=== PATIENT | female | born 1940 | race Caucasian/White ===

== ENCOUNTER 2021-06-02 21:45 | Emergency (ER) | payer MEDICARE, OTHER, SELFPAY ==
[2021-06-02 21:41] VITALS: BP 184/88; PULSE 101; RESP 18; TEMP 36.4; O2SAT 95; BMI 27.4
--- NOTE | 2021-06-02 22:18 | HMH.EDRECH ---
ED Disposition Clinical Impression: Anxiety Hypertension Qualifiers: Hypertension type: primary hypertension Qualified Code(s): I10 - Essential (primary) hypertension Arm fracture, right Qualifiers: Encounter type: subsequent encounter Fracture type: closed Fracture healing: with routine healing Qualified Code(s): S42.301D - Unspecified fracture of shaft of humerus, right arm, subsequent encounter for fracture with routine healing Disposition: Xfer SNF Condition on Discharge: Good Instructions: DI for Anxiety -- Adult Additional Instructions: will follow at [facility], [facility] Referrals: Provider,Referral, [Primary Care Provider] - - Critical Care Critical Care Time: No Attestation: On 06/02/21, the high probability of a clinically significant, sudden or life threatening deterioration of the following system(s) required my full and direct attention, intervention and personal management. The time I documented below is in addition to time spent performing reported procedures but includes the following listed in this critical care notation. Medical Decision Making - Medical Records Medical records reviewed: Yes: I reviewed the patient's medical records. - Benoit Inquiry Pt receiving controlled substance: No Vital Signs: 06/02/21 21:41 06/02/21 22:20 06/02/21 22:30 Temperature 97.6 F Temperature Source Oral Pulse Rate 107 H 104 H Pulse Rate [Left Radial] 101 H Respiratory Rate 18 18 Blood Pressure 180/92 H 174/85 H Blood Pressure [Left Arm] 184/88 H Blood Pressure Mean 113 Blood Pressure Mean [Left Arm] 120 Blood Pressure Source [Left Arm] Automatic Cuff Blood Pressure Position [Left Arm] Sitting 02 Sat by Pulse Oximetry 95 97 97 Oxygen Delivery Method Room Air Room Air 06/02/21 22:45 06/02/21 23:30 06/03/21 00:00 Temperature Temperature Source Pulse Rate 98 H 97 H 78 Pulse Rate [Left Radial] Respiratory Rate Blood Pressure 140/99 H 157/85 H 146/67 H Blood Pressure [Left Arm] Blood Pressure Mean Blood Pressure Mean [Left Arm] Blood Pressure Source [Left Arm] Blood Pressure Position [Left Arm] 02 Sat by Pulse Oximetry 96 98 93 L Oxygen Delivery Method 06/03/21 00:30 06/03/21 01:00 06/03/21 01:30 Temperature Temperature Source Pulse Rate 75 67 71 Pulse Rate [Left Radial] Respiratory Rate Blood Pressure 140/59 L 144/66 H 154/67 H Blood Pressure [Left Arm] Blood Pressure Mean Blood Pressure Mean [Left Arm] Blood Pressure Source [Left Arm] Blood Pressure Position [Left Arm] 02 Sat by Pulse Oximetry 97 92 L 95 Oxygen Delivery Method 06/03/21 01:52 06/03/21 02:48 06/03/21 03:00 Temperature Temperature Source Pulse Rate 71 75 65 Pulse Rate [Left Radial] Respiratory Rate Blood Pressure 127/61 163/62 H 154/67 H Blood Pressure [Left Arm] Blood Pressure Mean Blood Pressure Mean [Left Arm] Blood Pressure Source [Left Arm] Blood Pressure Position [Left Arm] 02 Sat by Pulse Oximetry 98 97 98 Oxygen Delivery Method 06/03/21 03:30 06/03/21 04:00 Temperature Temperature Source Pulse Rate 69 79 Pulse Rate [Left Radial] Respiratory Rate Blood Pressure 147/65 H 141/69 H Blood Pressure [Left Arm] Blood Pressure Mean Blood Pressure Mean [Left Arm] Blood Pressure Source [Left Arm] Blood Pressure Position [Left Arm] 02 Sat by Pulse Oximetry 95 96 Oxygen Delivery Method - Lab Data Lab results reviewed: Yes: I reviewed the patient's lab results. Lab Results 06/02/21 22:17: WBC 10.6, RBC 4.88, Hgb 14.2, Hct 45.1, MCV 92.3, MCH 29.2, MCHC 31.6 L, RDW 13.2, Plt Count 491 H, MPV 8.0, Neut % (Auto) 69.3, Lymph % (Auto) 22.8, [place] % (Auto) 5.2, Eos % (Auto) 1.9, Baso % (Auto) 0.7, Neut # (Auto) 7.3, Lymph # (Auto) 2.4, [place] # (Auto) 0.6, Eos # (Auto) 0.2, Baso # (Auto) 0.1 06/02/21 22:17: Sodium 140, Potassium 4.5, Chloride 107, Carbon Dioxide 21 L, Anion Gap 16.5 H, BUN 1
[2021-06-02 22:20] VITALS: BP 180/92; PULSE 107; RESP 18; O2SAT 97
[2021-06-02 22:28] LABS: Coronavirus 19, PCR Not Detected (NotDetected); Influenza A, PCR Not Detected (NotDetected); Influenza B, PCR Not Detected (NotDetected)
[2021-06-02 22:29] LABS: Basophils # 0.1 K/mm3 (0-0.2); Basophils % 0.7 % (0.1-2.0); Eosinophils # 0.2 K/mm3 (0.0-0.4); Eosinophils % 1.9 % (0.1-12.0); Hematocrit 45.1 % (37.0-47.0); Hemoglobin 14.2 g/dL (12.2-16.2); Lymphocytes # 2.4 K/mm3 (0.7-4.5); Lymphocytes % 22.8 % (10-50); Mean Corpuscular HGB Conc 31.6 g/dL (31.8-35.4); Mean Corpuscular Hemoglobin 29.2 pg (27.0-31.2); Mean Corpuscular Volume 92.3 fl (81-99); Monocytes # 0.6 K/mm3 (0.1-1.0); Monocytes % 5.2 % (1.7-9.3); Neutrophils # 7.3 K/mm3 (1.8-7.8); Neutrophils % 69.3 % (37.0-80.0); Platelet Count 491 K/mm3 (142-424); Red Blood Count 4.88 M/mm3 (4.20-5.40); Red Cell Distribution Width 13.2 % (11.5-17.5); White Blood Count 10.6 K/mm3 (4.8-10.8)
[2021-06-02 22:30] VITALS: BP 174/85; PULSE 104; O2SAT 97
[2021-06-02 22:32] LABS: Chloride 107 mmol/L (98-107)
[2021-06-02 22:33] LABS: Potassium 4.5 mmoL/L (3.5-5.1); Sodium 140 mmol/L (136-145)
[2021-06-02 22:35] LABS: Alanine Aminotransferase 13 U/L (12-78); Alkaline Phosphatase 136 U/L (38-126); Aspartate Amino Transferase 30 U/L (14-36); Bilirubin,Total 0.4 mg/dl (0.2-1.3); Blood Urea Nitrogen 17 mg/dl (7-17); Creatinine Clearance Estimated 56 mL/min (50-200); Estimated Glomerular Filt Rate 60 ml/min (>60); GFR (African American) 73 ML/MIN (>60)
[2021-06-02 22:36] LABS: Albumin Level 4.6 g/dl (3.5-5.0); Albumin/Globulin Ratio 1.4 (1.1-1.8); Anion Gap 16.5 mEq/L (5-15); Calcium 9.8 mg/dl (8.4-10.2); Carbon Dioxide 21 mmol/L (22.0-30.0); Globulin 3.2 g/dL (1.3-3.2); Glucose 130 mg/dl (74-100); Total Protein,Serum 7.8 g/dl (6.3-8.2)
[2021-06-02 22:45] VITALS: BP 140/99; PULSE 98; O2SAT 96
[2021-06-02 22:53] LABS: T4 (Thyroxine) 10.5 ug/dl (5.53-11.0)
[2021-06-02 23:07] LABS: Thyroid Stimulating Hormone 4.09 uIU/mL (0.465-4.68)
[2021-06-02 23:30] VITALS: BP 157/85; PULSE 97; O2SAT 98
[2021-06-02 23:36] LABS: Microscopic, Urine URINE MICROSCOPIC (MICROSCOPIC)
[2021-06-02 23:37] LABS: Appearance,Urine CLEAR (Clear); Bilirubin,Urine Negative (Negative); Blood, Urine Negative (Negative); Color,Urine YELLOW (Yellow); Glucose,Urine (UA) Negative (Negative); Ketones,Urine Negative (Negative); Leukocyte Esterase,Urine Negative (Negative); Nitrate,Urine Negative (Negative); PH,Urine 5.5 (5.0-8.5); Protein,Urine Negative (Negative); Specific Gravity, Urine 1.025 (1.005-1.030); Urobilinogen,Urine 0.2 EU/dl (0.2)
[2021-06-02 23:49] LABS: Bacteria,Urine Trace /lpf; WBC,Urine Occasional #/hpf (0-3)
[2021-06-03] VITALS (10 sets, daily range): BP systolic 127–163; BP diastolic 59–69; PULSE 65–82; RESP 18; TEMP 36.4; O2SAT 92–98
--- NOTE | 2021-06-03 04:37 | PC.NURSE ---
Pt sleeping at this time. No needs.
--- NOTE | 2021-06-03 05:00 | PC.NURSE ---
PT able to ambulate to restroom with assistance of one.
--- NOTE | 2021-06-03 06:36 | PC.NURSE ---
Pt sleeping at this time. No needs
--- NOTE | 2021-06-03 07:30 | PC.NURSE ---
[facility] NOTIFIED FOR POSSIBLE PLACEMENTS
--- NOTE | 2021-06-03 09:40 | PC.NURSE ---
Jennifer Blue at bedside
--- NOTE | 2021-06-03 09:54 | PC.NURSE ---
PT at bedside
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
== END 2021-06-03 15:53 ==
PROVIDERS: Emergency Provider Emergency Medicine
DX: F41.9 Anxiety disorder, unspecified (principal); S42.301D Unspecified fracture of shaft of humerus, right arm, subsequent encounter for fracture with routine healing; I10 Essential (primary) hypertension; Z20.822 Contact with and (suspected) exposure to COVID-19
CPT/HCPCS: 80053; 81001; 84436; 84443; 85025; 99283; C9803; U0003; U0005

== ENCOUNTER → 2021-07-04 09:53 | Outpatient (CLI) | payer MEDICARE, OTHER, SELFPAY ==
--- NOTE | 2021-07-04 10:00 | XR_ITS ---
PROCEDURE: XR SHOULDER RT MIN 2V CLINICAL INDICATION: RUE fracture COMPARISON: No exams were available for comparison FINDINGS: There are no previous exams available for comparison. There is an ununited transverse fracture involving the humeral neck. There is 2 cm medial displacement of the distal fracture fragment. Humeral head appears located. IMPRESSION: Old ununited displaced right humeral neck fracture Dictated by: Keyon Chen MD 07/04/2021 11:09 Keyon Chen MD in [place] 07/04/2021 11:09
== END ==
PROVIDERS: Visit Provider Orthopaedic Surgery
DX: M25.511 Pain in right shoulder; Z79.899 Other long term (current) drug therapy; S42.201K Unspecified fracture of upper end of right humerus, subsequent encounter for fracture with nonunion
CPT/HCPCS: 36415; 73030; 80053; 82652; 84134; 84443; 85025

== ENCOUNTER → 2021-07-04 11:24 | Outpatient (CLI) | payer MEDICARE, OTHER, SELFPAY ==
[2021-07-04 12:08] LABS: Basophils # 0.2 K/mm3 (0-0.2); Basophils % 1.7 % (0.1-2.0); Eosinophils # 0.2 K/mm3 (0.0-0.4); Eosinophils % 2.3 % (0.1-12.0); Hematocrit 45.2 % (37.0-47.0); Hemoglobin 13.9 g/dL (12.2-16.2); Lymphocytes # 3.7 K/mm3 (0.7-4.5); Lymphocytes % 38.9 % (10-50); Mean Corpuscular HGB Conc 30.7 g/dL (31.8-35.4); Mean Corpuscular Hemoglobin 28.6 pg (27.0-31.2); Mean Platelet Volume 7.7 fl (7.4-10.4); Monocytes # 0.4 K/mm3 (0.1-1.0); Monocytes % 4.1 % (1.7-9.3); Neutrophils # 5.1 K/mm3 (1.8-7.8); Platelet Count 446 K/mm3 (142-424); Red Blood Count 4.85 M/mm3 (4.20-5.40); Red Cell Distribution Width 13.2 % (11.5-17.5); White Blood Count 9.6 K/mm3 (4.8-10.8)
[2021-07-04 13:28] LABS: Alanine Aminotransferase 16 U/L (12-78); Albumin Level 4.3 g/dl (3.5-5.0); Albumin/Globulin Ratio 1.5 (1.1-1.8); Alkaline Phosphatase 124 U/L (38-126); Anion Gap 14.4 mEq/L (5-15); Aspartate Amino Transferase 26 U/L (14-36); Bilirubin,Total 0.3 mg/dl (0.2-1.3); Blood Urea Nitrogen 12 mg/dl (7-17); Calcium 9.7 mg/dl (8.4-10.2); Carbon Dioxide 25 mmol/L (22.0-30.0); Chloride 106 mmol/L (98-107); Estimated Glomerular Filt Rate 69 ml/min (>60); GFR (African American) 84 ML/MIN (>60); Globulin 2.8 g/dL (1.3-3.2); Glucose 88 mg/dl (74-100); Potassium 4.4 mmoL/L (3.5-5.1); Sodium 141 mmol/L (136-145); Total Protein,Serum 7.1 g/dl (6.3-8.2)
[2021-07-04 13:57] LABS: Thyroid Stimulating Hormone 2.42 uIU/mL (0.465-4.68)
[2021-07-05 11:35] LABS: Prealbumin 30 mg/dL (9-32)
[2021-07-16 21:08] LABS: 1,25 Dihydroxy Vitamin D 56 pg/mL (.); 1,25-Dihydroxy, Vitamin D-2 21 pg/mL (.); 1,25-Dihydroxy, Vitamin D-3 35 pg/mL (.)
== END ==
PROVIDERS: Visit Provider Orthopaedic Surgery
DX: M25.511 Pain in right shoulder (principal); M79.601 Pain in right arm; M79.89 Other specified soft tissue disorders
CPT/HCPCS: 36415; 80053; 82652; 84134; 84443; 85025

== ENCOUNTER → 2021-07-25 07:13 | Outpatient (CLI) | payer MEDICARE, OTHER, SELFPAY ==
--- NOTE | 2021-07-25 07:20 | CT_ITS ---
PROCEDURE: CT SHOULDER RT WO CON CLINICAL HISTORY: RT SHOULDER PAIN COMPARISON: CR XR SHOULDER RT MIN 2V from 07/04/2021 TECHNIQUE: Axial images obtained with sagittal and coronal reformats. All CT scans at the facility use one or more dose reduction, viz: automated exposure control, ma/kV adjustment per patient size (including targeted exams where dose is matched to indication, i.e. head), or iterative reconstruction technique. FINDINGS: An ununited comminuted fracture the neck of the. There is twelve mm medial displacement of the distal fracture. Fracture does not extend into the humeral head articular surface. Humeral head is high-riding but is not dislocated. There does appear to be a small avulsion fracture along the inferior aspect glenoid anteriorly. There is a small shoulder joint effusion. The muscles and ligaments are not well evaluated with CT. There may be tear of the subscapularis muscle distally. IMPRESSION: Comminuted ununited and displaced fracture of the neck of the humerus with suspected small avulsion fracture of the inferior glenoid and possible tear of the subscapularis muscle Dictated by: Keyon Chen MD 07/26/2021 07:24 Keyon Chen MD in [facility] 07/26/2021 07:24
== END ==
PROVIDERS: PCP Emergency Medicine; Visit Provider Emergency Medicine
DX: M25.511 Pain in right shoulder (principal)
CPT/HCPCS: 73200

== ENCOUNTER 2021-08-06 10:34 | Emergency (ER) | payer MEDICARE, OTHER, SELFPAY ==
[2021-08-06 10:35] VITALS: BP 119/56; PULSE 61; RESP 16; TEMP 36.8; O2SAT 98; BMI 26.1
--- NOTE | 2021-08-06 10:37 | XR_ITS ---
PROCEDURE: XR CHEST PORTABLE CLINICAL HISTORY: syncope COMPARISON: No exams were available for comparison FINDINGS: The cardiomediastinal silhouette and pulmonary vascularity are within normal limits. Right hemidiaphragm is slightly elevated. Left hemidiaphragm is not well delineated possibly due to the portable technique and pericardial fat pad. The remaining lungs are clear.. Old right humeral neck fracture IMPRESSION: Probably no acute finding. There is some increased density in the left lung base but could be related to the technique and pericardial fat pad. Upright PA and lateral chest may confirm if clinically warranted. Dictated by: Keyon Chen MD 08/06/2021 11:59 Keyon Chen MD in [facility] 08/06/2021 11:59
--- NOTE | 2021-08-06 10:39 | HMH.EDGENADL ---
ED Disposition Clinical Impression: Syncope and collapse UTI (urinary tract infection) Qualifiers: Urinary tract infection type: acute cystitis Hematuria presence: without hematuria Qualified Code(s): N30.00 - Acute cystitis without hematuria Disposition: Home, Self-Care Condition on Discharge: Good Instructions: DI for Syncope in Adults (Fainting), DI for Urinary Tract Infection (UTI) Additional Instructions: Follow-up with primary care provider. Return the emergency room if fainting recurs. Additional instructions for URINARY TRACT INFECTION: Take antibiotic as prescribed. See your physician in 2-3 days for follow up and culture results. Return immediately if you have an uncontrollable fever greater than 102 degrees, severe back or abdominal pain, inability to urinate, or repetitive vomiting. Prescriptions: Cefdinir [Omnicef 300mg Capsule] 300 mg PO BID #14 cap Prescription Printed Referrals: Provider,Referral, [Primary Care Provider] - - Critical Care Critical Care Time: No Attestation: On , the high probability of a clinically significant, sudden or life threatening deterioration of the following system(s) required my full and direct attention, intervention and personal management. The time I documented below is in addition to time spent performing reported procedures but includes the following listed in this critical care notation. Medical Decision Making - Benoit Inquiry Pt receiving controlled substance: No Vital Signs: 08/06/21 10:35 08/06/21 11:33 08/06/21 12:00 Temperature 98.3 F Temperature Source Oral Pulse Rate 65 61 Pulse Rate [Radial] 61 Respiratory Rate 16 20 18 Blood Pressure 139/65 152/70 H Blood Pressure [Right Femoral Artery] 119/56 L Blood Pressure Mean 81 96 Blood Pressure Mean [Right Femoral Artery] 77 Blood Pressure Position [Right Femoral Artery] Sitting 02 Sat by Pulse Oximetry 98 100 99 Oxygen Delivery Method Room Air - Lab Data Lab Results 08/06/21 11:34: WBC 11.5 H, RBC 4.86, Hgb 14.1, Hct 43.4, MCV 89.3, MCH 28.9, MCHC 32.4, RDW 13.2, Plt Count 405, MPV 7.6, Neut % (Auto) 74.2, Lymph % (Auto) 19.0, [place] % (Auto) 5.3, Eos % (Auto) 1.0, Baso % (Auto) 0.6, Neut # (Auto) 8.6 H, Lymph # (Auto) 2.2, [place] # (Auto) 0.6, Eos # (Auto) 0.1, Baso # (Auto) 0.1 08/06/21 11:34: Sodium 139, Potassium 4.5, Chloride 103, Carbon Dioxide 28, Anion Gap 12.5, BUN 19 H, Creatinine 0.90, Estimated Creat Clear 53, Estimated GFR 60, Est GFR ( Amer) 73, Glucose 103 H, Calcium 9.6, Total Bilirubin 0.4, AST 37 H, ALT 19, Alkaline Phosphatase 125, Troponin I < 0.01, Total Protein 7.2, Albumin 4.4, Globulin 2.8, Albumin/Globulin Ratio 1.6 08/06/21 11:40: Urine Color Yellow, Urine Appearance Clear, Urine pH 6.0, Ur Specific [place] 1.015, Urine Protein Negative, Urine Glucose (UA) Negative, Urine Ketones Negative, Urine Blood Negative, Urine Nitrate Positive, Urine Bilirubin Negative, Urine Urobilinogen 0.2, Ur Leukocyte Esterase 1+ A, Urine RBC Occasional, Urine WBC 5-10, Ur Squamous Epith Cells Occasional, Urine Bacteria 2+ Result diagrams: 08/06/21 11:34 08/06/21 11:34 Orders (Tests/Meds): ED MEDICATIONS Discontinued Medications Generic Name Dose Route Start Last Admin Trade Name Freq PRN Reason Stop Dose Admin Sodium Chloride 1,000 ml 08/06/21 10:51 08/06/21 11:35 Sodium Chloride 0.9% 1000ml Bag IV 08/06/21 10:52 1,000 ml BOLUS ONE Administration ORDERS Category Date Time Status Troponin I Q3H Lab 08/06/21 13:45 Ordered Troponin I Q3H Lab 08/06/21 16:45 Ordered Urine Culture Stat Micro 08/06/21 11:40 Received - Radiology Data #1 Image(s): Chest Image Reviewed: Yes I reviewed the patient's radiology image, Yes I have reviewed radiologist's interpretation PROCEDURE: XR CHEST PORTABLE CLINICAL HISTORY: syncope COMPARISON: No exams were available for comparison FINDINGS: The cardiomediastinal sil
--- NOTE | 2021-08-06 10:41 | ECG_ITS ---
APPROVED REPORT Exam: Resting ECG HR:61 bpm ECG Measurements Heart Rate 61 AXES GA 236 P 62 QRSd 82 QRS -11 QT 424 T 54 QTc 426 Conclusion Sinus rhythm with sinus arrhythmia with 1st degree AV block Moderate voltage criteria for LVH, may be normal variant Borderline ECG Electronically signed by : Ace Mills MD 08/08/2021 12:14:28
[2021-08-06 11:33] VITALS: BP 139/65; PULSE 65; RESP 20; O2SAT 100
[2021-08-06 11:44] LABS: Microscopic, Urine URINE MICROSCOPIC (MICROSCOPIC)
[2021-08-06 11:47] LABS: Appearance,Urine CLEAR (Clear); Bilirubin,Urine Negative (Negative); Blood, Urine Negative (Negative); Color,Urine YELLOW (Yellow); Glucose,Urine (UA) Negative (Negative); Ketones,Urine Negative (Negative); Leukocyte Esterase,Urine 1+ (Negative); Nitrate,Urine POSITIVE (Negative); Protein,Urine Negative (Negative); Specific Gravity, Urine 1.015 (1.005-1.030); Urobilinogen,Urine 0.2 EU/dl (0.2)
[2021-08-06 11:50] LABS: Chloride 103 mmol/L (98-107); Potassium 4.5 mmoL/L (3.5-5.1); Sodium 139 mmol/L (136-145)
[2021-08-06 11:52] LABS: Basophils # 0.1 K/mm3 (0-0.2); Basophils % 0.6 % (0.1-2.0); Eosinophils # 0.1 K/mm3 (0.0-0.4); Hematocrit 43.4 % (37.0-47.0); Hemoglobin 14.1 g/dL (12.2-16.2); Lymphocytes # 2.2 K/mm3 (0.7-4.5); Mean Corpuscular HGB Conc 32.4 g/dL (31.8-35.4); Mean Corpuscular Hemoglobin 28.9 pg (27.0-31.2); Mean Corpuscular Volume 89.3 fl (81-99); Mean Platelet Volume 7.6 fl (7.4-10.4); Monocytes # 0.6 K/mm3 (0.1-1.0); Monocytes % 5.3 % (1.7-9.3); Neutrophils # 8.6 K/mm3 (1.8-7.8); Neutrophils % 74.2 % (37.0-80.0); Platelet Count 405 K/mm3 (142-424); Red Blood Count 4.86 M/mm3 (4.20-5.40); Red Cell Distribution Width 13.2 % (11.5-17.5); White Blood Count 11.5 K/mm3 (4.8-10.8)
[2021-08-06 11:53] LABS: Alanine Aminotransferase 19 U/L (12-78); Albumin Level 4.4 g/dl (3.5-5.0); Albumin/Globulin Ratio 1.6 (1.1-1.8); Alkaline Phosphatase 125 U/L (38-126); Anion Gap 12.5 mEq/L (5-15); Aspartate Amino Transferase 37 U/L (14-36); Bilirubin,Total 0.4 mg/dl (0.2-1.3); Blood Urea Nitrogen 19 mg/dl (7-17); Carbon Dioxide 28 mmol/L (22.0-30.0); Creatinine Clearance Estimated 53 mL/min (50-200); Estimated Glomerular Filt Rate 60 ml/min (>60); GFR (African American) 73 ML/MIN (>60); Globulin 2.8 g/dL (1.3-3.2); Total Protein,Serum 7.2 g/dl (6.3-8.2)
[2021-08-06 11:54] LABS: Calcium 9.6 mg/dl (8.4-10.2); Glucose 103 mg/dl (74-100)
[2021-08-06 12:00] VITALS: BP 152/70; PULSE 61; RESP 18; O2SAT 99
[2021-08-06 12:02] LABS: Bacteria,Urine 2+ /lpf; RBC,Urine Occasional #/hpf (0-3); Squamous Epithelial Cell,Urine Occasional #/hpf (0-5)
[2021-08-06 12:07] LABS: Troponin I < 0.01 ng/ml (0.00-0.034)
[2021-08-06 12:30] VITALS: BP 143/68; PULSE 68; RESP 18; O2SAT 100
[2021-08-06 13:30] VITALS: BP 142/74; PULSE 78; RESP 18; TEMP 36.6; O2SAT 98
== END 2021-08-06 13:32 | disposition home or self-care (01) ==
PROVIDERS: Emergency Provider Emergency Medicine
DX: N30.00 Acute cystitis without hematuria (principal); B96.20 Unspecified Escherichia coli [E. coli] as the cause of diseases classified elsewhere; F41.9 Anxiety disorder, unspecified; I10 Essential (primary) hypertension
CPT/HCPCS: 36415; 71045; 80053; 81001; 84484; 85025; 87086; 87088; 87186; 93005; 96365; 96367; 99284

== ENCOUNTER 2021-11-04 10:31 | Emergency (ER) | payer MEDICARE, OTHER, MEDICAID, SELFPAY ==
[2021-11-04] VITALS (12 sets, daily range): BP systolic 144–169; BP diastolic 52–86; PULSE 64–100; RESP 15–20; TEMP 36.5–36.6; O2SAT 96–99; BMI 28.5
--- NOTE | 2021-11-04 10:05 | ECG_ITS ---
APPROVED REPORT Exam: Resting ECG HR:66 bpm ECG Measurements Heart Rate 66 AXES RI 236 P 76 QRSd 92 QRS 0 QT 426 T 84 QTc 440 Conclusion SINUS RHYTHM WITH FIRST DEGREE AV BLOCK NONSPECIFIC T-WAVE ABNORMALITY ABNORMAL ECG UNCONFIRMED REPORT Electronically signed by : Ace Mills MD 11/05/2021 21:56:54
--- NOTE | 2021-11-04 10:30 | PC.NURSE ---
pt was incontinent of stool upon arrival to ED, pt cleaned up at this time.
[2021-11-04 10:31] LABS: Basophils # 0.1 K/mm3 (0-0.2); Basophils % 0.7 % (0.1-2.0); Eosinophils # 0.2 K/mm3 (0.0-0.4); Eosinophils % 1.6 % (0.1-12.0); Hematocrit 37.3 % (37.0-47.0); Hemoglobin 12.1 g/dL (12.2-16.2); Lymphocytes # 2.1 K/mm3 (0.7-4.5); Lymphocytes % 23.1 % (10-50); Mean Corpuscular HGB Conc 32.4 g/dL (31.8-35.4); Mean Corpuscular Hemoglobin 30.3 pg (27.0-31.2); Mean Corpuscular Volume 93.3 fl (81-99); Mean Platelet Volume 7.9 fl (7.4-10.4); Monocytes # 0.5 K/mm3 (0.1-1.0); Monocytes % 5.6 % (1.7-9.3); Neutrophils # 6.1 K/mm3 (1.8-7.8); Neutrophils % 68.9 % (37.0-80.0); Platelet Count 352 K/mm3 (142-424); Red Cell Distribution Width 13.3 % (11.5-17.5); White Blood Count 8.9 K/mm3 (4.8-10.8)
[2021-11-04 10:32] LABS: Chloride 105 mmol/L (98-107)
[2021-11-04 10:33] LABS: Potassium 3.8 mmoL/L (3.5-5.1); Sodium 135 mmol/L (136-145)
[2021-11-04 10:35] LABS: Alanine Aminotransferase 16 U/L (12-78); Albumin Level 3.8 g/dl (3.5-5.0); Albumin/Globulin Ratio 1.6 (1.1-1.8); Alkaline Phosphatase 82 U/L (38-126); Anion Gap 9.8 mEq/L (5-15); Aspartate Amino Transferase 37 U/L (14-36); Bilirubin,Total 0.5 mg/dl (0.2-1.3); Blood Urea Nitrogen 16 mg/dl (7-17); Carbon Dioxide 24 mmol/L (22.0-30.0); Creatinine Clearance Estimated 57 mL/min (50-200); Estimated Glomerular Filt Rate 60 ml/min (>60); GFR (African American) 73 ML/MIN (>60); Globulin 2.4 g/dL (1.3-3.2); Total Protein,Serum 6.2 g/dl (6.3-8.2)
[2021-11-04 10:36] LABS: Calcium 7.9 mg/dl (8.4-10.2); Glucose 123 mg/dl (74-100); Lipase 90 U/L (23-300)
[2021-11-04 10:49] LABS: Troponin I < 0.01 ng/ml (0.00-0.034)
--- NOTE | 2021-11-04 12:37 | CT_ITS ---
FINAL REPORT TECHNIQUE: Axial CT images were performed through the head. Coronal reformatted images were submitted. This study was performed with techniques to keep radiation doses as low as reasonably achievable (ALARA). Individualized dose reduction techniques using automated exposure control or adjustment of mA and/or kV according to the patient's size were employed. CLINICAL HISTORY: syncope FINDINGS: There is moderate atrophy. The ventricles are normal in size. There is no evidence of hemorrhage. There is no mass or edema identified. There is no abnormal extra-axial fluid seen. There is extensive decreased attenuation in the deep white matter which is nonspecific and probably due to chronic microvascular ischemia. The sinuses are well aerated. IMPRESSION: No acute intracranial process. Extensive decreased attenuation in the deep white matter which is nonspecific and probably due to chronic microvascular ischemia. Moderate atrophy. Reviewed, Interpreted and Dictated by Geremias Muir MD Transcribed by Franchesca Acosta Authenticated by Geremias Muir MD on 11/04/2021 01:31:32 PM [facility]
--- NOTE | 2021-11-04 13:22 | PC.NURSE ---
Patient used bedpan; ua sent to lab
[2021-11-04 13:25] LABS: Microscopic, Urine URINE MICROSCOPIC (MICROSCOPIC)
[2021-11-04 13:29] LABS: Appearance,Urine CLEAR (Clear); Bilirubin,Urine Negative (Negative); Blood, Urine 1+ (Negative); Color,Urine YELLOW (Yellow); Glucose,Urine (UA) Negative (Negative); Ketones,Urine Negative (Negative); Leukocyte Esterase,Urine TRACE (Negative); Nitrate,Urine Negative (Negative); Protein,Urine Negative (Negative); Specific Gravity, Urine <= 1.005 (1.005-1.030); Urobilinogen,Urine 0.2 EU/dl (0.2)
[2021-11-04 13:41] LABS: Bacteria,Urine 1+ /lpf; RBC,Urine Occasional #/hpf (0-3)
--- NOTE | 2021-11-04 14:41 | HMH.EDGENADL ---
ED Disposition Clinical Impression: Syncope due to orthostatic hypotension Disposition: Home, Self-Care Condition on Discharge: Good Instructions: DI for Syncope in Adults (Fainting) Referrals: Provider,Referral, [Primary Care Provider] - - Critical Care Critical Care Time: No Attestation: On 11/04/21, the high probability of a clinically significant, sudden or life threatening deterioration of the following system(s) required my full and direct attention, intervention and personal management. The time I documented below is in addition to time spent performing reported procedures but includes the following listed in this critical care notation. Medical Decision Making - Medical Records Medical records reviewed: Yes: I reviewed the patient's medical records. - Benoit Inquiry Pt receiving controlled substance: No Vital Signs: 11/04/21 10:18 Temperature 97.7 F Temperature Source Oral Pulse Rate [Left Radial] 67 Respiratory Rate 15 Blood Pressure [Right Arm] 151/64 H Blood Pressure Mean [Right Arm] 93 02 Sat by Pulse Oximetry 98 Oxygen Delivery Method Room Air - Lab Data Lab Results 11/04/21 10:15: WBC 8.9, RBC 4.00 L, Hgb 12.1 L, Hct 37.3, MCV 93.3, MCH 30.3, MCHC 32.4, RDW 13.3, Plt Count 352, MPV 7.9, Neut % (Auto) 68.9, Lymph % (Auto) 23.1, [place] % (Auto) 5.6, Eos % (Auto) 1.6, Baso % (Auto) 0.7, Neut # (Auto) 6.1, Lymph # (Auto) 2.1, [place] # (Auto) 0.5, Eos # (Auto) 0.2, Baso # (Auto) 0.1 11/04/21 10:15: Sodium 135 L, Potassium 3.8, Chloride 105, Carbon Dioxide 24, Anion Gap 9.8, BUN 16, Creatinine 0.90, Estimated Creat Clear 57, Estimated GFR 60, Est GFR ( Amer) 73, Glucose 123 H, Calcium 7.9 L, Total Bilirubin 0.5, AST 37 H, ALT 16, Alkaline Phosphatase 82, Troponin I < 0.01, Total Protein 6.2 L, Albumin 3.8, Globulin 2.4, Albumin/Globulin Ratio 1.6 11/04/21 10:15: Lipase 90 11/04/21 13:21: Urine Color Yellow, Urine Appearance Clear, Urine pH 6.0, Ur Specific [place] <= 1.005, Urine Protein Negative, Urine Glucose (UA) Negative, Urine Ketones Negative, Urine Blood 1+, Urine Nitrate Negative, Urine Bilirubin Negative, Urine Urobilinogen 0.2, Ur Leukocyte Esterase Trace, Urine RBC Occasional, Urine WBC 3-5, Ur Squamous Epith Cells 5-10, Urine Bacteria 1+ Result diagrams: 11/04/21 10:15 11/04/21 10:15 Orders (Tests/Meds): ED MEDICATIONS Discontinued Medications Generic Name Dose Route Start Last Admin Trade Name Freq PRN Reason Stop Dose Admin Sodium Chloride 1,000 mls @ 999 mls/hr 11/04/21 10:30 11/04/21 10:33 Sod Chlor 0.9% 1000ml Bag IV 11/04/21 11:30 999 mls/hr .Q1H1M BALDEV Administration Ondansetron HCl 4 mg 11/04/21 10:20 11/04/21 10:33 Ondansetron 4mg/2ml Vial IV 11/04/21 10:21 4 mg ONCE ONE Administration ORDERS Category Date Time Status Troponin I Q3H Lab 11/04/21 13:30 Ordered Troponin I Q3H Lab 11/04/21 16:30 Ordered - CT Data CT Scan: Head Time Received: 14:[address] Reviewed: Yes: I have reviewed the patient's CT results, I have viewed the radiologist's interpretation Findings Narrative: IMPRESSION: No acute intracranial process. Extensive decreased attenuation in the deep white matter which is nonspecific and probably due to chronic microvascular ischemia. Moderate atrophy. - ECG Data Tracing #1 I reviewed this ECG and interpreted as documented below: Normal jugular rate in 60s beats per minute, TN interval 236 ms, normal QTC of 440 ms, sinus rhythm first-degree AV block, nonspecific changes. ECG initial impression date: 11/04/21 ECG initial impression time: 10:05 - Reevaluation(s) Time: 14:45 Reevaluation #1: On reevaluation, the patient is feeling much better. CT scan was unremarkable. Repeat neurologic exam is normal. Patient needs follow-up with PCP for 8 hours. Given strict return precautions. Verbalized understanding. Medical Decision Narrative: 81-year-old female presented to the emergency depar
== END 2021-11-04 15:49 | disposition home or self-care (01) ==
PROVIDERS: Emergency Provider Emergency Medicine
DX: R55 Syncope and collapse (principal); I95.9 Hypotension, unspecified; I10 Essential (primary) hypertension; F41.9 Anxiety disorder, unspecified; Z88.0 Allergy status to penicillin; Z88.5 Allergy status to narcotic agent
CPT/HCPCS: 70450; 80053; 81001; 83690; 84484; 85025; 93005; 96365; 96375; 99284; J2405

== ENCOUNTER → 2022-05-07 06:01 | Outpatient (CLI) | payer MEDICARE, OTHER, SELFPAY | PROVIDERS: Visit Provider Urology | DX: N30.00 Acute cystitis without hematuria (principal); B96.29 Other Escherichia coli [E. coli] as the cause of diseases classified elsewhere | CPT/HCPCS: 87086; 87088; 87186 ==

== ENCOUNTER 2023-03-15 14:57 | Emergency (ER) | payer MEDICARE, OTHER, MEDICAID, SELFPAY ==
[2023-03-15 14:58] VITALS: BP 158/70; PULSE 77; RESP 18; TEMP 36.7; O2SAT 96; BMI 29.0
--- NOTE | 2023-03-15 14:58 | XR_ITS ---
FINAL REPORT CLINICAL HISTORY: fall pain FINDINGS: LEFT HIP 2 views of the left hip and an AP view of the pelvis are obtained. There is no acute fracture or dislocation. There are moderate degenerative changes of the hips bilaterally. Visualized joint spaces are normally aligned. There is no acute soft tissue abnormality. Mild vascular calcifications are noted. IMPRESSION: No acute bony abnormality. Reviewed, Interpreted and Dictated by Nimesh Garrido III, MD Transcribed by Kirstin Tobias Authenticated and [facility]
--- NOTE | 2023-03-15 14:58 | XR_ITS ---
FINAL REPORT CLINICAL HISTORY: fall pain FINDINGS: LEFT FEMUR AP and lateral views of the left femur were obtained. There is no acute fracture or dislocation. There are moderate degenerative changes of the hip and knee. Mild vascular calcifications are noted. IMPRESSION: No acute bony abnormality of the left femur. Reviewed, Interpreted and Dictated by Nimesh Garrido III, MD Transcribed by Kirstin Tobias Authenticated and [facility]
--- NOTE | 2023-03-15 15:00 | HMH.EDGENADL ---
Discharge Plan Disposition Patient Disposition: Admitted Chief Complaint: Fall Prescriptions Prescriptions: No Action acetaminophen 325 mg capsule 325 mg PO BID PRN (Reason: pain) Qty: 60 0RF melatonin 3 mg tablet 3 mg PO HS PRN (Reason: sleep) Qty: 30 0RF lorazepam 1 mg tablet 1 mg PO BID Qty: 60 5RF loperamide 2 MG tablet 2 mg PO BID PRN (Reason: Diarrhea) amitriptyline 50 MG tablet 50 mg PO HS ondansetron HCl 4 mg tablet 4 mg PO NEEDED PRN (Reason: Nausea) tramadol 50 mg tablet 50 mg PO DAILY gabapentin 100 mg capsule 100 mg PO HS rivastigmine 4.6 mg/24 hour patch 24 hour 1 patch transdermal DAILY meclizine 12.5 mg Tablet 12.5 mg PO TID PRN (Reason: Dizziness) Myrbetriq 50 mg tablet extended release 24 hr 50 mg PO DAILY Referrals Follow up/Referrals: Augustin Ho [Primary Care Provider] - See instructions Clinical Impressions Clinical Impression: Closed fracture of head of left femur Discharge ED Provider: Carlotta Vo General Adult HPI General Chief complaint: Fall Stated complaint: left hip pain Time Seen by Provider: 03/15/23 14:58 History of Present Illness HPI narrative: Patient is an 82-year-old female sent in from [facility] brought in by EMS for left hip fracture. She states that she was undressing on Wednesday and she fell and is not exactly sure how she fell but was mechanical in nature she sustained a left hip injury at that time and has been unable to walk or move her leg since that time. She states that they put her in bed and she has been unable to move but they are awaiting an x-ray so she was there for several more days at which point they got an x-ray today showing a hip fracture and transferred her to the emergency department today. She also did hit her head a few days ago but she states that her head pain has completely resolved and is not a concern at this point. She is not on any anticoagulation and states that she has no significant medical problems. Related Data Home Medications Medication Instructions Recorded Confirmed amitriptyline 50 mg tablet 50 mg PO HS sleep 06/02/21 03/15/23 loperamide 2 mg tablet 2 mg PO BID PRN Diarrhea 06/02/21 03/15/23 gabapentin 100 mg capsule 100 mg PO HS Pain 03/15/23 03/15/23 meclizine 12.5 mg tablet 12.5 mg PO TID PRN Dizziness 03/15/23 03/15/23 mirabegron 50 mg tablet,extended 50 mg PO DAILY INCONT 03/15/23 03/15/23 release 24 hr (Myrbetriq) ondansetron HCl 4 mg tablet 4 mg PO NEEDED PRN Nausea 03/15/23 03/15/23 rivastigmine 4.6 mg/24 hour 1 patch transdermal DAILY DEMENTIA 03/15/23 03/15/23 transdermal patch tramadol 50 mg tablet 50 mg PO DAILY Pain 03/15/23 03/15/23 Previous Rx's Medication Instructions Recorded acetaminophen 325 mg capsule 325 mg PO BID PRN pain #60 caps 07/02/21 melatonin 3 mg tablet 3 mg PO HS PRN sleep #30 tabs 07/02/21 lorazepam 1 mg tablet 1 mg PO BID Anxiety #60 tabs 07/18/21 Allergies Allergy/AdvReac Type Severity Reaction Status Date / Time codeine Allergy Verified 05/07/22 13:44 gabapentin Allergy Verified 05/07/22 13:44 Penicillins Allergy Verified 05/07/22 13:44 pregabalin [From Lyrica] Allergy Verified 05/07/22 13:44 sulfate ion Allergy Verified 05/07/22 13:44 suvorexant Allergy Verified 05/07/22 13:44 venlafaxine [From Effexor] Allergy Verified 05/07/22 13:44 PFSH PFS Disclaimer: The information contained in this section may have been updated after the patient was seen, as this information can be updated by other users. Social History (Updated 05/07/22 @ 16:15 by Tommie Child MD) Smoking Status: Never smoker alcohol intake: never current occupational status: disabled Travel in the last 8 weeks: None housing: [facility] ROS Obtained: Yes All systems reviewed & no additional complaints except as documented Physical Exam General General appearance: alert Re
--- NOTE | 2023-03-15 15:12 | PC.NURSE ---
pt in radiology
[2023-03-15 15:13] LABS: Basophils # 0.1 K/mm3 (0-0.2); Basophils % 0.4 % (0.1-2.0); Eosinophils # 0.3 K/mm3 (0.0-0.4); Eosinophils % 2.9 % (0.1-12.0); Hematocrit 41.4 % (37.0-47.0); Hemoglobin 13.1 g/dL (12.2-16.2); Mean Corpuscular HGB Conc 31.6 g/dL (31.8-35.4); Mean Corpuscular Hemoglobin 28.1 pg (27.0-31.2); Mean Corpuscular Volume 88.8 fl (81-99); Mean Platelet Volume 7.7 fl (7.4-10.4); Monocytes # 0.8 K/mm3 (0.1-1.0); Monocytes % 7.4 % (1.7-9.3); Neutrophils # 7.5 K/mm3 (1.8-7.8); Neutrophils % 70.2 % (37.0-80.0); Platelet Count 250 K/mm3 (142-424); Red Blood Count 4.66 M/mm3 (4.20-5.40); Red Cell Distribution Width 12.8 % (11.5-17.5); White Blood Count 10.6 K/mm3 (4.8-10.8)
[2023-03-15 15:17] LABS: Chloride 104 mmol/L (98-107)
[2023-03-15 15:18] LABS: Potassium 4.2 mmoL/L (3.5-5.1); Sodium 140 mmol/L (136-145)
[2023-03-15 15:20] LABS: Alanine Aminotransferase 28 U/L (12-78); Albumin Level 3.8 g/dl (3.5-5.0); Albumin/Globulin Ratio 1.3 (1.1-1.8); Alkaline Phosphatase 90 U/L (38-126); Anion Gap 10.2 mEq/L (5-15); Aspartate Amino Transferase 40 U/L (14-36); Bilirubin,Total 0.5 mg/dl (0.2-1.3); Blood Urea Nitrogen 25 mg/dl (7-17); Carbon Dioxide 30 mmol/L (22.0-30.0); Creatinine Clearance Estimated 2 mL/min (50-200); Estimated Glomerular Filt Rate 69 ml/min (>60); GFR (African American) 83 ML/MIN (>60); Globulin 2.9 g/dL (1.3-3.2); Total Protein,Serum 6.7 g/dl (6.3-8.2)
[2023-03-15 15:21] LABS: Calcium 8.7 mg/dl (8.4-10.2); Glucose 131 mg/dl (74-100)
[2023-03-15 15:27] LABS: Activated Partial Thrombo Time 25.1 seconds (22.8-30.6); Prothrombin Time 10.8 seconds (10.1-12.5)
[2023-03-15 15:30] VITALS: BP 149/83; PULSE 99; RESP 20; O2SAT 93
--- NOTE | 2023-03-15 15:43 | PC.NURSE ---
pt back from radiology pain meds given and pure wic placed pt resting
--- NOTE | 2023-03-15 15:59 | ECG_ITS ---
APPROVED REPORT Exam: Resting ECG HR:99 bpm ECG Measurements Heart Rate 99 AXES PA 264 P 82 QRSd 97 QRS 1 QT 323 T 80 QTc 379 Conclusion SINUS RHYTHM WITH SINUS ARRHYTHMIA WITH FIRST DEGREE AV BLOCK NONSPECIFIC ST & T-WAVE ABNORMALITY ABNORMAL ECG UNCONFIRMED REPORT Electronically signed by : Ace Mills MD 03/15/2023 19:31:15
[2023-03-15 16:00] VITALS: BP 171/83; PULSE 100; O2SAT 98
--- NOTE | 2023-03-15 16:03 | PC.NURSE ---
pt place on O2 pt O2 sats will drop to 88% while sleeping after morphine o2 @ 2 lpm via cannula
--- NOTE | 2023-03-15 16:05 | PC.NURSE ---
DR LEONG SPEAKING WITH DR YUEN FOR ADMISSION
--- NOTE | 2023-03-15 16:07 | CT_ITS ---
PROCEDURE INFORMATION: Exam: CT Left Lower Extremity Without Contrast, Hip Exam date and time: 03/15/2023 4:23 PM Age: 82 years old Clinical indication: Injury or trauma; Fall; Blunt trauma; Hip; Left; Additional info: Femoral head fracture TECHNIQUE: Imaging protocol: CT of the left lower extremity without contrast was performed. Exam focused on the hip. Radiation optimization: All CT scans at this facility use at least one of these dose optimization techniques: automated exposure control; mA and/or kV adjustment per patient size (includes targeted exams where dose is matched to clinical indication); or iterative reconstruction. REPORTING DATA: Count of CT and Cardiac NM exams in prior 12 months: This patient has received 0 known CTs and 0 known cardiac nuclear medicine studies in the 12 months prior to the current study. COMPARISON: CR XR HIP LT 2-3V W/PELVIS 03/15/2023 3:04 PM FINDINGS: Bones/joints: No visible fracture or dislocation. Degenerative changes as evidenced by marginal osteophytes and diffuse joint space narrowing. Soft tissues: Normal. IMPRESSION: No visible fracture or dislocation.
--- NOTE | 2023-03-15 16:09 | PC.NURSE ---
covid swab sent to lab
--- NOTE | 2023-03-15 16:10 | PC.NURSE ---
SOFTWARE APPLICATIONS SPECIALIST NOTIFIED OF ADMISSION
[2023-03-15 16:21] LABS: Coronavirus 19, PCR Not Detected (NotDetected); Influenza A, PCR Not Detected (NotDetected); Influenza B, PCR Not Detected (NotDetected)
[2023-03-15 16:30] VITALS: BP 162/129; PULSE 88; O2SAT 99
[2023-03-15 16:33] VITALS: BP 175/81; PULSE 71; RESP 22; O2SAT 97
--- NOTE | 2023-03-15 16:45 | EXP.ORTH.CON ---
History of Present Illness *Admission Date: 03/15/23 *Reason for visit:: Possible left hip fracture *History of present illness: 82-year-old female who is a custodial patient in [facility]. Had a fall a couple days ago. Experience left hip pain. Had x-ray performed which showed possible femoral head fracture. She was sent to the emergency room after these x-ray findings. She reports to me that she had significant pain in her hip was unable to bear weight without pain. Since arriving at the hospital and what ever medication she had had has resolved her symptoms. She has really no pain at rest right now. And no pain with active internal and external rotation of the hip while she is laying straight. She reports that she had significant pain attempting to weight-bear. She reports that she has been trying to use the walker recently secondary to the possibility of falling. X-rays repeated at the facility today and CT scan of the hip ordered. [facility] Disclaimer: The information contained in this section may have been updated after the patient was seen, as this information can be updated by other users. Social History (Updated 05/07/22 @ 16:15 by Tommie Child MD) Smoking Status: Never smoker alcohol intake: never current occupational status: disabled Travel in the last 8 weeks: None housing: custodial Meds Home Medications and Allergies Home Medications Medication Instructions Recorded Confirmed Type amitriptyline 50 mg tablet 50 mg PO HS sleep 06/02/21 03/15/23 History loperamide 2 mg tablet 2 mg PO BID PRN Diarrhea 06/02/21 03/15/23 History acetaminophen 325 mg capsule 325 mg PO BID PRN pain #60 caps 07/02/21 03/15/23 Rx melatonin 3 mg tablet 3 mg PO HS PRN sleep #30 tabs 07/02/21 03/15/23 Rx lorazepam 1 mg tablet 1 mg PO BID Anxiety #60 tabs 07/18/21 03/15/23 Rx gabapentin 100 mg capsule 100 mg PO HS Pain 03/15/23 03/15/23 History meclizine 12.5 mg tablet 12.5 mg PO TID PRN Dizziness 03/15/23 03/15/23 History mirabegron 50 mg tablet,extended 50 mg PO DAILY INCONT 03/15/23 03/15/23 History release 24 hr (Myrbetriq) ondansetron HCl 4 mg tablet 4 mg PO NEEDED PRN Nausea 03/15/23 03/15/23 History rivastigmine 4.6 mg/24 hour 1 patch transdermal DAILY DEMENTIA 03/15/23 03/15/23 History transdermal patch tramadol 50 mg tablet 50 mg PO DAILY Pain 03/15/23 03/15/23 History New Prescriptions to Start Prescriptions: Allergies Allergy/AdvReac Type Severity Reaction Status Date / Time codeine Allergy Verified 05/07/22 13:44 gabapentin Allergy Verified 05/07/22 13:44 Penicillins Allergy Verified 05/07/22 13:44 pregabalin [From Lyrica] Allergy Verified 05/07/22 13:44 sulfate ion Allergy Verified 05/07/22 13:44 suvorexant Allergy Verified 05/07/22 13:44 venlafaxine [From Effexor] Allergy Verified 05/07/22 13:44 Ortho Exam (Inpt) Vital signs and Labs for Last 24 Hours: Temp Pulse Resp BP Pulse Ox 98.0 F 88 20 162/129 H 99 03/15/23 14:58 03/15/23 16:30 03/15/23 15:30 03/15/23 16:30 03/15/23 16:30 Laboratory Results - last 24 hr 03/15/23 14:59: WBC 10.6, RBC 4.66, Hgb 13.1, Hct 41.4, MCV 88.8, MCH 28.1, MCHC 31.6 L, RDW 12.8, Plt Count 250, MPV 7.7, Neut % (Auto) 70.2, Lymph % (Auto) 19.0, Coal % (Auto) 7.4, Eos % (Auto) 2.9, Baso % (Auto) 0.4, Neut # (Auto) 7.5, Lymph # (Auto) 2.0, Coal # (Auto) 0.8, Eos # (Auto) 0.3, Baso # (Auto) 0.1, PT 10.8, INR 1.00, APTT 25.1, Sodium 140, Potassium 4.2, Chloride 104, Carbon Dioxide 30, Anion Gap 10.2, BUN 25 H, Creatinine 0.80, Estimated Creat Clear 2, Estimated GFR 69, Est GFR ( Amer) 83, Glucose 131 H, Calcium 8.7, Total Bilirubin 0.5, AST 40 H, ALT 28, Alkaline Phosphatase 90, Total Protein 6.7, Albumin 3.8, Globulin 2.9, Albumin/Globulin Ratio 1.3 03/15/23 16:08: SARS-CoV-2 (PCR) Not detected, Influenza A Untype (PCR) Not detected, Influenza Type B (PCR) Not detected I & O for Labs for Last 24 Hours: Intake & Out
--- NOTE | 2023-03-15 16:57 | PC.NURSE ---
Dr. Vo spoke with Dr. Whipple who informed him that he and Dr. Pino agree that the pt does not need to be admitted and can go back to the long-term with out pt OT and PT
--- NOTE | 2023-03-15 16:58 | PC.NURSE ---
PT SLEEPING IN BED CALL LIGHT AT BS
--- NOTE | 2023-03-15 17:07 | PC.NURSE ---
attempted to call report 3 times. put on hold multiples times and no call back or answer. pt being sent back via EMS.
--- NOTE | 2023-03-15 17:08 | PC.NURSE ---
EMS called for transport
[2023-03-15 17:38] VITALS: BP 166/87; PULSE 76; RESP 17; TEMP 36.7; O2SAT 97
== END 2023-03-15 17:40 ==
LOC: ER 16:09 → 2ND 16:31
PROVIDERS: Emergency Provider Student in an Organized Health Care Education/Training Program; PCP Family Medicine
DX: S72.052A Unspecified fracture of head of left femur, initial encounter for closed fracture (principal); W19.XXXA Unspecified fall, initial encounter
CPT/HCPCS: 73502; 73552; 73700; 80053; 85025; 85610; 85730; 87636; 93005; 96372; 96374; 96375; 99285; J2405

== ENCOUNTER 2023-03-31 11:30 | Emergency (ER) | payer MEDICARE, OTHER, SELFPAY ==
[2023-03-31 11:31] VITALS: BP 132/80; PULSE 81; RESP 17; TEMP 36.6; O2SAT 98; BMI 26.2
--- NOTE | 2023-03-31 11:34 | HMH.EDGENADL ---
Discharge Plan Disposition Patient Disposition: Home, Self-Care Prescriptions Prescriptions: No Action acetaminophen 325 mg capsule 325 mg PO BID PRN (Reason: pain) Qty: 60 0RF melatonin 3 mg tablet 3 mg PO HS PRN (Reason: sleep) Qty: 30 0RF lorazepam 1 mg tablet 1 mg PO BID Qty: 60 5RF loperamide 2 MG tablet 2 mg PO BID PRN (Reason: Diarrhea) amitriptyline 50 MG tablet 50 mg PO HS ondansetron HCl 4 mg tablet 4 mg PO NEEDED PRN (Reason: Nausea) tramadol 50 mg tablet 50 mg PO DAILY gabapentin 100 mg capsule 100 mg PO HS rivastigmine 4.6 mg/24 hour patch 24 hour 1 patch transdermal DAILY meclizine 12.5 mg Tablet 12.5 mg PO TID PRN (Reason: Dizziness) Myrbetriq 50 mg tablet extended release 24 hr 50 mg PO DAILY Referrals Follow up/Referrals: Augustin Ho [Primary Care Provider] - See instructions Activity Restrictions/Add. Instructions Additional Instructions/Restrictions: No changes in your x-ray today. You may continue to take Tylenol and/or ibuprofen as needed for your symptoms. You were diagnosed after initial visit with an osteophyte fracture which is very small this was by the orthopedic surgeons personal review of the images. Your formal read from the radiologist was that it was negative nonetheless this is nonsurgical in nature you may follow-up with orthopedic surgery or primary care doctor outpatient. Clinical Impressions Clinical Impression: Acute pain of left hip, Osteoarthritis of left hip Discharge ED Provider: Carlotta Vo General Adult HPI General Chief complaint: PAIN Stated complaint: Pain from previous fall Time Seen by Provider: 03/31/23 11:34 Mode of Arrival: EMS Source of Information: Patient and EMS Limitations: No Limitations Description of Symptoms (Recalled from ER Triage Doc. by RN): pt to ed c/o left sided pain (hip, leg, ribs) resulting from a fall 03/15. pt states the pain has not resolved. pt denies any head trauma. History of Present Illness HPI narrative: 82-year-old female presents the emergency department after a fall on 03 15. At that time she had a x-ray and a CT that were concerning for possible fracture reviewed by Dr. Pino diagnosed with an osteophyte fracture that was nonoperative and sent back to her [facility]. Since that time she is just been having worsening pain on that side. No other new injuries that she is aware of. No fevers or chills. Denies pain elsewhere to me states is localized to the left hip. Related Data Home Medications Medication Instructions Recorded Confirmed amitriptyline 50 mg tablet 50 mg PO HS sleep 06/02/21 03/15/23 loperamide 2 mg tablet 2 mg PO BID PRN Diarrhea 06/02/21 03/15/23 gabapentin 100 mg capsule 100 mg PO HS Pain 03/15/23 03/15/23 meclizine 12.5 mg tablet 12.5 mg PO TID PRN Dizziness 03/15/23 03/15/23 mirabegron 50 mg tablet,extended 50 mg PO DAILY INCONT 03/15/23 03/15/23 release 24 hr (Myrbetriq) ondansetron HCl 4 mg tablet 4 mg PO NEEDED PRN Nausea 03/15/23 03/15/23 rivastigmine 4.6 mg/24 hour 1 patch transdermal DAILY DEMENTIA 03/15/23 03/15/23 transdermal patch tramadol 50 mg tablet 50 mg PO DAILY Pain 03/15/23 03/15/23 Previous Rx's Medication Instructions Recorded acetaminophen 325 mg capsule 325 mg PO BID PRN pain #60 caps 07/02/21 melatonin 3 mg tablet 3 mg PO HS PRN sleep #30 tabs 07/02/21 lorazepam 1 mg tablet 1 mg PO BID Anxiety #60 tabs 07/18/21 Allergies Allergy/AdvReac Type Severity Reaction Status Date / Time codeine Allergy Verified 05/07/22 13:44 gabapentin Allergy Verified 05/07/22 13:44 Penicillins Allergy Verified 05/07/22 13:44 pregabalin [From Lyrica] Allergy Verified 05/07/22 13:44 sulfate ion Allergy Verified 05/07/22 13:44 suvorexant Allergy Verified 05/07/22 13:44 venlafaxine [From Effexor] Allergy Verified 05/07/22 13:44 [facility] Disclaimer: The information contained in this section may have
--- NOTE | 2023-03-31 11:40 | XR_ITS ---
FINAL REPORT CLINICAL HISTORY: ongoing left hip pain, recent osteophyte fracture COMPARISON: 03/15/2023 FINDINGS: AP and frog leg views of the left hip were obtained. There is no acute fracture or dislocation. There is degenerative joint disease of the hips bilaterally which appears stable. No new abnormality identified. There is no soft tissue abnormality. IMPRESSION: No new abnormality identified. Reviewed, Interpreted and Dictated by Chelle Strauss MD Transcribed by Ashley Dickson Authenticated and [facility]
--- NOTE | 2023-03-31 11:47 | PC.NURSE ---
Addendum entered by Miesha Ojeda 03/31/23 11:48: Pt to Xray Original Note: pt to CT
--- NOTE | 2023-03-31 12:30 | PC.NURSE ---
attempted to call report to [facility], no phone answered.
--- NOTE | 2023-03-31 12:45 | PC.NURSE ---
report called to clay at [facility].
[2023-03-31 16:33] VITALS: BP 147/70; PULSE 74; RESP 20; TEMP 36.6; O2SAT 97
== END 2023-03-31 16:34 | disposition home or self-care (01) ==
PROVIDERS: Emergency Provider Student in an Organized Health Care Education/Training Program; PCP Family Medicine
DX: R07.81 Pleurodynia (principal); M25.552 Pain in left hip; M79.605 Pain in left leg; W19.XXXA Unspecified fall, initial encounter; M16.12 Unilateral primary osteoarthritis, left hip
CPT/HCPCS: 73502; 99283

== ENCOUNTER 2023-09-24 06:31 | Emergency (ER) | payer MEDICARE, OTHER, SELFPAY ==
--- NOTE | 2023-09-24 05:57 | PC.NURSE ---
received report from Shandra @ [facility] who stated : patient was sitting on the side of her bed, reaching downward to obtain a depends brief to 'take with her to the bathroom' when her feet slipped out from under her and she pitched forward striking the right side of her head on the floor . No LOC reported. Patient is DNR status. Patient was a&ox4 prior to fall and Shandra reports following fall. Reported a hematoma to the right side of her head. Additional complaints include pain in her Right rib cage. Denies dyspnea. Denies recent illness. No recent med changes. Baseline= ambulatory with assistive device ( walker). Daughter is reportedly aware of transfer to this facility. Waiting on ambulance at this time.
[2023-09-24 06:31] VITALS: BP 167/63; PULSE 69; RESP 16; TEMP 36.5; O2SAT 96; BMI 26.4
--- NOTE | 2023-09-24 06:44 | CT_ITS ---
FINAL REPORT CLINICAL HISTORY: unwitnessed fall at custodial, age >65 COMPARISON: None FINDINGS: Axial CT images of the cervical spine were obtained without contrast. Sagittal and coronal reformatted images were also obtained. This study was performed with techniques to keep radiation doses as low as reasonably achievable (ALARA). Individualized dose reduction techniques using automated exposure control or adjustment of mA and/or kV according to the patient's size were employed. There is fusion at C5-6. There is no evidence of fracture or dislocation. There is mild and moderate degenerative change. There is mild anterolisthesis of C4 on C5. There is multilevel neuroforaminal narrowing. There is no evidence of significant canal stenosis. The thyroid is enlarged and nodular consistent with goiter. Limited images of the upper thorax are unremarkable. IMPRESSION: No fracture or acute bony abnormality identified. Reviewed, Interpreted and Dictated by Nimesh Garrido III, MD Transcribed by Ashley Dickson Authenticated and [facility]
--- NOTE | 2023-09-24 06:44 | XR_ITS ---
FINAL REPORT CLINICAL HISTORY: unwitnessed fall at [facility], age >65 COMPARISON: None FINDINGS: SINGLE VIEW PELVIS: A single view of the pelvis was obtained. There is no acute fracture or dislocation. There is moderate degenerative change of the right hip. There is mild degenerative change of the left hip. Soft tissues are unremarkable. IMPRESSION: No acute bony abnormality. If symptoms persist or are severe, CT or MRI may be helpful. Reviewed, Interpreted and Dictated by Nimesh Garrido III, MD Transcribed by Ashley Dickson Authenticated and [facility]
--- NOTE | 2023-09-24 06:44 | XR_ITS ---
FINAL REPORT CLINICAL HISTORY: fall, age >65, cough, weakness COMPARISON: None FINDINGS: A single portable view of the chest was obtained. The heart size and pulmonary vascularity are within normal limits. The mediastinum is within normal limits. No acute pulmonary abnormality is identified. The bony thorax is intact. Fracture of the proximal right humerus is favored to be subacute. IMPRESSION: No active cardiopulmonary disease. Favor subacute proximal right humerus fracture. Reviewed, Interpreted and Dictated by Nimesh Garrido III, MD Transcribed by Ashley Dickson Authenticated and . [facility]
--- NOTE | 2023-09-24 06:44 | CT_ITS ---
FINAL REPORT CLINICAL HISTORY: unwitnessed fall at detention, L head trauma COMPARISON: 11/04/2021 FINDINGS: Axial images of the head were obtained without contrast. Coronal reformatted images were also obtained. This study was performed with techniques to keep radiation doses as low as reasonably achievable (ALARA). Individualized dose reduction techniques using automated exposure control or adjustment of mA and/or kV according to the patient''s size were employed. There is generalized age-appropriate atrophy. Periventricular low-attenuation areas are seen consistent with mild chronic ischemic changes. There is no evidence of intracranial hemorrhage or mass. There is no evidence of acute infarct. There is no evidence of shift of the midline structures. No skull abnormality is seen on the bone window images. Right frontal scalp soft tissue swelling is noted. IMPRESSION: Atrophy and mild periventricular chronic ischemic changes. No acute intracranial abnormality identified. Reviewed, Interpreted and Dictated by Nimesh Garrido III, MD Transcribed by Ashley Dickson Authenticated and [facility]
--- NOTE | 2023-09-24 06:46 | ED_ITS ---
Discharge Plan Disposition Patient Disposition: Home, Self-Care Condition: Good Prescriptions Prescriptions: No Action acetaminophen 325 mg capsule 325 mg PO BID PRN (Reason: pain) Qty: 60 0RF melatonin 3 mg tablet 3 mg PO HS PRN (Reason: sleep) Qty: 30 0RF lorazepam 1 mg tablet 1 mg PO BID Qty: 60 5RF loperamide 2 MG tablet 2 mg PO BID PRN (Reason: Diarrhea) amitriptyline 50 MG tablet 50 mg PO HS ondansetron HCl 4 mg tablet 4 mg PO NEEDED PRN (Reason: Nausea) tramadol 50 mg tablet 50 mg PO DAILY gabapentin 100 mg capsule 100 mg PO HS rivastigmine 4.6 mg/24 hour patch 24 hour 1 patch transdermal DAILY meclizine 12.5 mg Tablet 12.5 mg PO TID PRN (Reason: Dizziness) Myrbetriq 50 mg tablet extended release 24 hr 50 mg PO DAILY Referrals Follow up/Referrals: Provider,Referral, [Primary Care Provider] - See instructions Peter Pino DO [Staff Physician] - See instructions Activity Restrictions/Add. Instructions Additional Instructions/Restrictions: At this time it was felt you are safe to be discharged home. If new or worsening symptoms please do not hesitate to return the emergency department. Please call and schedule an appointment with Dr. Pino for evaluation of your right humerus. Clinical Impressions Clinical Impression: Fall, Traumatic hematoma of head, Closed fracture of right proximal humerus Discharge ED Provider: Steve Potter General Adult HPI <Shannon Garcia DO - Last Filed: 09/24/23 06:55> General Chief complaint: Fall Stated complaint: fall with head hematoma Time Seen by Provider: 09/24/23 06:40 Mode of Arrival: EMS Source of Information: Patient and EMS Limitations: No Limitations Description of Symptoms (Recalled from ER Triage Doc. by RN): pt was an unwitnessed fall at long term. pt states she tripped over her feet on way to bathroom History of Present Illness HPI narrative: This patient is an 82-year-old female with a history of chronic pain, peripheral neuropathy, vertigo, hypertension, and anxiety presenting from [facility] for evaluation after an unwitnessed mechanical fall. Patient is alert and oriented and states that she got up to go to the bathroom. She states that she went to get a brief so that way she could change herself, and when she bent over to get it she fell forward, hitting her left side of her forehead on the ground. She denies any loss of consciousness or pain, she does notes a large hematoma to her forehead. She states she was feeling okay prior to this except for her chronic pain and neuropathy. No other concerns noted at this time. She does not take any blood thinners. Related Data Home Medications Medication Instructions Recorded Confirmed amitriptyline 50 mg tablet 50 mg PO HS sleep 06/02/21 03/15/23 loperamide 2 mg tablet 2 mg PO BID PRN Diarrhea 06/02/21 03/15/23 gabapentin 100 mg capsule 100 mg PO HS Pain 03/15/23 03/15/23 meclizine 12.5 mg tablet 12.5 mg PO TID PRN Dizziness 03/15/23 03/15/23 mirabegron 50 mg tablet,extended 50 mg PO DAILY INCONT 03/15/23 03/15/23 release 24 hr (Myrbetriq) ondansetron HCl 4 mg tablet 4 mg PO NEEDED PRN Nausea 03/15/23 03/15/23 rivastigmine 4.6 mg/24 hour 1 patch transdermal DAILY DEMENTIA 03/15/23 03/15/23 transdermal patch tramadol 50 mg tablet 50 mg PO DAILY Pain 03/15/23 03/15/23 Previous Rx's Medication Instructions Recorded acetaminophen 325 mg capsule 325 mg PO BID PRN pain #60 caps 07/02/21 melatonin 3 mg tablet 3 mg PO HS PRN sleep #30 tabs 07/02/21 lorazepam 1 mg tablet 1 mg PO BID Anxiety #60 tabs 07/18/21 Allergies Allergy/AdvReac Type Severity Reaction Status Date / Time codeine Allergy Verified 05/07/22 13:44 gabapentin Allergy Verified 05/07/22 13:44 Penicillins Allergy Verified 05/07/22 13:44 pregabalin [From Lyrica] Allergy Verified 05/07/22 13:44 sulfate ion Allergy Verified 05/07/22 13:44 suvorexant Allergy Verified 05/07/22 13:44 venlafaxine [From Effexor] Allergy Verified 05/07/22 13:44 [facility] <Shannon Garcia, DO - Last Filed: 09/24/23 06:55> [facility] Disclaimer: The information contained in this section may have been updated after the patient was seen, as this information can be updated by other users. Social History Smoking Status: Never smoker alcohol intake: never current occupational status: disabled Travel in the last 8 weeks: None housing: long term <Shannon Garcia DO - Last Filed: 09/24/23 06:55> ROS Obtained: Yes All systems reviewed & no additional complaints except as documented Physical Exam <Shannon Garcia DO - Last Filed: 09/24/23 06:55> General General appearance: alert and in no apparent distress Head Head exam: other (Hematoma to right forehead) Eye Eye exam: Present normal appearance, PERRL and EOMI ENT ENT exam: Present normal exam, normal oropharynx, mucous membranes moist and normal external ear exam Neck Neck exam: Present normal inspection, full ROM and trachea midline; Absent tenderness Chest Chest inspection: Present normal inspection and symmetric chest wall rise; Absent tenderness Respiratory Respiratory exam: Present normal lung sounds bilaterally; Absent respiratory distress, wheezes, stridor or accessory muscle use Cardiovascular Cardiovascular exam: Present regular rate and normal rhythm Abdominal Exam Abdominal exam: Present soft; Absent distention, tenderness or guarding Extremities Exam Extremities exam: Present normal inspection, full ROM and normal capillary refill; Absent tenderness or edema Back Exam Back exam: Present normal inspection and full ROM; Absent tenderness Neurological Exam Neurological exam: Present alert, oriented X3, CN II-XII intact and normal gait; Absent motor sensory deficit Psychiatric Psychiatric exam: Present normal affect and normal mood Skin Skin exam: Present warm and dry Medical Decision Making <Shannon Garcia DO - Last Filed: 09/24/23 06:55> Medical Records Medical records reviewed: Yes I reviewed the patient's medical records. [place] Inquiry Pt receiving controlled substance: No Vital Signs: 09/24/23 06:31 09/24/23 07:31 Temperature 97.7 F Temperature Source Temporal Artery Scan Pulse Rate 60 Pulse Rate [Right] 69 Respiratory Rate 16 Blood Pressure 182/88 H Blood Pressure [Right Arm] 167/63 H Blood Pressure Mean [Right Arm] 97 02 Sat by Pulse Oximetry 96 98 Oxygen Delivery Method Room Air Lab Data Lab results reviewed: Yes I reviewed the patient's lab results. Orders (Tests/Meds): ORDERS Category Date Time Status CT cervical spine wo con Stat Cat Scan 09/24/23 06:[address] head/brain wo con Stat Cat Scan 09/24/23 06:44 Completed Humerus XR right [XR humerus RT] Stat Exams 09/24/23 08:08 Completed Shoulder XR right miminum 2 views [XR shoulder RT min Exams 09/24/23 08:08 Completed 2V] Stat XR chest portable Stat Exams 09/24/23 06:44 Completed XR pelvis 1-2V Stat Exams 09/24/23 06:44 Completed Medical Decision Narrative: In summary, this patient is a 82-year-old female presenting to the Emergency Department for evaluation of fall. Differential diagnoses considered include but are not limited to head trauma, C-spine trauma, polytrauma. Ruling out the most morbid conditions drove assessment. On exam, the patient is alert and conversational. She has a hematoma to the right forehead but no other obvious injuries on exam. Workup included CT head, CT cervical spine, chest x-ray, and pelvic x-ray. Patient care was signed out to the oncoming provider, Dr. Potter. <Steve Potter MD - Last Filed: 09/24/23 09:04> Vital Signs: 09/24/23 06:31 09/24/23 07:31 Temperature 97.7 F Temperature Source Temporal Artery Scan Pulse Rate 60 Pulse Rate [Right] 69 Respiratory Rate 16 Blood Pressure 182/88 H Blood Pressure [Right Arm] 167/63 H Blood Pressure Mean [Right Arm] 97 02 Sat by Pulse Oximetry 96 98 Oxygen Delivery Method Room Air Orders (Tests/Meds): ORDERS Category Date Time Status CT cervical spine wo con Stat Cat Scan 09/24/23 06:[address] head/brain wo con Stat Cat Scan 09/24/23 06:44 Completed Humerus XR right [XR humerus RT] Stat Exams 09/24/23 08:08 Completed Shoulder XR right miminum 2 views [XR shoulder RT min Exams 09/24/23 08:08 Completed 2V] Stat XR chest portable Stat Exams 09/24/23 06:44 Completed XR pelvis 1-2V Stat Exams 09/24/23 06:44 Completed Medical Decision Narrative: In summary, this patient is a 82-year-old female presenting to the Emergency Department for evaluation of fall. Differential diagnoses considered include but are not limited to head trauma, C-spine trauma, polytrauma. Ruling out the most morbid conditions drove assessment. On exam, the patient is alert and conversational. She has a hematoma to the right forehead but no other obvious injuries on exam. Workup included CT head, CT cervical spine, chest x-ray, and pelvic x-ray. Patient care was signed out to the oncoming provider, Dr. Potter. Steve Potter: Upon assumption of care patient was hemodynamically stable. CT head informally interpreted by me, no acute large intra-axial hemorrhage. Formal CT read shows no acute intracranial abnormality. Plain film of the chest shows possible subacute right-sided proximal humerus fracture. Dedicated films were obtained with shows chronic fracture of the proximal humerus with interval partial bony fusion. Patient is asymptomatic and has significant pain-free range of motion of her shoulder. Given this it was felt that since it is chronic and in stages of healing restricting range of motion with sling at her age will be deleterious to her condition. She will follow-up outpatient for orthopedic evaluation. Patient is appropriate for discharge at this time was given return precautions. Critical Care <Shannon Garcia, DO - Last Filed: 09/24/23 06:55> Critical Care Time Critical Care Time: No
--- NOTE | 2023-09-24 07:04 | PC.NURSE ---
Pt gone to RAD via stretcher
--- NOTE | 2023-09-24 07:23 | PC.NURSE ---
Pt returned from RAD
[2023-09-24 07:31] VITALS: BP 182/88; PULSE 60; O2SAT 98
--- NOTE | 2023-09-24 08:08 | XR_ITS ---
FINAL REPORT CLINICAL HISTORY: fall, known old fx of right humerus COMPARISON: None FINDINGS: Two views of the right humerus were obtained. Again noted is a chronic fracture of the proximal humerus with deformity. There appears to be partial bony fusion since prior exam. There is no acute fracture or dislocation. There is mild degenerative change of the shoulder and elbow. There is no soft tissue abnormality. IMPRESSION: No acute abnormality identified. Chronic fracture proximal humerus. Reviewed, Interpreted and Dictated by Nimesh Garrido III, MD Transcribed by Ashley Dickson Authenticated and [facility]
--- NOTE | 2023-09-24 08:08 | XR_ITS ---
FINAL REPORT CLINICAL HISTORY: fall, known right humerus fx COMPARISON: 07/04/2021 FINDINGS: RIGHT SHOULDER: 3 views of the right shoulder were obtained. Again noted is a chronic fracture of the proximal humerus with deformity. There appears to be partial bony fusion since prior exam. There is no acute fracture or dislocation. There is mild degenerative change. There is no soft tissue abnormality. IMPRESSION: No acute fracture. Chronic fracture proximal humerus with interval partial bony fusion. Reviewed, Interpreted and Dictated by Nimesh Garrido III, MD Transcribed by Ashley Dickson Authenticated and . [facility]
[2023-09-24 09:01] VITALS: BP 182/68; PULSE 67; O2SAT 97
--- NOTE | 2023-09-24 09:11 | PC.NURSE ---
called EMS for transport
--- NOTE | 2023-09-24 09:16 | PC.NURSE ---
Breakfast tray ordered
--- NOTE | 2023-09-24 09:17 | PC.NURSE ---
attempted to call report back to [facility], with no answer at this time.
--- NOTE | 2023-09-24 09:21 | PC.NURSE ---
report called to [facility] at [facility]
--- NOTE | 2023-09-24 09:28 | PC.NURSE ---
Pt provided with tray and assisted with set up
[2023-09-24 09:49] VITALS: BP 159/75; PULSE 84; RESP 16; TEMP 36.7
== END 2023-09-24 09:50 | disposition home or self-care (01) ==
PROVIDERS: Emergency Provider Emergency Medicine
DX: S00.83XA Contusion of other part of head, initial encounter (principal); S42.201A Unspecified fracture of upper end of right humerus, initial encounter for closed fracture; G62.9 Polyneuropathy, unspecified; I10 Essential (primary) hypertension; F41.9 Anxiety disorder, unspecified; W18.30XA Fall on same level, unspecified, initial encounter
CPT/HCPCS: 70450; 71045; 72125; 72170; 73030; 73060; 99285

== ENCOUNTER 2023-11-20 13:40 | Inpatient (IN) | payer MEDICARE, OTHER, SELFPAY ==
[2023-11-20] VITALS (10 sets, daily range): BP systolic 89–205; BP diastolic 49–90; PULSE 78–107; RESP 17–28; TEMP 36.6–37.2; O2SAT 88–98; BMI 25.2; BMI 25.6; BMI 27.0
--- NOTE | 2023-11-20 13:41 | PC.NURSE ---
Dr. Potter at bedside with U/S. Pt reports she is a DNR but would like surgery if that is necessary.
[2023-11-20] MEDS: LACTATED RINGERS 1000ML 1,500 ML 750 ML IV (13:45)
--- NOTE | 2023-11-20 13:45 | ECG_ITS ---
APPROVED REPORT Exam: Resting ECG HR:102 bpm ECG Measurements Heart Rate 102 AXES MN 231 P 8 QRSd 95 QRS -14 QT 345 T 63 QTc 404 Conclusion SINUS TACHYCARDIA WITH FIRST DEGREE AV BLOCK NONSPECIFIC ST & T-WAVE ABNORMALITY ABNORMAL ECG Electronically signed by : ZOHREH COSTELLO, 11/20/2023 15:24:44
--- NOTE | 2023-11-20 13:46 | CT_ITS ---
PROCEDURE INFORMATION: Exam: CTA Abdomen and Pelvis With Contrast Exam date and time: 11/20/2023 2:09 PM Age: 83 years old Clinical indication: Abdominal pain; Generalized; Additional info: Cp to back rad down TECHNIQUE: Imaging protocol: Computed tomographic angiography of the abdomen and pelvis with contrast. Exam focused on the arteries. 3D rendering (Not supervised by radiologist): MIP and/or 3D reconstructed images were created by the technologist. Radiation optimization: All CT scans at this facility use at least one of these dose optimization techniques: automated exposure control; mA and/or kV adjustment per patient size (includes targeted exams where dose is matched to clinical indication); or iterative reconstruction. Contrast material: ISOVUE; Contrast volume: 100 ml; Contrast route: INTRAVENOUS (IV); COMPARISON: CR XR PELVIS 1-2V 09/24/2023 7:09 AM FINDINGS: Aorta: Scattered atherosclerotic changes of the abdominal aorta and iliac vessels. No aortic aneurysm. Celiac trunk and mesenteric arteries: No occlusion or significant stenosis. Renal arteries: No occlusion or significant stenosis. Right iliac arteries: No occlusion or significant stenosis. Left iliac arteries: No occlusion or significant stenosis. Liver: No mass. Gallbladder and bile ducts: Gallbladder is distended with diffuse thickening/edema of the gallbladder wall and slight adjacent pericholecystic fat stranding suspicious for acute cholecystitis. There is a 2 cm noncalcified gallstone within the gallbladder lumen. Bile ducts not dilated. Pancreas: Unremarkable. Main pancreatic duct is not significantly dilated. Spleen: Unremarkable. No splenomegaly. Adrenal glands: Unremarkable. No mass. Kidneys and ureters: 3 cm mid pole cyst right kidney that cannot be resolved as a simple cyst. There is mild dilatation of the right left renal pelvis probably representing patulous extra renal collecting systems or less likely mild hydronephrosis from chronic UPJ stenosis. Stomach and bowel: Scattered diverticuli large bowel without evidence of diverticulitis. Appendix: No evidence of appendicitis. Intraperitoneal space: Unremarkable. No free air. No significant fluid collection. Lymph nodes: Unremarkable. No enlarged lymph nodes. Urinary bladder: Unremarkable. No mass. Reproductive: Uterus has been removed. Bones/joints: There are compression fractures involving the superior endplates of T12 and L1 vertebral body of indeterminate age. Fracture of L1 is more pronounced with slight retropulsion of the posterior vertebral margin. Soft tissues: Unremarkable. IMPRESSION: 1. Cholelithiasis with additional findings suspicious for acute cholecystitis. 2. Sigmoid diverticulosis. No evidence of acute diverticulitis. 3. Mild dilatation of both right left renal pelvis likely longstanding. 4. Mild-moderate compression fractures T12 and L1 of indeterminate age.
--- NOTE | 2023-11-20 13:46 | CT_ITS ---
PROCEDURE INFORMATION: Exam: CTA Chest With Contrast Exam date and time: 11/20/2023 2:09 PM Age: 83 years old Clinical indication: Pain; Chest pressure; Additional info: Cp to back, soft BP TECHNIQUE: Imaging protocol: Computed tomographic angiography of the chest with contrast. Exam focused on the arteries. 3D rendering (Not supervised by radiologist): MIP and/or 3D reconstructed images were created by the technologist. Radiation optimization: All CT scans at this facility use at least one of these dose optimization techniques: automated exposure control; mA and/or kV adjustment per patient size (includes targeted exams where dose is matched to clinical indication); or iterative reconstruction. Contrast material: ISOVUE; Contrast volume: 100 ml; Contrast route: INTRAVENOUS (IV); COMPARISON: CR XR CHEST PORTABLE 09/24/2023 7:09 AM FINDINGS: Pulmonary arteries: Main pulmonary trunk, right and left pulmonary arteries, interlobar branches and 1st order segmental branches are adequately opacified without filling defects or other evidence of acute pulmonary embolism. However more distal subsegmental branches cannot be adequately assessed due to technical limitations of the study. Aorta: Scattered atherosclerotic changes of the thoracic aorta with mild ectasia of the ascending aorta. No aortic aneurysm or evidence of dissection. Thyroid: Thyroid gland is enlarged and multinodular. Lungs: Mild bibasilar subsegmental atelectasis adjacent to the elevated right hemidiaphragm and left hiatal hernia. Upper lung teixeira are clear. Pleural spaces: Unremarkable. No pneumothorax. No pleural effusion. Heart: Heart is mildly enlarged. Mild calcification of the coronary arteries. No significant pericardial effusion. Lymph nodes: Unremarkable. No enlarged lymph nodes. Diaphragm: Moderate elevation right hemidiaphragm unchanged likely chronic. 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 Bones/joints: Old ununited fracture right humeral neck. No acute bony abnormalities detected. Soft tissues: Unremarkable. IMPRESSION: 1. Technically limited but negative CT angiogram of the chest. No evidence of acute pulmonary embolism to major branches of the pulmonary vascular tree. 2. Additional nonemergent findings as above.
--- NOTE | 2023-11-20 13:49 | [facility]H.EDCP ---
Discharge Plan Disposition Chief Complaint: Chest Pain Prescriptions Prescriptions: No Action melatonin 3 mg tablet 3 mg PO HS PRN (Reason: sleep) Qty: 30 0RF amitriptyline 75 mg tablet 75 mg PO HS acetaminophen 500 mg Tablet 500 mg PO BID cyanocobalamin (vitamin B-12) [Vitamin B-12] 500 mcg tablet 500 mcg PO DAILY lorazepam 1 mg tablet 1 mg PO TIDP PRN (Reason: anxiety) loperamide 2 MG tablet 2 mg PO BID PRN (Reason: Diarrhea) ondansetron HCl 4 mg tablet 4 mg PO NEEDED PRN (Reason: Nausea) tramadol 50 mg tablet 50 mg PO Q8HP PRN (Reason: Pain (Scale Score 4-6)) gabapentin 100 mg capsule 200 mg PO HS rivastigmine 4.6 mg/24 hour patch 24 hour 1 patch transdermal DAILY meclizine 12.5 mg Tablet 12.5 mg PO TID PRN (Reason: Dizziness) Myrbetriq 50 mg tablet extended release 24 hr 50 mg PO DAILY Discharge ED Provider: Steve Potter [facility] General Chief Complaint: Chest Pain Stated Complaint: CHEST PAIN Time Seen by Provider: 11/20/23 13:40 History of Present Illness HPI narrative: Patient is a 83-year-old female with past medical history of Alzheimer's disease, hypertension, fibromyalgia, living in long-term care who presents emergency department for evaluation of chest pain. Onset was acute, yesterday morning. There was associated indigestion. Progressively worse throughout the day. Staff noticed aguilar discoloration of her feet causing them to transport her here for continued evaluation. Patient is complaining that the chest pain radiates through to her shoulder blades, no headache, no abdominal pain. Patient is alert and oriented upon my evaluation. She has a DNR that is signed by her from 2020. If she were to spontaneously stop breathing or her heart were to stop during her evaluation today she would not want us to intubate or attempt CPR. However, if she had to be intubated for surgery for some reason she wishes to proceed. Patient was given aspirin and nitroglycerin prior to arrival. Related Data Home Medications Medication Instructions Recorded Confirmed loperamide 2 mg tablet 2 mg PO BID PRN Diarrhea 06/02/21 11/20/23 gabapentin 100 mg capsule 200 mg PO HS Pain 03/15/23 11/20/23 meclizine 12.5 mg tablet 12.5 mg PO TID PRN Dizziness 03/15/23 11/20/23 mirabegron 50 mg tablet,extended 50 mg PO DAILY INCONT 03/15/23 11/20/23 release 24 hr (Myrbetriq) ondansetron HCl 4 mg tablet 4 mg PO NEEDED PRN Nausea 03/15/23 11/20/23 rivastigmine 4.6 mg/24 hour 1 patch transdermal DAILY DEMENTIA 03/15/23 11/20/23 transdermal patch tramadol 50 mg tablet 50 mg PO Q8HP PRN Pain (Scale 03/15/23 11/20/23 Score 4-6) acetaminophen 500 mg tablet 500 mg PO BID 11/20/23 11/20/23 amitriptyline 75 mg tablet 75 mg PO HS 11/20/23 11/20/23 cyanocobalamin (vitamin B-12) 500 500 mcg PO DAILY 11/20/23 11/20/23 mcg tablet (Vitamin B-12) lorazepam 1 mg tablet 1 mg PO TIDP PRN anxiety 11/20/23 11/20/23 Previous Rx's Medication Instructions Recorded melatonin 3 mg tablet 3 mg PO HS PRN sleep #30 tabs 07/02/21 Allergies Allergy/AdvReac Type Severity Reaction Status Date / Time codeine Allergy Verified 05/07/22 13:44 Penicillins Allergy Verified 05/07/22 13:44 pregabalin [From Lyrica] Allergy Verified 05/07/22 13:44 sulfate ion Allergy Verified 05/07/22 13:44 suvorexant Allergy Verified 05/07/22 13:44 venlafaxine [From Effexor] Allergy Verified 05/07/22 13:44 [facility] Disclaimer: The information contained in this section may have been updated after the patient was seen, as this information can be updated by other users. Social History Smoking Status: Never smoker alcohol intake: never current occupational status: disabled Travel in the last 8 weeks: None housing: long-term ROS Obtained: Yes Systems reviewed as appropriate & no additional complaints except as documented Physical Exam General General appearance: alert and other (Ill-appearing) Head Head exam: atraumatic and normocephalic Eye Eye exam: Present PERRL and EOMI ENT ENT exam: Present mucous membranes moist Neck Neck exam: Present normal inspection Chest Chest inspection: Present normal inspection and symmetric chest wall rise Respiratory Respiratory exam: Present normal lung sounds bilaterally; Absent respiratory distress Cardiovascular Cardiovascular exam: Present normal rhythm, tachycardia and other (Palpable bilateral dorsal pedal pulses and radial pulses) Abdominal Exam Abdominal exam: Present soft; Absent tenderness Extremities Exam Extremities exam: Present normal inspection Neurological Exam Neurological exam: Present alert Psychiatric Psychiatric exam: Present normal affect Skin Skin exam: Present warm and dry HEART Score HEART Score HEART Score assessment performed?: Yes History (anamnesis): Highly suspicious ECG: Significant ST-deviation Age: >65 years Risk factors: 1-2 risk factors Troponin: </= normal limit HEART Score: 7 Critical Care Critical Care Time Critical Care Time: Yes Attestation: On 11/20/23, the high probability of a clinically significant, sudden or life threatening deterioration of the following system(s) required my full and direct attention, intervention and personal management. The time I documented below is in addition to time spent performing reported procedures but includes the following listed in this critical care notation. Total Time Total Critical Care Time: 35 Medical Decision Making Benoit Inquiry Pt receiving controlled substance: No Vital Signs Vital Signs: 11/20/23 13:41 11/20/23 14:00 11/20/23 14:25 Temperature 99.0 F Temperature Source Oral Pulse Rate 100 H 100 H Pulse Rate [Right] 107 H Respiratory Rate 28 H 26 H 26 H Blood Pressure 151/78 H 205/90 H Blood Pressure [Right Arm] 89/49 L Blood Pressure Mean 95 128 Blood Pressure Mean [Right Arm] 62 Blood Pressure Source [Right Arm] Automatic Cuff 02 Sat by Pulse Oximetry 88 L 96 98 Oxygen Delivery Method Room Air Nasal Cannula Oxygen Flow Rate (LPM) 2 11/20/23 14:36 Temperature 98.6 F Temperature Source Oral Pulse Rate Pulse Rate [Right] Respiratory Rate Blood Pressure Blood Pressure [Right Arm] Blood Pressure Mean Blood Pressure Mean [Right Arm] Blood Pressure Source [Right Arm] 02 Sat by Pulse Oximetry Oxygen Delivery Method Oxygen Flow Rate (LPM) Lab Data Labs: Lab Results 11/20/23 13:45: WBC 15.8 H, RBC 4.87, Hgb 14.2, Hct 44.0, MCV 90.2, MCH 29.2, MCHC 32.4, RDW 13.5, Plt Count 302, MPV 7.7, Neut % (Auto) 81.0 H, Lymph % (Auto) 12.7, Coleman % (Auto) 5.4, Eos % (Auto) 0.3, Baso % (Auto) 0.6, Neut # (Auto) 12.8 H, Lymph # (Auto) 2.0, Coleman # (Auto) 0.9, Eos # (Auto) 0.1, Baso # (Auto) 0.1, Sodium 136, Potassium 4.2, Chloride 104, Carbon Dioxide 28, Anion Gap 8.2, BUN 21 H, Creatinine 0.90, Estimated Creat Clear 43, Estimated GFR 60, Est GFR ( Amer) 73, Glucose 143 H, Calcium 8.9, Total Bilirubin 0.9, AST 93 H, ALT 61, Alkaline Phosphatase 120, Troponin I < 0.01, Total Protein 6.7, Albumin 4.0, Globulin 2.7, Albumin/Globulin Ratio 1.5, Lipase 47 11/20/23 13:46: VBG pH 7.38, VBG pCO2 45.3, VBG pO2 29.2, VBG HCO3 26.1, VBG Total CO2 27.5 H, VBG O2 Saturation 57.9, VBG Base Excess 1.0, VBG Lactic Acid 2.4 H 11/20/23 13:45 11/20/23 13:45 Response Orders (Tests/Meds): ED MEDICATIONS Generic Name Dose Route Start Last Admin Trade Name Freq PRN Reason Stop Dose Admin Meropenem 1 gm/ Sodium 100 mls @ 100 mls/hr 11/20/23 14:45 Chloride IV 11/30/23 14:44 Q8H BALDEV Lactated Ringer's 1,500 mls @ 750 mls/hr 11/20/23 14:37 Lactated Ringer's 1000 Ml Bag 30 ml/kg infuse over 2 hr (1500 ml) 11/20/23 16:36 IV .Q2H ONE Sodium Chloride 10 ml 11/20/23 14:09 11/20/23 14:10 Sodium Chloride 0.9% 10ml Syr (Rad Only) IV 12/20/23 14:08 10 ml NEEDED PRN Administration Maintain IV Site Discontinued Medications Generic Name Dose Route Start Last Admin Trade Name Freq PRN Reason Stop Dose Admin Lactated Ringer's 1,000 mls @ 999 mls/hr 11/20/23 13:46 Lactated Ringer's 1000 Ml Bag IV 11/20/23 14:46 .Q1H1M ONE Iopamidol 100 ml 11/20/23 14:09 11/20/23 14:10 Iopamidol-370 (76%);100ml Bottle IV 11/20/23 14:10 100 ml ONCE ONE Administration Sodium Chloride 50 ml 11/20/23 14:09 11/20/23 14:10 0.9 % Sodium Chloride 50 Ml Vial IV 11/20/23 14:10 50 ml ONCE ONE Administration ORDERS Category Date Time Status CT angio abdomen pelvis Stat Cat Scan 11/20/23 13:46 Completed CTA Chest [CT angio chest - dissection] Stat Cat Scan 11/20/23 13:46 Completed POCUS Point of Care (ER Only) Stat Exams 11/20/23 13:42 Completed CBC w/Auto Diff [Complete Blood Count Auto Diff] Stat Lab 11/20/23 13:45 Results CMP [Comprehensive Metabolic Panel] Stat Lab 11/20/23 13:45 Completed Lactate Venous Q4H Lab 11/20/23 14:01 Ordered Lactate Venous Q4H Lab 11/20/23 18:01 Ordered Lactate Venous Q4H Lab 11/20/23 22:01 Ordered Lactate Venous Stat Lab 11/20/23 13:46 Completed Lactic Acid Stat Lab 11/20/23 15:03 Ordered Lipase Stat Lab 11/20/23 13:45 Completed Trop I [Troponin I] Stat Lab 11/20/23 13:45 Completed Troponin I Q3H Lab 11/20/23 17:00 Ordered Troponin I Q3H Lab 11/20/23 20:00 Ordered UA [Urinalysis and Microscopic] Stat Lab 11/20/23 13:47 Ordered Blood Culture Stat Micro 11/20/23 14:50 Ordered VBG [Venous Blood Gas] Stat RT 11/20/23 13:46 Completed ECG Data Tracing #1: ECG Narrative: Independently interpreted by me, rate is 102, rhythm is regular, IA 231, first-degree AV block, nonspecific changes in leads II and III with prolonged IA interval making ST segment comparison difficult. QTc 404. Tracing #2: ECG Narrative: Independently interpreted by me, rate is 101, rhythm is regular, axis is normal, no ST elevation in anatomical contiguous leads, QTc 400, IA interval 240. MDM Narrative Medical Decision Narrative: In summary patient is a 83-year-old female with past medical history described above who presents emergency department for evaluation of chest pain. Patient is tachycardic with soft blood pressures upon arrival, mean arterial pressure 59. My suspicion for aortic dissection is high. Patient will undergo fluid bolus challenge prior to initiation of pressors. [id number] ultrasound at bedside shows small pericardial effusion. Differential includes ACS, among others. Patient will undergo emergent CTA imaging. Workup will be conducted with hematologic labs, EKG, troponins in addition of this. Patient is a DNR/DNI if she were to spontaneously stop breathing or her heart were to stop in the emergency department today however she does wish to undergo full medical evaluation and would want to be intubated and undergo surgery if required. Initial workup reviewed by me, mildly elevated lactate, normal acid-base status, no JAZMYNE or critical electrolyte abnormality. Initial troponin below detectable limit. Initial CT is informally interpreted by me, no obvious dissection. It appears there is significant gallbladder pathology. Upon repeat physical exam patient does not have any abdominal tenderness. However given tachycardia, tachypnea will be empirically started on Zosyn and given fluid responsiveness will undergo sepsis fluid bolus. Patient has leukocytosis of 15.8. No evidence of cholestasis to suggest cholangitis. It is interesting that patient does have significant gallbladder pathology on CT imaging however is not tender in her right upper quadrant, the pain would be atypical however she does have a history of indigestion. Patient has labile blood pressures which are difficult to determine after repositioning of the cuff she had acceptable blood pressure and is status post crystalloid bolus. The case was discussed with surgery who will evaluate the patient. The case was discussed with hospital medicine regarding management patient be admitted to their service for continued evaluation at this time.
[2023-11-20 13:54] LABS: Basophils # 0.1 K/mm3 (0-0.2); Basophils % 0.6 % (0.1-2.0); Eosinophils # 0.1 K/mm3 (0.0-0.4); Eosinophils % 0.3 % (0.1-12.0); Hemoglobin 14.2 g/dL (12.2-16.2); Lymphocytes % 12.7 % (10-50); Mean Corpuscular HGB Conc 32.4 g/dL (31.8-35.4); Mean Corpuscular Hemoglobin 29.2 pg (27.0-31.2); Mean Corpuscular Volume 90.2 fl (81-99); Mean Platelet Volume 7.7 fl (7.4-10.4); Monocytes # 0.9 K/mm3 (0.1-1.0); Monocytes % 5.4 % (1.7-9.3); Neutrophils # 12.8 K/mm3 (1.8-7.8); Platelet Count 302 K/mm3 (142-424); Red Blood Count 4.87 M/mm3 (4.20-5.40); Red Cell Distribution Width 13.5 % (11.5-17.5); White Blood Count 15.8 K/mm3 (4.8-10.8)
[2023-11-20 13:57] LABS: Chloride 104 mmol/L (98-107); Potassium 4.2 mmoL/L (3.5-5.1); Sodium 136 mmol/L (136-145)
[2023-11-20 13:58] LABS: VBG HCO3 26.1 mmol/L (23-30); VBG Oxygen Saturation 57.9 % (50-70); VBG PCO2 45.3 mmol/L (35-51); VBG PH 7.38 mmol/L (7.31-7.41); VBG PO2 29.2 mmol/L (28-40); VBG Total CO2 27.5 mmol/L (23-27)
--- NOTE | 2023-11-20 13:59 | PC.NURSE ---
Radiology notified that MD wants to forego waiting on labs. They will be here shortly.
[2023-11-20 14:00] LABS: Alanine Aminotransferase 61 U/L (12-78); Albumin/Globulin Ratio 1.5 (1.1-1.8); Alkaline Phosphatase 120 U/L (38-126); Anion Gap 8.2 mEq/L (5-15); Aspartate Amino Transferase 93 U/L (14-36); Bilirubin,Total 0.9 mg/dl (0.2-1.3); Blood Urea Nitrogen 21 mg/dl (7-17); Carbon Dioxide 28 mmol/L (22.0-30.0); Creatinine Clearance Estimated 43 mL/min (50-200); Estimated Glomerular Filt Rate 60 ml/min (>60); GFR (African American) 73 ML/MIN (>60); Globulin 2.7 g/dL (1.3-3.2); Lipase 47 U/L (23-300); Total Protein,Serum 6.7 g/dl (6.3-8.2)
[2023-11-20 14:00] LABS: Lactate Venous 2.4 mmol/L (0.4-2.0)
--- NOTE | 2023-11-20 14:00 | PC.NURSE ---
respiratory notified of vbg & lactate
[2023-11-20 14:01] LABS: Calcium 8.9 mg/dl (8.4-10.2); Glucose 143 mg/dl (74-100)
[2023-11-20] MEDS: 0.9 % SODIUM CHLORIDE 50 ML VIAL IV (14:10)
[2023-11-20] MEDS: IOPAMIDOL-370 (76%);100ML BOTTLE 100 ML IV (14:10)
[2023-11-20] MEDS: SODIUM CHLORIDE 0.9% 10ML SYR (RAD ONLY) 10 ML IV (14:10)
--- NOTE | 2023-11-20 14:11 | HMH.ITSTN ---
GFR completion/results were overrode for the use of contrast media by the Physician on a risk vs. benefit situation with this patient.
[2023-11-20 14:14] LABS: Troponin I < 0.01 ng/ml (0.00-0.034)
[2023-11-20 14:47] LABS: MANUAL DIFFERENTIAL MANUAL DIFFERENTIAL (MANUAL DIFF)
--- NOTE | 2023-11-20 14:55 | ECG_ITS ---
APPROVED REPORT Exam: Resting ECG HR:101 bpm ECG Measurements Heart Rate 101 AXES WY 240 P 19 QRSd 102 QRS -10 QT 342 T 58 QTc 400 Conclusion SINUS TACHYCARDIA WITH FIRST DEGREE AV BLOCK NONSPECIFIC T-WAVE ABNORMALITY Electronically signed by : NIKOLAI CANDELARIA, 11/23/2023 02:09:59
--- NOTE | 2023-11-20 14:57 | PC.NURSE ---
paged surgeon percussion teacher,Dr Potter on phone with him now
--- NOTE | 2023-11-20 15:01 | PC.NURSE ---
Dr Potter speaking to Dr Whipple
--- NOTE | 2023-11-20 15:07 | PC.NURSE ---
supervisor remelt notified of admission- Dr. Whipple: Acute Cholecystitis. Dr. Patel was consulted for Gen Surgery
[2023-11-20 15:17] LABS: Lymphocytes % 22 % (10-50); Monocytes % 1 % (2-9); Neutrophils % 77 % (42-76); Platelet Estimate Normal; RBC Morphology Normal; Total Cells Counted 100
--- NOTE | 2023-11-20 15:18 | P.HP_ITS ---
History of Present Illness *Admission Date: 11/20/23 *Reason for visit:: abdominal vs chest pain *History of present illness: Ms. Gracia is an 83-year-old female with history of Alzheimer's, hypertension, fibromyalgia. Lives at [facility] long-term. Presented to the ER for evaluation of chest pain versus right upper quadrant pain. States its gotten worse over the past 48 hours. Noticed it yesterday morning. Some indigestion but no mateus emesis. No shortness of breath, fever, diarrhea. Has gotten progressively worse and she was sent to the ER for further evaluation. On arrival to the ER main complaint is pain in her chest radiating through her shoulders. No headache or worsening confusion from baseline per report from alf staff. She is alert and oriented to self and situation. Workup in the ER concerning for leukocytosis of 16, slight elevation in liver enzymes and a hepatocellular pattern, and CT of abdomen positive for cholecystitis. Exam positive for Samaniego sign. Medicine was consulted for admission after consultation with surgery. On arrival to the floor, patient is pleasant and oriented to self. In no acute distress. Is somewhat tender in her right chest but had multiple attempts to draw blood from veins in her right chest prior to my exam. Does have tenderness in right upper quadrant. Meropenem started in the ER given pts penicillin allergy PFSH PFSH Disclaimer: The information contained in this section may have been updated after the patient was seen, as this information can be updated by other users. Medical History Anxiety Hypertension Osteoarthritis of left hip Social History Smoking Status: Never smoker alcohol intake: never current occupational status: disabled Travel in the last 8 weeks: None housing: alf Review of Systems Review of Systems Review of systems (narrative): 14 point review of systems performed, pertinent positives and negatives as per HPI Meds Home Medications and Allergies Home Medications Medication Instructions Recorded Confirmed Type loperamide 2 mg tablet 2 mg PO BID PRN Diarrhea 06/02/21 11/20/23 History melatonin 3 mg tablet 3 mg PO HS PRN sleep #30 tabs 07/02/21 11/20/23 Rx gabapentin 100 mg capsule 200 mg PO HS Pain 03/15/23 11/20/23 History meclizine 12.5 mg tablet 12.5 mg PO TID PRN Dizziness 03/15/23 11/20/23 History mirabegron 50 mg tablet,extended 50 mg PO DAILY INCONT 03/15/23 11/20/23 History release 24 hr (Myrbetriq) ondansetron HCl 4 mg tablet 4 mg PO NEEDED PRN Nausea 03/15/23 11/20/23 History rivastigmine 4.6 mg/24 hour 1 patch transdermal DAILY DEMENTIA 03/15/23 11/20/23 History transdermal patch tramadol 50 mg tablet 50 mg PO Q8HP PRN Pain (Scale 03/15/23 11/20/23 History Score 4-6) acetaminophen 500 mg tablet 500 mg PO BID 11/20/23 11/20/23 History amitriptyline 75 mg tablet 75 mg PO HS 11/20/23 11/20/23 History cyanocobalamin (vitamin B-12) 500 500 mcg PO DAILY 11/20/23 11/20/23 History mcg tablet (Vitamin B-12) lorazepam 1 mg tablet 1 mg PO TIDP PRN anxiety 11/20/23 11/20/23 History New Prescriptions to Start Prescriptions: Allergies Allergy/AdvReac Type Severity Reaction Status Date / Time codeine Allergy Verified 05/07/22 13:44 Penicillins Allergy Verified 05/07/22 13:44 pregabalin [From Lyrica] Allergy Verified 05/07/22 13:44 sulfate ion Allergy Verified 05/07/22 13:44 suvorexant Allergy Verified 05/07/22 13:44 venlafaxine [From Effexor] Allergy Verified 05/07/22 13:44 Exam Data for Last 24 hours Vital signs and Labs for Last 24 Hours: Temp Pulse Resp BP Pulse Ox O2 Del Method O2 Flow Rate 98.6 F 100 H 26 H 205/90 H 98 Nasal Cannula 2 11/20/23 14:36 11/20/23 14:25 11/20/23 14:25 11/20/23 14:25 11/20/23 14:25 11/20/23 14:25 11/20/23 14:25 Laboratory Results - last 24 hr 11/20/23 13:45: WBC 15.8 H, RBC 4.87, Hgb 14.2, Hct 44.0, MCV 90.2, MCH 29.2, MCHC 32.4, RDW 13.5, Plt Count 302, MPV 7.7, Neut % (Auto) 81.0 H, Lymph % (Auto) 12.7, [place] % (Auto) 5.4, Eos % (Auto) 0.3, Baso % (Auto) 0.6, Neut # (Auto) 12.8 H, Lymph # (Auto) 2.0, [place] # (Auto) 0.9, Eos # (Auto) 0.1, Baso # (Auto) 0.1, Total Counted 100, Neutrophils % (Manual) 77 H, Lymphocytes % (Manual) 22, Monocytes % (Manual) 1 L, Platelet Estimate Normal, RBC Morphology Normal, Sodium 136, Potassium 4.2, Chloride 104, Carbon Dioxide 28, Anion Gap 8.2, BUN 21 H, Creatinine 0.90, Estimated Creat Clear 43, Estimated GFR 60, Est GFR ( Amer) 73, Glucose 143 H, Calcium 8.9, Total Bilirubin 0.9, AST 93 H , ALT 61, Alkaline Phosphatase 120, Troponin I < 0.01, Total Protein 6.7, Albumin 4.0, Globulin 2.7, Albumin/Globulin Ratio 1.5, Lipase 47 11/20/23 13:46: VBG pH 7.38, VBG pCO2 45.3, VBG pO2 29.2, VBG HCO3 26.1, VBG Total CO2 27.5 H, VBG O2 Saturation 57.9, VBG Base Excess 1.0, VBG Lactic Acid 2.4 H I & O for Last 24 hours: Intake & Output 11/17/23 11/18/23 11/19/23 11/20/23 23:59 23:59 23:59 23:59 Weight 66.678 kg Constitutional Constitutional: no acute distress, average body habitus and cooperative *Routine HEENT Exam Head: Present normocephalic Eye: Present EOMI and PERRL ENT: Present mucous membranes moist *Routine Neck Exam Neck: Present supple; Absent lymphadenopathy Routine Chest/Breast/Axilla Exam Chest wall: Present tenderness (Right chest) *Routine Respiratory Exam Respiratory: Present CTA bilaterally *Routine Cardiovascular Exam Cardiovascular: Present RRR *Routine Abdominal Exam Abdominal: Present soft, normoactive bowel sounds, tenderness (Right upper quadrant, positive Samaniego sign) and guarding; Absent distended or rebound *Routine Rectal Exam Rectal:: deferred *Routine Genitalia Exam Genitalia:: deferred *Routine Extremities Exam Extremities: Absent cyanosis, clubbing or edema *Routine Skin Exam Skin: Present warm; Absent rash *Routine Neurological Exam Neurological: Present alert, moving all extremities and normal speech; Absent altered mental status Comments: Oriented to self and situation Routine Psychiatric Exam Psychiatric: Present normal thought process Assessment and Plan *Assessment and plan (1) Cholecystitis: Status: Acute Category: Medical Code(s): K81.9 - Cholecystitis, unspecified (2) Hypertension: Status: Acute Qualifiers: Hypertension type: primary hypertension Qualified Code(s): I10 - Essential (primary) hypertension Category: Medical Code(s): I10 - Essential (primary) hypertension (3) Anxiety: Status: Acute Category: Medical Code(s): F41.9 - Anxiety disorder, unspecified (4) Alzheimer's dementia: Status: Chronic Category: Medical Code(s): G30.9 - Alzheimer's disease, unspecified; F02.80 - Dementia in other diseases classified elsewhere, unspecified severity, without behavioral disturbance, psychotic disturbance, mood disturbance, and anxiety Plan 83-year-old female who presented with chest pain, workup found to have right upper quadrant pain and cholecystitis. Discussed case with ER physician, request admission for IV antibiotics, surgical eval, and further management. Medicine agreed to admit. Surgery consulted. Appreciate their recommendations. Problems addressed as follows: Right upper quadrant pain Cholecystitis -Personally reviewed CT of abdomen, shows pericholecystic stranding and some fluid. Positive exam findings with right upper quadrant pain/Samaniego sign. White cell count of 16.8. Tachycardic. -Continue meropenem 1 g IV every 8 hours. -Repeat CBC, CMP, magnesium ordered for the morning -Lactate elevated 2.6, repeat pending -Discussed case with surgery, clear liquid diet for now. N.p.o. at midnight with possible consideration of surgery tomorrow. May allow her another 24 hours to cool down however and proceed with surgery Wednesday. Anxiety Alzheimer's dementia - Continue home amitriptyline 75 mg nightly continue gabapentin 100 mg nightly for pain, Ativan 1 mg 3 times a day as needed for anxiety -Continue rivastigmine patch daily for dementia; does appear however to understand her situation and is oriented enough to make decisions for herself. No concern about her ability to consent for surgery. DNR Holding anticoagulation Clear liquid diet, n.p.o. at midnight pending evaluation for surgery tomorrow versus Wednesday
[2023-11-20 15:19] LABS: Lactic Acid 2.6 mmol/L (0.7-2.1)
--- NOTE | 2023-11-20 15:23 | PC.NURSE ---
Gave report to Miesha Rivera RN on Med/Surg
[2023-11-20] MEDS: FENTANYL 100MCG/2ML VIAL 25 MCG IV (15:45)
[2023-11-20 15:50] LABS: Microscopic, Urine URINE MICROSCOPIC (MICROSCOPIC)
[2023-11-20 15:52] LABS: Appearance,Urine SL CLOUDY (Clear); Bilirubin,Urine Negative (Negative); Blood, Urine Negative (Negative); Color,Urine YELLOW (Yellow); Glucose,Urine (UA) Negative (Negative); Ketones,Urine Negative (Negative); Leukocyte Esterase,Urine 1+ (Negative); Nitrate,Urine Negative (Negative); PH,Urine 6.5 (5.0-8.5); Protein,Urine Negative (Negative); Specific Gravity, Urine 1.015 (1.005-1.030)
[2023-11-20 16:05] LABS: Bacteria,Urine 3+ /lpf; Transitional Epi Cells,Urine OCC #/lpf (0-3)
[2023-11-20] MEDS: MEROPENEM 1 GM in 0.9 % SODIUM CHLORIDE 100 ML IV ×2 (16:20→21:57)
--- NOTE | 2023-11-20 17:39 | EXP.SURG.CON ---
History of Present Illness *Admission Date: 11/20/23 *Reason for visit:: Abdominal and chest pain *History of present illness: 83yo lady presents with chest pain and weakness. Now she complains more of RUQ and epigastric pain. She has nevere had pain like this before. She also has no appetite. She hurts more with a deep breath. Last meal was yesterday morning. She also complains of weakness and feeling very ill. [facility] Disclaimer: The information contained in this section may have been updated after the patient was seen, as this information can be updated by other users. Social History Smoking Status: Never smoker alcohol intake: never current occupational status: disabled Travel in the last 8 weeks: None housing: fdc Review of Systems Review of Systems Review of systems:: pertinent systems reviewed and negative unless documented below Meds Home Medications and Allergies Home Medications Medication Instructions Recorded Confirmed Type loperamide 2 mg tablet 2 mg PO BID PRN Diarrhea 06/02/21 11/20/23 History melatonin 3 mg tablet 3 mg PO HS PRN sleep #30 tabs 07/02/21 11/20/23 Rx gabapentin 100 mg capsule 200 mg PO HS Pain 03/15/23 11/20/23 History meclizine 12.5 mg tablet 12.5 mg PO TID PRN Dizziness 03/15/23 11/20/23 History mirabegron 50 mg tablet,extended 50 mg PO DAILY INCONT 03/15/23 11/20/23 History release 24 hr (Myrbetriq) ondansetron HCl 4 mg tablet 4 mg PO NEEDED PRN Nausea 03/15/23 11/20/23 History rivastigmine 4.6 mg/24 hour 1 patch transdermal DAILY DEMENTIA 03/15/23 11/20/23 History transdermal patch tramadol 50 mg tablet 50 mg PO Q8HP PRN Pain (Scale 03/15/23 11/20/23 History Score 4-6) acetaminophen 500 mg tablet 500 mg PO BID 11/20/23 11/20/23 History amitriptyline 75 mg tablet 75 mg PO HS 11/20/23 11/20/23 History cyanocobalamin (vitamin B-12) 500 500 mcg PO DAILY 11/20/23 11/20/23 History mcg tablet (Vitamin B-12) lorazepam 1 mg tablet 1 mg PO TIDP PRN anxiety 11/20/23 11/20/23 History New Prescriptions to Start Prescriptions: Allergies Allergy/AdvReac Type Severity Reaction Status Date / Time codeine Allergy Verified 05/07/22 13:44 Penicillins Allergy Verified 05/07/22 13:44 pregabalin [From Lyrica] Allergy Verified 05/07/22 13:44 sulfate ion Allergy Verified 05/07/22 13:44 suvorexant Allergy Verified 05/07/22 13:44 venlafaxine [From Effexor] Allergy Verified 05/07/22 13:44 Exam (Inpt) Vital signs and Labs for Last 24 Hours: Temp Pulse Resp BP Pulse Ox O2 Del Method O2 Flow Rate 98.6 F 98 H 17 125/78 96 Room Air 2 11/20/23 16:20 11/20/23 16:20 11/20/23 16:20 11/20/23 16:20 11/20/23 16:00 11/20/23 17:00 11/20/23 16:20 Laboratory Results - last 24 hr 11/20/23 13:45: WBC 15.8 H, RBC 4.87, Hgb 14.2, Hct 44.0, MCV 90.2, MCH 29.2, MCHC 32.4, RDW 13.5, Plt Count 302, MPV 7.7, Neut % (Auto) 81.0 H, Lymph % (Auto) 12.7, [place] % (Auto) 5.4, Eos % (Auto) 0.3, Baso % (Auto) 0.6, Neut # (Auto) 12.8 H, Lymph # (Auto) 2.0, [place] # (Auto) 0.9, Eos # (Auto) 0.1, Baso # (Auto) 0.1, Total Counted 100, Neutrophils % (Manual) 77 H, Lymphocytes % (Manual) 22, Monocytes % (Manual) 1 L, Platelet Estimate Normal, RBC Morphology Normal, Sodium 136, Potassium 4.2, Chloride 104, Carbon Dioxide 28, Anion Gap 8.2, BUN 21 H, Creatinine 0.90, Estimated Creat Clear 43, Estimated GFR 60, Est GFR ( Amer) 73, Glucose 143 H, Lactate 2.6 H, Calcium 8.9, Total Bilirubin 0.9, AST 93 H, ALT 61, Alkaline Phosphatase 120, Troponin I < 0.01, Total Protein 6.7, Albumin 4.0, Globulin 2.7, Albumin/Globulin Ratio 1.5, Lipase 47 11/20/23 13:46: VBG pH 7.38, VBG pCO2 45.3, VBG pO2 29.2, VBG HCO3 26.1, VBG Total CO2 27.5 H, VBG O2 Saturation 57.9, VBG Base Excess 1.0, VBG Lactic Acid 2.4 H 11/20/23 15:43: Urine Color Yellow, Urine Appearance Sl cloudy, Urine pH 6.5, Ur Specific [place] 1.015, Urine Protein Negative, Urine Glucose (UA) Negative, Urine Ketones Negative, Urine Blood Negative, Urine Nitrate Negative, Urine Bilirubin Negative, Urine Urobilinogen 2.0, Ur Leukocyte Esterase 1+ A, Urine RBC None, Urine WBC 5-10, Ur Squamous Epith Cells 5-10, Ur Transition Epith Cell Occ, Urine Bacteria 3+ I & O for Labs for Last 24 Hours: Intake & Output 11/17/23 11/18/23 11/19/23 11/20/23 23:59 23:59 23:59 23:59 Intake Total 360 / 360 Output Total 0 / 0 Balance 360 / 360 Weight 167 lb 7 oz Constitutional: mild distress Comment:: Uncomfortable Head: Present normocephalic and atraumatic Neck: Present normal inspection Respiratory: Present CTA bilaterally Cardiac: Present Reg Rate and Rhythm GI: Present soft and tenderness (RUQ tenderness, voluntary guarding); Absent distention Extremities: Present normal inspection Comment:: Good peripheral pulses, trace edema Results Labs 11/20/23 13:45 11/20/23 13:45 Labs: Laboratory Results - last 24 hr 11/20/23 13:45: WBC 15.8 H, RBC 4.87, Hgb 14.2, Hct 44.0, MCV 90.2, MCH 29.2, MCHC 32.4, RDW 13.5, Plt Count 302, MPV 7.7, Neut % (Auto) 81.0 H, Lymph % (Auto) 12.7, [place] % (Auto) 5.4, Eos % (Auto) 0.3, Baso % (Auto) 0.6, Neut # (Auto) 12.8 H, Lymph # (Auto) 2.0, [place] # (Auto) 0.9, Eos # (Auto) 0.1, Baso # (Auto) 0.1, Total Counted 100, Neutrophils % (Manual) 77 H, Lymphocytes % (Manual) 22, Monocytes % (Manual) 1 L, Platelet Estimate Normal, RBC Morphology Normal, Sodium 136, Potassium 4.2, Chloride 104, Carbon Dioxide 28, Anion Gap 8.2, BUN 21 H, Creatinine 0.90, Estimated Creat Clear 43, Estimated GFR 60, Est GFR ( Amer) 73, Glucose 143 H, Lactate 2.6 H, Calcium 8.9, Total Bilirubin 0.9, AST 93 H, ALT 61, Alkaline Phosphatase 120, Troponin I < 0.01, Total Protein 6.7, Albumin 4.0, Globulin 2.7, Albumin/Globulin Ratio 1.5, Lipase 47 11/20/23 13:46: VBG pH 7.38, VBG pCO2 45.3, VBG pO2 29.2, VBG HCO3 26.1, VBG Total CO2 27.5 H, VBG O2 Saturation 57.9, VBG Base Excess 1.0, VBG Lactic Acid 2.4 H 11/20/23 15:43: Urine Color Yellow, Urine Appearance Sl cloudy, Urine pH 6.5, Ur Specific [place] 1.015, Urine Protein Negative, Urine Glucose (UA) Negative, Urine Ketones Negative, Urine Blood Negative, Urine Nitrate Negative, Urine Bilirubin Negative, Urine Urobilinogen 2.0, Ur Leukocyte Esterase 1+ A, Urine RBC None, Urine WBC 5-10, Ur Squamous Epith Cells 5-10, Ur Transition Epith Cell Occ, Urine Bacteria 3+ Imaging CT scan - abdomen: image reviewed (Severe acute cholecystitis with pericholecystic fluid and stones; large paraesophageal hernia, elevated right hemidiaphragm) Assessment and Plan *Assessment and plan (1) Acute cholecystitis: Status: Acute Category: Surgical Code(s): K81.0 - Acute cholecystitis Plan: Severe acute cholecystitis on ct and exam. I would recommend resuscitation and IV abx for at least the next 24 hours. Plan for lap estella wednesday.
--- NOTE | 2023-11-20 17:42 | PC.NURSE ---
A&OX3 UPON ARRIVAL TO FLOOR, ABLE TO TELL ME SHE IS IN A HOSPITAL BUT NOT SURE WHICH ONE. TOLERATING RA WELL. PT HAS NOT HAD ANY NEEDS OR C/O SINCE ARRIVAL TO FLOOR. STATES SHE IS INDEPENDENT WITH WALKER AT INTERMEDIATE, HOWEVER IS A X2 ASSIST AT THIS TIME. TOLERATING CLEAR LIQUID DIET WELL, WILL BE NPO AT MIDNIGHT. PT IS DNR, SIGNED AND ON CHART. VSS.
[2023-11-20 19:09] LABS: Reflex Lactic Add Lactic Reflex
[2023-11-20 19:55] LABS: Lactic Acid Follow Up (RFLX 1) 1.8 mmol/L (0.7-2.1)
[2023-11-20] MEDS: AMITRIPTYLINE 75 MG 75 EACH PO (20:19)
[2023-11-20] MEDS: GABAPENTIN 100MG CAPSULE 200 MG PO (20:19)
[2023-11-20] MEDS: LORazepam 1MG TABLET 1 MG PO (20:23)
[2023-11-20] MEDS: MORPHINE 2MG/ML SYRINGE 2 MG IV (20:53)
[2023-11-20 22:11] LABS: Lactate Venous 1.3 mmol/L (0.4-2.0)
[2023-11-20 22:16] LABS: Lactate Venous 2.1 mmol/L (0.4-2.0)
[2023-11-21] MEDS: MORPHINE 2MG/ML SYRINGE 2 MG IV ×5 (00:52→22:06)
[2023-11-21 04:00] VITALS: BP 134/69; PULSE 92; RESP 17; TEMP 36.5; O2SAT 89; BMI 26.4
--- NOTE | 2023-11-21 05:59 | PC.NURSE ---
Pt is alert and oriented. Complained of pain two times, treated per nov. Pt very unsteady on her feet and max assist to bedside, purewick placed. Pt has slept well throughout shift. No other complaints. Bed alarm on. Call light in reach.
[2023-11-21] MEDS: MEROPENEM 1 GM in 0.9 % SODIUM CHLORIDE 100 ML IV ×3 (06:52→22:10)
--- NOTE | 2023-11-21 07:28 | EXP.SURG.PN ---
Subjective Patient reports: no new complaints Exam Data for Last 24 hours Vital signs and Labs for Last 24 Hours: Temp Pulse Resp BP Pulse Ox O2 Del Method O2 Flow Rate 97.7 F 92 H 17 134/69 89 L Room Air 2 11/21/23 04:00 11/21/23 04:00 11/21/23 04:00 11/21/23 04:00 11/21/23 04:00 11/21/23 05:00 11/20/23 16:20 Laboratory Results - last 24 hr 11/20/23 13:45: WBC 15.8 H, RBC 4.87, Hgb 14.2, Hct 44.0, MCV 90.2, MCH 29.2, MCHC 32.4, RDW 13.5, Plt Count 302, MPV 7.7, Neut % (Auto) 81.0 H, Lymph % (Auto) 12.7, [place] % (Auto) 5.4, Eos % (Auto) 0.3, Baso % (Auto) 0.6, Neut # (Auto) 12.8 H, Lymph # (Auto) 2.0, [place] # (Auto) 0.9, Eos # (Auto) 0.1, Baso # (Auto) 0.1, Total Counted 100, Neutrophils % (Manual) 77 H, Lymphocytes % (Manual) 22, Monocytes % (Manual) 1 L, Platelet Estimate Normal, RBC Morphology Normal, Sodium 136, Potassium 4.2, Chloride 104, Carbon Dioxide 28, Anion Gap 8.2, BUN 21 H, Creatinine 0.90, Estimated Creat Clear 43, Estimated GFR 60, Est GFR ( Amer) 73, Glucose 143 H, Lactate 2.6 H, Calcium 8.9, Total Bilirubin 0.9, AST 93 H, ALT 61, Alkaline Phosphatase 120, Troponin I < 0.01, Total Protein 6.7, Albumin 4.0, Globulin 2.7, Albumin/Globulin Ratio 1.5, Lipase 47 11/20/23 13:46: VBG pH 7.38, VBG pCO2 45.3, VBG pO2 29.2, VBG HCO3 26.1, VBG Total CO2 27.5 H, VBG O2 Saturation 57.9, VBG Base Excess 1.0, VBG Lactic Acid 2.4 H 11/20/23 15:43: Urine Color Yellow, Urine Appearance Sl cloudy, Urine pH 6.5, Ur Specific [place] 1.015, Urine Protein Negative, Urine Glucose (UA) Negative, Urine Ketones Negative, Urine Blood Negative, Urine Nitrate Negative, Urine Bilirubin Negative, Urine Urobilinogen 2.0, Ur Leukocyte Esterase 1+ A, Urine RBC None, Urine WBC 5-10, Ur Squamous Epith Cells 5-10, Ur Transition Epith Cell Occ, Urine Bacteria 3+ 11/20/23 18:01: VBG Lactic Acid 2.1 H 11/20/23 19:30: Lactate 1.8 11/20/23 22:01: VBG Lactic Acid 1.3 I & O for Last 24 hours: Intake & Output 11/18/23 11/19/23 11/20/23 11/22/23 23:59 23:59 23:59 00:59 Intake Total 360 / 560 200 / 200 Output Total 0 / 0 150 / 150 Balance 360 / 560 50 / 50 Weight 167 lb 7 oz 164 lb 14.4 oz *Routine Abdominal Exam Abdominal: Present soft and tenderness (RUQ) Progress Note: A&P Assessment and plan (1) Cholecystitis: Status: Acute Assessment and plan: Plan for OR on Wednesday. NPO after midnight. (2) Hypertension: Status: Acute (3) Anxiety: Status: Acute (4) Alzheimer's dementia: Status: Chronic
[2023-11-21 07:40] LABS: Basophils # 0.1 K/mm3 (0-0.2); Basophils % 0.5 % (0.1-2.0); Eosinophils % 0.1 % (0.1-12.0); Hematocrit 40.2 % (37.0-47.0); Hemoglobin 12.8 g/dL (12.2-16.2); Lymphocytes # 3.1 K/mm3 (0.7-4.5); Lymphocytes % 12.7 % (10-50); Mean Corpuscular HGB Conc 31.8 g/dL (31.8-35.4); Mean Corpuscular Hemoglobin 29.1 pg (27.0-31.2); Mean Corpuscular Volume 91.3 fl (81-99); Mean Platelet Volume 8.1 fl (7.4-10.4); Monocytes # 1.5 K/mm3 (0.1-1.0); Monocytes % 6.2 % (1.7-9.3); Neutrophils # 19.8 K/mm3 (1.8-7.8); Neutrophils % 80.5 % (37.0-80.0); Platelet Count 219 K/mm3 (142-424); Red Cell Distribution Width 13.5 % (11.5-17.5); White Blood Count 24.6 K/mm3 (4.8-10.8)
[2023-11-21 07:50] LABS: MANUAL DIFFERENTIAL MANUAL DIFFERENTIAL (MANUAL DIFF)
[2023-11-21 07:59] LABS: Alanine Aminotransferase 71 U/L (12-78); Albumin Level 3.2 g/dl (3.5-5.0); Albumin/Globulin Ratio 1.4 (1.1-1.8); Alkaline Phosphatase 105 U/L (38-126); Anion Gap 8.9 mEq/L (5-15); Aspartate Amino Transferase 78 U/L (14-36); Bilirubin,Total 0.9 mg/dl (0.2-1.3); Blood Urea Nitrogen 19 mg/dl (7-17); Calcium 8.1 mg/dl (8.4-10.2); Carbon Dioxide 25 mmol/L (22.0-30.0); Chloride 106 mmol/L (98-107); Creatinine Clearance Estimated 51 mL/min (50-200); Estimated Glomerular Filt Rate 69 ml/min (>60); GFR (African American) 83 ML/MIN (>60); Globulin 2.3 g/dL (1.3-3.2); Glucose 100 mg/dl (74-100); Magnesium 1.9 mg/dl (1.6-2.3); Potassium 3.9 mmoL/L (3.5-5.1); Sodium 136 mmol/L (136-145); Total Protein,Serum 5.5 g/dl (6.3-8.2)
[2023-11-21 08:00] VITALS: BP 126/71; PULSE 91; RESP 20; TEMP 36.6; O2SAT 91
[2023-11-21] MEDS: RIVASTIGMINE 4.6MG/24HR PATCH 1 EACH TD (09:53)
--- NOTE | 2023-11-21 10:13 | EXP.ACUTE.PN ---
Subjective *Date: 11/21/23 *Time: 10:13 Interval history: Still having abdominal pain right upper quadrant. No nausea or vomiting. Afebrile overnight. White cell count has jumped. Pain responds to current regimen Medical Exam Vital signs and Labs for Last 24 Hours: Vital Signs Temp Pulse Pulse Resp BP BP Pulse Ox 11/21/23 08:58 11/21/23 08:00 97.8 F 91 H 20 126/71 91 L 11/21/23 08:00 11/21/23 07:00 11/21/23 05:00 11/21/23 04:00 97.7 F 92 H 17 134/69 89 L 11/21/23 03:00 11/21/23 01:00 11/20/23 22:52 11/20/23 21:00 11/20/23 20:00 98.0 F 78 18 151/64 H 95 11/20/23 20:00 11/20/23 18:31 11/20/23 17:00 11/20/23 16:38 11/20/23 16:20 98.6 F 98 H 17 125/78 11/20/23 16:00 98 F 100 H 17 122/89 96 11/20/23 15:30 103 H 26 H 122/77 98 11/20/23 15:01 104 H 28 H 152/77 H 97 11/20/23 14:36 98.6 F 11/20/23 14:30 100 H 26 H 185/90 H 97 11/20/23 14:25 100 H 26 H 205/90 H 98 11/20/23 14:00 100 H 26 H 151/78 H 96 11/20/23 13:41 99.0 F 107 H 28 H 89/49 L 88 L O2 Del Method O2 Flow Rate 11/21/23 08:58 Room Air 11/21/23 08:00 Room Air 11/21/23 08:00 Room Air 11/21/23 07:00 Room Air 11/21/23 05:00 Room Air 11/21/23 04:00 Room Air 11/21/23 03:00 Room Air 11/21/23 01:00 Room Air 11/20/23 22:52 Room Air 11/20/23 21:00 Room Air 11/20/23 20:00 Room Air 11/20/23 20:00 Room Air 11/20/23 18:31 Room Air 11/20/23 17:00 Room Air 11/20/23 16:38 Room Air 11/20/23 16:20 Nasal Cannula 2 11/20/23 16:00 Room Air 11/20/23 15:30 Nasal Cannula 2 11/20/23 15:01 Nasal Cannula 2 11/20/23 14:36 11/20/23 14:30 Nasal Cannula 2 11/20/23 14:25 Nasal Cannula 2 11/20/23 14:00 11/20/23 13:41 Room Air Intake and Output 11/20/23 11/21/23 11/21/23 22:59 07:59 15:59 Intake Total Output Total Balance Intake: Intake, Oral Amount Intake, Total IV Amount Meropenem 1 gm In 0.9 % Sodium Chloride 100 ml @ 100 mls/hr IV Q8H [facility] Rx#:[id number] Output: Output, Urine Amount Other: Number of Voids Number of Unmeasured Voids Weight Patient Weight 11/22/23 00:59 Weight 74.797 kg Laboratory Results - last 24 hr 11/20/23 13:45: WBC 15.8 H, RBC 4.87, Hgb 14.2, Hct 44.0, MCV 90.2, MCH 29.2, MCHC 32.4, RDW 13.5, Plt Count 302, MPV 7.7, Neut % (Auto) 81.0 H, Lymph % (Auto) 12.7, [place] % (Auto) 5.4, Eos % (Auto) 0.3, Baso % (Auto) 0.6, Neut # (Auto) 12.8 H, Lymph # (Auto) 2.0, [place] # (Auto) 0.9, Eos # (Auto) 0.1, Baso # (Auto) 0.1, Total Counted 100, Neutrophils % (Manual) 77 H, Lymphocytes % (Manual) 22, Monocytes % (Manual) 1 L, Platelet Estimate Normal, RBC Morphology Normal, Sodium 136, Potassium 4.2, Chloride 104, Carbon Dioxide 28, Anion Gap 8.2, BUN 21 H, Creatinine 0.90, Estimated Creat Clear 43, Estimated GFR 60, Est GFR ( Amer) 73, Glucose 143 H, Lactate 2.6 H, Calcium 8.9, Total Bilirubin 0.9, AST 93 H, ALT 61, Alkaline Phosphatase 120, Troponin I < 0.01, Total Protein 6.7, Albumin 4.0, Globulin 2.7, Albumin/Globulin Ratio 1.5, Lipase 47 11/20/23 13:46: VBG pH 7.38, VBG pCO2 45.3, VBG pO2 29.2, VBG HCO3 26.1, VBG Total CO2 27.5 H, VBG O2 Saturation 57.9, VBG Base Excess 1.0, VBG Lactic Acid 2.4 H 11/20/23 15:43: Urine Color Yellow, Urine Appearance Sl cloudy, Urine pH 6.5, Ur Specific [place] 1.015, Urine Protein Negative, Urine Glucose (UA) Negative, Urine Ketones Negative, Urine Blood Negative, Urine Nitrate Negative, Urine Bilirubin Negative, Urine Urobilinogen 2.0, Ur Leukocyte Esterase 1+ A, Urine RBC None, Urine WBC 5-10, Ur Squamous Epith Cells 5-10, Ur Transition Epith Cell Occ, Urine Bacteria 3+ 11/20/23 18:01: VBG Lactic Acid 2.1 H 11/20/23 19:30: Lactate 1.8 11/20/23 22:01: VBG Lactic Acid 1.3 11/21/23 06:30: WBC 24.6 H* D, RBC 4.40, Hgb 12.8, Hct 40.2, MCV 91.3, MCH 29.1, MCHC 31.8, RDW 13.5, Plt Count 219 D, MPV 8.1, Neut % (Auto) 80.5 H, Lymph % (Auto) 12.7, [place] % (Auto) 6.2, Eos % (Auto) 0.1, Baso % (Auto) 0.5, Neut # (Auto) 19.8 H, Lymph # (Auto) 3.1, [place] # (Auto) 1.5 H, Eos # (Auto) 0.0, Baso # (Auto) 0.1, Sodium 136, Potassium 3.9, Chloride 106, Carbon Dioxide 25, Anion Gap 8.9, BUN 19 H, Creatinine 0.80, Estimated Creat Clear 51, Estimated GFR 69, Est GFR ( Amer) 83, Glucose 100 D, Calcium 8.1 L, Magnesium 1.9, Total Bilirubin 0.9, AST 78 H, ALT 71, Alkaline Phosphatase 105, Total Protein 5.5 L, Albumin 3.2 L D, Globulin 2.3, Albumin/Globulin Ratio 1.4 I & O for Labs for Last 24 Hours: Intake & Output 11/18/23 11/19/23 11/20/23 11/22/23 23:59 23:59 23:59 00:59 Intake Total 360 / 560 200 / 200 Output Total 0 / 0 150 / 150 Balance 360 / 560 50 / 50 Weight 75.948 kg 74.797 kg Constitutional: Present no acute distress, average body habitus and cooperative Head: Present atraumatic and normocephalic ENT: Present normal exam Neck: Present normal inspection Respiratory: Present normal respiratory effort; Absent rhonchi, wheezes or crackles Cardiac: Present Reg Rate and Rhythm GI: Present soft, tenderness (Right upper quadrant) and normal bowel sounds; Absent distention or rebound Extremities: Present normal inspection and full ROM Skin: Present intact; Absent erythema Neuro: Present Grossly Intact, alert, awake and moves all extremities Comment:: Oriented to self and place Assessment and Plan *Assessment and plan (1) Cholecystitis: Status: Acute Category: Medical Code(s): K81.9 - Cholecystitis, unspecified (2) Hypertension: Status: Acute Qualifiers: Hypertension type: primary hypertension Qualified Code(s): I10 - Essential (primary) hypertension Category: Medical Code(s): I10 - Essential (primary) hypertension (3) Anxiety: Status: Acute Category: Medical Code(s): F41.9 - Anxiety disorder, unspecified (4) Alzheimer's dementia: Status: Chronic Category: Medical Code(s): G30.9 - Alzheimer's disease, unspecified; F02.80 - Dementia in other diseases classified elsewhere, unspecified severity, without behavioral disturbance, psychotic disturbance, mood disturbance, and anxiety Plan 83-year-old female who presented with chest pain, workup found to have right upper quadrant pain and cholecystitis. Discussed case with ER physician, request admission for IV antibiotics, surgical eval, and further management. Medicine agreed to admit. Surgery consulted. Continues to require inpatient management. Continuing antibiotics. Problems addressed as follows: Right upper quadrant pain Cholecystitis -Increase in white cell count to 24 this morning. Afebrile overnight. -Continue meropenem 1 g IV every 8 hours. -Repeat CBC, CMP, magnesium ordered for the morning - Discussed case with surgery, clear liquid diet for now. N.p.o. at midnight with possible consideration of surgery tomorrow. May allow her another 24 hours to cool down however and proceed with surgery Wednesday. Anxiety Alzheimer's dementia - Continue home amitriptyline 75 mg nightly continue gabapentin 100 mg nightly for pain, Ativan 1 mg 3 times a day as needed for anxiety -Continue rivastigmine patch daily for dementia; does appear however to understand her situation and is oriented enough to make decisions for herself. No concern about her ability to consent for surgery. DNR Holding anticoagulation Clear liquid diet, n.p.o. at midnight pending evaluation for surgery tomorrow
--- NOTE | 2023-11-21 10:27 | P.CONPHA_ITS ---
Pharmacy Intervention Comments: MEDICATION RECONCILIATION COMPLETE USING MAR FROM [facility].
--- NOTE | 2023-11-21 10:27 | HMH.PHAINT1 ---
Pharmacy Intervention Comments: MEDICATION RECONCILIATION COMPLETE USING MAR FROM [facility].
[2023-11-21 11:36] LABS: Lymphocytes % 11 % (10-50); Monocytes % 4 % (2-9); Neutrophils % 85 % (42-76); Platelet Estimate Normal; RBC Morphology Normal; Total Cells Counted 100
[2023-11-21 16:00] VITALS: BP 132/60; PULSE 108; RESP 24; TEMP 36.8; O2SAT 90
--- NOTE | 2023-11-21 17:33 | PC.NURSE ---
A&OX3-DOES NOT KNOW WHERE SHE IS AT TIMES. HAS SLEPT MAJORITY OF SHIFT. HAS C/O MULTIPLE TIMES OF ABD PAIN, TX PER NOV-EFFECTIVENESS NOTED. HAS NOT HAD MUCH TO EAT TODAY, SOME SIPS AND BITES OF JELLO. PURE WICK IN PLACE DRAINING DARK YELLOW URINE. PT ENCOURAGED TO DRINK WATER. WE HAVE BEEN TURNING PT IN BED TOLERATED. X2 ASSIST. PT RECEIVING IV ABX. TOLERATING WELL. BED SAFETY ON. NPO AT MIDNIGHT. VSS.
[2023-11-21 20:00] VITALS: BP 150/63; PULSE 107; RESP 16; TEMP 37.1; O2SAT 93
[2023-11-21] MEDS: AMITRIPTYLINE 25MG TABLET 75 MG PO (21:05)
[2023-11-21] MEDS: GABAPENTIN 100MG CAPSULE 200 MG PO (21:06)
[2023-11-22] VITALS (25 sets, daily range): BP systolic 103–151; BP diastolic 54–85; PULSE 92–112; RESP 14–18; TEMP 36.8–37.4; O2SAT 90–96; BMI 26.7
[2023-11-22] MEDS: MORPHINE 2MG/ML SYRINGE 2 MG IV (03:34)
[2023-11-22] MEDS: MEROPENEM 1 GM in 0.9 % SODIUM CHLORIDE 100 ML IV ×3 (06:26→22:58)
[2023-11-22 06:33] LABS: Alanine Aminotransferase 46 U/L (12-78); Albumin Level 3.1 g/dl (3.5-5.0); Albumin/Globulin Ratio 1.2 (1.1-1.8); Alkaline Phosphatase 106 U/L (38-126); Anion Gap 7.6 mEq/L (5-15); Aspartate Amino Transferase 46 U/L (14-36); Bilirubin,Total 0.7 mg/dl (0.2-1.3); Blood Urea Nitrogen 22 mg/dl (7-17); Calcium 7.9 mg/dl (8.4-10.2); Carbon Dioxide 26 mmol/L (22.0-30.0); Chloride 106 mmol/L (98-107); Creatinine Clearance Estimated 52 mL/min (50-200); Estimated Glomerular Filt Rate 53 ml/min (>60); GFR (African American) 64 ML/MIN (>60); Globulin 2.6 g/dL (1.3-3.2); Glucose 102 mg/dl (74-100); Potassium 3.6 mmoL/L (3.5-5.1); Sodium 136 mmol/L (136-145); Total Protein,Serum 5.7 g/dl (6.3-8.2)
--- NOTE | 2023-11-22 06:53 | EXP.SURG.PN ---
Subjective Patient reports: no new complaints, feels better and still having pain Exam Data for Last 24 hours Vital signs and Labs for Last 24 Hours: Temp Pulse Resp BP Pulse Ox O2 Del Method O2 Flow Rate 98.6 F 100 H 16 136/66 94 L Nasal Cannula 2 11/22/23 04:00 11/22/23 04:00 11/22/23 04:00 11/22/23 04:00 11/22/23 04:00 11/22/23 05:00 11/22/23 05:00 Laboratory Results - last 24 hr 11/21/23 06:30: WBC 24.6 H* D, RBC 4.40, Hgb 12.8, Hct 40.2, MCV 91.3, MCH 29.1, MCHC 31.8, RDW 13.5, Plt Count 219 D, MPV 8.1, Neut % (Auto) 80.5 H, Lymph % (Auto) 12.7, [place] % (Auto) 6.2, Eos % (Auto) 0.1, Baso % (Auto) 0.5, Neut # (Auto) 19.8 H, Lymph # (Auto) 3.1, [place] # (Auto) 1.5 H, Eos # (Auto) 0.0, Baso # (Auto) 0.1, Total Counted 100, Neutrophils % (Manual) 85 H, Lymphocytes % (Manual) 11, Monocytes % (Manual) 4, Platelet Estimate Normal, RBC Morphology Normal, Sodium 136, Potassium 3.9, Chloride 106, Carbon Dioxide 25, Anion Gap 8.9, BUN 19 H, Creatinine 0.80, Estimated Creat Clear 51, Estimated GFR 69, Est GFR ( Amer) 83, Glucose 100 D, Calcium 8.1 L, Magnesium 1.9, Total Bilirubin 0.9, AST 78 H, ALT 71, Alkaline Phosphatase 105, Total Protein 5.5 L, Albumin 3.2 L D, Globulin 2.3, Albumin/Globulin Ratio 1.4 11/22/23 05:29: Sodium 136, Potassium 3.6, Chloride 106, Carbon Dioxide 26, Anion Gap 7.6, BUN 22 H, Creatinine 1.00 D, Estimated Creat Clear 52, Estimated GFR 53 L, Est GFR ( Amer) 64 D, Glucose 102 H, Calcium 7.9 L, Total Bilirubin 0.7, AST 46 H D, ALT 46 D, Alkaline Phosphatase 106, Total Protein 5.7 L, Albumin 3.1 L, Globulin 2.6, Albumin/Globulin Ratio 1.2 I & O for Last 24 hours: Intake & Output 11/19/23 11/20/23 11/21/23 11/22/23 10:59 10:59 11:59 11:59 Intake Total 720 / 720 Output Total 725 / 725 Balance -5 / -5 Weight 166 lb 4 oz Constitutional Constitutional: no acute distress *Routine Respiratory Exam Respiratory: Absent respiratory distress *Routine Abdominal Exam Abdominal: Present soft and tenderness (RUQ) Progress Note: A&P Assessment and plan (1) Cholecystitis: Status: Acute Assessment and plan: OR this a.m. for cholecystectomy I have discussed the risks and benefits including, but not limited to: Bleeding Infection Damage to surrounding tissue Inherent risks of sedation The patient agrees to proceed.
--- NOTE | 2023-11-22 07:11 | EXP.ANES.CKL ---
[facility] Disclaimer: The information contained in this section may have been updated after the patient was seen, as this information can be updated by other users. Medical History Anxiety Hypertension Osteoarthritis of left hip Social History Smoking Status: Never smoker alcohol intake: never substance use type: denies use current occupational status: disabled Travel in the last 8 weeks: None housing: jail [facility] Anesthesia Checklist Patient Identification Patient Identification: Arm Band and Verbal (Name & ) Structural Data Admitted From: Home Planned Operative Procedure/s: Lap cholecystectomy Consent for Planned Operative Procedure(s) Verified: Yes NPO Status Verified Time NPO: 00:00 Chart Verification Results Verified: CBC and BMP Additional verifications Anesthesia Reactions: No Airway Assessment Mallampati Score:: Class II C-Spine Mobility Assessed: Yes TMJ Mobility Assessed: Yes Dentition: Edentulous Neurological Assessment Level of Consciousness: Awake Hx Seizures: No Numbness or tingling in extremities: No Anesthesia Plan Anesthesia Risk discussed: Yes Anesthesia Plan: Verified ASA Class: III Anesthesia Type: General
[2023-11-22] MEDS: CLINDAMYCIN PHOSPHATE/D5W 900 MG/50 ML PIGGYBACK 100 MG IV (07:40)
[2023-11-22 07:46] LABS: Basophils # 0.1 K/mm3 (0-0.2); Basophils % 0.2 % (0.1-2.0); Hematocrit 36.5 % (37.0-47.0); Hemoglobin 11.6 g/dL (12.2-16.2); Lymphocytes # 2.7 K/mm3 (0.7-4.5); Lymphocytes % 13.5 % (10-50); Mean Corpuscular HGB Conc 31.7 g/dL (31.8-35.4); Mean Corpuscular Hemoglobin 29.1 pg (27.0-31.2); Mean Corpuscular Volume 91.9 fl (81-99); Mean Platelet Volume 8.6 fl (7.4-10.4); Neutrophils # 16.4 K/mm3 (1.8-7.8); Neutrophils % 81.3 % (37.0-80.0); Platelet Count 244 K/mm3 (142-424); Red Blood Count 3.98 M/mm3 (4.20-5.40); Red Cell Distribution Width 13.6 % (11.5-17.5); White Blood Count 20.2 K/mm3 (4.8-10.8)
[2023-11-22] MEDS: LIDOCAINE 1% 20ML MDV 20 ML (07:49)
[2023-11-22 07:50] LABS: MANUAL DIFFERENTIAL MANUAL DIFFERENTIAL (MANUAL DIFF)
--- NOTE | 2023-11-22 07:57 | SW/DCPLANNER ---
Addendum entered by Jennifer Blue 11/24/23 10:12: Per Shannon valencia/ [facility] patient will return SN[facility] level of care. Addendum entered by Jennifer Blue 11/24/23 09:35: Updated patient information has been faxed to Shannon valencia/ [facility]: patient will discharge back today. Original Note: This patient currently resides at [facility] level of care. I will continue to follow up annie/ Shannon at [facility] until patient is medically stable for discharge. Discharge date is unknown at this time.
[2023-11-22 08:21] LABS: Lymphocytes % 11 % (10-50); Monocytes % 4 % (2-9); Neutrophils % 79 % (42-76); Total Cells Counted 100
[2023-11-22 08:22] LABS: Platelet Estimate Normal; RBC Morphology Normal
--- NOTE | 2023-11-22 08:59 | SUR.OPER ---
Lidocaine patch removed at 0737am due to surgery.
--- NOTE | 2023-11-22 09:41 | EXP.OP.NOTE ---
Date of procedure: 11/22/23 Pre-op Diagnosis:: Acute calculus cholecystitis Post-op Diagnosis:: Gangrenous acute calculus cholecystitis Procedure performed:: Laparoscopic cholecystectomy Surgeon:: Ramón Hassan MD [employer] OPERATOR:: Osmany Plascencia Anesthesia: GETA Estimated blood loss (mL): 25 Operative findings:: Profound gallbladder distention Profound gallbladder wall thickening Patchy gallbladder necrosis with intramural abscess Trevon-Chapa drains (x 2) placed in gallbladder fossa Operative note:: After informed consent was obtained, the patient was taken to the operating room and placed in the supine position. General anesthesia was induced and the abdomen was prepped and draped in a sterile fashion. After infiltration with local anesthetic a supraumbilical incision was made. A Veress needle was placed in position. The abdomen was insufflated. A 5 mm optical trocar was placed in position. Under direct visualization, a 12 mm trocar was placed in the subxiphoid position and 2 additional 5 mm trocars were placed in the right upper quadrant. The gallbladder was elevated up and over the liver margin. Profound distention, wall thickening, and patchy necrosis with intramural abscess noted. The tissue around the cystic duct was carefully dissected. 3 clips were placed proximally and the duct was transected with harmonic miriam. The adjacent cystic artery was manage in the same fashion. Harmonic miriam were then utilized to dissect the gallbladder away from the liver margin. The gallbladder was placed in a retrieval bag and removed through the subxiphoid trocar site (trocar site expanded laterally with scalpel to allow removal of gallbladder). The right upper quadrant was thoroughly irrigated. No active bleeding or bile leak was noted. Two #10 flat Trevon-Chapa drains were placed in the gallbladder fossa and exited through the right upper quadrant trocar sites. The drains were secured with 3-0 nylon. Fascia at the subxiphoid trocar site was reapproximated utilizing 0 Ethibond. The remaining supraumbilical trocar was removed. All wounds were irrigated and skin was closed with 4-0 Monocryl in a mattress fashion to facilitate hemostasis. The patient's anesthetic agents were reversed and extubation was completed prior to transfer to recovery in stable condition. Condition: stable Disposition: PACU Specimens:: Gallbladder and contents Complications:: No immediate
--- NOTE | 2023-11-22 09:53 | EXP.ANES.I ---
[facility] Anesthesia Record Part I Anesthesia Record I Intake, IV Amount: 1,000 Hydration: Adequate Estimated blood loss (mL): 50 Urine output (mL): 0 Blood Pressure: 123/60 SaO2: 92 Pulse Rate: 92 Airway Patency: Patent Respiratory Rate: 14 Temperature: 99.3 F Patient is:: Drowsy and Oral/Nasal airway Stable to PACU at:: 09:48
--- NOTE | 2023-11-22 10:37 | PC.NURSE ---
PITA DRAINS EMPTIED AT 30CC AND 20CC SANGUINOUS DRAINAGE TELFA WITH SMALL AMT OF SEROSANG DRAINAGE NOTED.
--- NOTE | 2023-11-22 12:32 | EXP.ACUTE.PN ---
Subjective *Date: 11/22/23 *Time: 12:49 Interval history: Underwent surgery this morning. Patient coming out from sedation when interviewed. Still groggy. On 2 L nasal cannula. Abdomen with JPs in right upper quadrant. Afebrile. White cell count remains elevated. No acute events overnight Medical Exam Vital signs and Labs for Last 24 Hours: Vital Signs Temp Pulse Pulse Resp BP BP Pulse Ox 11/22/23 12:00 101 H 134/66 94 L 11/22/23 11:30 102 H 136/65 94 L 11/22/23 11:30 94 L 11/22/23 11:15 100 H 144/59 H 95 11/22/23 11:00 100 H 16 138/64 94 L 11/22/23 10:58 99 H 18 135/67 95 11/22/23 10:48 99 H 18 151/65 H 91 L 11/22/23 10:38 96 H 18 122/85 94 L 11/22/23 10:28 99 H 18 135/67 95 11/22/23 10:18 94 H 18 103/54 L 91 L 11/22/23 10:08 97 H 137/63 95 11/22/23 09:58 95 H 18 142/63 H 96 11/22/23 09:54 99.3 F 92 H 14 123/60 11/22/23 09:48 99.3 F 93 H 18 123/60 90 L 11/22/23 07:00 11/22/23 05:00 11/22/23 04:00 98.6 F 100 H 16 136/66 94 L 11/22/23 03:00 11/22/23 01:00 11/21/23 23:00 11/21/23 21:00 11/21/23 20:30 11/21/23 20:00 98.8 F 107 H 16 150/63 H 93 L 11/21/23 18:54 11/21/23 17:00 11/21/23 16:00 98.2 F 108 H 24 132/60 90 L 11/21/23 14:31 11/21/23 13:00 O2 Del Method O2 Flow Rate 11/22/23 12:00 Nasal Cannula 3 11/22/23 11:30 Nasal Cannula 3 11/22/23 11:30 Nasal Cannula 3 11/22/23 11:15 Nasal Cannula 3 11/22/23 11:00 Nasal Cannula 3 11/22/23 10:58 Nasal Cannula 4 11/22/23 10:48 Nasal Cannula 3 11/22/23 10:38 Nasal Cannula 4 11/22/23 10:28 Simple Mask 4 11/22/23 10:18 Simple Mask 5 11/22/23 10:08 Non-Rebreather 10 11/22/23 09:58 Non-Rebreather 10 11/22/23 09:54 11/22/23 09:48 Room Air, Simple Mask 5 11/22/23 07:00 Room Air 11/22/23 05:00 Nasal Cannula 2 11/22/23 04:00 Nasal Cannula 2 11/22/23 03:00 Room Air 11/22/23 01:00 Room Air 11/21/23 23:00 Room Air 11/21/23 21:00 Room Air 11/21/23 20:30 Room Air 11/21/23 20:00 Room Air 11/21/23 18:54 Room Air 11/21/23 17:00 Room Air 11/21/23 16:00 Room Air 11/21/23 14:31 Room Air 11/21/23 13:00 Room Air Intake and Output 11/21/23 11/22/23 11/22/23 23:59 07:59 15:59 Intake Total 360 / 920 1000 / 1000 Output Total 725 / 875 0 / 0 Balance -365 / 45 0 / 1000 1000 / 1000 Intake: Intake, Oral Amount 360 / 720 Intake, Total IV Amount 1000 / 1000 Output: Output, Urine Amount 725 / 875 0 / 0 Other: Number of Voids 0 Number of Unmeasured Voids 0 Weight 75.41 kg Patient Weight 11/22/23 23:59 Weight 75.41 kg Laboratory Results - last 24 hr 11/22/23 05:29: WBC 20.2 H*, RBC 3.98 L, Hgb 11.6 L, Hct 36.5 L, MCV 91.9, MCH 29.1, MCHC 31.7 L, RDW 13.6, Plt Count 244, MPV 8.6, Neut % (Auto) 81.3 H, Lymph % (Auto) 13.5, [place] % (Auto) 5.0, Eos % (Auto) 0.0 L, Baso % (Auto) 0.2, Neut # (Auto) 16.4 H, Lymph # (Auto) 2.7, [place] # (Auto) 1.0, Eos # (Auto) 0.0, Baso # (Auto) 0.1, Total Counted 100, Neutrophils % (Manual) 79 H, Band Neutrophils % 6.0, Lymphocytes % (Manual) 11, Monocytes % (Manual) 4, Platelet Estimate Normal, RBC Morphology Normal, Sodium 136, Potassium 3.6, Chloride 106, Carbon Dioxide 26, Anion Gap 7.6, BUN 22 H, Creatinine 1.00 D, Estimated Creat Clear 52, Estimated GFR 53 L, Est GFR ( Amer) 64 D, Glucose 102 H, Calcium 7.9 L, Total Bilirubin 0.7, AST 46 H D, ALT 46 D, Alkaline Phosphatase 106, Total Protein 5.7 L, Albumin 3.1 L, Globulin 2.6, Albumin/Globulin Ratio 1.2 I & O for Labs for Last 24 Hours: Intake & Output 11/19/23 11/20/23 11/21/23 11/22/23 22:59 22:59 23:59 23:59 Intake Total 1000 / 1000 Output Total 0 / 0 Balance 1000 / 1000 Weight 75.41 kg Constitutional: Present no acute distress, average body habitus and somnolent Head: Present atraumatic and normocephalic ENT: Present normal exam Neck: Present normal inspection Respiratory: Present normal respiratory effort; Absent rhonchi, wheezes or crackles Cardiac: Present Reg Rate and Rhythm GI: Present soft, tenderness and normal bowel sounds; Absent distention or rebound Comments:: 2 PITA drains coming out of right upper quadrant. Extremities: Present normal inspection and full ROM Skin: Present intact; Absent erythema Neuro: Present Grossly Intact, alert, awake and moves all extremities Comment:: Still groggy from anesthesia Assessment and Plan *Assessment and plan (1) Cholecystitis: Status: Acute Category: Medical Code(s): K81.9 - Cholecystitis, unspecified (2) Hypertension: Status: Acute Qualifiers: Hypertension type: primary hypertension Qualified Code(s): I10 - Essential (primary) hypertension Category: Medical Code(s): I10 - Essential (primary) hypertension (3) Anxiety: Status: Acute Category: Medical Code(s): F41.9 - Anxiety disorder, unspecified (4) Alzheimer's dementia: Status: Chronic Category: Medical Code(s): G30.9 - Alzheimer's disease, unspecified; F02.80 - Dementia in other diseases classified elsewhere, unspecified severity, without behavioral disturbance, psychotic disturbance, mood disturbance, and anxiety Plan 83-year-old female who presented with chest pain, workup found to have right upper quadrant pain and cholecystitis. Discussed case with ER physician, request admission for IV antibiotics, surgical eval, and further management. Medicine agreed to admit. Surgery consulted. Taken for surgery this morning. Will continue to require inpatient management for antibiotics and to monitor drain output. Problems addressed as follows: Right upper quadrant pain Cholecystitis Leukocytosis -White cell count remains elevated at 20,000, afebrile overnight. Continuing meropenem 1 g every [address] IV[address]ITA in place in right upper quadrant. Monitoring output. -Repeat CBC, CMP, magnesium ordered for the morning - Discussed case with surgery, clear liquid diet, continues to require inpatient monitoring. Will continue IV antibiotics. Anticipate discharge in the coming days pending improvement in white cell count and PITA drain output. Anxiety Alzheimer's dementia - Continue home amitriptyline 75 mg nightly continue gabapentin 100 mg nightly for pain, Ativan 1 mg 3 times a day as needed for anxiety -Continue rivastigmine patch daily for dementia; does appear however to understand her situation and is oriented enough to make decisions for herself. No concern about her ability to consent for surgery. DNR Holding anticoagulation Clear liquid diet
[2023-11-22] MEDS: RIVASTIGMINE 4.6MG/24HR PATCH 1 EACH TD (12:59)
--- NOTE | 2023-11-22 16:11 | P.PNANES_ITS ---
[facility] Anesthesia Record Part II Anesthesia Record Part II Discharge Time: 10:58 Destination: Medical Surgical Department PACU nurse assessment reviewed?: Yes Patient Condition:: Good Anesthesia Complications:: None Swallowing reflex intact?: Yes Airway Patency: Patent Cyanosis?: No Blood Pressure: 135/67 SaO2: 95 Respiratory Rate: 18 Pulse Rate: 99 Temperature: 99.3 F Mental Status: Alert & Oriented Pain level:: 0 Nausea and/or vomitting:: None Intake, IV Amount: 0 Hydration: Adequate
--- NOTE | 2023-11-22 16:44 | PC.NURSE ---
patient is alert and oriented x3 with periods of confusion regarding place and situation but is easily re-oriented. PITA drains emptied at 16:40 with 25mls sero-sanguineous fluid out. Patient has been slightly tachycardic during my shift, from 99-112. Pt has remained on 3L nasal cannula for the majority of my shift, O2 sats in the lower 90s, pt sleeps with her mouth open so occasionally bumped up to 3.5L NC. call light in reach.
[2023-11-22] MEDS: HYDROCODONE/APAP 5/325 MG TABLET 1 TAB PO (17:39)
--- NOTE | 2023-11-22 17:47 | PC.NURSE ---
pt c/o abd pain with movement, treated per NOV.
[2023-11-22] MEDS: GABAPENTIN 100MG CAPSULE 200 MG PO (20:59)
[2023-11-22] MEDS: AMITRIPTYLINE 25MG TABLET 75 MG PO (21:00)
[2023-11-22] MEDS: LORazepam 1MG TABLET 1 MG PO (21:05)
[2023-11-22] MEDS: SODIUM CHLORIDE 0.9% 10ML FLUSH SYRINGE 10 ML IV (21:06)
--- NOTE | 2023-11-22 22:12 | PC.NURSE ---
ROOM AIR SAT PT WENT DOWN TO 88% ON ROOM AIR. PLACED PT BACK ON 2L WITH A SAT OF 93%
[2023-11-23] VITALS (7 sets, daily range): BP systolic 126–164; BP diastolic 66–84; PULSE 70–91; RESP 16–22; TEMP 36.4–37.1; O2SAT 91–99; BMI 26.6
[2023-11-23] MEDS: MEROPENEM 1 GM in 0.9 % SODIUM CHLORIDE 100 ML IV ×3 (05:50→22:37)
[2023-11-23 07:33] LABS: Alanine Aminotransferase 42 U/L (12-78); Albumin/Globulin Ratio 1.1 (1.1-1.8); Alkaline Phosphatase 118 U/L (38-126); Anion Gap 7.8 mEq/L (5-15); Aspartate Amino Transferase 42 U/L (14-36); Bilirubin,Total 0.5 mg/dl (0.2-1.3); Blood Urea Nitrogen 25 mg/dl (7-17); Calcium 7.9 mg/dl (8.4-10.2); Carbon Dioxide 29 mmol/L (22.0-30.0); Chloride 106 mmol/L (98-107); Creatinine Clearance Estimated 51 mL/min (50-200); Estimated Glomerular Filt Rate 60 ml/min (>60); GFR (African American) 73 ML/MIN (>60); Globulin 2.8 g/dL (1.3-3.2); Glucose 115 mg/dl (74-100); Potassium 3.8 mmoL/L (3.5-5.1); Sodium 139 mmol/L (136-145); Total Protein,Serum 5.8 g/dl (6.3-8.2)
--- NOTE | 2023-11-23 08:11 | EXP.SURG.PN ---
Subjective Patient reports: feels better Exam Data for Last 24 hours Vital signs and Labs for Last 24 Hours: Temp Pulse Resp BP Pulse Ox O2 Del Method O2 Flow Rate 98.2 F 84 22 146/66 H 99 Nasal Cannula 2 11/23/23 07:52 11/23/23 07:52 11/23/23 07:52 11/23/23 07:52 11/23/23 07:52 11/23/23 07:52 11/23/23 07:52 FiO2 2 11/22/23 23:55 Laboratory Results - last 24 hr 11/22/23 05:29: Total Counted 100, Neutrophils % (Manual) 79 H, Band Neutrophils % 6.0, Lymphocytes % (Manual) 11, Monocytes % (Manual) 4, Platelet Estimate Normal, RBC Morphology Normal 11/23/23 07:04: Sodium 139, Potassium 3.8, Chloride 106, Carbon Dioxide 29, Anion Gap 7.8, BUN 25 H, Creatinine 0.90, Estimated Creat Clear 51, Estimated GFR 60, Est GFR ( Amer) 73, Glucose 115 H, Calcium 7.9 L, Total Bilirubin 0.5, AST 42 H, ALT 42, Alkaline Phosphatase 118, Total Protein 5.8 L, Albumin 3.0 L, Globulin 2.8, Albumin/Globulin Ratio 1.1 I & O for Last 24 hours: Intake & Output 11/20/23 11/21/23 11/22/23 11/23/23 10:59 11:59 11:59 11:59 Intake Total 1720 / 1720 360 / 360 Output Total 725 / 725 640 / 640 Balance 995 / 995 -280 / -280 Weight 166 lb 4 oz 165 lb 11.2 oz Constitutional Constitutional: no acute distress *Routine Respiratory Exam Respiratory: Absent respiratory distress *Routine Cardiovascular Exam Cardiovascular: Absent tachycardia *Routine Abdominal Exam Abdominal: Present soft Comments: Dressings in place. No spreading cellulitis. Serosanguineous Trevon-Chapa drainage. Progress Note: A&P Assessment and plan (1) Cholecystitis: Status: Acute Assessment and plan: Overall, doing well status post laparoscopic cholecystectomy for gangrenous cholecystitis Continue antibiotics Slowly advance diet
[2023-11-23 08:20] LABS: Basophils % 0.1 % (0.1-2.0); Hematocrit 34.7 % (37.0-47.0); Hemoglobin 11.9 g/dL (12.2-16.2); Lymphocytes # 1.4 K/mm3 (0.7-4.5); Lymphocytes % 11.9 % (10-50); Mean Corpuscular HGB Conc 34.4 g/dL (31.8-35.4); Mean Corpuscular Hemoglobin 31.7 pg (27.0-31.2); Mean Platelet Volume 8.4 fl (7.4-10.4); Monocytes # 0.7 K/mm3 (0.1-1.0); Monocytes % 6.3 % (1.7-9.3); Neutrophils # 9.3 K/mm3 (1.8-7.8); Neutrophils % 81.7 % (37.0-80.0); Platelet Count 263 K/mm3 (142-424); Red Blood Count 3.77 M/mm3 (4.20-5.40); Red Cell Distribution Width 13.8 % (11.5-17.5); White Blood Count 11.3 K/mm3 (4.8-10.8)
[2023-11-23] MEDS: RIVASTIGMINE 4.6MG/24HR PATCH 1 EACH TD (08:59)
--- NOTE | 2023-11-23 11:06 | PC.NURSE ---
bladder scan 2 ml in bladder.
--- NOTE | 2023-11-23 13:20 | EXP.PN ---
Subjective *Date: 11/23/23 *Time: 13:20 Interval history: patient was seen and evaluated at the bedside. continue IV aabx,, plan to advance diet. No reported acute events overnight, denies chest pain, shortness of breath, nausea, vomiting, abdominal pain. Exam Data for Last 24 hours Vital signs and Labs for Last 24 Hours: Temp Pulse Resp BP Pulse Ox O2 Del Method O2 Flow Rate 98.2 F 84 22 146/66 H 99 Nasal Cannula 2 11/23/23 07:52 11/23/23 07:52 11/23/23 07:52 11/23/23 07:52 11/23/23 07:52 11/23/23 12:18 11/23/23 12:18 FiO2 2 11/22/23 23:55 Laboratory Results - last 24 hr 11/23/23 07:04: WBC 11.3 H D, RBC 3.77 L, Hgb 11.9 L, Hct 34.7 L, MCV 92.0, MCH 31.7 H, MCHC 34.4, RDW 13.8, Plt Count 263, MPV 8.4, Neut % (Auto) 81.7 H, Lymph % (Auto) 11.9, [place] % (Auto) 6.3, Eos % (Auto) 0.0 L, Baso % (Auto) 0.1, Neut # (Auto) 9.3 H, Lymph # (Auto) 1.4, [place] # (Auto) 0.7, Eos # (Auto) 0.0, Baso # (Auto) 0.0, Sodium 139, Potassium 3.8, Chloride 106, Carbon Dioxide 29, Anion Gap 7.8, BUN 25 H, Creatinine 0.90, Estimated Creat Clear 51, Estimated GFR 60, Est GFR ( Amer) 73, Glucose 115 H, Calcium 7.9 L, Total Bilirubin 0.5, AST 42 H, ALT 42, Alkaline Phosphatase 118, Total Protein 5.8 L, Albumin 3.0 L, Globulin 2.8, Albumin/Globulin Ratio 1.1 I & O for Last 24 hours: Intake & Output 11/20/23 11/21/23 11/22/23 11/23/23 22:59 23:59 23:59 23:59 Intake Total 1360 / 1360 100 / 100 Output Total 0 / 0 640 / 640 Balance 1360 / 1360 -540 / -540 Weight 75.41 kg 75.16 kg Microbiology Reports for the Last 24 Hours: Microbiology 11/20/23 15:43 Urine,Clean Catch Urine Culture - Final Constitutional Constitutional: no acute distress *Routine HEENT Exam Head: Present normocephalic Eye: Present EOMI and PERRL ENT: Present mucous membranes moist *Routine Neck Exam Neck: Present supple; Absent lymphadenopathy *Routine Respiratory Exam Respiratory: Present CTA bilaterally *Routine Cardiovascular Exam Cardiovascular: Present RRR *Routine Abdominal Exam Abdominal: Present soft and normoactive bowel sounds; Absent tenderness *Routine Extremities Exam Extremities: Absent cyanosis, clubbing or edema *Routine Skin Exam Skin: Present warm; Absent rash *Routine Neurological Exam Neurological: Present alert and oriented X3 Assessment and Plan *Assessment and plan (1) Cholecystitis: Status: Acute Category: Medical Code(s): K81.9 - Cholecystitis, unspecified (2) Hypertension: Status: Acute Qualifiers: Hypertension type: primary hypertension Qualified Code(s): I10 - Essential (primary) hypertension Category: Medical Code(s): I10 - Essential (primary) hypertension (3) Anxiety: Status: Acute Category: Medical Code(s): F41.9 - Anxiety disorder, unspecified (4) Alzheimer's dementia: Status: Chronic Category: Medical Code(s): G30.9 - Alzheimer's disease, unspecified; F02.80 - Dementia in other diseases classified elsewhere, unspecified severity, without behavioral disturbance, psychotic disturbance, mood disturbance, and anxiety Plan 83-year-old female who presented with chest pain, workup found to have right upper quadrant pain and cholecystitis. Right upper quadrant pain Cholecystitis Leukocytosis Continue meropenem 1 g every [address] in [address] in right upper quadrant. Monitoring output. continue to advance diet as tolerated GS following Anxiety Alzheimer's dementia - Continue home amitriptyline 75 mg nightly continue gabapentin 100 mg nightly for pain, Ativan 1 mg 3 times a day as needed for anxiety -Continue rivastigmine patch daily for dementia; does appear however to understand her situation and is oriented enough to make decisions for herself. No concern about her ability to consent for surgery. DNR ok to resume home anticoagulation advanced to full liquid diet
[2023-11-23] MEDS: LACTATED RINGERS 1000ML 1,000 ML 500 ML IV (14:04)
--- NOTE | 2023-11-23 14:39 | HMH.PTEV ---
Physical Therapy Evaluation Rehab PT IP Evaluation Start: 11/23/23 10:19 Freq: ONCE Status: Active Protocol: Document 11/23/23 14:11 [facility] (Rec: 11/23/23 14:39 PHORNE [id number]) Subjective/History History History The patient presents to [facility] s/ p laparoscopic cholecystectomy after presenting to the ED with RUQ pain. The patient was admitted from [facility], which she resides. The patient's PMH is remarkable for Alzheimer's, hypertension, fibromyalgia. Subjective Subjective The patient is in bed upon arrival with a peripheral IV, 2L O2, and 2 bulb drains attached to the surgical site. The patient is agreeable to PT and oriented to person and place. The patient was able to provide some of her history but was, at times, difficult to understand. The patient reported that she was independent with all ADLs at the group home and ambulated using a walker. The patient reported some nausea and dizziness upon sitting up at the EOB. New diagnosis of cancer in past 12 No months? Rehab PT IP Eval Objective Appearance Patient Behavior Appropriate,Cooperative Patient Orientation Person,Place Difficulty following instructions none Speech Pattern Rambling,Poor Articulation Balance Dynamic Sitting Balance Ability Fair Transfers Bed Transfer Ability Minimal x 2 (25% assist) Rehab PT IP prob,goals,plan Problems Date of Evaluation: 11/23/23 PT IP Problems Bed Mobility,Transfers,Gait, Balance,Self care,Safety Rehab Potential Rehab Potential Fair Plan PT Intervention Plan Bed Mobility,Transfers,Gait, Balance,Self care,Safety, Therapeutic Exercise PT Plan Frequency Daily Duration LOS Discharge Goals Bed Transfer Ability Supervision/Stand by Sit to Stand Chair Transfer Ability Supervision/Stand by Ambulation Assistive Device Rolling Walker Ambulation Distance (feet) 25 Discharge Plan PT Discharge Plan Patient presents for initial evaluation. Upon sitting EOB, the patient became nauseous and requested to lie back down . The patient presents below her normal baseline in level of function, ambulator ability and transfers. Skilled PT is indicated for this patient to promote a safe return to her prior level of function and to promote a safe discharge. The patient may be most appropriate for discharge back to the group home. Eval Complexity Eval Charge Codes 76411 - High Complexity PHYSICIAN CERTIFICATION: I certify the specified therapy services for Erinn Chen Rice are required, authorized, and reviewed every 30 days.
--- NOTE | 2023-11-23 14:58 | HMH.OTEV ---
OT Inpatient Evaluation Rehab OT IP Evaluation Start: 11/23/23 10:19 Freq: ONCE Status: Active Protocol: Document 11/23/23 14:53 [facility] (Rec: 11/23/23 14:58 [facility] [id number]) Rehab OT IP Assessment Subjective History Pt oriented x 2 on arrival. Pt agreeable to engage in therapy evaluation. The patient presents to [facility] s/p laparoscopic cholecystectomy after presenting to the ED with RUQ pain. The patient was admitted from [facility], which she resides. The patient's PMH is remarkable for Alzheimer's, hypertension, fibromyalgia. Subjective The patient is in bed upon arrival with a peripheral IV, 2L O2, and 2 bulb drains attached to the surgical site. The patient is agreeable to OT and oriented to person and place. The patient was able to provide some of her history but was, at times, difficult to understand. The patient reported that she was independent with all ADLs at the half-way and ambulated using a walker. The patient reported some nausea and dizziness upon sitting up at the EOB. Objective Patient Orientation Person,Birthday Right Upper Extremity Gross ROM Min Limitation <25% Left Upper Extremity Gross ROM Min Limitation <25% Shoulder ROM Limitations Muscle Weakness Elbow ROM Limitations Muscle Weakness Wrist Limitations of Range of Motion Muscle Weakness Bed Mobility bed mobility-scooting,bed mobility - supine/sit Assist Level Minimal x 2 (25% assist) Rehab OT IP prob,goals,plan Problems Date of Evaluation: 11/23/23 OT IP Problems Bed Mobility,Transfers,Balance ,Self care,Safety Rehab Potential Rehab Potential Good Equipment Needs Assistive Devices Platform Walker Plan OT intervention Plan Bed Mobility,Transfers,Balance ,Self care,Safety,Therapeutic Exercise OT Plan Frequency Daily Duration LOS Discharge Goals Bed Mobility Ability Assistance x1 Sit to Stand Chair Transfer Ability Minimal x 1 (25% assist) Chair Transfer Ability Minimal x 1 (25% assist) Chair Transfer Technique Sit to/from Ambulatory Chair Transfer Assistive Devices Rolling Walker Feeding Ability Assist with Tray Set Up Lower Body Dressing Ability Moderate Assistance Upper Body Dressing Ability Minimal Assistance Bathing Ability Moderate Assistance Performing Toilet Hygiene Ability Moderate Assistance Overall Commode/Toilet Transfer Ability Minimal Assistance Commode/Toilet Transfer Technique Sit to/from Ambulatory Commode/Toilet Transfer Assistive Grab Bars Devices Oral Care Assist Standby Assistance Decrease in Endurance Yes Discharge Plan OT Discharge Plan Pt will continue to be seen for OT services while at [facility]. Pt can discharge back to SNF for continued skilled therapy once she is medically stable to discharge. Continued therapy is important in order for patient to improve strength, safety, endurance, ADL independence, and functional transfers to reach PLOF. Eval Complexity Eval Charge Codes 35322 - Moderate Complexity PHYSICIAN CERTIFICATION: I certify the specified therapy services for Erinn Gracia are required, authorized, and reviewed every 30 days.
--- NOTE | 2023-11-23 16:29 | PC.NURSE ---
bladder scan with 398 ml in bladder after bouls.
--- NOTE | 2023-11-23 18:06 | PC.NURSE ---
Pt. up to bedside commode with 100 ml of urine out and sent to lab. Pt. refused I AND O cath stating she would like to get back up to the [facility] in a couple of hours and try again.
[2023-11-23 18:36] LABS: Microscopic, Urine URINE MICROSCOPIC (MICROSCOPIC)
[2023-11-23 18:39] LABS: Appearance,Urine CLEAR (Clear); Bilirubin,Urine Negative (Negative); Blood, Urine 1+ (Negative); Color,Urine YELLOW (Yellow); Glucose,Urine (UA) Negative (Negative); Ketones,Urine TRACE (Negative); Leukocyte Esterase,Urine Negative (Negative); Nitrate,Urine Negative (Negative); Protein,Urine 2+ (Negative); Specific Gravity, Urine >= 1.030 (1.005-1.030)
[2023-11-23 18:59] LABS: Bacteria,Urine 1+ /lpf; WBC,Urine Occasional #/hpf (0-3)
[2023-11-23] MEDS: MORPHINE 2MG/ML SYRINGE 2 MG IV (20:59)
[2023-11-23] MEDS: GABAPENTIN 100MG CAPSULE 200 MG PO (21:00)
[2023-11-23] MEDS: AMITRIPTYLINE 25MG TABLET 75 MG PO (21:01)
[2023-11-23] MEDS: HYDROCODONE/APAP 5/325 MG TABLET 1 TAB PO (22:38)
[2023-11-24 04:00] VITALS: BP 128/58; PULSE 72; RESP 16; TEMP 37; O2SAT 90; BMI 27.2
[2023-11-24] MEDS: MEROPENEM 1 GM in 0.9 % SODIUM CHLORIDE 100 ML IV (06:01)
[2023-11-24 06:48] LABS: Basophils % 0.5 % (0.1-2.0); Hematocrit 34.6 % (37.0-47.0); Hemoglobin 11.2 g/dL (12.2-16.2); Lymphocytes % 34.1 % (10-50); Mean Corpuscular HGB Conc 32.5 g/dL (31.8-35.4); Mean Corpuscular Hemoglobin 30.1 pg (27.0-31.2); Mean Corpuscular Volume 92.6 fl (81-99); Mean Platelet Volume 7.7 fl (7.4-10.4); Monocytes # 0.6 K/mm3 (0.1-1.0); Monocytes % 6.9 % (1.7-9.3); Neutrophils # 5.2 K/mm3 (1.8-7.8); Neutrophils % 58.6 % (37.0-80.0); Platelet Count 330 K/mm3 (142-424); Red Blood Count 3.73 M/mm3 (4.20-5.40); Red Cell Distribution Width 13.7 % (11.5-17.5); White Blood Count 8.9 K/mm3 (4.8-10.8)
[2023-11-24 07:22] LABS: Alanine Aminotransferase 49 U/L (12-78); Albumin Level 2.8 g/dl (3.5-5.0); Albumin/Globulin Ratio 1.1 (1.1-1.8); Alkaline Phosphatase 103 U/L (38-126); Anion Gap 6.6 mEq/L (5-15); Aspartate Amino Transferase 59 U/L (14-36); Bilirubin,Total 0.5 mg/dl (0.2-1.3); Blood Urea Nitrogen 24 mg/dl (7-17); Calcium 8.2 mg/dl (8.4-10.2); Carbon Dioxide 28 mmol/L (22.0-30.0); Chloride 107 mmol/L (98-107); Creatinine Clearance Estimated 53 mL/min (50-200); Estimated Glomerular Filt Rate 69 ml/min (>60); GFR (African American) 83 ML/MIN (>60); Globulin 2.6 g/dL (1.3-3.2); Glucose 82 mg/dl (74-100); Potassium 3.6 mmoL/L (3.5-5.1); Sodium 138 mmol/L (136-145); Total Protein,Serum 5.4 g/dl (6.3-8.2)
--- NOTE | 2023-11-24 07:53 | EXP.PHA.PN ---
Subjective *Date: 11/24/23 *Time: 07:53 Medical Exam Vital signs and Labs for Last 24 Hours: Vital Signs Temp Pulse Resp BP Pulse Ox O2 Del Method O2 Flow Rate 11/24/23 07:30 Room Air 11/24/23 07:00 Room Air 11/24/23 05:00 Room Air 11/24/23 04:00 98.6 F 72 16 128/58 L 90 L Room Air 11/24/23 03:00 Room Air 11/24/23 01:00 Room Air 11/23/23 23:00 Room Air 11/23/23 21:25 98.2 F 70 22 150/77 H 91 L Room Air 11/23/23 21:00 Room Air 11/23/23 21:00 Room Air 11/23/23 20:00 98.4 F 88 16 164/73 H 94 L Nasal Cannula 2 11/23/23 19:31 Nasal Cannula 2 11/23/23 18:19 Room Air 11/23/23 16:00 98.1 F 91 H 18 156/76 H 97 Nasal Cannula 2 11/23/23 15:42 Nasal Cannula 2 11/23/23 14:17 Nasal Cannula 2 11/23/23 12:18 Nasal Cannula 2 11/23/23 12:00 98.7 F 88 18 136/73 93 L Nasal Cannula 2 11/23/23 10:24 Nasal Cannula 2 11/23/23 08:38 Nasal Cannula 2 11/23/23 08:00 Nasal Cannula 2 FiO2 11/24/23 07:30 11/24/23 07:00 11/24/23 05:00 11/24/23 04:00 11/24/23 03:00 11/24/23 01:00 11/23/23 23:00 11/23/23 21:25 11/23/23 21:00 11/23/23 21:00 11/23/23 20:00 11/23/23 19:31 28 11/23/23 18:19 11/23/23 16:00 11/23/23 15:42 11/23/23 14:17 11/23/23 12:18 11/23/23 12:00 11/23/23 10:24 11/23/23 08:38 11/23/23 08:00 Intake and Output 11/23/23 11/23/23 11/24/23 15:59 23:59 07:59 Intake Total 505 / 1745 1240 / 1745 Output Total 210 / 875 25 / 875 Balance 295 / 870 1215 / 870 -30 Intake: Intake, Oral Amount 405 / 645 240 / 645 Intake, Total IV Amount 100 / 1100 1000 / 1100 Lactated Ringers 1000ML 1,000 1000 / 1000 ml @ 500 mls/hr IV .Q2H ONE Rx# :[id number] Meropenem 1 gm In 0.9 % Sodium 100 / 100 Chloride 100 ml @ 100 mls/hr IV Q8H [facility] Rx#:[id number] Output: Output, Urine Amount 200 / 200 0 / 0 Output, Drainage Amount RUQ UPPER R QUAD ABD 0 / 0 Other: Number of Unmeasured Voids 1 1 Weight 75.16 kg 76.9 kg Patient Weight 11/24/23 23:59 Weight 76.9 kg Laboratory Results - last 24 hr 11/23/23 07:04: WBC 11.3 H D, RBC 3.77 L, Hgb 11.9 L, Hct 34.7 L, MCV 92.0, MCH 31.7 H, MCHC 34.4, RDW 13.8, Plt Count 263, MPV 8.4, Neut % (Auto) 81.7 H, Lymph % (Auto) 11.9, [place] % (Auto) 6.3, Eos % (Auto) 0.0 L, Baso % (Auto) 0.1, Neut # (Auto) 9.3 H, Lymph # (Auto) 1.4, [place] # (Auto) 0.7, Eos # (Auto) 0.0, Baso # (Auto) 0.0 11/23/23 18:07: Urine Color Yellow, Urine Appearance Clear, Urine pH 6.0, Ur Specific [place] >= 1.030, Urine Protein 2+, Urine Glucose (UA) Negative, Urine Ketones Trace, Urine Blood 1+, Urine Nitrate Negative, Urine Bilirubin Negative, Urine Urobilinogen 1.0, Ur Leukocyte Esterase Negative, Urine RBC 10-20, Urine WBC Occasional, Ur Squamous Epith Cells 3-5, Urine Bacteria 1+ 11/24/23 06:11: WBC 8.9, RBC 3.73 L, Hgb 11.2 L, Hct 34.6 L, MCV 92.6, MCH 30.1, MCHC 32.5, RDW 13.7, Plt Count 330 D, MPV 7.7, Neut % (Auto) 58.6, Lymph % (Auto) 34.1, [place] % (Auto) 6.9, Eos % (Auto) 0.0 L, Baso % (Auto) 0.5, Neut # (Auto) 5.2, Lymph # (Auto) 3.0, [place] # (Auto) 0.6, Eos # (Auto) 0.0, Baso # (Auto) 0.0, Sodium 138, Potassium 3.6, Chloride 107, Carbon Dioxide 28, Anion Gap 6.6, BUN 24 H, Creatinine 0.80, Estimated Creat Clear 53, Estimated GFR 69, Est GFR ( Amer) 83, Glucose 82 D, Calcium 8.2 L, Total Bilirubin 0.5, AST 59 H D, ALT 49, Alkaline Phosphatase 103, Total Protein 5.4 L, Albumin 2.8 L, Globulin 2.6, Albumin/Globulin Ratio 1.1 I & O for Labs for Last 24 Hours: Intake & Output 11/21/23 11/22/23 11/23/23 11/24/23 23:59 23:59 23:59 23:59 Intake Total 1360 / 1360 1745 / 1745 Output Total 0 / 0 875 / 875 30 / 30 Balance 1360 / 1360 870 / 870 -30 / -30 Weight 75.41 kg 75.16 kg 76.9 kg Microbiology Reports for the Last 24 Hours: Microbiology 11/20/23 16:10 Blood Blood Culture - Preliminary 11/20/23 14:50 Blood Blood Culture - Preliminary 11/20/23 15:43 Urine,Clean Catch Urine Culture - Final The patient's infection will respond to the chosen ABx?: Yes Is the patient receiving the right drug, dose, and route?: Yes Could a more targeted ABx be ordered?: No (BLOOD CULTURE NG AT 24 HOURS AND URINE CULTURE MIXED AILYN)
[2023-11-24 08:00] VITALS: BP 145/74; PULSE 96; RESP 18; TEMP 36.7; O2SAT 91
--- NOTE | 2023-11-24 08:41 | P.PN_ITS ---
Subjective Patient reports: no new complaints and feels better Exam Data for Last 24 hours Vital signs and Labs for Last 24 Hours: Temp Pulse Resp BP Pulse Ox O2 Del Method O2 Flow Rate 98.6 F 72 16 128/58 L 90 L Room Air 2 11/24/23 04:00 11/24/23 04:00 11/24/23 04:00 11/24/23 04:00 11/24/23 04:00 11/24/23 07:30 11/23/23 20:00 FiO2 28 11/23/23 19:31 Laboratory Results - last 24 hr 11/23/23 18:07: Urine Color Yellow, Urine Appearance Clear, Urine pH 6.0, Ur Specific [place] >= 1.030, Urine Protein 2+, Urine Glucose (UA) Negative, Urine Ketones Trace, Urine Blood 1+, Urine Nitrate Negative, Urine Bilirubin Negative, Urine Urobilinogen 1.0, Ur Leukocyte Esterase Negative, Urine RBC 10-20, Urine WBC Occasional, Ur Squamous Epith Cells 3-5, Urine Bacteria 1+ 11/24/23 06:11: WBC 8.9, RBC 3.73 L, Hgb 11.2 L, Hct 34.6 L, MCV 92.6, MCH 30.1, MCHC 32.5, RDW 13.7, Plt Count 330 D, MPV 7.7, Neut % (Auto) 58.6, Lymph % (Auto) 34.1, [place] % (Auto) 6.9, Eos % (Auto) 0.0 L, Baso % (Auto) 0.5, Neut # (Auto) 5.2, Lymph # (Auto) 3.0, [place] # (Auto) 0.6, Eos # (Auto) 0.0, Baso # (Auto) 0.0, Sodium 138, Potassium 3.6, Chloride 107, Carbon Dioxide 28, Anion Gap 6.6, BUN 24 H, Creatinine 0.80, Estimated Creat Clear 53, Estimated GFR 69, Est GFR ( Amer) 83, Glucose 82 D, Calcium 8.2 L, Total Bilirubin 0.5, AST 59 H D, ALT 49, Alkaline Phosphatase 103, Total Protein 5.4 L, Albumin 2.8 L , Globulin 2.6, Albumin/Globulin Ratio 1.1 I & O for Last 24 hours: Intake & Output 03/10/11/22/23 11/23/23 11/24/23 11:59 11:59 11:59 11:59 Intake Total 1720 / 1720 360 / 360 1745 / 1745 Output Total 725 / 725 840 / 840 65 / 65 Balance 995 / 995 -480 / -480 1680 / 1680 Weight 166 lb 4 oz 165 lb 11.191 oz 169 lb 8.568 oz Microbiology Reports for the Last 24 Hours: Microbiology 11/20/23 16:10 Blood Blood Culture - Preliminary 11/20/23 14:50 Blood Blood Culture - Preliminary 11/20/23 15:43 Urine,Clean Catch Urine Culture - Final Constitutional Constitutional: no acute distress *Routine Respiratory Exam Respiratory: Absent respiratory distress *Routine Cardiovascular Exam Cardiovascular: Absent tachycardia *Routine Abdominal Exam Abdominal: Present soft Comments: PITA drainage nonbilious Progress Note: A&P Assessment and plan (1) Cholecystitis: Status: Acute Assessment and plan: Overall, doing well status post laparoscopic cholecystectomy for gangrenous cholecystitis. White blood cell count normalized. Okay from surgical standpoint for discharge home with close outpatient follow-up
[2023-11-24] MEDS: RIVASTIGMINE 4.6MG/24HR PATCH 1 EACH TD (09:14)
--- NOTE | 2023-11-24 09:31 | P.DS_ITS ---
General Admission date:: 11/20/23 Discharge date: 11/24/23 HPI HPI HPI: Ms. Gracia is an 83-year-old female with history of Alzheimer's, hypertension, fibromyalgia. Lives at [facility] long-term. Presented to the ER for evaluation of chest pain versus right upper quadrant pain. States its gotten worse over the past 48 hours. Noticed it yesterday morning. Some indigestion but no mateus emesis. No shortness of breath, fever, diarrhea. Has gotten progressively worse and she was sent to the ER for further evaluation. On arrival to the ER main complaint is pain in her chest radiating through her shoulders. No headache or worsening confusion from baseline per report from assisted staff. She is alert and oriented to self and situation. Workup in the ER concerning for leukocytosis of 16, slight elevation in liver enzymes and a hepatocellular pattern, and CT of abdomen positive for cholecystitis. Exam positive for [place] sign. Medicine was consulted for admission after consu ltation with surgery. On arrival to the floor, patient is pleasant and oriented to self. In no acute distress. Is somewhat tender in her right chest but had multiple attempts to draw blood from veins in her right chest prior to my exam. Does have tenderness in right upper quadrant. Meropenem started in the ER given pts penicillin allergy Hospital Course Hospital Course Hospital Course: 83-year-old female who presented with chest pain, workup found to have right upper quadrant pain and cholecystitis. Right upper quadrant pain Cholecystitis patient is stbale for dc from GS standpoint, will dc on levofloxacin. Drain is in place, f/u with GS as OP Anxiety Alzheimer's dementia Patient was seen and evaluated at the bedside on the day of discharge. Patient wishes to be discharged. All patient questions were answered and patient was given time to ask questions. Patient was discharged in stable condition. Patient understands that she can return to ER in case of any sudden changes in health. Total time spent on DC - 38 mins Exam Data for Last 24 hours Vital signs and Labs for Last 24 Hours: Temp Pulse Resp BP Pulse Ox O2 Del Method O2 Flow Rate 98.1 F 96 H 18 145/74 H 91 L Room Air 2 11/24/23 08:00 11/24/23 08:00 11/24/23 08:00 11/24/23 08:00 11/24/23 08:00 11/24/23 09:12 11/23/23 20:00 FiO2 28 11/23/23 19:31 Laboratory Results - last 24 hr 11/23/23 18:07: Urine Color Yellow, Urine Appearance Clear, Urine pH 6.0, Ur Specific [place] >= 1.030, Urine Protein 2+, Urine Glucose (UA) Negative, Urine Ketones Trace, Urine Blood 1+, Urine Nitrate Negative, Urine Bilirubin Negative, Urine Urobilinogen 1.0, Ur Leukocyte Esterase Negative, Urine RBC 10-20, Urine WBC Occasional, Ur Squamous Epith Cells 3-5, Urine Bacteria 1+ 11/24/23 06:11: WBC 8.9, RBC 3.73 L, Hgb 11.2 L, Hct 34.6 L, MCV 92.6, MCH 30.1, MCHC 32.5, RDW 13.7, Plt Count 330 D, MPV 7.7, Neut % (Auto) 58.6, Lymph % (Auto) 34.1, [place] % (Auto) 6.9, Eos % (Auto) 0.0 L, Baso % (Auto) 0.5, Neut # (Auto) 5.2, Lymph # (Auto) 3.0, [place] # (Auto) 0.6, Eos # (Auto) 0.0, Baso # (Auto) 0.0, Sodium 138, Potassium 3.6, Chloride 107, Carbon Dioxide 28, Anion Gap 6.6, BUN 24 H, Creatinine 0.80, Estimated Creat Clear 53, Estimated GFR 69, Est GFR ( Amer) 83, Glucose 82 D, Calcium 8.2 L, Total Bilirubin 0.5, AST 59 H D, ALT 49, Alkaline Phosphatase 103, Total Protein 5.4 L, Albumin 2.8 L , Globulin 2.6, Albumin/Globulin Ratio 1.1 I & O for Last 24 hours: Intake & Output 11/21/23 11/22/23 11/23/23 11/24/23 23:59 23:59 23:59 23:59 Intake Total 1360 / 1360 1745 / 1745 1180 / 1180 Output Total 0 / 0 875 / 875 30 / 30 Balance 1360 / 1360 870 / 870 1150 / 1150 Weight 75.41 kg 75.16 kg 76.9 kg Microbiology Reports for the Last 24 Hours: Microbiology 11/20/23 16:10 Blood Blood Culture - Preliminary 11/20/23 14:50 Blood Blood Culture - Preliminary 11/20/23 15:43 Urine,Clean Catch Urine Culture - Final Constitutional Constitutional: no acute distress *Routine HEENT Exam Head: Present normocephalic Eye: Present EOMI and PERRL ENT: Present mucous membranes moist *Routine Neck Exam Neck: Present supple; Absent lymphadenopathy *Routine Respiratory Exam Respiratory: Present CTA bilaterally *Routine Cardiovascular Exam Cardiovascular: Present RRR *Routine Abdominal Exam Abdominal: Present soft and normoactive bowel sounds; Absent tenderness *Routine Extremities Exam Extremities: Absent cyanosis, clubbing or edema *Routine Skin Exam Skin: Present warm; Absent rash *Routine Neurological Exam Neurological: Present alert and oriented X3 Results Data Completed and Pending Labs on day of discharge: Labs from last 24 hours 11/24/23 11/23/23 06:11 18:07 WBC 8.9 RBC 3.73 L Hgb 11.2 L Hct 34.6 L MCV 92.6 MCH 30.1 MCHC 32.5 RDW 13.7 Plt Count 330 D MPV 7.7 Neut % (Auto) 58.6 Lymph % (Auto) 34.1 [place] % (Auto) 6.9 Eos % (Auto) 0.0 L Baso % (Auto) 0.5 Neut # (Auto) 5.2 Lymph # (Auto) 3.0 [place] # (Auto) 0.6 Eos # (Auto) 0.0 Baso # (Auto) 0.0 Sodium 138 Potassium 3.6 Chloride 107 Carbon Dioxide 28 Anion Gap 6.6 BUN 24 H Creatinine 0.80 Estimated Creat Clear 53 Estimated GFR 69 Est GFR ( Amer) 83 Glucose 82 D Calcium 8.2 L Total Bilirubin 0.5 AST 59 H D ALT 49 Alkaline Phosphatase 103 Total Protein 5.4 L Albumin 2.8 L Globulin 2.6 Albumin/Globulin Ratio 1.1 Urine Color Yellow Urine Appearance Clear Urine pH 6.0 Ur Specific [place] >= 1.030 Urine Protein 2+ Urine Glucose (UA) Negative Urine Ketones Trace Urine Blood 1+ Urine Nitrate Negative Urine Bilirubin Negative Urine Urobilinogen 1.0 Ur Leukocyte Esterase Negative Urine RBC 10-20 Urine WBC Occasional Ur Squamous Epith Cells 3-5 Urine Bacteria 1+ Preliminary micro results at discharge 11/20/23 16:10 Blood Culture - Preliminary Blood 11/20/23 14:50 Blood Culture - Preliminary Blood DS: Diagnosis Discharge Diagnosis (1) Cholecystitis: Status: Acute Code(s): K81.9 - Cholecystitis, unspecified Meds Home Medications and Allergies Home Medications Medication Instructions Recorded Confirmed Type loperamide 2 mg tablet 2 mg PO Q6HP PRN Diarrhea 06/02/21 11/21/23 History melatonin 3 mg tablet 3 mg PO HS PRN sleep #30 tabs 07/02/21 11/21/23 Rx gabapentin 100 mg capsule 200 mg PO HS NERVE PAIN 03/15/23 11/21/23 History meclizine 12.5 mg tablet 12.5 mg PO DAILY DIZZINESS 03/15/23 11/21/23 History mirabegron 50 mg tablet,extended 50 mg PO DAILY URINARY SYMPTOMS 03/15/2311/20 History release 24 hr (Myrbetriq) rivastigmine 4.6 mg/24 hour 1 patch transdermal DAILY DEMENTIA 03/15/23 11/20/23 History transdermal patch tramadol 50 mg tablet 50 mg PO Q8HP PRN Pain (Scale 03/15/23 11/20/23 History Score 4-6) acetaminophen 500 mg tablet 500 mg PO Q6HP PRN Fever Or Pain 11/20/23 11/21/23 History amitriptyline 75 mg tablet 75 mg PO HS Depression 11/20/23 11/21/23 History cyanocobalamin (vitamin B-12) 500 1,000 mcg PO DAILY Supplement 11/20/23 11/21/23 History mcg tablet (Vitamin B-12) lorazepam 1 mg tablet 1 mg PO TIDP PRN anxiety 11/20/23 11/21/23 History lidocaine 5 % topical patch 1 patch topical DAILY Back Pain 11/21/23 11/21/23 History multivitamin,ni-ilvv-Qz-FA-min 1 tab PO DAILY Supplement 11/21/23 11/21/23 History levofloxacin 500 mg tablet 500 mg PO DAILY 5 days #5 tabs 11/24/23 Rx New Prescriptions to Start Prescriptions: levofloxacin Rolly Floyd Allergies Allergy/AdvReac Type Severity Reaction Status Date / Time codeine Allergy Verified 05/07/22 13:44 Penicillins Allergy Verified 05/07/22 13:44 pregabalin [From Lyrica] Allergy Verified 05/07/22 13:44 sulfate ion Allergy Verified 05/07/22 13:44 suvorexant Allergy Verified 05/07/22 13:44 venlafaxine [From Effexor] Allergy Verified 05/07/22 13:44 Discharge Plan Disposition Patient Disposition: Home, Self-Care Condition: Good Discharge Order Discharge Orders: Discharge Order (Routine); Ordered 11/24/23 Ordered By: Rolly Floyd Follow up Plan Follow up with: Ramón Hassan MD [Staff Physician] - 12/01/23 1:00 pm Prescriptions/Medication Reconciliation: New levofloxacin 500 mg tablet 500 mg PO DAILY 5 Days Qty: 5 0RF Continued melatonin 3 mg tablet 3 mg PO HS PRN (Reason: sleep) Qty: 30 0RF amitriptyline 75 mg tablet 75 mg PO HS acetaminophen 500 mg Tablet 500 mg PO Q6HP PRN (Reason: Fever Or Pain) cyanocobalamin (vitamin B-12) [Vitamin B-12] 500 mcg tablet 1,000 mcg PO DAILY lorazepam 1 mg tablet 1 mg PO TIDP PRN (Reason: anxiety) lidocaine 5 % Adhesive Patch,Medicated 1 patch TOPICAL DAILY Rx Instructions: leave on most painful area for up to 12 hrs multivitamin,do-nxnm-Nb-FA-min Tablet 1 tab PO DAILY loperamide 2 MG tablet 2 mg PO Q6HP PRN (Reason: Diarrhea) tramadol 50 mg tablet 50 mg PO Q8HP PRN (Reason: Pain (Scale Score 4-6)) gabapentin 100 mg capsule 200 mg PO HS rivastigmine 4.6 mg/24 hour patch 24 hour 1 patch transdermal DAILY meclizine 12.5 mg Tablet 12.5 mg PO DAILY Myrbetriq 50 mg tablet extended release 24 hr 50 mg PO DAILY Problem Reconciliation Problems Reviewed?: Yes Patient Discharge Instructions ACTIVITY: Ambulate as tolerated DIET: continue same diet Providers Primary Care Provider: Augustin Ho Admit Provider: Marcell Whipple Attending Provider: Marcell Whipple
== END 2023-11-24 12:08 | DRG 419 ==
LOC: ER 14:06 → 2ND 15:12
PROVIDERS: Internal Medicine; Surgery; Admitting Provider Internal Medicine Adolescent Medicine; Emergency Provider Emergency Medicine; PCP Family Medicine; Visit Provider Internal Medicine Adolescent Medicine
PROC: 0FT44ZZ Resection of Gallbladder, Percutaneous Endoscopic Approach (ICD-10-PCS; CPT 47562; principal; 2023-11-22 07:15)
DX: K80.00 Calculus of gallbladder with acute cholecystitis without obstruction (principal); I10 Essential (primary) hypertension; F41.9 Anxiety disorder, unspecified; G30.9 Alzheimer's disease, unspecified; F02.80 Dementia in other diseases classified elsewhere, unspecified severity, without behavioral disturbance, psychotic disturbance, mood disturbance, and anxiety; Z66 Do not resuscitate
CPT/HCPCS: 47562; 36415; 71275; 74174; 80053; 81001; 82803; 83605; 83690; 83735; 84484; 85007; 85025; 87040; 87086; 88304; 93005; 94761; 96374; 97163; 97166; 99291; J2185; J2405; Q9967

== ENCOUNTER 2023-11-25 11:00 | Emergency (ER) | payer MEDICARE, OTHER, SELFPAY ==
[2023-11-25 11:00] VITALS: BP 168/82; PULSE 64; RESP 16; TEMP 36.5; O2SAT 96; BMI 24.2
--- NOTE | 2023-11-25 11:09 | PC.NURSE ---
Dr. Pizano at [facility] for pt eval
--- NOTE | 2023-11-25 11:37 | HMH.EDGENADL ---
Discharge Plan Disposition Patient Disposition: Xfer [facility] Prescriptions Prescriptions: No Action melatonin 3 mg tablet 3 mg PO HS PRN (Reason: sleep) Qty: 30 0RF amitriptyline 75 mg tablet 75 mg PO HS acetaminophen 500 mg Tablet 500 mg PO Q6HP PRN (Reason: Fever Or Pain) cyanocobalamin (vitamin B-12) [Vitamin B-12] 500 mcg tablet 1,000 mcg PO DAILY lorazepam 1 mg tablet 1 mg PO TIDP PRN (Reason: anxiety) lidocaine 5 % Adhesive Patch,Medicated 1 patch TOPICAL DAILY Rx Instructions: leave on most painful area for up to 12 hrs multivitamin,dh-zscb-Gs-FA-min Tablet 1 tab PO DAILY levofloxacin 500 mg tablet 500 mg PO DAILY 5 Days Qty: 5 0RF loperamide 2 MG tablet 2 mg PO Q6HP PRN (Reason: Diarrhea) tramadol 50 mg tablet 50 mg PO Q8HP PRN (Reason: Pain (Scale Score 4-6)) gabapentin 100 mg capsule 200 mg PO HS rivastigmine 4.6 mg/24 hour patch 24 hour 1 patch transdermal DAILY meclizine 12.5 mg Tablet 12.5 mg PO DAILY Myrbetriq 50 mg tablet extended release 24 hr 50 mg PO DAILY Referrals Follow up/Referrals: Augustin Ho [Primary Care Provider] - See instructions Activity Restrictions/Add. Instructions Additional Instructions/Restrictions: Call your family doctor to establish care for this visit to the emergency department and schedule follow-up within 48 hours to ensure improvement. If you have any worsening of your condition or any other concerning signs or symptoms, return to the emergency department or your primary care doctor for further evaluation. Maintain surgical follow-up as scheduled. If you have more than 100 mL of output in 24 hours, if output becomes thick, cloudy, malodorous, white, or incision sites appear concerning, return to the emergency department or your family doctor, or your surgeon for further evaluation. Clinical Impressions Clinical Impression: Encounter for medical assessment Draining postoperative wound Qualifiers: Encounter type: initial encounter Qualified Code(s): T81.89XA - Other complications of procedures, not elsewhere classified, initial encounter Discharge ED Provider: Martin Pizano General Adult HPI General Chief complaint: Skin/Abscess/Foreign Body Stated complaint: Gallbladder surgery 11/21, excessive draining Time Seen by Provider: 11/25/23 11:01 History of Present Illness HPI narrative: This is an 83-year-old female with recent history of cholecystectomy on 11/21 presenting from [facility] with concern for excessive drainage from drains. Patient was discharged yesterday, 11/23. Today, 11/24, custodial staff thought patient's drain output was excessive, although they were unable to determine how much output has actually been made since admission back to [facility] because nothing had been charted, per staff that was contacted. Patient denies fevers, chills, nausea, vomiting, redness, excessive tenderness. She states that she feels well overall wall and is not sure why she was sent to the emergency department. She states this happens all the time, and requested that provider contact custodial for specific instructions. Related Data Home Medications Medication Instructions Recorded Confirmed loperamide 2 mg tablet 2 mg PO Q6HP PRN Diarrhea 06/02/21 11/21/23 gabapentin 100 mg capsule 200 mg PO HS NERVE PAIN 03/15/23 11/21/23 meclizine 12.5 mg tablet 12.5 mg PO DAILY DIZZINESS 03/15/23 11/21/23 mirabegron 50 mg tablet,extended 50 mg PO DAILY URINARY SYMPTOMS 03/15/23 11/21/23 release 24 hr (Myrbetriq) rivastigmine 4.6 mg/24 hour 1 patch transdermal DAILY DEMENTIA 03/15/23 11/20/23 transdermal patch tramadol 50 mg tablet 50 mg PO Q8HP PRN Pain (Scale 03/15/23 11/20/23 Score 4-6) acetaminophen 500 mg tablet 500 mg PO Q6HP PRN Fever Or Pain 11/20/23 11/21/23 amitriptyline 75 mg tablet 75 mg PO HS Depression 11/20/23 11/21/23 cyanocobalamin (vitamin B-12) 500 1,000 mcg PO DAILY Supplement 11/20/23 11/21/23 mcg tablet (Vitamin B-12) lorazepam 1 mg tablet 1 mg PO TIDP PRN anxiety 11/20/23 11/21/23 lidocaine 5 % topical patch 1 patch topical DAILY Back Pain 11/21/23 11/21/23 multivitamin,eh-scpu-St-FA-min 1 tab PO DAILY Supplement 11/21/23 11/21/23 Previous Rx's Medication Instructions Recorded melatonin 3 mg tablet 3 mg PO HS PRN sleep #30 tabs 07/02/21 levofloxacin 500 mg tablet 500 mg PO DAILY 5 days #5 tabs 11/24/23 Allergies Allergy/AdvReac Type Severity Reaction Status Date / Time codeine Allergy Verified 05/07/22 13:44 Penicillins Allergy Verified 05/07/22 13:44 pregabalin [From Lyrica] Allergy Verified 05/07/22 13:44 sulfate ion Allergy Verified 05/07/22 13:44 suvorexant Allergy Verified 05/07/22 13:44 venlafaxine [From Effexor] Allergy Verified 05/07/22 13[facility] Dis[facility]: The information contained in this section may have been updated after the patient was seen, as this information can be updated by other users. Medical History Anxiety Hypertension Osteoarthritis of left hip Social History (Updated 11/22/23 @ 07:12 by Osmany Plascencia CRNA) Smoking Status: Never smoker alcohol intake: never substance use type: denies use current occupational status: disabled Travel in the last 8 weeks: None housing: custodial ROS Obtained: Yes All systems reviewed & no additional complaints except as documented Physical Exam General General appearance: alert and in no apparent distress Head Head exam: atraumatic and normocephalic Eye Eye exam: Present normal appearance, PERRL and EOMI ENT ENT exam: Present mucous membranes moist Neck Neck exam: Present normal inspection, full ROM and trachea midline Respiratory Respiratory exam: Absent respiratory distress, wheezes, stridor, accessory muscle use or prolonged expiratory phase Cardiovascular Cardiovascular exam: Present normal rhythm Abdominal Exam Abdominal exam: Present soft and tenderness (Around drain sites, which appear very well and well healing); Absent distention, guarding, rebound or rigidity Extremities Exam Extremities exam: Absent edema Neurological Exam Neurological exam: Present alert, oriented X3, CN II-XII intact and normal gait; Absent motor sensory deficit Skin Skin exam: Present warm and dry; Absent diaphoresis or erythema Medical Decision Making Medical Records Medical records reviewed: Yes I reviewed the patient's medical records. Benoit Inquiry Pt receiving controlled substance: No Benoit was queried for this patient: No Vital Signs: 11/25/23 11:00 11/25/23 12:20 Temperature 97.7 F 97.7 F Temperature Source Oral Pulse Rate 68 Pulse Rate [Right] 64 Respiratory Rate 16 16 Blood Pressure 168/82 H Blood Pressure [Right Arm] 168/82 H Blood Pressure Mean [Right Arm] 110 Blood Pressure Source [Right Arm] Automatic Cuff 02 Sat by Pulse Oximetry 96 Oxygen Delivery Method Room Air Medical Decision Narrative: This is an 83-year-old female with recent history of cholecystectomy on 11/21 presenting from [facility] with concern for excessive drainage from drains. Patient was discharged yesterday, 11/23. Today, 11/24, custodial staff thought patient's drain output was excessive, although they were unable to determine how much output has actually been made since admission back to [facility] because nothing had been charted, per staff that was contacted. They also admitted that drains had not been emptied since she had arrived from the the hospital yesterday. Patient denies fevers, chills, nausea, vomiting, redness, excessive tenderness. She states that she feels well overall wall and is not sure why she was sent to the emergency department. She states this happens all the time, and requested that provider contact custodial for specific instructions. History was obtained via conversation with patient, EMS, outside facility conversation. On arrival, patient hemodynamically stable, alert, oriented x4, appropriate, GCS 15, moving all extremities spontaneously, pupils equal and reactive to light. Full physical exam performed and significant for very well-appearing woman in no acute distress. Patient has about 10 mL total and drain output in both abdominal drains. It is serosanguineous. Patient is minimally tender around her abdominal incision sites which appear clean, dry, intact and without signs of infection. Because patient so well-appearing given patient presentation, workup, history, this most likely represents routine postoperative drain output. Drains were milked, clots were removed and bulb drains set back to suction with spontaneous drainage. Because patient at baseline without signs or symptoms of clinical decompensation, deemed appropriate for discharge. Results were relayed to patient who voiced understanding and were agreeable to outpatient management and follow up. At the time of discharge the patient was hemodynamically stable, tolerating PO, and mobilizing appropriately. long-term facility was contacted and informed on appropriate drain output conversation and did well and they voiced understanding. Critical Care Critical Care Time Critical Care Time: No
[2023-11-25 12:20] VITALS: BP 168/82; PULSE 68; RESP 16; TEMP 36.5; O2SAT 96
--- NOTE | 2023-11-25 12:22 | PC.NURSE ---
Gave report to EMS.
== END 2023-11-25 12:27 ==
PROVIDERS: Emergency Provider Emergency Medicine; PCP Family Medicine
DX: T88.9XXA Complication of surgical and medical care, unspecified, initial encounter (principal); Y83.6 Removal of other organ (partial) (total) as the cause of abnormal reaction of the patient, or of later complication, without mention of misadventure at the time of the procedure; I10 Essential (primary) hypertension
CPT/HCPCS: 99283

== ENCOUNTER 2023-12-05 18:22 | Inpatient (IN) | payer MEDICARE, OTHER, SELFPAY ==
[2023-12-05 18:22] VITALS: BP 141/71; PULSE 123; RESP 30; TEMP 37.7; O2SAT 86; BMI 26.6
[2023-12-05 18:34] LABS: Coronavirus 19, PCR Not Detected (NotDetected); Influenza A, PCR Not Detected (NotDetected); Influenza B, PCR Not Detected (NotDetected)
--- NOTE | 2023-12-05 18:35 | CT_ITS ---
PROCEDURE INFORMATION: Exam: CT Abdomen And Pelvis With Contrast Exam date and time: 12/05/2023 8:03 PM Age: 83 years old Clinical indication: Other: SOA; Prior surgery; Surgery date: <1 month; Surgery type: Estella; Additional info: Post op estella 2 weeks ago, SOA, tachy TECHNIQUE: Imaging protocol: Computed tomography of the abdomen and pelvis with contrast. Radiation optimization: All CT scans at this facility use at least one of these dose optimization techniques: automated exposure control; mA and/or kV adjustment per patient size (includes targeted exams where dose is matched to clinical indication); or iterative reconstruction. Contrast material: ISOVUE; Contrast volume: 70 ml; Contrast route: IV; COMPARISON: CT ANGIO ABDOMEN PELVIS 11/20/2023 2:09 PM FINDINGS: Heart: Heart size upper limits of normal. Moderate coronary artery calcification. Diaphragm: Moderate-sized hiatal hernia. Liver: Normal contour. No mass lesions. No intrahepatic biliary ductal dilatation. Gallbladder and bile ducts: Cholecystectomy. Trace fluid in the gallbladder fossa, felt to be within physiologic range for recent prior cholecystectomy with no gross features to favor biliary leak/biloma, abscess, or hematoma. Nondilated bile ducts. Pancreas: Moderate-severe pancreatic atrophy without acute abnormality. No pancreatic ductal dilatation. Spleen: Granulomatous calcifications in the spleen without acute splenic abnormality. Adrenal glands: Normal. No adrenal mass. Kidneys and ureters: No acute abnormalities. No hydronephrosis or hydroureter. No urinary tract stones are identified. Bilateral extrarenal pelvis configuration noted. There are bilateral renal cortical lesions demonstrating low density values and circumscribed margins favoring simple renal cysts for which no further imaging evaluation is required. Stomach and bowel: The small bowel is nondilated with no gross abnormality. Moderate gas in the mid to proximal colon. Distal colon is largely contracted. No obstructive colonic lesions. Mild-moderate sigmoid diverticulosis without evidence of diverticulitis. Appendix: The appendix is not identified. No secondary signs of appendicitis. Intraperitoneal space: No peritoneal free fluid or air. Vasculature: There is pulmonary embolism present in the distal right main pulmonary artery and right middle lobe lobar branch. New bilateral lower lobe alveolar opacities may represent pulmonary ischemia from pulmonary emboli although can not exclude pneumonia. Moderate calcific atherosclerosis. Venous expansion and under enhancement involving the left superficial femoral vein, profunda femoral vein, common femoral vein, external iliac vein, and common iliac vein consistent with deep venous thrombosis. No gross IVC extension. Question nonocclusive venous thrombosis in the right common femoral vein and iliac veins although this might be due to image noise or contrast mixing. Lymph nodes: No adenopathy. Urinary bladder: Unremarkable as visualized. Reproductive: Prior hysterectomy. 11 mm left ovarian cyst which does not require further assessment, unchanged. Bones/joints: No acute osseous abnormalities. Osteopenia. Moderate superior endplate compression fractures of L1 and T12 unchanged. Soft tissues: Small fatty right inguinal hernia and very small fatty umbilical hernia without bowel herniation or features of strangulation. IMPRESSION: 1. Central pulmonary embolism present in the distal right main pulmonary artery. Consider dedicated chest CT angiogram to better characterize extent. 2. Deep venous thrombosis involving the left common iliac vein through superficial femoral vein/profunda vein distributions. Questionable nonocclusive deep venous thrombosis in the right common femoral vein and iliac vein distribution although this might be due to contrast mixing. 3. New consolidative alveolar opacities in both lower lobes probably representing ischemic changes and atelectasis from pulmonary embolism although can not exclude elements of pneumonia. 4. Post cholecystectomy with expected minor postoperative fluid in the gallbladder fossa. No evidence of biliary leak, hematoma, or abscess. 5. Additional nonemergent findings detailed above. 6. These findings initiated a critical results reporting process. An addendum will be issued at the time of clinician notification. COMMENTS: Consistent with the [employer]'s Incidental Findings Committee white paper (J Am Smita Radiol 2018): Any incidental renal lesion less than 1 cm or classified as too small to characterize, or any incidental cystic renal lesion characterized as simple-appearing, is likely benign. No follow-up imaging is recommended for these lesions per consensus recommendations based on imaging criteria.
--- NOTE | 2023-12-05 18:35 | CT_ITS ---
PROCEDURE INFORMATION: Exam: CTA Chest With Contrast Exam date and time: 12/05/2023 8:03 PM Age: 83 years old Clinical indication: Shortness of breath; Prior surgery; Surgery date: <1 month; Surgery type: Leticia; Additional info: Post op leticia 2 weeks ago, nina POWERS TECHNIQUE: Imaging protocol: Computed tomographic angiography of the chest with contrast. Exam focused on the arteries. 3D rendering (Not supervised by radiologist): MIP and/or 3D reconstructed images were created by the technologist. Radiation optimization: All CT scans at this facility use at least one of these dose optimization techniques: automated exposure control; mA and/or kV adjustment per patient size (includes targeted exams where dose is matched to clinical indication); or iterative reconstruction. Contrast material: ISOUVE; Contrast volume: 70 ml; Contrast route: INTRAVENOUS (IV); COMPARISON: CT ANGIO CHEST 11/20/2023 2:09 PM FINDINGS: Pulmonary arteries: Central pulmonary embolism is present in the mid to distal right main pulmonary artery. Additional PE is seen in the right middle lobe lobar and segmental branches. There is segmental branch involvement in the anterior left upper lobe. Suspected segmental/subsegmental branch involvement in the lower lobes although marked respiratory motion in this distribution limits characterization. Thrombus burden is moderate. There are mild changes of pulmonary arterial hypertension. RV to LV ratio of 1.7 is concerning for an element of right ventricular strain. Aorta: No aortic dissection. Ascending aortic ectasia reaching 3.9 cm diameter without mateus aneurysm. Mild-moderate aortic tortuosity and mild calcific atherosclerosis. No mediastinal hematoma. Thyroid: Bilateral thyroid nodules measuring up to 2.7 cm on the right and 3.8 cm on the left, unchanged, possibly multinodular goiter. Recommend sonographic assessment if not previously evaluated. Lungs: No gross tracheobronchial abnormalities. Consolidative alveolar opacities in both lower lobes with associated volume loss. This could represent changes of pulmonary ischemia from PE, versus atelectasis or pneumonia. No pulmonary mass lesions are identified. Pleural spaces: No pleural effusion. No pneumothorax. Heart: Heart size upper limits of normal.Moderate coronary artery calcification. No pericardial effusion. Lymph nodes: No supraclavicular or axillary adenopathy. No mediastinal or hilar adenopathy. Diaphragm: Moderate-sized hiatal hernia. Bones/joints: No acute osseous abnormalities are identified. Osteopenia. Chronic appearing right proximal humeral fracture unchanged. Mild thoracic spondylosis. Moderate superior endplate compression deformities of T12 and L1 unchanged. Soft tissues: The soft tissues of the chest wall demonstrate no acute abnormality. Soft tissue swelling in the anterior upper abdomen consistent with mild residual postoperative changes. IMPRESSION: 1. Bilateral pulmonary emboli, with central involvement on the right. Thrombus burden is moderate. There are changes of pulmonary arterial hypertension, and elevated RV/LV ratio concerning for an element of right ventricular strain. 2. Consolidative airspace disease with volume loss in both lower lobes. This could represent pulmonary ischemia/infarct from pulmonary emboli, versus basilar atelectasis or pneumonia. 3. Bilateral large thyroid nodules, possibly multinodular goiter but nonspecific. Recommend sonographic assessment if not previously evaluated. 4. Additional nonemergent findings detailed above. 5. These findings initiated a critical results reporting process. An addendum will be issued at the time of clinician notification. COMMENTS: Consistent with the [employer]'s Incidental Findings Committee white paper (J Am Smita Radiol 2015): In patients aged 35 years and older with an incidental thyroid nodule equal to or greater than 1.[address], MRI or extrathyroidal US, further evaluation with dedicated thyroid US is recommended for patients with normal life expectancy and without comorbidities. For smaller nodules without suspicious features, no further evaluation or follow up is recommended.
--- NOTE | 2023-12-05 18:35 | PC.NURSE ---
Dr. Potter at [facility] for pt eval
[2023-12-05 18:39] VITALS: BMI 26.6
--- NOTE | 2023-12-05 18:40 | ECG_ITS ---
APPROVED REPORT Exam: Resting ECG HR:120 bpm ECG Measurements Heart Rate 120 AXES NJ 236 P 1 QRSd 96 QRS -21 QT 398 T 72 QTc 469 Conclusion SINUS TACHYCARDIA WITH FIRST DEGREE AV BLOCK BORDERLINE LEFT AXIS DEVIATION [QRS AXIS < -20] MODERATE T-WAVE ABNORMALITY, CONSIDER LATERAL ISCHEMIA [-0.1+ mV T-WAVE IN I/aVL/V5/V6] ABNORMAL ECG T wave inversion with ST depression in lead I and aVL no reciprocal changes, does not meet criteria for STEMI Electronically signed by : MARTINEZ COFFEY, 12/06/2023 07:04:02
--- NOTE | 2023-12-05 18:53 | [facility].EDCP ---
Discharge Plan Disposition Patient Disposition: Admitted Clinical Impressions Clinical Impression: Pulmonary embolism, DVT (deep venous thrombosis), SIRS (systemic inflammatory response syndrome), Acute hypoxic respiratory failure, Pulmonary disease, Thyroid nodule Discharge ED Provider: Steve Potter HPI General Chief Complaint: Altered Mental Status Stated Complaint: resp distress Time Seen by Provider: 12/05/23 18:28 History of Present Illness HPI narrative: Patient is a pleasant 83-year-old female with past medical history of Alzheimer's disease, polyneuropathy, osteoporosis, hypertension, peripheral vascular disease, weakness and chronic falls, recent cholecystitis status postcholecystectomy who presents emergency department for evaluation of shortness of breath and cough. Patient's baseline is alert, intermittently oriented, conversational. She underwent cholecystectomy earlier this month and was subsequently discharged back to her long-term care facility. She has had persistent cough since however has gotten worse over the last few days and due to significant difficulty breathing and reported chest pain they sent her here for continued evaluation. Patient is complaining of diffuse pain and shortness of breath, no other acute complaints at this time Related Data Home Medications Medication Instructions Recorded Confirmed loperamide 2 mg tablet 2 mg PO Q6HP PRN Diarrhea 06/02/21 12/01/23 gabapentin 100 mg capsule 200 mg PO HS NERVE PAIN 03/15/23 12/01/23 meclizine 12.5 mg tablet 12.5 mg PO DAILY DIZZINESS 03/15/23 12/01/23 mirabegron 50 mg tablet,extended 50 mg PO DAILY URINARY SYMPTOMS 03/15/23 12/01/23 release 24 hr (Myrbetriq) rivastigmine 4.6 mg/24 hour 1 patch transdermal DAILY DEMENTIA 03/15/23 12/01/23 transdermal patch tramadol 50 mg tablet 50 mg PO Q8HP PRN Pain (Scale 03/15/23 12/01/23 Score 4-6) acetaminophen 500 mg tablet 500 mg PO Q6HP PRN Fever Or Pain 11/20/23 12/01/23 amitriptyline 75 mg tablet 75 mg PO HS Depression 11/20/23 12/01/23 cyanocobalamin (vitamin B-12) 500 1,000 mcg PO DAILY Supplement 11/20/23 12/01/23 mcg tablet (Vitamin B-12) lorazepam 1 mg tablet 1 mg PO TIDP PRN anxiety 11/20/23 12/01/23 lidocaine 5 % topical patch 1 patch topical DAILY Back Pain 11/21/23 12/01/23 multivitamin,bd-tchp-Pr-FA-min 1 tab PO DAILY Supplement 11/21/23 12/01/23 Previous Rx's Medication Instructions Recorded melatonin 3 mg tablet 3 mg PO HS PRN sleep #30 tabs 07/02/21 levofloxacin 500 mg tablet 500 mg PO DAILY 5 days #5 tabs 11/24/23 Allergies Allergy/AdvReac Type Severity Reaction Status Date / Time codeine Allergy Verified 12/01/23 13:11 Penicillins Allergy Verified 12/01/23 13:11 pregabalin [From Lyrica] Allergy Verified 12/01/23 13:11 sulfate ion Allergy Verified 12/01/23 13:11 suvorexant Allergy Verified 12/01/23 13:11 venlafaxine [From Effexor] Allergy Verified 12/01/23 13:11 [facility] Disclaimer: The information contained in this section may have been updated after the patient was seen, as this information can be updated by other users. Medical History (Updated 12/05/23 @ 21:31 by Steve Potter MD) Severe sepsis UTI (urinary tract infection) Anxiety Hypertension Osteoarthritis of left hip Surgical History (Updated 12/01/23 @ 15:16 by Ramón Hassan MD) History of laparoscopic cholecystectomy Social History Smoking Status: Never smoker alcohol intake: never substance use type: denies use current occupational status: disabled Travel in the last 8 weeks: None housing: retirement ROS Obtained: Yes Systems reviewed as appropriate & no additional complaints except as documented Physical Exam General General appearance: alert and in no apparent distress Head Head exam: atraumatic and normocephalic Eye Eye exam: Present PERRL ENT ENT exam: Present mucous membranes moist Neck Neck exam: Present normal inspection Chest Chest inspection: Present normal inspection and symmetric chest wall rise Respiratory Respiratory exam: Present normal lung sounds bilaterally and other (Tachypnea); Absent respiratory distress Cardiovascular Cardiovascular exam: Present normal rhythm and tachycardia Abdominal Exam Abdominal exam: Present soft; Absent tenderness Extremities Exam Extremities exam: Present normal inspection Neurological Exam Neurological exam: Present alert Psychiatric Psychiatric exam: Present normal affect Skin Skin exam: Present warm, dry and other (Petechiae on the hips and trunk, nonblanchable. No purpura.) HEART Score HEART Score HEART Score assessment performed?: Yes History (anamnesis): Moderately suspicious ECG: Normal Age: >65 years Risk factors: 3 or more risk factors Troponin: </= normal limit HEART Score: 5 Critical Care Critical Care Time Critical Care Time: Yes Attestation: On 12/05/23, the high probability of a clinically significant, sudden or life threatening deterioration of the following system(s) required my full and direct attention, intervention and personal management. The time I documented below is in addition to time spent performing reported procedures but includes the following listed in this critical care notation. Total Time Total Critical Care Time: 45 Medical Decision Making [place] Inquiry Pt receiving controlled substance: No Vital Signs Vital Signs: 12/05/23 18:22 12/05/23 19:16 12/05/23 19:31 Temperature 99.9 F H Temperature Source Axillary Pulse Rate 123 H 121 H Pulse Rate [Right Radial] 123 H Respiratory Rate 30 H 30 H 24 Blood Pressure 123/60 163/78 H Blood Pressure [Right Arm] 141/71 H Blood Pressure Mean 81 106 Blood Pressure Mean [Right Arm] 94 02 Sat by Pulse Oximetry 86 L 93 L 92 L Oxygen Delivery Method Room Air Nasal Cannula Nasal Cannula Oxygen Flow Rate (LPM) 3 3 Lab Data Labs: Lab Results 12/05/23 18:30: SARS-CoV-2 (PCR) Not detected, Influenza A Untype (PCR) Not detected, Influenza Type B (PCR) Not detected 12/05/23 18:40: VBG pH 7.34, VBG pCO2 43.9, VBG pO2 37.1, VBG HCO3 23.1, VBG Total CO2 24.4, VBG O2 Saturation 67.1, VBG Base Excess -2.7 L, VBG Lactic Acid 2.1 H 12/05/23 19:15: WBC 29.0 H*, RBC 4.56, Hgb 13.3, Hct 42.4, MCV 93.0, MCH 29.2, MCHC 31.3 L, RDW 14.0, Plt Count 477 H, MPV 8.2, Neut % (Auto) 91.7 H, Lymph % (Auto) 3.1 L, [place] % (Auto) 4.5, Eos % (Auto) 0.2, Baso % (Auto) 0.5, Neut # (Auto) 26.6 H, Lymph # (Auto) 0.9, [place] # (Auto) 1.3 H, Eos # (Auto) 0.1, Baso # (Auto) 0.1, Total Counted 100, Neutrophils % (Manual) 94 H, Lymphocytes % (Manual) 6 L, Platelet Estimate Slight increase, RBC Morphology Normal, PT 12.3, INR 1.15 H, APTT 31.2, Fibrinogen > 860 H, D-Dimer > 8.10 H, Sodium 141, Potassium 4.5, Chloride 107, Carbon Dioxide 27, Anion Gap 11.5, BUN 35 H, Creatinine 1.10 H, Estimated Creat Clear 44, Estimated GFR 48 L, Est GFR ( Amer) 58 L, Glucose 142 H, Lactate 1.6, Calcium 9.0, Total Bilirubin 0.9, AST 43 H, ALT 57, Alkaline Phosphatase 289 H, Troponin I < 0.01, Total Protein 6.9 D, Albumin 3.7, Globulin 3.2, Albumin/Globulin Ratio 1.2, Lipase 46 12/05/23 20:30: Urine Color Yellow, Urine Appearance Clear, Urine pH 5.5, Ur Specific [place] >= 1.030, Urine Protein Trace, Urine Glucose (UA) Negative, Urine Ketones Trace, Urine Blood Negative, Urine Nitrate Negative, Urine Bilirubin 2+ A, Urine Urobilinogen 1.0, Ur Leukocyte Esterase Negative, Urine RBC None, Urine WBC 5-10, Ur Squamous Epith Cells 3-5, Urine Bacteria 1+, Urine Mucus 1+ 12/05/23 19:15 12/05/23 19:15 Response Orders (Tests/Meds): ED MEDICATIONS Generic Name Dose Route Start Last Admin Trade Name Freq PRN Reason Stop Dose Admin Acetaminophen 650 mg 12/05/23 21:27 Acetaminophen 325mg Tab PO 01/04/24 21:26 Q4HP PRN Fever or Mild Pain (1-3) Ceftriaxone Sodium 1 gm/ 50 mls @ 100 mls/hr 12/05/23 18:45 12/05/23 19:21 Sodium Chloride IV 12/15/23 18:44 100 mls/hr Q24H BALDEV Administration Metronidazole 500 mg in 100 mls @ 100 mls/hr 12/05/23 18:45 12/05/23 19:39 Flagyl 500mg/100ml Ivpb IV 12/15/23 18:44 100 mls/hr Q8H BALDEV Administration Heparin Sodium/Dextrose 500 mls @ 26 mls/hr 12/05/23 21:45 12/05/23 21:55 Heparin 25,000 Units In D5w 500ml Premix IV 01/04/24 21:44 26 mls/hr .[id number] BALDEV Administration 1,300 UNITS/HR Sodium Chloride 1,000 mls @ 50 mls/hr 12/05/23 21:30 Sod Chlor 0.9% 1000ml Bag IV 01/04/24 21:29 .Q20H BALDEV Miscellaneous 1 each 12/05/23 18:45 12/05/23 19:18 Vancomycin Consult Request NOTAPPLIC 01/04/24 18:44 1 each CONSULT PHARMACY BALDEV Administration Miscellaneous 1 each 12/05/23 21:30 Heparin Drip Consult NOTAPPLIC 01/04/24 21:29 CONSULT PHARMACY [facility] Pantoprazole Sodium 40 mg 12/06/23 21:00 Pantoprazole 40mg Vial IV 01/05/24 20:59 HS [facility] Discontinued Medications Generic Name Dose Route Start Last Admin Trade Name Freq PRN Reason Stop Dose Admin Heparin Sodium (Porcine) 5,800 unit 12/05/23 21:45 12/05/23 21:55 Heparin Sodium 5,000 Unit/Ml Vial IV 12/05/23 21:46 5,800 unit ONCE ONE Administration Vancomycin/PEG/NADA/Lysine/Water 1.75 gm in 350 mls @ 175 mls/hr 12/05/23 19:00 12/05/23 20:36 Vancomycin 1.75gm/350ml (Peg) Premix IV 12/05/23 20:59 175 mls/hr ONCE ONE Administration Lactated Ringer's 1,640 mls @ 820 mls/hr 12/05/23 18:50 12/05/23 19:38 Lactated Ringer's 1000 Ml Bag 30 ml/kg infuse over 2 hr (1640 ml) 12/05/23 20:49 820 mls/hr IV Administration .Q2H ONE Iopamidol 70 ml 12/05/23 20:09 12/05/23 20:10 Iopamidol-370 (76%);100ml Bottle IV 12/05/23 20:10 70 ml ONCE ONE Administration Sodium Chloride 10 ml 12/05/23 20:09 12/05/23 20:10 Sodium Chloride 0.9% 10ml Syr (Rad Only) IV 12/05/23 20:10 10 ml ONCE ONE Administration Sodium Chloride 40 ml 12/05/23 20:09 12/05/23 20:10 0.9 % Sodium Chloride 50 Ml Vial IV 12/05/23 20:10 40 ml ONCE ONE Administration ORDERS Category Date Time Status CT abdomen pelvis w con Stat Cat Scan 12/05/23 18:[address] angio chest PE protocol Stat Cat Scan 12/05/23 18:35 Completed Cardiology Consult [Consult to Cardiology] [CONS] Cons 12/05/23 21:27 Active Routine Pulmonology Consult [Consult to Pulmonology] [CONS] Cons 12/05/23 21:27 Active Routine CXR --portable [XR chest portable] Stat Exams 12/05/23 19:28 Completed Complete Blood Count Auto Diff AMLAB Lab 12/06/23 06:00 Ordered Complete Blood Count Auto Diff Stat Lab 12/05/23 19:15 Completed Comprehensive Metabolic Panel AMLAB Lab 12/06/23 06:00 Ordered Comprehensive Metabolic Panel Stat Lab 12/05/23 19:15 Completed D-Dimer Routine Lab 12/05/23 19:15 Completed Fibrinogen Stat Lab 12/05/23 19:15 Completed Lactic Acid Stat Lab 12/05/23 19:15 Completed Lipase Stat Lab 12/05/23 19:15 Completed Magnesium AMLAB Lab 12/06/23 06:00 Ordered PT INR [Prothrombin Time INR] Stat Lab 12/05/23 19:15 Completed PTT Heparin (inpatient only) Stat Lab 12/05/23 19:15 Completed Rapid PCR Covid and Flu A/B Stat Lab 12/05/23 18:30 Completed Trop I [Troponin I] Stat Lab 12/05/23 19:15 Completed Troponin I Q3H Lab 12/05/23 21:58 Received Troponin I Q3H Lab 12/06/23 00:45 Ordered UA [Urinalysis and Microscopic] Stat Lab 12/05/23 20:30 Completed Blood Culture Stat Micro 12/05/23 19:25 Received Urine Culture Stat Micro 12/05/23 20:30 Received VBG [Venous Blood Gas] Stat RT 12/05/23 18:40 Completed Venous Blood Gas Routine RT 12/05/23 19:36 Received EKG Request [ECG Request] Stat Y 12/05/23 18:40 Ordered ECG Data Tracing #1: ECG Narrative: Independently interpreted by me, rate is 120, rhythm is regular, no ST elevation in anatomical contiguous leads, first-degree AV block, QTc 469. Tissue Perfus/Sepsis Re-Eval Sepsis Re-Evaluation Performed: Yes Date Performed: 12/05/23 Time Performed: 20:38 MDM Narrative Medical Decision Narrative: In summary patient is a pleasant 83-year-old female with past medical history described above presents emergency department for evaluation of tachycardia, shortness of breath, chest pain in the setting of recent cholecystectomy earlier this month. Patient is hemodynamically stable upon arrival, ill-appearing, tachycardic, afebrile. Differential diagnosis includes pulmonary embolism, ACS, sepsis, abdominal fluid collection, DIC, among others. Patient does state that the red dots on her hips and abdomen are chronic although she does have Alzheimer's which may confound this history. Workup will be conducted with hematologic labs, CTA chest, CT abdomen pelvis with IV contrast, EKG, troponins, viral swab, blood cultures, urinalysis. Initial inventions include sepsis bolus crystalloid resuscitation, broad-spectrum antibiotics with vancomycin, ceftriaxone, metronidazole given healthcare associated pneumonia or sepsis secondary to postoperative state in the differential. Initial workup reviewed by me, significantly elevated white blood cell count 29,000, no thrombocytopenia, no acute anemia, compensated acid-base status, no JAZMYNE or critical electrolyte abnormalities, initial troponin below detectable limit. Viral swab negative. CT imaging of the chest informally interpreted by me, no saddle embolism although it appears that patient has a large right-sided pulmonary embolism and bibasilar airspace opacities. CT imaging reviewed by me, bilateral pulmonary emboli with central involvement on the right thrombus burden is moderate and there are changes of pulmonary arterial hypertension with RV LV ratio concerning for right ventricular strain although no elevated troponin, consolidative airspace disease versus volume loss in the lower lobes which may be sales and merchandising representative of incidental bilateral large thyroid nodules. Heparin drip initiated. CT abdomen pelvis shows DVT of left common iliac through the superficial femoral vein and profunda vein distributions, questionable DVT right common femoral vein and iliac vein. As far as a surgical standpoint is concerned the gallbladder fossa appears no evidence of biliary leak, hematoma or abscess. Fibrinogen is elevated, no current concern for DIC and suspect patient is correct that the petechiae scattered across her trunk and thighs are chronic. The case was discussed with hospital medicine regarding management and patient will be admitted to their service for continued evaluation at this time.
[2023-12-05 19:16] VITALS: BP 123/60; PULSE 123; RESP 30; O2SAT 93
--- NOTE | 2023-12-05 19:16 | PC.NURSE ---
pharmacy verified vanc dosing 1.75g
[2023-12-05] MEDS: VANCOMYCIN CONSULT REQUEST 1 EACH NOTAPPLIC (19:18)
[2023-12-05] MEDS: CEFTRIAXONE 1 GM 1 GM in 0.9 % SODIUM CHLORIDE 50 ML IV (19:21)
--- NOTE | 2023-12-05 19:28 | XR_ITS ---
PROCEDURE INFORMATION: Exam: XR Chest Exam date and time: 12/05/2023 8:08 PM Age: 83 years old Clinical indication: Cough TECHNIQUE: Imaging protocol: Radiologic exam of the chest. Views: 1 view. COMPARISON: CT ANGIO CHEST PE PROTOCOL 12/05/2023 8:03 PM FINDINGS: Lungs: Low lung volumes. Mild central vascular congestion. Increased bilateral basilar alveolar opacities, atelectasis versus pneumonia. Pleural spaces: No pleural effusion. No pneumothorax. Heart/Mediastinum: Heart size upper limits of normal. No tracheal/mediastinal shift. Bones/joints: No acute osseous abnormalities are identified. Osteopenia. Chronic right proximal humeral fracture. Intraperitoneal space: Right upper quadrant surgical clips suggest prior cholecystectomy. IMPRESSION: 1. Bilateral increased basilar airspace disease consistent with atelectasis or pneumonia. 2. Low lung volumes. 3. Please see chest CT angiogram report regarding pulmonary embolism.
--- NOTE | 2023-12-05 19:30 | PC.NURSE ---
rounded on patient, no needs at this time, RN and MD at bedside
[2023-12-05 19:31] VITALS: BP 163/78; PULSE 121; RESP 24; O2SAT 92
[2023-12-05 19:32] LABS: Basophils # 0.1 K/mm3 (0-0.2); Basophils % 0.5 % (0.1-2.0); Eosinophils # 0.1 K/mm3 (0.0-0.4); Eosinophils % 0.2 % (0.1-12.0); Hematocrit 42.4 % (37.0-47.0); Hemoglobin 13.3 g/dL (12.2-16.2); Lymphocytes # 0.9 K/mm3 (0.7-4.5); Lymphocytes % 3.1 % (10-50); Mean Corpuscular HGB Conc 31.3 g/dL (31.8-35.4); Mean Corpuscular Hemoglobin 29.2 pg (27.0-31.2); Mean Platelet Volume 8.2 fl (7.4-10.4); Monocytes # 1.3 K/mm3 (0.1-1.0); Monocytes % 4.5 % (1.7-9.3); Neutrophils # 26.6 K/mm3 (1.8-7.8); Neutrophils % 91.7 % (37.0-80.0); Platelet Count 477 K/mm3 (142-424); Red Blood Count 4.56 M/mm3 (4.20-5.40)
[2023-12-05 19:36] LABS: Chloride 107 mmol/L (98-107)
[2023-12-05 19:37] LABS: Potassium 4.5 mmoL/L (3.5-5.1); Sodium 141 mmol/L (136-145)
[2023-12-05] MEDS: LACTATED RINGERS 1000ML 1,640 ML 820 ML IV (19:38)
[2023-12-05 19:39] LABS: Lactate Venous 2.1 mmol/L (0.4-2.0); VBG Base Excess -2.7 mmol/L (-2.4-2.3); VBG HCO3 23.1 mmol/L (23-30); VBG Oxygen Saturation 67.1 % (50-70); VBG PCO2 43.9 mmol/L (35-51); VBG PH 7.34 mmol/L (7.31-7.41); VBG PO2 37.1 mmol/L (28-40); VBG Total CO2 24.4 mmol/L (23-27)
[2023-12-05 19:39] LABS: Alanine Aminotransferase 57 U/L (12-78); Aspartate Amino Transferase 43 U/L (14-36); Blood Urea Nitrogen 35 mg/dl (7-17); Creatinine Clearance Estimated 44 mL/min (50-200); Estimated Glomerular Filt Rate 48 ml/min (>60); GFR (African American) 58 ML/MIN (>60); Lactic Acid 1.6 mmol/L (0.7-2.1); Lipase 46 U/L (23-300)
[2023-12-05] MEDS: METRONIDAZ/SOD CHL 500 MG/100 ML PIGGYBACK 100 MG IV (19:39)
[2023-12-05 19:40] LABS: Albumin Level 3.7 g/dl (3.5-5.0); Albumin/Globulin Ratio 1.2 (1.1-1.8); Alkaline Phosphatase 289 U/L (38-126); Anion Gap 11.5 mEq/L (5-15); Bilirubin,Total 0.9 mg/dl (0.2-1.3); Carbon Dioxide 27 mmol/L (22.0-30.0); Globulin 3.2 g/dL (1.3-3.2); Glucose 142 mg/dl (74-100); Total Protein,Serum 6.9 g/dl (6.3-8.2)
[2023-12-05 19:42] LABS: MANUAL DIFFERENTIAL MANUAL DIFFERENTIAL (MANUAL DIFF)
--- NOTE | 2023-12-05 19:58 | PC.NURSE ---
patient to CT
[2023-12-05 20:02] LABS: Troponin I < 0.01 ng/ml (0.00-0.034)
[2023-12-05] MEDS: IOPAMIDOL-370 (76%);100ML BOTTLE 70 ML IV (20:10)
[2023-12-05] MEDS: SODIUM CHLORIDE 0.9% 10ML SYR (RAD ONLY) 10 ML IV (20:10)
[2023-12-05] MEDS: 0.9 % SODIUM CHLORIDE 50 ML VIAL 40 ML IV (20:10)
--- NOTE | 2023-12-05 20:15 | PC.NURSE ---
patient back from CT
[2023-12-05] MEDS: VANCOMYCIN/WATER FOR INJ (PEG) 1.75 GM/350 ML PIGGYBACK IV (20:36)
[2023-12-05 20:38] LABS: Microscopic, Urine URINE MICROSCOPIC (MICROSCOPIC)
[2023-12-05 20:41] LABS: Appearance,Urine CLEAR (Clear); Blood, Urine Negative (Negative); Color,Urine YELLOW (Yellow); Glucose,Urine (UA) Negative (Negative); Ketones,Urine TRACE (Negative); Leukocyte Esterase,Urine Negative (Negative); Nitrate,Urine Negative (Negative); PH,Urine 5.5 (5.0-8.5); Protein,Urine TRACE (Negative); Specific Gravity, Urine >= 1.030 (1.005-1.030)
[2023-12-05 20:46] LABS: Lymphocytes % 6 % (10-50); Neutrophils % 94 % (42-76); Platelet Estimate Slight Increase; RBC Morphology Normal; Total Cells Counted 100
[2023-12-05 20:49] LABS: Bilirubin,Urine 2+ (Negative)
[2023-12-05 20:55] LABS: Bacteria,Urine 1+ /lpf; Mucus,Urine 1+ /lpf
[2023-12-05 21:02] LABS: INR 1.15 (0.9-1.1); Prothrombin Time 12.3 seconds (10.1-12.5)
[2023-12-05 21:20] LABS: Fibrinogen > 860 mg/dL (229.9-363.5)
--- NOTE | 2023-12-05 21:26 | PC.NURSE ---
call placed to house for admit. dx: bilateral PE. hospitalist.
--- NOTE | 2023-12-05 21:31 | P.HP_ITS ---
History of Present Illness *Admission Date: 12/05/23 *Reason for visit:: SOB *History of present illness: This is a 83-year-old female with PMHx of Alzheimer's disease, polyneuropathy, osteoporosis, hypertension, peripheral vascular disease, weakness and chronic falls, recent cholecystitis status postcholecystectomy who presents emergency department for evaluation of shortness of breath and cough. Patient's baseline is alert, intermittently oriented, conversational. She underwent cho lecystectomy earlier this month and was subsequently discharged back to her long-term care facility. She has had persistent cough since however has gotten worse over the last few days and due to significant difficulty breathing and reported chest pain they sent her here for continued evaluation. Patient is complaining of diffuse pain and shortness of breath, no other acute complaints at this time. Admitted for further work up and treatment. [facility] Disclaimer: The information contained in this section may have been updated after the patient was seen, as this information can be updated by other users. Medical History (Updated 12/06/23 @ 02:31 by Arpan Lyon APRN) Severe sepsis UTI (urinary tract infection) Anxiety Hypertension Osteoarthritis of left hip Surgical History (Updated 12/01/23 @ 15:16 by Ramón Hassan MD) History of laparoscopic cholecystectomy Social History Smoking Status: Never smoker alcohol intake: never substance use type: denies use current occupational status: disabled Travel in the last 8 weeks: None housing: halfway Review of Systems Review of Systems Review of systems:: pertinent systems reviewed and negative unless documented below Meds Home Medications and Allergies Home Medications Medication Instructions Recorded Confirmed Type loperamide 2 mg tablet 2 mg PO Q6HP PRN Diarrhea 06/02/21 12/06/23 History melatonin 3 mg tablet 3 mg PO HS PRN sleep #30 tabs 07/02/21 12/06/23 Rx gabapentin 100 mg capsule 200 mg PO HS NERVE PAIN 03/15/23 12/06/23 History meclizine 12.5 mg tablet 12.5 mg PO DAILY DIZZINESS 03/15/23 12/06/23 History mirabegron 50 mg tablet,extended 50 mg PO DAILY URINARY SYMPTOMS 03/15/23 12/06/23 History release 24 hr (Myrbetriq) rivastigmine 4.6 mg/24 hour 1 patch transdermal DAILY DEMENTIA 03/15/23 12/06/23 History transdermal patch tramadol 50 mg tablet 50 mg PO Q8HP PRN Pain (Scale 03/15/23 12/06/23 History Score 4-6) acetaminophen 500 mg tablet 500 mg PO Q6HP PRN Fever Or Pain 11/20/23 12/06/23 History amitriptyline 75 mg tablet 75 mg PO HS Depression 11/20/23 12/06/23 History cyanocobalamin (vitamin B-12) 500 1,000 mcg PO DAILY Supplement 11/20/23 12/06/23 History mcg tablet (Vitamin B-12) lorazepam 1 mg tablet 1 mg PO TIDP PRN anxiety 11/20/23 12/06/23 History lidocaine 5 % topical patch 1 patch topical DAILY Back Pain 11/21/23 12/06/23 History multivitamin,mt-xang-Pd-FA-min 1 tab PO DAILY Supplement 11/21/23 12/06/23 History New Prescriptions to Start Prescriptions: Allergies Allergy/AdvReac Type Severity Reaction Status Date / Time codeine Allergy Verified 12/01/23 13:11 Penicillins Allergy Verified 12/01/23 13:11 pregabalin [From Lyrica] Allergy Verified 12/01/23 13:11 sulfate ion Allergy Verified 12/01/23 13:11 suvorexant Allergy Verified 12/01/23 13:11 venlafaxine [From Effexor] Allergy Verified 12/01/23 13:11 Exam Data for Last 24 hours Vital signs and Labs for Last 24 Hours: Temp Pulse Resp BP Pulse Ox O2 Del Method O2 Flow Rate 99.9 F H 121 H 24 163/78 H 92 L Nasal Cannula 3 12/05/23 18:22 12/05/23 19:31 12/05/23 19:31 12/05/23 19:31 12/05/23 19:31 12/05/23 19:31 12/05/23 19:31 Laboratory Results - last 24 hr 12/05/23 18:30: SARS-CoV-2 (PCR) Not detected, Influenza A Untype (PCR) Not detected, Influenza Type B (PCR) Not detected 12/05/23 18:40: VBG pH 7.34, VBG pCO2 43.9, VBG pO2 37.1, VBG HCO3 23.1, VBG Total CO2 24.4, VBG O2 Saturation 67.1, VBG Base Excess -2.7 L, VBG Lactic Acid 2.1 H 12/05/23 19:15: WBC 29.0 H*, RBC 4.56, Hgb 13.3, Hct 42.4, MCV 93.0, MCH 29.2, MCHC 31.3 L, RDW 14.0, Plt Count 477 H, MPV 8.2, Neut % (Auto) 91.7 H, Lymph % (Auto) 3.1 L, [place] % (Auto) 4.5, Eos % (Auto) 0.2, Baso % (Auto) 0.5, Neut # (Auto) 26.6 H, Lymph # (Auto) 0.9, [place] # (Auto) 1.3 H, Eos # (Auto) 0.1, Baso # (Auto) 0.1, Total Counted 100, Neutrophils % (Manual) 94 H, Lymphocytes % (Manual) 6 L, Platelet Estimate Slight increase, RBC Morphology Normal, PT 12.3, INR 1.15 H, Fibrinogen > 860 H, Sodium 141, Potassium 4.5, Chloride 107, Carbon Dioxide 27, Anion Gap 11.5, BUN 35 H, Creatinine 1.10 H, Estimated Creat Clear 44, Estimated GFR 48 L, Est GFR ( Amer) 58 L, Glucose 142 H, Lactate 1.6, Calcium 9.0, Total Bilirubin 0.9, AST 43 H, ALT 57, Alkaline Phosphatase 289 H, Troponin I < 0.01, Total Protein 6.9 D, Albumin 3.7, Globulin 3.2, Albumin/Globulin Ratio 1.2, Lipase 46 12/05/23 20:30: Urine Color Yellow, Urine Appearance Clear, Urine pH 5.5, Ur Specific [place] >= 1.030, Urine Protein Trace, Urine Glucose (UA) Negative, Urine Ketones Trace, Urine Blood Negative, Urine Nitrate Negative, Urine Bilirubin 2+ A, Urine Urobilinogen 1.0, Ur Leukocyte Esterase Negative, Urine RBC None, Urine WBC 5-10, Ur Squamous Epith Cells 3-5, Urine Bacteria 1+, Urine Mucus 1+ I & O for Last 24 hours: Intake & Output 03/21/24 03/22/24 03/23/24 03/24/24 23:59 23:59 23:59 23:59 Weight 70.307 kg Constitutional Constitutional: no acute distress, average body habitus and cooperative *Routine HEENT Exam Head: Present normocephalic Eye: Present EOMI and PERRL ENT: Present mucous membranes moist *Routine Neck Exam Neck: Present supple; Absent lymphadenopathy Routine Chest/Breast/Axilla Exam Chest wall: Present tenderness (Right chest) *Routine Respiratory Exam Respiratory: Present CTA bilaterally *Routine Cardiovascular Exam Cardiovascular: Present RRR *Routine Abdominal Exam Abdominal: Present soft, normoactive bowel sounds, tenderness (Right upper quadrant, positive Samaniego sign) and guarding; Absent distended or rebound *Routine Rectal Exam Rectal:: deferred *Routine Genitalia Exam Genitalia:: deferred *Routine Extremities Exam Extremities: Absent cyanosis, clubbing or edema *Routine Skin Exam Skin: Present warm; Absent rash *Routine Neurological Exam Neurological: Present alert, moving all extremities and normal speech; Absent altered mental status Comments: Oriented to self and situation Routine Psychiatric Exam Psychiatric: Present normal thought process Assessment and Plan *Assessment and plan (1) Pulmonary embolism: Status: Acute Qualifiers: Pulmonary embolism type: multiple subsegmental (without acute cor pulmonale) Qualified Code(s): I26.94 - Multiple subsegmental pulmonary emboli without acute cor pulmonale Category: Medical Code(s): I26.99 - Other pulmonary embolism without acute cor pulmonale (2) Pneumonia of both lower lobes: Status: Acute Qualifiers: Pneumonia type: due to unspecified organism Qualified Code(s): J18.9 - Pneumonia, unspecified organism Category: Medical Code(s): J18.9 - Pneumonia, unspecified organism (3) Acute hypoxic respiratory failure: Status: Acute Category: Medical Code(s): J96.01 - Acute respiratory failure with hypoxia (4) DVT (deep venous thrombosis): Status: Acute Qualifiers: Affected thrombotic vein of extremity: iliac Chronicity: unspecified DVT location: lower extremity Laterality: bilateral Qualified Code(s): I82.423 - Acute embolism and thrombosis of iliac vein, bilateral Category: Medical Code(s): I82.409 - Acute embolism and thrombosis of unspecified deep veins of unspecified lower extremity (5) Hypertension: Status: Acute Qualifiers: Hypertension type: primary hypertension Qualified Code(s): I10 - Essential (primary) hypertension Category: Medical Code(s): I10 - Essential (primary) hypertension (6) Alzheimer's dementia: Status: Chronic Qualifiers: Alzheimer's disease onset: unspecified onset Dementia behavioral or psychological symptom: unspecified whether behavioral, psychotic, or mood disturbance or anxiety Dementia severity: unspecified severity Qualified Code(s): G30.9 - Alzheimer's disease, unspecified; F02.80 - Dementia in other diseases classified elsewhere, unspecified severity, without behavioral disturbance, psychotic disturbance, mood disturbance, and anxiety Category: Medical Code(s): G30.9 - Alzheimer's disease, unspecified; F02.80 - Dementia in other diseases classified elsewhere, unspecified severity, without behavioral disturbance, psychotic disturbance, mood disturbance, and anxiety Plan 83-year-old female with PMHx of Alzheimer's disease, polyneuropathy, osteoporosis, hypertension, peripheral vascular disease, weakness and chronic falls, recent cholecystitis status postcholecystectomy who presents emergency department for evaluation of shortness of breath and cough, tachycardia, shortness of breath, chest pain in the setting of recent cholecystectomy earlier this month. Patient is hemodynamically stable upon arrival, ill-appearing, tachycardic, afebrile. Initial work up included CTA of chest concerning for bilateral pulmonary embolism, with possible right strain, RV LV ratio concerning for right ventricular strain although no elevated troponin, patient hemodinamically stable. Discussed with ED. there is low concern for emergency thrombectomy. there is also bilateral lower lobe consolidation. significant leukocytosis found on labs work. DVT of bilateral iliac are also present. imaging reviewed. Medicine decided to admit for further management. Pulmonology and cardiology consulted. Plan as follow: -Pulmonary embolism, Bilateral lower pneumonia Acute hypoxic respiratory failure -Bilateral DVT: Admit patient for medical services Started on continuous heparin infusion. Adjust rate based on PTT Monitor for sternal bleed Patient hemodynamically stable. Monitor vital signs per unit protocol Currently 3 L of oxygen by nasal cannula. Monitor for O2 saturation Started azithromycin and ceftriaxone IV Monitor labs and Pulmonary and cardiology consult. -History of hypertension, anxiety and dementia: Reconcile and resume home medication On heparin drip. Protonix for GI protection Full code Rounded on patient after nurse practitioner. Personally examined and interviewed patient. Agree with exam findings and care plan as documented.
--- NOTE | 2023-12-05 21:41 | PC.NURSE ---
report called to Lilly MORRISON
[2023-12-05 21:47] LABS: PTT Heparin (inpatient only) 31.2 Seconds (23.6-34.0)
[2023-12-05 21:53] LABS: D-Dimer > 8.10 ug/mL (0.0-0.5)
[2023-12-05] MEDS: HEPARIN SODIUM 5,000 UNIT/ML VIAL 5800 UNIT IV (21:55)
[2023-12-05] MEDS: HEPARIN 25,000 UNITS/D5W 500 ML 26 UNIT IV (21:55)
[2023-12-05 22:00] VITALS: BP 142/73; PULSE 111; RESP 22; TEMP 37.2; O2SAT 94
--- NOTE | 2023-12-05 22:02 | PC.NURSE ---
pt arrived to floor at this time
[2023-12-05 22:16] VITALS: BP 119/75; PULSE 108; RESP 32; TEMP 36.8; O2SAT 88; BMI 26.5
[2023-12-05] MEDS: HEPARIN DRIP CONSULT 1 EACH NOTAPPLIC (23:02)
[2023-12-05] MEDS: 0.9 % SODIUM CHLORIDE 1000ML 1,000 ML 50 ML IV (23:02)
[2023-12-05 23:11] LABS: Troponin I 0.02 ng/ml (0.00-0.034)
[2023-12-05 23:39] LABS: Reflex Lactic Add Lactic Reflex
[2023-12-06] VITALS (7 sets, daily range): BP systolic 112–133; BP diastolic 49–63; PULSE 69–110; RESP 17–33; TEMP 36.4–37.3; O2SAT 92–100; BMI 27.8
[2023-12-06 00:54] LABS: Lactic Acid Follow Up (RFLX 1) 1.1 mmol/L (0.7-2.1)
[2023-12-06 01:18] LABS: PTT Heparin (inpatient only) > 139.0 Seconds (23.6-34.0)
[2023-12-06 01:26] LABS: Troponin I 0.01 ng/ml (0.00-0.034)
--- NOTE | 2023-12-06 01:32 | PC.NURSE ---
Noah with pharmacy called about PTT result, ordered to decrease heparin drip to 22ml/hr, repeat PTT 1 hour after.
[2023-12-06] MEDS: HEPARIN 25,000 UNITS/D5W 500 ML 22 UNIT IV (01:39)
[2023-12-06] MEDS: METRONIDAZ/SOD CHL 500 MG/100 ML PIGGYBACK 100 MG IV ×3 (02:51→19:46)
[2023-12-06 03:29] LABS: PTT Heparin (inpatient only) > 139.0 Seconds (23.6-34.0)
[2023-12-06] MEDS: HEPARIN 25,000 UNITS/D5W 500 ML 18 UNIT IV (03:42)
--- NOTE | 2023-12-06 04:39 | PC.NURSE ---
Pt is alert and oriented. No complaints of pain since arriving. Denies shortness of breath. Crackles in lungs. 3L NC, O2 sat >90%. Heparin gtt infusing. Post cholecystectomy earlier in month, steri strips in place, CDI. Redness noted to right gluteus, pt turned Q2. Bruising to bilateral upper extremities scattered. Spoke with nurse from [facility], nurse states patient is normally independent. Pt has slept since arriving. 1st degree heart block tele. Fall history noted, bed alarm on. Call light in reach.
--- NOTE | 2023-12-06 05:21 | PC.NURSE ---
Pt has had no urine output since arriving to floor. Distention noted. No pain. Bladder scanned 566mL. Pt states she does not feel like she can urinate. Called Camron AHUJA at this time, states to anchor farooq.
[2023-12-06 05:31] LABS: Basophils # 0.1 K/mm3 (0-0.2); Basophils % 0.3 % (0.1-2.0); Eosinophils # 0.1 K/mm3 (0.0-0.4); Eosinophils % 0.2 % (0.1-12.0); Hematocrit 33.4 % (37.0-47.0); Lymphocytes # 2.7 K/mm3 (0.7-4.5); Lymphocytes % 8.9 % (10-50); Mean Corpuscular HGB Conc 32.3 g/dL (31.8-35.4); Mean Corpuscular Volume 92.9 fl (81-99); Mean Platelet Volume 8.3 fl (7.4-10.4); Monocytes # 1.4 K/mm3 (0.1-1.0); Monocytes % 4.7 % (1.7-9.3); Neutrophils # 25.9 K/mm3 (1.8-7.8); Neutrophils % 86.1 % (37.0-80.0); Platelet Count 410 K/mm3 (142-424); Red Blood Count 3.59 M/mm3 (4.20-5.40); Red Cell Distribution Width 14.2 % (11.5-17.5); White Blood Count 30.1 K/mm3 (4.8-10.8)
[2023-12-06 05:34] LABS: MANUAL DIFFERENTIAL MANUAL DIFFERENTIAL (MANUAL DIFF)
[2023-12-06 05:39] LABS: Alanine Aminotransferase 38 U/L (12-78); Albumin Level 2.8 g/dl (3.5-5.0); Alkaline Phosphatase 198 U/L (38-126); Anion Gap 9.7 mEq/L (5-15); Aspartate Amino Transferase 27 U/L (14-36); Bilirubin,Total 0.5 mg/dl (0.2-1.3); Blood Urea Nitrogen 26 mg/dl (7-17); Calcium 8.1 mg/dl (8.4-10.2); Carbon Dioxide 22 mmol/L (22.0-30.0); Chloride 110 mmol/L (98-107); Creatinine Clearance Estimated 48 mL/min (50-200); Estimated Glomerular Filt Rate 60 ml/min (>60); GFR (African American) 73 ML/MIN (>60); Globulin 2.8 g/dL (1.3-3.2); Glucose 141 mg/dl (74-100); Potassium 3.7 mmoL/L (3.5-5.1); Sodium 138 mmol/L (136-145); Total Protein,Serum 5.6 g/dl (6.3-8.2)
[2023-12-06 05:58] LABS: PTT Heparin (inpatient only) > 139.0 Seconds (23.6-34.0)
[2023-12-06 06:05] LABS: Lymphocytes % 11 % (10-50); Monocytes % 1 % (2-9); Neutrophils % 88 % (42-76); Total Cells Counted 100
[2023-12-06 06:06] LABS: Hemoglobin 10.7 g/dL (12.2-16.2); Platelet Estimate Normal; RBC Morphology Normal
[2023-12-06] MEDS: HEPARIN 25,000 UNITS/D5W 500 ML 14 UNIT IV (06:37)
--- NOTE | 2023-12-06 07:06 | CA_ITS ---
APPROVED REPORT EXAM: Comprehensive 2D, Doppler, and color-flow Echocardiogram Digital Producer: Bridgette Hardy RVT Ht: 5 ft 4 in Wt: 163lbs BSA: 1.79 BP: 102/64 mmHg Indications: DANIELA PE WITH RV STRAIN,CP,HTN,SOA,HTN,ALZHEIMER'S TDS-PT WOULD NOT ROLL OFF OF LEFT SIDE M-Mode Dimensions RVDd 2.92 cm (0.9-2.6) LA Diam 3.57 cm (1.9-4.0) LVDd 3.88 cm (3.5-5.7) LVDs 2.56 cm (3.5-5.7) IVSd 1.39 cm (0.6-1.1) PWd 0.82 cm (0.6-1.1) EF (Teich) 63.60% FS 34.00% EDV (Teich) 65.10 mL TAPSE 2.82 (<1.7) ESV (Teich) 23.70 mL LV Diastology E Decel Time 100 (160-240 msec) E/A Ratio 1.2 Aortic Valve AO Peak GR. 5.40 mmHg Mitral Valve MV E Max Be. 84.0 (40-130 cm/s) MV A Velocity 70.0 (40-130 cm/s) E/A Ratio 1.20 MV PHT 29.0 ms Pulmonary Valve PV Peak Velocity 93.0 (50-150 cm/s) Tricuspid Valve TR P. Velocity 303.00 cm/s RAP Estimate 10.00 mmHg RVSP 46.80 mmHg Left Ventricle The left ventricle is normal size. The left ventricular systolic function is normal. The left ventricular ejection fraction is within the normal range. Proximal septal thickening is noted. There is normal LV segmental wall motion. The left ventricular diastolic function is normal. LVEF is 55%. Right Ventricle Right ventricle is mildly dilated. Right ventricle is moderately hypokinetic. The RV apex appears hypokinetic relative to the base (Lacy sign). Atria The left atrium size is normal. The right atrium size is normal. There is no Doppler evidence of interatrial shunt. Aortic Valve Aortic valve is mildly thickened. There is no aortic valvular stenosis. Trace aortic regurgitation is present. Mitral Valve The mitral valve leaflets are mildly thickened. No evidence of mitral valve stenosis. Trace mitral regurgitation. Tricuspid Valve The tricuspid valve leaflets are thin and pliable. Mild tricuspid regurgitation. RVSP is 35-40 mmHg. Pulmonic Valve The pulmonary valve is normal in structure. Trace pulmonic regurgitation. Great Vessels The aortic root is normal in size. The ascending aorta is normal in size. IVC is normal in size and collapses >50% with inspiration. Pericardium There is no pericardial effusion. Other Information Study Quality: Fair Conclusion Normal LV systolic function. Mild RV dilation with moderate reduction in RV function. The RV apex appears hypokinetic relative to the base (Lacy sign). Mild TR. Elevated RVSP 35-40 mmHg. Electronically signed by : Loulou Rodriguez MD 12/06/2023 11:14:46
[2023-12-06 07:52] LABS: PTT Heparin (inpatient only) 84.8 Seconds (23.6-34.0)
--- NOTE | 2023-12-06 07:52 | SW/DCPLANNER ---
Addendum entered by Jennifer Abil[place] 12/09/23 11:52: CM has updated [facility] that patient will return today. Addendum entered by Jennifer Abilene 12/08/23 13:37: I have updated [facility] that patient will not discharge today. Addendum entered by Jennifer Abilene 12/08/23 11:36: I have updated Phuong w/ [facility] that patient will return today and updated patient information has been faxed. Original Note: This patient currently resides at [facility]. I will continue to follow up w/ Shannon at [facility] until patient is medically stable for discharge. Discharge date is unknown at this time.
--- NOTE | 2023-12-06 08:56 | HMH.PHAINT1 ---
Pharmacy Intervention Comments: Home medication list verified via outside pharmacy/office visit
[2023-12-06 09:38] LABS: PTT Heparin (inpatient only) 109.9 Seconds (23.6-34.0)
--- NOTE | 2023-12-06 09:38 | P.CONCA_ITS ---
History of Present Illness History of Present Illness Consult date: 12/06/23 Requesting physician: Rolly Floyd Consult reason: shortness of breath Chief complaint: Bilateral PE Additional Medical History:: 1. Cholecystectomy, November 22, 2023 2. Bilateral pulmonary emboli, 12/05/2023 3. History of Alzheimer's 4. Hypertension 5. History of fibromyalgia 6. Long-term halfway resident of [facility] History of present illness: 83-year-old white female admitted for shortness of breath and found to have bilateral pulmonary emboli. Currently on IV heparin with 3 L of oxygen with saturation at 100%. Patient drifts off to sleep easily and does not respond to questions meaningfully. History below obtained per chart/Arpan Lyon APRN This is a 83-year-old female with PMHx of Alzheimer's disease, polyneuropathy, osteoporosis, hypertension, peripheral vascular disease, weakness and chronic falls, recent cholecystitis status postcholecystectomy who presents emergency department for evaluation of shortness of breath and cough. Patient's baseline is alert, intermittently oriented, conversational. She underwent cholecystectomy earlier this month and was subsequently discharged back to her long-term care facility. She has had persistent cough since however has gotten worse over the last few days and due to significant difficulty breathing and reported chest pain they sent her here for continued evaluation. Patient is complaining of diffuse pain and shortness of breath, no other acute complaints at this time. Admitted for further work up and treatment. [facility] Disclaimer: The information contained in this section may have been updated after the patient was seen, as this information can be updated by other users. Medical History (Updated 12/06/23 @ 02:31 by Arpan Lyon APRN) Severe sepsis UTI (urinary tract infection) Anxiety Hypertension Osteoarthritis of left hip Surgical History (Updated 12/01/23 @ 15:16 by Ramón Hassan MD) History of laparoscopic cholecystectomy Social History Smoking Status: Never smoker alcohol intake: never substance use type: denies use current occupational status: disabled Travel in the last 8 weeks: None housing: halfway Review of Systems Review of Systems Review of systems:: unable to obtain Exam Data for Last 24 hours Vital signs and Labs for Last 24 Hours: Temp Pulse Resp BP Pulse Ox O2 Del Method O2 Flow Rate 98.2 F 84 22 112/63 100 Nasal Cannula 3 12/06/23 08:00 12/06/23 08:00 12/06/23 08:00 12/06/23 08:00 12/06/23 08:00 12/06/23 08:40 12/06/23 08:40 Laboratory Results - last 24 hr 12/05/23 18:30: SARS-CoV-2 (PCR) Not detected, Influenza A Untype (PCR) Not detected, Influenza Type B (PCR) Not detected 12/05/23 18:40: VBG pH 7.34, VBG pCO2 43.9, VBG pO2 37.1, VBG HCO3 23.1, VBG Total CO2 24.4, VBG O2 Saturation 67.1, VBG Base Excess -2.7 L, VBG Lactic Acid 2.1 H 12/05/23 19:15: WBC 29.0 H*, RBC 4.56, Hgb 13.3, Hct 42.4, MCV 93.0, MCH 29.2, MCHC 31.3 L, RDW 14.0, Plt Count 477 H, MPV 8.2, Neut % (Auto) 91.7 H, Lymph % ( Auto) 3.1 L, [place] % (Auto) 4.5, Eos % (Auto) 0.2, Baso % (Auto) 0.5, Neut # (Auto) 26.6 H, Lymph # (Auto) 0.9, [place] # (Auto) 1.3 H, Eos # (Auto) 0.1, Baso # (Auto) 0.1, Total Counted 100, Neutrophils % (Manual) 94 H, Lymphocytes % (Manual) 6 L, Platelet Estimate Slight increase, RBC Morphology Normal, PT 12.3, INR 1.15 H, APTT 31.2, Fibrinogen > 860 H, D-Dimer > 8.10 H, Sodium 141, Potassium 4.5, Chloride 107, Carbon Dioxide 27, Anion Gap 11.5, BUN 35 H, Creatinine 1.10 H, Estimated Creat Clear 44, Estimated GFR 48 L, Est GFR ( Amer) 58 L, Glucose 142 H, Lactate 1.6, Calcium 9.0, Total Bilirubin 0.9, AST 43 H, ALT 57, Alkaline Phosphatase 289 H, Troponin I < 0.01, Total Protein 6.9 D, Albumin 3.7, Globulin 3.2, Albumin/Globulin Ratio 1.2, Lipase 46 12/05/23 20:30: Urine Color Yellow, Urine Appearance Clear, Urine pH 5.5, Ur Specific [place] >= 1.030, Urine Protein Trace, Urine Glucose (UA) Negative, Urine Ketones Trace, Urine Blood Negative, Urine Nitrate Negative, Urine Bilirubin 2+ A, Urine Urobilinogen 1.0, Ur Leukocyte Esterase Negative, Urine RBC None, Urine WBC 5-10, Ur Squamous Epith Cells 3-5, Urine Bacteria 1+, Urine Mucus 1+ 12/05/23 21:58: Troponin I 0.02 12/06/23 00:00: APTT > 139.0 H*, Lactate 1.1, Troponin I 0.01 12/06/23 02:55: APTT > 139.0 H* 12/06/23 05:19: WBC 30.1 H*, RBC 3.59 L, Hgb 10.7 L D, Hct 33.4 L, MCV 92.9, MCH 30.0, MCHC 32.3, RDW 14.2, Plt Count 410, MPV 8.3, Neut % (Auto) 86.1 H, Lymph % (Auto) 8.9 L, [place] % (Auto) 4.7, Eos % (Auto) 0.2, Baso % (Auto) 0.3, Neut # (Auto) 25.9 H, Lymph # (Auto) 2.7, [place] # (Auto) 1.4 H, Eos # (Auto) 0.1, Baso # (Auto) 0.1, Total Counted 100, Neutrophils % (Manual) 88 H, Lymphocytes % (Manual) 11, Monocytes % (Manual) 1 L, Platelet Estimate Normal, RBC Morphology Normal, APTT > 139.0 H*, Sodium 138, Potassium 3.7, Chloride 110 H, Carbon Dioxide 22, Anion Gap 9.7, BUN 26 H D, Creatinine 0.90, Estimated Creat Clear 48, Estimated GFR 60, Est GFR ( Amer) 73 D, Glucose 141 H, Calcium 8.1 L , Magnesium 2.0, Total Bilirubin 0.5, AST 27 D, ALT 38 D, Alkaline Phosphatase 198 H, Total Protein 5.6 L, Albumin 2.8 L D, Globulin 2.8, Albumin/Globulin Ratio 1.0 L 12/06/23 07:05: APTT 84.8 H* I & O for Last 24 hours: Intake & Output 12/03/23 12/04/23 12/05/23 12/06/23 11:59 11:59 11:59 11:59 Intake Total 440 / 440 Output Total 510 / 510 Balance -70 / -70 Weight 163 lb 4 oz Constitutional Constitutional: somnolent *Routine Respiratory Exam Respiratory: Present diminished air movement *Routine Cardiovascular Exam Cardiovascular: Present RRR *Routine Neurological Exam Neurological: Absent alert or oriented X3 Meds Home Medications and Allergies Home Medications Medication Instructions Recorded Confirmed Type loperamide 2 mg tablet 2 mg PO Q6HP PRN Diarrhea 06/02/21 12/06/23 History melatonin 3 mg tablet 3 mg PO HS PRN sleep #30 tabs 07/02/21 12/06/23 Rx gabapentin 100 mg capsule 200 mg PO HS NERVE PAIN 03/15/23 12/06/23 History meclizine 12.5 mg tablet 12.5 mg PO DAILY DIZZINESS 03/15/23 12/06/23 History mirabegron 50 mg tablet,extended 50 mg PO DAILY URINARY SYMPTOMS 03/15/23 12/06/23 History release 24 hr (Myrbetriq) rivastigmine 4.6 mg/24 hour 1 patch transdermal DAILY DEMENTIA 03/15/23 12/06/23 History transdermal patch tramadol 50 mg tablet 50 mg PO Q8HP PRN Pain (Scale 03/15/23 12/06/23 History Score 4-6) acetaminophen 500 mg tablet 500 mg PO Q6HP PRN Fever Or Pain 11/20/23 12/06/23 History amitriptyline 75 mg tablet 75 mg PO HS Depression 11/20/23 12/06/23 History cyanocobalamin (vitamin B-12) 500 1,000 mcg PO DAILY Supplement 11/20/23 12/06/23 History mcg tablet (Vitamin B-12) lorazepam 1 mg tablet 1 mg PO TIDP PRN anxiety 11/20/23 12/06/23 History lidocaine 5 % topical patch 1 patch topical DAILY Back Pain 11/21/23 12/06/23 History multivitamin,zk-adtz-Ol-FA-min 1 tab PO DAILY Supplement 11/21/23 12/06/23 History New Prescriptions to Start Prescriptions: Allergies Allergy/AdvReac Type Severity Reaction Status Date / Time codeine Allergy Verified 12/01/23 13:11 Penicillins Allergy Verified 12/01/23 13:11 pregabalin [From Lyrica] Allergy Verified 12/01/23 13:11 sulfate ion Allergy Verified 12/01/23 13:11 suvorexant Allergy Verified 12/01/23 13:11 venlafaxine [From Effexor] Allergy Verified 12/01/23 13:11 Assessment and Plan *Assessment and plan (1) Pulmonary embolism: Status: Acute Qualifiers: Pulmonary embolism type: multiple subsegmental (without acute cor pulmonale) Qualified Code(s): I26.94 - Multiple subsegmental pulmonary emboli without acute cor pulmonale Category: Medical Code(s): I26.99 - Other pulmonary embolism without acute cor pulmonale (2) DVT (deep venous thrombosis): Status: Acute Qualifiers: Affected thrombotic vein of extremity: iliac Chronicity: unspecified DVT location: lower extremity Laterality: bilateral Qualified Code(s): I82.423 - Acute embolism and thrombosis of iliac vein, bilateral Category: Medical Code(s): I82.409 - Acute embolism and thrombosis of unspecified deep veins of unspecified lower extremity (3) SIRS (systemic inflammatory response syndrome): Status: Acute Category: Medical Code(s): R65.10 - Systemic inflammatory response syndrome (SIRS) of non-infectious origin without acute organ dysfunction (4) Acute hypoxic respiratory failure: Status: Acute Category: Medical Code(s): J96.01 - Acute respiratory failure with hypoxia (5) Alzheimer's dementia: Status: Chronic Qualifiers: Alzheimer's disease onset: unspecified onset Dementia behavioral or psychological symptom: unspecified whether behavioral, psychotic, or mood disturbance or anxiety Dementia severity: unspecified severity Qualified Code(s): G30.9 - Alzheimer's disease, unspecified; F02.80 - Dementia in other diseases classified elsewhere, unspecified severity, without behavioral disturbance, psychotic disturbance, mood disturbance, and anxiety Category: Medical Code(s): G30.9 - Alzheimer's disease, unspecified; F02.80 - Dementia in other diseases classified elsewhere, unspecified severity, without behavioral disturbance, psychotic disturbance, mood disturbance, and anxiety (6) Pneumonia of both lower lobes: Status: Acute Qualifiers: Pneumonia type: due to unspecified organism Qualified Code(s): J18.9 - Pneumonia, unspecified organism Category: Medical Code(s): J18.9 - Pneumonia, unspecified organism (7) Thyroid nodule: Status: Acute Category: Medical Code(s): E04.1 - Nontoxic single thyroid nodule Plan 1. Bilateral pulmonary emboli with DVTs in setting of recent cholecystectomy -On IV heparin and supplemental oxygen -RV strain noted on CTA of chest with RV/LV ratio of 1.7 -Echo shows normal LVEF with mild RV dilatation and moderate reduction of function with hypokinetic RV apex (Lacy sign). RVSP 35-40 mm Hg. 2. Acute hypoxic respiratory failure secondary to #1 with SIRS criteria on admission -White count up to 30,000 -Hemoglobin down to 10.7 (likely delusional) 3. Possible pneumonia of both lower lobes versus pulmonary ischemia related to PEs 4. Thyroid nodules 5. Alzheimer's dementia Not a good interventional candidate, therefore, recommend medical therapy with oxygen and anticoagulation (either eliquis 5 mg twice daily or Xarelto 20 mg daily). Guarded prognosis. Agree with Hospitalist regarding consideration for Hospice.
--- NOTE | 2023-12-06 09:56 | P.CONS_ITS ---
History of Present Illness History of present illness: Ms. Gracia is a 83-year-old female reported history of Alzheimer's, polyneuropathy, osteoporosis hypertension peripheral vascular disease presented to the ER with worsening respiratory system, and pulmonary was consulted for further evaluation and management. patient was recently admitted to the hospital for cholecystitis status postcholecystectomy discharged home on 11/24/2023. [facility] Disclaimer: The information contained in this section may have been updated after the patient was seen, as this information can be updated by other users. Medical History (Updated 12/06/23 @ 02:31 by Arpan Lyon APRN) Severe sepsis UTI (urinary tract infection) Anxiety Hypertension Osteoarthritis of left hip Surgical History (Updated 12/01/23 @ 15:16 by Ramón Hassan MD) History of laparoscopic cholecystectomy Social History Smoking Status: Never smoker alcohol intake: never substance use type: denies use current occupational status: disabled Travel in the last 8 weeks: None housing: half-way Review of Systems Constitutional Constitutional: Reports anorexia, Reports body ache(s) and Reports fatigue Eyes Eyes: Denies eye discharge, Denies dry eyes, Denies irritation and Denies itchy eyes ENT Ears, Nose, Mouth, and Throat: Denies epistaxis, Denies facial pain, Denies lip swelling and Denies throat swelling *Cardiovascular Cardiovascular: Reports dyspnea and Reports dyspnea on exertion *Respiratory Respiratory: Reports dyspnea, Reports dyspnea on exertion, Denies excessive phlegm production, Denies hemoptysis, Reports pain on inspiration and Denies wheezing *Gastrointestinal Gastrointestinal: Denies abdominal pain, Denies belching and Denies cramping *Musculoskeletal Musculoskeletal: Reports back pain, Reports myalgias and Reports other (No small joint swelling or Pain) Psychiatric Psychiatric: Denies homicidal ideation and Denies suicidal ideation Endocrine Endocrine: Reports fatigue and Denies heat intolerance Hematologic/Lymphatic Hematologic/Lymphatic: Denies easy bleeding and Denies lymphadenopathy Allergic/Immunologic Allergic/Immunologic: Denies itchy eyes, Denies lip swelling, Denies throat swelling and Denies wheezing Pulmonology Exam Inpatient Vital signs and Labs for Last 24 Hours: Temp Pulse Resp BP Pulse Ox O2 Del Method O2 Flow Rate 98.2 F 84 22 112/63 100 Nasal Cannula 3 12/06/23 08:00 12/06/23 08:00 12/06/23 08:00 12/06/23 08:00 12/06/23 08:00 12/06/23 08:40 12/06/23 08:40 Laboratory Results - last 24 hr 12/05/23 18:30: SARS-CoV-2 (PCR) Not detected, Influenza A Untype (PCR) Not detected, Influenza Type B (PCR) Not detected 12/05/23 18:40: VBG pH 7.34, VBG pCO2 43.9, VBG pO2 37.1, VBG HCO3 23.1, VBG Total CO2 24.4, VBG O2 Saturation 67.1, VBG Base Excess -2.7 L, VBG Lactic Acid 2.1 H 12/05/23 19:15: WBC 29.0 H*, RBC 4.56, Hgb 13.3, Hct 42.4, MCV 93.0, MCH 29.2, M CHC 31.3 L, RDW 14.0, Plt Count 477 H, MPV 8.2, Neut % (Auto) 91.7 H, Lymph % (Auto) 3.1 L, [place] % (Auto) 4.5, Eos % (Auto) 0.2, Baso % (Auto) 0.5, Neut # (Auto) 26.6 H, Lymph # (Auto) 0.9, [place] # (Auto) 1.3 H, Eos # (Auto) 0.1, Baso # (Auto) 0.1, Total Counted 100, Neutrophils % (Manual) 94 H, Lymphocytes % (Manual) 6 L, Platelet Estimate Slight increase, RBC Morphology Normal, PT 12.3, INR 1.15 H, APTT 31.2, Fibrinogen > 860 H, D-Dimer > 8.10 H, Sodium 141, Potassium 4.5, Chloride 107, Carbon Dioxide 27, Anion Gap 11.5, BUN 35 H, C reatinine 1.10 H, Estimated Creat Clear 44, Estimated GFR 48 L, Est GFR ( Amer) 58 L, Glucose 142 H, Lactate 1.6, Calcium 9.0, Total Bilirubin 0.9, AST 43 H, ALT 57, Alkaline Phosphatase 289 H, Troponin I < 0.01, Total Protein 6.9 D, Albumin 3.7, Globulin 3.2, Albumin/Globulin Ratio 1.2, Lipase 46 12/05/23 20:30: Urine Color Yellow, Urine Appearance Clear, Urine pH 5.5, Ur Specific [place] >= 1.030, Urine Protein Trace, Urine Glucose (UA) Negative, Urine Ketones Trace, Urine Blood Negative, Urine Nitrate Negative, Urine Bilirubin 2+ A, Urine Urobilinogen 1.0, Ur Leukocyte Esterase Negative, Urine RBC None, Urine WBC 5-10, Ur Squamous Epith Cells 3-5, Urine Bacteria 1+, Urine Mucus 1+ 12/05/23 21:58: Troponin I 0.02 12/06/23 00:00: APTT > 139.0 H*, Lactate 1.1, Troponin I 0.01 12/06/23 02:55: APTT > 139.0 H* 12/06/23 05:19: WBC 30.1 H*, RBC 3.59 L, Hgb 10.7 L D, Hct 33.4 L, MCV 92.9, MCH 30.0, MCHC 32.3, RDW 14.2, Plt Count 410, MPV 8.3, Neut % (Auto) 86.1 H, Lymph % (Auto) 8.9 L, [place] % (Auto) 4.7, Eos % (Auto) 0.2, Baso % (Auto) 0.3, Neut # (Auto) 25.9 H, Lymph # (Auto) 2.7, [place] # (Auto) 1.4 H, Eos # (Auto) 0.1, Baso # (Auto) 0.1, Total Counted 100, Neutrophils % (Manual) 88 H, Lymphocytes % (Manual) 11, Monocytes % (Manual) 1 L, Platelet Estimate Normal, RBC Morphology Normal, APTT > 139.0 H*, Sodium 138, Potassium 3.7, Chloride 110 H, Carbon Dioxide 22, Anion Gap 9.7, BUN 26 H D, Creatinine 0.90, Estimated Creat Clear 48, Estimated GFR 60, Est GFR ( Amer) 73 D, Glucose 141 H, Calcium 8.1 L , Magnesium 2.0, Total Bilirubin 0.5, AST 27 D, ALT 38 D, Alkaline Phosphatase 198 H, Total Protein 5.6 L, Albumin 2.8 L D, Globulin 2.8, Albumin/Globulin Ratio 1.0 L 12/06/23 07:05: APTT 84.8 H* 12/06/23 08:55: APTT 109.9 H* I & O for Labs for Last 24 Hours: Intake & Output 12/03/23 12/04/23 12/05/23 12/06/23 23:59 23:59 23:59 23:59 Intake Total 440 / 440 Output Total 510 / 510 Balance -70 / -70 Weight 155 lb 4 oz 163 lb 4 oz Constitutional: Present severe distress Head: Present normocephalic and atraumatic ENT: Present normal exam, normal oropharynx and mucous membranes moist Neck: Present normal inspection and full ROM Respiratory: Present respiratory distress and able to speak in complete sentences; Absent rhonchi, wheezes, crackles or diminished air movement Cardiac: Present S1/S2, Tachycardia and radial pulses present GI: Present soft and distention; Absent tenderness or guarding Rectal (female): Present deferred (female): Present deferred Skin: Present intact; Absent cyanosis or jaundice Neuro: Present alert, awake and oriented x 3 Extremities: Present normal inspection; Absent clubbing or cyanosis Psychiatric: Present normal affect and cooperative Meds Home Medications and Allergies Home Medications Medication Instructions Recorded Confirmed Type loperamide 2 mg tablet 2 mg PO Q6HP PRN Diarrhea 06/02/21 12/06/23 History melatonin 3 mg tablet 3 mg PO HS PRN sleep #30 tabs 07/02/21 12/06/23 Rx gabapentin 100 mg capsule 200 mg PO HS NERVE PAIN 03/15/23 12/06/23 History meclizine 12.5 mg tablet 12.5 mg PO DAILY DIZZINESS 03/15/23 12/06/23 History mirabegron 50 mg tablet,extended 50 mg PO DAILY URINARY SYMPTOMS 03/15/23 12/06/23 History release 24 hr (Myrbetriq) rivastigmine 4.6 mg/24 hour 1 patch transdermal DAILY DEMENTIA 03/15/23 12/06/23 History transdermal patch tramadol 50 mg tablet 50 mg PO Q8HP PRN Pain (Scale 03/15/23 12/06/23 History Score 4-6) acetaminophen 500 mg tablet 500 mg PO Q6HP PRN Fever Or Pain 11/20/23 12/06/23 History amitriptyline 75 mg tablet 75 mg PO HS Depression 11/20/23 12/06/23 History cyanocobalamin (vitamin B-12) 500 1,000 mcg PO DAILY Supplement 11/20/23 12/06/23 History mcg tablet (Vitamin B-12) lorazepam 1 mg tablet 1 mg PO TIDP PRN anxiety 11/20/23 12/06/23 History lidocaine 5 % topical patch 1 patch topical DAILY Back Pain 11/21/23 12/06/23 History multivitamin,rh-blee-Ma-FA-min 1 tab PO DAILY Supplement 11/21/23 12/06/23 History New Prescriptions to Start Prescriptions: Allergies Allergy/AdvReac Type Severity Reaction Status Date / Time codeine Allergy Verified 12/01/23 13:11 Penicillins Allergy Verified 12/01/23 13:11 pregabalin [From Lyrica] Allergy Verified 12/01/23 13:11 sulfate ion Allergy Verified 12/01/23 13:11 suvorexant Allergy Verified 12/01/23 13:11 venlafaxine [From Effexor] Allergy Verified 12/01/23 13:11 Results Laboratory Findings 12/06/23 05:19 12/06/23 05:19 PT/INR, D-dimer PT 12.3 seconds (10.1-12.5) 12/05/23 19:15 INR 1.15 (0.9-1.1) H 12/05/23 19:15 D-Dimer > 8.10 ug/mL (0.0-0.5) H 12/05/23 19:15 Abnormal lab findings: Abnormal Labs 12/05/23 12/05/23 12/05/23 18:40 19:15 20:30 WBC 29.0 H* RBC Hgb Hct MCHC 31.3 L Plt Count 477 H Neut % (Auto) 91.7 H Lymph % (Auto) 3.1 L Neut # (Auto) 26.6 H [place] # (Auto) 1.3 H Neutrophils % (Manual) 94 H Lymphocytes % (Manual) 6 L Monocytes % (Manual) INR 1.15 H APTT Fibrinogen > 860 H D-Dimer > 8.10 H VBG Base Excess -2.7 L VBG Lactic Acid 2.1 H Chloride BUN 35 H Creatinine 1.10 H Estimated GFR 48 L Est GFR ( Amer) 58 L Glucose 142 H Calcium AST 43 H Alkaline Phosphatase 289 H Total Protein Albumin Albumin/Globulin Ratio Urine Bilirubin 2+ A 12/06/23 12/06/23 12/06/23 00:00 02:55 05:19 WBC 30.1 H* RBC 3.59 L Hgb 10.7 L D Hct 33.4 L MCHC Plt Count Neut % (Auto) 86.1 H Lymph % (Auto) 8.9 L Neut # (Auto) 25.9 H [place] # (Auto) 1.4 H Neutrophils % (Manual) 88 H Lymphocytes % (Manual) Monocytes % (Manual) 1 L INR APTT > 139.0 H* > 139.0 H* > 139.0 H* Fibrinogen D-Dimer VBG Base Excess VBG Lactic Acid Chloride 110 H BUN 26 H D Creatinine Estimated GFR Est GFR ( Amer) Glucose 141 H Calcium 8.1 L AST Alkaline Phosphatase 198 H Total Protein 5.6 L Albumin 2.8 L D Albumin/Globulin Ratio 1.0 L Urine Bilirubin 12/06/23 12/06/23 07:05 08:55 WBC RBC Hgb Hct MCHC Plt Count Neut % (Auto) Lymph % (Auto) Neut # (Auto) [place] # (Auto) Neutrophils % (Manual) Lymphocytes % (Manual) Monocytes % (Manual) INR APTT 84.8 H* 109.9 H* Fibrinogen D-Dimer VBG Base Excess VBG Lactic Acid Chloride BUN Creatinine Estimated GFR Est GFR ( Amer) Glucose Calcium AST Alkaline Phosphatase Total Protein Albumin Albumin/Globulin Ratio Urine Bilirubin Assessment and Plan *Assessment and plan (1) Pneumonia of both lower lobes: Status: Acute Qualifiers: Pneumonia type: due to unspecified organism Qualified Code(s): J18.9 - Pneumonia, unspecified organism Category: Medical Code(s): J18.9 - Pneumonia, unspecified organism (2) Acute hypoxic respiratory failure: Status: Acute Category: Medical Code(s): J96.01 - Acute respiratory failure with hypoxia (3) SIRS (systemic inflammatory response syndrome): Status: Acute Category: Medical Code(s): R65.10 - Systemic inflammatory response syndrome (SIRS) of non-infectious origin without acute organ dysfunction (4) DVT (deep venous thrombosis): Status: Acute Qualifiers: Affected thrombotic vein of extremity: iliac Chronicity: unspecified D VT location: lower extremity Laterality: bilateral Qualified Code(s): I82.423 - Acute embolism and thrombosis of iliac vein, bilateral Category: Medical Code(s): I82.409 - Acute embolism and thrombosis of unspecified deep veins of unspecified lower extremity (5) Pulmonary embolism: Status: Acute Qualifiers: Pulmonary embolism type: multiple subsegmental (without acute cor pulmonale) Qualified Code(s): I26.94 - Multiple subsegmental pulmonary emboli without acute cor pulmonale Category: Medical Code(s): I26.99 - Other pulmonary embolism without acute cor pulmonale Plan Ms. Gracia is a 83-year-old female reported history of Alzheimer's, polyneuropathy, osteoporosis hypertension peripheral vascular disease presented to the ER with worsening respiratory system, and pulmonary was consulted for further evaluation and management. patient was recently admitted to the hospital for cholecystitis status postcholecystectomy discharged home on 11/24/2023. Patient admission was initiated on ceftriaxone azithromycin for community- acquired pneumonia. CTA admission positive for bilateral pulmonary embolism with evidence of RV strain. Troponin is negative upon admission. Hemodynamically stable. Patient also noted to have bilateral extensive DVTs CT also showed bilateral lower lobe airspace disease. Significant neutrophilic leukocytosis. On examination patient appeared to be inrespiratory distress. On 3 L nasal cannula saturating 96%. No significant wheezing noted on auscultation. Plan: Change antibiotics to Zosyn pending culture results. Follow with sputum cultures and nasal MRSA PCR and blood cultures Continue heparin drip for the noted pulmonary embolism and lower extremity DVT. F/U cardiology recommendations DuoNebs every 6 hours on as-needed basis # Thank you for involving pulmonary in this patient care. Will continue to follow.
[2023-12-06] MEDS: CEFEPIME HCL 2 GM in 0.9 % SODIUM CHLORIDE 100 ML IV ×2 (12:50→23:37)
--- NOTE | 2023-12-06 13:48 | EXP.ACUTE.PN ---
Subjective *Date: 12/06/23 *Time: 13:48 Interval history: Patient tolerating 3 L nasal cannula with appropriate saturations. Heart rate improved this morning on vitals. Tolerating heparin drip. Awaiting cardiology to evaluate. No nausea or vomiting. Awoke and answered questions appropriately on exam. Medical Exam Vital signs and Labs for Last 24 Hours: Vital Signs Temp Pulse Pulse Resp BP BP Pulse Ox 12/06/23 13:00 12/06/23 12:00 90 12/06/23 12:00 97.8 F 93 H 18 133/54 L 100 12/06/23 11:00 12/06/23 08:40 12/06/23 08:00 94 L 12/06/23 08:00 90 12/06/23 08:00 98.2 F 84 22 112/63 100 12/06/23 06:47 12/06/23 04:38 12/06/23 04:00 98.3 F 95 H 33 H 123/54 L 100 12/06/23 04:00 100 H 12/06/23 03:00 12/06/23 01:00 12/06/23 00:00 110 H 12/06/23 00:00 99.1 F 106 H 32 H 130/53 L 92 L 12/05/23 23:00 12/05/23 22:30 12/05/23 22:16 98.3 F 108 H 32 H 119/75 88 L 12/05/23 22:00 99 F 111 H 22 142/73 H 12/05/23 19:31 121 H 24 163/78 H 92 L 12/05/23 19:16 123 H 30 H 123/60 93 L 12/05/23 18:22 99.9 F H 123 H 30 H 141/71 H 86 L O2 Del Method O2 Flow Rate 12/06/23 13:00 Nasal Cannula 12/06/23 12:00 12/06/23 12:00 Nasal Cannula 3 12/06/23 11:00 Nasal Cannula 3.5 12/06/23 08:40 Nasal Cannula 3 12/06/23 08:00 Nasal Cannula 3.5 12/06/23 08:00 12/06/23 08:00 Nasal Cannula 3 12/06/23 06:47 Nasal Cannula 3 12/06/23 04:38 Nasal Cannula 3 12/06/23 04:00 Room Air 3 12/06/23 04:00 12/06/23 03:00 Nasal Cannula 3 12/06/23 01:00 Nasal Cannula 3 12/06/23 00:00 12/06/23 00:00 Nasal Cannula 3 12/05/23 23:00 Nasal Cannula 3 12/05/23 22:30 Nasal Cannula 3 12/05/23 22:16 Nasal Cannula 3 12/05/23 22:00 Nasal Cannula 3 12/05/23 19:31 Nasal Cannula 3 12/05/23 19:16 Nasal Cannula 3 12/05/23 18:22 Room Air Intake and Output 12/05/23 12/06/23 12/06/23 23:59 07:59 15:59 Intake Total 440 / 440 Output Total 510 / 510 Balance -70 / -70 Intake: Intake, Total IV Amount 440 / 440 0.9 % Sodium Chloride 1000ML 1, 340 / 340 000 ml @ 50 mls/hr IV .Q20H [facility] Rx#:[id number] Metronidaz/Sod Chl 500 mg In 100 / 100 100 ml @ 100 mls/hr IV Q8H [facility] Rx#:[id number] Output: Output, Urine Amount 510 / 510 Other: Weight 70.42 kg 74.049 kg Patient Weight 12/06/23 23:59 Weight 74.049 kg Laboratory Results - last 24 hr 12/05/23 18:30: SARS-CoV-2 (PCR) Not detected, Influenza A Untype (PCR) Not detected, Influenza Type B (PCR) Not detected 12/05/23 18:40: VBG pH 7.34, VBG pCO2 43.9, VBG pO2 37.1, VBG HCO3 23.1, VBG Total CO2 24.4, VBG O2 Saturation 67.1, VBG Base Excess -2.7 L, VBG Lactic Acid 2.1 H 12/05/23 19:15: WBC 29.0 H*, RBC 4.56, Hgb 13.3, Hct 42.4, MCV 93.0, MCH 29.2, MCHC 31.3 L, RDW 14.0, Plt Count 477 H, MPV 8.2, Neut % (Auto) 91.7 H, Lymph % (Auto) 3.1 L, [place] % (Auto) 4.5, Eos % (Auto) 0.2, Baso % (Auto) 0.5, Neut # (Auto) 26.6 H, Lymph # (Auto) 0.9, [place] # (Auto) 1.3 H, Eos # (Auto) 0.1, Baso # (Auto) 0.1, Total Counted 100, Neutrophils % (Manual) 94 H, Lymphocytes % (Manual) 6 L, Platelet Estimate Slight increase, RBC Morphology Normal, PT 12.3, INR 1.15 H, APTT 31.2, Fibrinogen > 860 H, D-Dimer > 8.10 H, Sodium 141, Potassium 4.5, Chloride 107, Carbon Dioxide 27, Anion Gap 11.5, BUN 35 H, Creatinine 1.10 H, Estimated Creat Clear 44, Estimated GFR 48 L, Est GFR ( Amer) 58 L, Glucose 142 H, Lactate 1.6, Calcium 9.0, Total Bilirubin 0.9, AST 43 H, ALT 57, Alkaline Phosphatase 289 H, Troponin I < 0.01, Total Protein 6.9 D, Albumin 3.7, Globulin 3.2, Albumin/Globulin Ratio 1.2, Lipase 46 12/05/23 20:30: Urine Color Yellow, Urine Appearance Clear, Urine pH 5.5, Ur Specific [place] >= 1.030, Urine Protein Trace, Urine Glucose (UA) Negative, Urine Ketones Trace, Urine Blood Negative, Urine Nitrate Negative, Urine Bilirubin 2+ A, Urine Urobilinogen 1.0, Ur Leukocyte Esterase Negative, Urine RBC None, Urine WBC 5-10, Ur Squamous Epith Cells 3-5, Urine Bacteria 1+, Urine Mucus 1+ 12/05/23 21:58: Troponin I 0.02 12/06/23 00:00: APTT > 139.0 H*, Lactate 1.1, Troponin I 0.01 12/06/23 02:55: APTT > 139.0 H* 12/06/23 05:19: WBC 30.1 H*, RBC 3.59 L, Hgb 10.7 L D, Hct 33.4 L, MCV 92.9, MCH 30.0, MCHC 32.3, RDW 14.2, Plt Count 410, MPV 8.3, Neut % (Auto) 86.1 H, Lymph % (Auto) 8.9 L, [place] % (Auto) 4.7, Eos % (Auto) 0.2, Baso % (Auto) 0.3, Neut # (Auto) 25.9 H, Lymph # (Auto) 2.7, [place] # (Auto) 1.4 H, Eos # (Auto) 0.1, Baso # (Auto) 0.1, Total Counted 100, Neutrophils % (Manual) 88 H, Lymphocytes % (Manual) 11, Monocytes % (Manual) 1 L, Platelet Estimate Normal, RBC Morphology Normal, APTT > 139.0 H*, Sodium 138, Potassium 3.7, Chloride 110 H, Carbon Dioxide 22, Anion Gap 9.7, BUN 26 H D, Creatinine 0.90, Estimated Creat Clear 48, Estimated GFR 60, Est GFR ( Amer) 73 D, Glucose 141 H, Calcium 8.1 L, Magnesium 2.0, Total Bilirubin 0.5, AST 27 D, ALT 38 D, Alkaline Phosphatase 198 H, Total Protein 5.6 L, Albumin 2.8 L D, Globulin 2.8, Albumin/Globulin Ratio 1.0 L 12/06/23 07:05: APTT 84.8 H* 12/06/23 08:55: APTT 109.9 H* I & O for Labs for Last 24 Hours: Intake & Output 12/03/23 12/04/23 12/05/23 12/06/23 23:59 23:59 23:59 23:59 Intake Total 440 / 440 Output Total 510 / 510 Balance -70 / -70 Weight 70.42 kg 74.049 kg Constitutional: Present no acute distress, average body habitus, chronically ill appearing and somnolent Head: Present atraumatic and normocephalic ENT: Present normal exam Neck: Present normal inspection Respiratory: Present normal respiratory effort; Absent rhonchi, wheezes or crackles Cardiac: Present Reg Rate and Rhythm and Tachycardia GI: Present soft and normal bowel sounds; Absent distention, tenderness or rebound Extremities: Present normal inspection and full ROM Skin: Present intact; Absent erythema Neuro: Present Grossly Intact, alert, awake and moves all extremities Assessment and Plan *Assessment and plan (1) Pulmonary embolism: Status: Acute Qualifiers: Pulmonary embolism type: multiple subsegmental (without acute cor pulmonale) Qualified Code(s): I26.94 - Multiple subsegmental pulmonary emboli without acute cor pulmonale Category: Medical Code(s): I26.99 - Other pulmonary embolism without acute cor pulmonale (2) Pneumonia of both lower lobes: Status: Acute Qualifiers: Pneumonia type: due to unspecified organism Qualified Code(s): J18.9 - Pneumonia, unspecified organism Category: Medical Code(s): J18.9 - Pneumonia, unspecified organism (3) Acute hypoxic respiratory failure: Status: Acute Category: Medical Code(s): J96.01 - Acute respiratory failure with hypoxia (4) DVT (deep venous thrombosis): Status: Acute Qualifiers: Affected thrombotic vein of extremity: iliac Chronicity: unspecified DVT location: lower extremity Laterality: bilateral Qualified Code(s): I82.423 - Acute embolism and thrombosis of iliac vein, bilateral Category: Medical Code(s): I82.409 - Acute embolism and thrombosis of unspecified deep veins of unspecified lower extremity (5) Hypertension: Status: Acute Qualifiers: Hypertension type: primary hypertension Qualified Code(s): I10 - Essential (primary) hypertension Category: Medical Code(s): I10 - Essential (primary) hypertension (6) Alzheimer's dementia: Status: Chronic Qualifiers: Alzheimer's disease onset: unspecified onset Dementia severity: unspecified severity Dementia behavioral or psychological symptom: unspecified whether behavioral, psychotic, or mood disturbance or anxiety Qualified Code(s): G30.9 - Alzheimer's disease, unspecified; F02.80 - Dementia in other diseases classified elsewhere, unspecified severity, without behavioral disturbance, psychotic disturbance, mood disturbance, and anxiety Category: Medical Code(s): G30.9 - Alzheimer's disease, unspecified; F02.80 - Dementia in other diseases classified elsewhere, unspecified severity, without behavioral disturbance, psychotic disturbance, mood disturbance, and anxiety Plan 83-year-old female with PMHx of Alzheimer's disease, polyneuropathy, osteoporosis, hypertension, peripheral vascular disease, weakness and chronic falls, recent cholecystitis status postcholecystectomy who presents emergency department for evaluation of shortness of breath and cough, tachycardia, shortness of breath, chest pain in the setting of recent cholecystectomy earlier this month. Patient is hemodynamically stable upon arrival, ill-appearing, tachycardic, afebrile. Initial work up included CTA of chest concerning for bilateral pulmonary embolism, with possible right strain, RV LV ratio concerning for right ventricular strain although no elevated troponin, patient hemodinamically stable. Discussed with ED. there is low concern for emergency thrombectomy. there is also bilateral lower lobe consolidation. significant leukocytosis found on labs work. DVT of bilateral iliac are also present. imaging reviewed. Medicine agreed to admit for further management. Pulmonology and cardiology consulted to assist with care. Problems addressed as follows: -Pulmonary embolism, Bilateral lower pneumonia Acute hypoxic respiratory failure -Bilateral DVT: -Continue supplemental oxygen, goal sats greater 90%. Currently on 3 L. -Discussed case with pulmonology, recommend switching antibiotics to Zosyn pending culture results. Follow sputum cultures and MRSA swab. Continue DuoNebs every 6 hours as needed. -Discussed case with cardiology, recommend continuing heparin infusion. Will evaluate for possible thrombectomy today. -White cell count increased today, 30,000. Repeat CBC, CMP, magnesium ordered for the morning. Kidney function stable with BUN 26, creatinine 0.9. Platelets appropriate at 410 Dementia: Continue rivastigmine patch daily Anxiety: Continue Ativan 1 mg as needed 3 times a day; continue amitriptyline 75mg nightly Pain/neuropathy: Continue gabapentin 200 mg HS, tramadol 50 mg as needed 3 times a day On heparin drip. Protonix for GI protection Full code
[2023-12-06 14:32] LABS: PTT Heparin (inpatient only) 47.8 Seconds (23.6-34.0)
--- NOTE | 2023-12-06 14:51 | PC.NURSE ---
heparin rate increased to 12ml/hr from 10ml/hr per pharmacy.
[2023-12-06] MEDS: 0.9 % SODIUM CHLORIDE 1000ML 1,000 ML 50 ML IV ×2 (17:25→23:05)
--- NOTE | 2023-12-06 17:51 | PC.NURSE ---
patient is alert and oriented x4, patient on 3L NC currently and O2 saturation in the high 90s, O2 has been bumped up to 3.5L periodically throughout the day due to O2 sat drop but has recovers quickly. She has been resting for most of the day but woke up this evening and has been alert and talkative. No complaints of pain or discomfort, pt has redness on her R. buttock and has been turned onto her left side and propped with a pillow. Pt states she is comfortable at this time, call light in reach, bed in lowest position.
[2023-12-06] MEDS: HEPARIN SODIUM 5,000 UNIT/ML VIAL 3000 UNIT IV (19:24)
[2023-12-06] MEDS: HEPARIN 25,000 UNITS/D5W 500 ML 15 UNIT IV (19:25)
[2023-12-06] MEDS: AMITRIPTYLINE 25MG TABLET 75 MG PO (20:31)
[2023-12-06] MEDS: SODIUM CHLORIDE 0.9% 10ML VIAL 10 ML IV (20:31)
[2023-12-06] MEDS: GABAPENTIN 100MG CAPSULE 200 MG PO (20:31)
[2023-12-06] MEDS: PANTOPRAZOLE 40MG VIAL 40 MG IV (20:31)
[2023-12-06] MEDS: ACETAMINOPHEN 325MG TAB 650 MG PO (21:03)
[2023-12-06] MEDS: LORazepam 1MG TABLET 1 MG PO (21:03)
[2023-12-06] MEDS: TRAMADOL 50MG TABLET 50 MG PO (23:24)
--- NOTE | 2023-12-06 23:35 | PC.NURSE ---
ROOM AIR SAT PT DROPPED TO 93% ON ROOM AIR. PT DOES NOT WEAR OXYGEN AT BASELINE. LEFT PT ON ROOM AIR AND WILL CONTINUE TO MONITOR.
[2023-12-07] VITALS: BP 133/59; PULSE 100; PULSE 79; RESP 17; TEMP 36.6; O2SAT 95
[2023-12-07] MEDS: METRONIDAZ/SOD CHL 500 MG/100 ML PIGGYBACK 100 MG IV ×3 (02:44→18:42)
[2023-12-07] MEDS: HEPARIN 25,000 UNITS/D5W 500 ML 13 UNIT IV (02:45)
[2023-12-07 04:00] VITALS: BP 116/60; PULSE 61; PULSE 71; RESP 16; TEMP 36.7; O2SAT 98; BMI 27.9
--- NOTE | 2023-12-07 04:50 | PC.NURSE ---
Pt is alert and oriented. Pt has complained of pain, treated per mar. Pt requested anxiety medication, treated per nov. Pt has rested through the night. Oliver in place and draining. Pt now on room air, O2 sat >90%. 1st degree block on tele. Heparin gtt infusing. Bed alarm on. Call light in reach.
[2023-12-07 07:47] LABS: Basophils # 0.1 K/mm3 (0-0.2); Basophils % 0.6 % (0.1-2.0); Eosinophils % 0.1 % (0.1-12.0); Hematocrit 30.9 % (37.0-47.0); Hemoglobin 9.9 g/dL (12.2-16.2); Lymphocytes # 2.6 K/mm3 (0.7-4.5); Mean Corpuscular HGB Conc 31.9 g/dL (31.8-35.4); Mean Corpuscular Hemoglobin 29.2 pg (27.0-31.2); Mean Corpuscular Volume 91.3 fl (81-99); Mean Platelet Volume 9.1 fl (7.4-10.4); Monocytes # 0.7 K/mm3 (0.1-1.0); Monocytes % 6.1 % (1.7-9.3); Neutrophils % 70.2 % (37.0-80.0); Platelet Count 397 K/mm3 (142-424); Red Blood Count 3.39 M/mm3 (4.20-5.40); Red Cell Distribution Width 13.9 % (11.5-17.5); White Blood Count 11.4 K/mm3 (4.8-10.8)
[2023-12-07 07:54] LABS: Alanine Aminotransferase 30 U/L (12-78); Albumin Level 2.6 g/dl (3.5-5.0); Albumin/Globulin Ratio 0.9 (1.1-1.8); Alkaline Phosphatase 183 U/L (38-126); Aspartate Amino Transferase 27 U/L (14-36); Bilirubin,Total 0.4 mg/dl (0.2-1.3); Blood Urea Nitrogen 21 mg/dl (7-17); Carbon Dioxide 21 mmol/L (22.0-30.0); Chloride 112 mmol/L (98-107); Creatinine Clearance Estimated 51 mL/min (50-200); Estimated Glomerular Filt Rate 96 ml/min (>60); GFR (African American) 116 ML/MIN (>60); Globulin 2.8 g/dL (1.3-3.2); Glucose 79 mg/dl (74-100); Magnesium 2.1 mg/dl (1.6-2.3); Sodium 140 mmol/L (136-145); Total Protein,Serum 5.4 g/dl (6.3-8.2)
[2023-12-07 08:00] VITALS: BP 157/66; PULSE 80; PULSE 83; RESP 16; TEMP 37; O2SAT 90
[2023-12-07] MEDS: RIVASTIGMINE 4.6MG/24HR PATCH 1 EACH TD (08:18)
--- NOTE | 2023-12-07 09:03 | PC.NURSE ---
Attempted to call Dr. Whipple at [phone] to report critical potassium of 3.0. Dr. Whipple busy at time, asked to call back. Attempted to call Dr. Whipple again at [phone] to report potassium at but phone call straight to voicemail. Will address potassium on rounds.
[2023-12-07 09:09] LABS: PTT Heparin (inpatient only) 52.1 Seconds (23.6-34.0)
--- NOTE | 2023-12-07 09:27 | PC.NURSE ---
Rounded on patient. She denies any needs or questions/concerns at this time. Call light within reach.
--- NOTE | 2023-12-07 10:01 | P.PN_ITS ---
Subjective *Date: 12/07/23 *Time: 11:36 Interval history: No acute respiratory events overnight. Patient denies any new respiratory complaints. Pulmonology Exam Inpatient Vital signs and Labs for Last 24 Hours: Temp Pulse Resp BP Pulse Ox O2 Del Method O2 Flow Rate 98.6 F 83 16 157/66 H 90 L Room Air 3 12/07/23 08:00 12/07/23 08:00 12/07/23 08:00 12/07/23 08:00 12/07/23 08:00 12/07/23 09:19 12/06/23 23:00 Laboratory Results - last 24 hr 12/06/23 13:50: APTT 47.8 H 12/06/23 17:58: APTT 49.0 H 12/07/23 01:20: APTT 142.0 H* 12/07/23 06:32: WBC 11.4 H D, RBC 3.39 L, Hgb 9.9 L, Hct 30.9 L, MCV 91.3, MCH 29.2, MCHC 31.9, RDW 13.9, Plt Count 397, MPV 9.1, Neut % (Auto) 70.2, Lymph % (Auto) 23.0, [place] % (Auto) 6.1, Eos % (Auto) 0.1, Baso % (Auto) 0.6, Neut # (Auto) 8.0 H, Lymph # (Auto) 2.6, [place] # (Auto) 0.7, Eos # (Auto) 0.0, Baso # (Auto) 0.1, Sodium 140, Potassium 3.0 L, Chloride 112 H, Carbon Dioxide 21 L, Anion Gap 10.0, BUN 21 H, Creatinine 0.60 D, Estimated Creat Clear 51, Estimated GFR 96, Est GFR ( Amer) 116 D, Glucose 79, Calcium 8.0 L, Magnesium 2.1, Total Bilirubin 0.4, AST 27, ALT 30, Alkaline Phosphatase 183 H, Total Protein 5.4 L, Albumin 2.6 L, Globulin 2.8, Albumin/Globulin Ratio 0.9 L 12/07/23 08:41: APTT 52.1 H* Temp Pulse Resp BP Pulse Ox O2 Del Method O2 Flow Rate 98.2 F 84 22 112/63 100 Nasal Cannula 3 12/06/23 08:00 12/06/23 08:00 12/06/23 08:00 12/06/23 08:00 12/06/23 08:00 12/06/23 08:40 12/06/23 08:40 Laboratory Results - last 24 hr 12/05/23 18:30: SARS-CoV-2 (PCR) Not detected, Influenza A Untype (PCR) Not detected, Influenza Type B (PCR) Not detected 12/05/23 18:40: VBG pH 7.34, VBG pCO2 43.9, VBG pO2 37.1, VBG HCO3 23.1, VBG Total CO2 24.4, VBG O2 Saturation 67.1, VBG Base Excess -2.7 L, VBG Lactic Acid 2.1 H 12/05/23 19:15: WBC 29.0 H*, RBC 4.56, Hgb 13.3, Hct 42.4, MCV 93.0, MCH 29.2, MCHC 31.3 L, RDW 14.0, Plt Count 477 H, MPV 8.2, Neut % (Auto) 91.7 H, Lymph % (Auto) 3.1 L, [place] % (Auto) 4.5, Eos % (Auto) 0.2, Baso % (Auto) 0.5, Neut # (Auto) 26.6 H, Lymph # (Auto) 0.9, [place] # (Auto) 1.3 H, Eos # (Auto) 0.1, Baso # (Auto) 0.1, Total Counted 100, Neutrophils % (Manual) 94 H, Lymphocytes % (Manual) 6 L, Platelet Estimate Slight increase, RBC Morphology Normal, PT 12.3, INR 1.15 H, APTT 31.2, Fibrinogen > 860 H, D-Dimer > 8.10 H, Sodium 141, [place] 4.5, Chloride 107, Carbon Dioxide 27, Anion Gap 11.5, BUN 35 H, Creatinine 1.10 H, Estimated Creat Clear 44, Estimated GFR 48 L, Est GFR ( Amer) 58 L, Glucose 142 H, Lactate 1.6, Calcium 9.0, Total Bilirubin 0.9, AST 43 H, ALT 57, Alkaline Phosphatase 289 H, Troponin I < 0.01, Total Protein 6.9 D, Albumin 3.7, Globulin 3.2, Albumin/Globulin Ratio 1.2, Lipase 46 12/05/23 20:30: Urine Color Yellow, Urine Appearance Clear, Urine pH 5.5, Ur Specific [place] >= 1.030, Urine Protein Trace, Urine Glucose (UA) Negative, Urine Ketones Trace, Urine Blood Negative, Urine Nitrate Negative, Urine Bilirubin 2+ A, Urine Urobilinogen 1.0, Ur Leukocyte Esterase Negative, Urine RBC None, Urine WBC 5-10, Ur Squamous Epith Cells 3-5, Urine Bacteria 1+, Urine Mucus 1+ 12/05/23 21:58: Troponin I 0.02 12/06/23 00:00: APTT > 139.0 H*, Lactate 1.1, Troponin I 0.01 12/06/23 02:55: APTT > 139.0 H* 12/06/23 05:19: WBC 30.1 H*, RBC 3.59 L, Hgb 10.7 L D, Hct 33.4 L, MCV 92.9, MCH 30.0, MCHC 32.3, RDW 14.2, Plt Count 410, MPV 8.3, Neut % (Auto) 86.1 H, Lymph % (Auto) 8.9 L, [place] % (Auto) 4.7, Eos % (Auto) 0.2, Baso % (Auto) 0.3, Neut # (Auto) 25.9 H, Lymph # (Auto) 2.7, [place] # (Auto) 1.4 H, Eos # (Auto) 0.1, Baso # (Auto) 0.1, Total Counted 100, Neutrophils % (Manual) 88 H, Lymphocytes % (Manual) 11, Monocytes % (Manual) 1 L, Platelet Estimate Normal, RBC Morphology Normal, APTT > 139.0 H*, Sodium 138, Potassium 3.7, Chloride 110 H, Carbon Dioxide 22, Anion Gap 9.7, BUN 26 H D, Creatinine 0.90, Estimated Creat Clear 48, Estimated GFR 60, Est GFR ( Amer) 73 D, Glucose 141 H, Calcium 8.1 L , Magnesium 2.0, Total Bilirubin 0.5, AST 27 D, ALT 38 D, Alkaline Phosphatase 198 H, Total Protein 5.6 L, Albumin 2.8 L D, Globulin 2.8, Albumin/Globulin Ratio 1.0 L 12/06/23 07:05: APTT 84.8 H* 12/06/23 08:55: APTT 109.9 H* I & O for Labs for Last 24 Hours: Intake & Output 12/04/23 12/05/23 12/06/23 12/07/23 23:59 23:59 23:59 23:59 Intake Total 440 / 440 1133 / 1133 Output Total 810 / 810 300 / 300 Balance -370 / -370 833 / 833 Weight 155 lb 4 oz 163 lb 4 oz 163 lb 11.2 oz Intake & Output 12/03/23 12/04/23 12/05/23 12/06/23 23:59 23:59 23:59 23:59 Intake Total 440 / 440 Output Total 510 / 510 Balance -70 / -70 Weight 155 lb 4 oz 163 lb 4 oz Constitutional: Present moderate distress Head: Present normocephalic and atraumatic ENT: Present normal exam, normal oropharynx and mucous membranes moist Neck: Present normal inspection and full ROM Respiratory: Present respiratory distress and able to speak in complete sentences; Absent rhonchi, wheezes, crackles or diminished air movement Cardiac: Present S1/S2, Tachycardia and radial pulses present GI: Present soft and distention; Absent tenderness or guarding Rectal (female): Present deferred (female): Present deferred Skin: Present intact; Absent cyanosis or jaundice Neuro: Present alert, awake and oriented x 3 Extremities: Present normal inspection; Absent clubbing or cyanosis Psychiatric: Present normal affect and cooperative Assessment and Plan *Assessment and plan (1) Pneumonia of both lower lobes: Status: Acute Qualifiers: Pneumonia type: due to unspecified organism Qualified Code(s): J18.9 - Pneumonia, unspecified organism Category: Medical Code(s): J18.9 - Pneumonia, unspecified organism (2) Acute hypoxic respiratory failure: Status: Acute Category: Medical Code(s): J96.01 - Acute respiratory failure with hypoxia (3) SIRS (systemic inflammatory response syndrome): Status: Acute Category: Medical Code(s): R65.10 - Systemic inflammatory response syndrome (SIRS) of non-infectious origin without acute organ dysfunction (4) DVT (deep venous thrombosis): Status: Acute Qualifiers: Affected thrombotic vein of extremity: iliac Chronicity: unspecified DVT location: lower extremity Laterality: bilateral Qualified Code(s): I82.423 - Acute embolism and thrombosis of iliac vein, bilateral Category: Medical Code(s): I82.409 - Acute embolism and thrombosis of unspecified deep veins of unspecified lower extremity (5) Pulmonary embolism: Status: Acute Qualifiers: Pulmonary embolism type: multiple subsegmental (without acute cor pulmonale) Qualified Code(s): I26.94 - Multiple subsegmental pulmonary emboli without acute cor pulmonale Category: Medical Code(s): I26.99 - Other pulmonary embolism without acute cor pulmonale Plan Ms. Gracia is a 83-year-old female reported history of Alzheimer's, polyneuropathy, osteoporosis hypertension peripheral vascular disease presented to the ER with worsening respiratory system, and pulmonary was consulted for further evaluation and management. patient was recently admitted to the hospital for cholecystitis status postcholecystectomy discharged home on 11/24/2023. Patient admission was initiated on ceftriaxone azithromycin for community- acquired pneumonia. CTA admission positive for bilateral pulmonary embolism with evidence of RV strain. Troponin is negative upon admission. Hemodynamically stable. Patient also noted to have bilateral extensive DVTs CT also showed bilateral lower lobe airspace disease. Significant neutrophilic leukocytosis. On examination patient appeared to be inrespiratory distress. On 3 L nasal cannula saturating 96%. No significant wheezing noted on auscultation. Interval update: No acute respiratory events overnight. No intervention from cardiology at this point of time. Will continue medical management. Continue to receive Zosyn pending cultures. Improving oxygen requirements, weaned to room air. Improving leukocytosis Plan: Continue oxygen supplementation as needed to maintain O2 saturation goal of 90% and above Continue Zosyn pending culture results. Follow with sputum cultures and nasal MRSA PCR and blood cultures Given no acute event on cardiology on anticoagulation can be switched to oral pending discharge planning F/U cardiology recommendations DuoNebs every 6 hours on as-needed basis # Patient did also have some concerns regarding going back toher current rehab center. Referred this issue to social sciences research scientist to further discuss towards discharge planning. # Thank you for involving pulmonary in this patient care. Will continue to follow.
--- NOTE | 2023-12-07 10:40 | CT_ITS ---
FINAL REPORT TECHNIQUE: Axial images through the abdomen and pelvis were performed without contrast. This study was performed with techniques to keep radiation doses as low as reasonably achievable, (ALARA). Individualized dose reduction techniques using automated exposure control or adjustment of mA and/or kV according to the patient's size were employed. CLINICAL HISTORY: eval abdominal pain, intra-abdominal hematoma COMPARISON: 12/05/2023 FINDINGS: Abdomen: There are dense bibasilar airspace infiltrates, improved since the prior exam of December 04. The liver parenchyma is homogeneous. The gallbladder has been surgically removed. The spleen, pancreas, and adrenals are unremarkable. There is an extrarenal pelvis on the left side. There is a benign-appearing cyst in the right kidney. A moderate sized hiatal hernia is present. Pelvis: A [place] catheter is present in the decompressed bladder. The appendix is not visualized. There is no pelvic mass or inflammation. There is sigmoid diverticulosis without evidence of acute inflammatory change. There is mild stranding around the left iliac vein, that may be related to the known venous thrombosis. No intravenous contrast was administered for this examination. IMPRESSION: Dense bibasilar airspace infiltrates improved. Sigmoid diverticulosis is present without evidence of acute inflammatory change. Stranding around the left iliac vein, that may be related to the previously described venous thrombosis. Reviewed, Interpreted and Dictated by Geremias Muir MD Transcribed by Katia Malave Authenticated and [facility]
--- NOTE | 2023-12-07 10:41 | HMH.PHAHEP ---
[facility] Pharmacy Heparin Dosing Demographic Data Admission date:: 12/06/23 Date: 12/06/23 Time: 09:00 Allergies Allergy/AdvReac Type Severity Reaction Status Date / Time codeine Allergy Unknown Verified 12/07/23 10:42 allergy reaction Penicillins Allergy Unknown Verified 12/07/23 10:42 allergy reaction pregabalin [From Lyrica] Allergy Unknown Verified 12/07/23 10:42 allergy reaction sulfate ion Allergy Unknown Verified 12/07/23 10:42 allergy reaction suvorexant Allergy Unknown Verified 12/07/23 10:42 allergy reaction venlafaxine [From Effexor] Allergy Unknown Verified 12/07/23 10:42 allergy reaction Height: 1.63 m Weight: 74.253 kg Indication Medication therapy:: Heparin Current Indications:: PE Current Active Problems (Updated 12/06/23 @ 02:31 by Arpan Lyon APRN) Pneumonia of both lower lobes (Acute) Thyroid nodule (Acute) Pulmonary disease (Acute) Acute hypoxic respiratory failure (Acute) SIRS (systemic inflammatory response syndrome) (Acute) DVT (deep venous thrombosis) (Acute) Pulmonary embolism (Acute) Alzheimer's dementia (Chronic) Hypertension (Acute) CVA?: No Bleeding problem?: No Kidney disease?: No [place]?: No Desired PTT range:: 50-75 seconds Labs Anticoagulation Lab Results:: 12/07/23 06:32 Hgb 9.9 L Hct 30.9 L Plt Count 397 Monitoring Dose Monitor 1: Date: 12/05/23 Time: 19:15 PTT Result:: 31.2 Infusion Rate:: HEPARIN 26 ML/HR (1300 UNITS/HR), HEPARIN 5800 UNIT BOLUS PLT 477 Dose Monitor 2: Date: 12/06/23 Time: 00:00 PTT Result:: >139.0 Infusion Rate:: DECREASED HEPARIN TO 22 ML/HR (1100 UNITS/HR) Dose Monitor 3: Date: 12/06/23 Time: 02:55 PTT Result:: >139.0 Infusion Rate:: HEPARIN 18 ML/HR (900 UNITS/HR) Dose Monitor 4: Date: 12/06/23 Time: 05:19 PTT Result:: >139.0 Infusion Rate:: HEPARIN 14 ML/HR (700 UNITS/HR) Dose Monitor 5: Date: 12/06/23 Time: 07:05 PTT Result:: 84.8 Infusion Rate:: HEPARIN 14 ML/HR (700 UNITS/HR) Dose Monitor 6: Date: 12/06/23 Time: 08:55 PTT Result:: 109.9 Infusion Rate:: HEPARIN 10 ML/HR (500 UNITS/HR) Dose Monitor 7: Date: 12/06/23 Time: 13:50 PTT Result:: 48.7 Infusion Rate:: HEPARIN 12 ML/HR (600 UNITS/HR) Dose Monitor 8: Date: 12/06/23 Time: 17:58 PTT Result:: 49.0 Infusion Rate:: HEPARIN 15 ML/HR (750 UNITS/HR), REBOLUSED WITH HEPARIN 3000 UNITS. Dose Monitor 9: Date: 12/07/23 Time: 01:20 PTT Result:: 142.0 Infusion Rate:: HEPARIN 1300/HR (650 UNITS/HR) Dose Monitor 10: Date: 12/07/23 Time: 08:41 PTT Result:: 52.1 Infusion Rate:: HEPARIN CONTINUED AT 13 ML/HR (650 UNITS/HR) Comment:: DRIP STOPPED ~1030 SWITCHED TO LOVENOX. Core Measures Is INR > or = 2 at discharge?: No Most Recent Labs:: Laboratory Results - last 24 hr 12/06/23 13:50: APTT 47.8 H 12/06/23 17:58: APTT 49.0 H 12/07/23 01:20: APTT 142.0 H* 12/07/23 06:32: WBC 11.4 H D, RBC 3.39 L, Hgb 9.9 L, Hct 30.9 L, MCV 91.3, MCH 29.2, MCHC 31.9, RDW 13.9, Plt Count 397, MPV 9.1, Neut % (Auto) 70.2, Lymph % (Auto) 23.0, [place] % (Auto) 6.1, Eos % (Auto) 0.1, Baso % (Auto) 0.6, Neut # (Auto) 8.0 H, Lymph # (Auto) 2.6, [place] # (Auto) 0.7, Eos # (Auto) 0.0, Baso # (Auto) 0.1, Sodium 140, Potassium 3.0 L, Chloride 112 H, Carbon Dioxide 21 L, Anion Gap 10.0, BUN 21 H, Creatinine 0.60 D, Estimated Creat Clear 51, Estimated GFR 96, Est GFR ( Amer) 116 D, Glucose 79, Calcium 8.0 L, Magnesium 2.1, Total Bilirubin 0.4, AST 27, ALT 30, Alkaline Phosphatase 183 H, Total Protein 5.4 L, Albumin 2.6 L, Globulin 2.8, Albumin/Globulin Ratio 0.9 L 12/07/23 08:41: APTT 52.1 H* If INR was < than 2.0 why was therapy stopped?: LOVENOX Were Heparin and Warfarin started on the same day?: No If not, why?: LOVENOX
[2023-12-07] MEDS: ENOXAPARIN 80MG/0.8ML SYRINGE 75 MG SQ ×2 (11:03→21:39)
[2023-12-07] MEDS: CEFEPIME HCL 2 GM in 0.9 % SODIUM CHLORIDE 100 ML IV ×2 (11:05→23:19)
--- NOTE | 2023-12-07 11:17 | HMH.ITSTN ---
patient getting a bath when CT techs tried to bring patient down for CT. We will try again after bath.
--- NOTE | 2023-12-07 11:24 | P.PN_ITS ---
Subjective Subjective Date: 12/07/23 Time: 11:25 Principal diagnosis: bilateral PE Interval history: 83-year-old white female in bed in no acute distress. Still tired but today is awake and alert and more interactive. Answering questions appropriately. Currently off oxygen with room air sat of 90%. Exam Data for Last 24 hours Vital signs and Labs for Last 24 Hours: Temp Pulse Resp BP Pulse Ox O2 Del Method O2 Flow Rate 98.6 F 83 16 157/66 H 90 L Room Air 3 12/07/23 08:00 12/07/23 08:00 12/07/23 08:00 12/07/23 08:00 12/07/23 08:00 12/07/23 09:19 12/06/23 23:00 Laboratory Results - last 24 hr 12/06/23 13:50: APTT 47.8 H 12/06/23 17:58: APTT 49.0 H 12/07/23 01:20: APTT 142.0 H* 12/07/23 06:32: WBC 11.4 H D, RBC 3.39 L, Hgb 9.9 L, Hct 30.9 L, MCV 91.3, MCH 29.2, MCHC 31.9, RDW 13.9, Plt Count 397, MPV 9.1, Neut % (Auto) 70.2, Lymph % (Auto) 23.0, [place] % (Auto) 6.1, Eos % (Auto) 0.1, Baso % (Auto) 0.6, Neut # (Auto) 8.0 H, Lymph # (Auto) 2.6, [place] # (Auto) 0.7, Eos # (Auto) 0.0, Baso # (Auto) 0.1, Sodium 140, Potassium 3.0 L, Chloride 112 H, Carbon Dioxide 21 L, Anion Gap 10.0, BUN 21 H, Creatinine 0.60 D, Estimated Creat Clear 51, Estimated GFR 96, Est GFR ( Amer) 116 D, Glucose 79, Calcium 8.0 L, Magnesium 2.1, Total Bilirubin 0.4, AST 27, ALT 30, Alkaline Phosphatase 183 H, Total Protein 5.4 L, Albumin 2.6 L, Globulin 2.8, Albumin/Globulin Ratio 0.9 L 12/07/23 08:41: APTT 52.1 H* I & O for Last 24 hours: Intake & Output 12/04/23 12/05/23 12/06/23 12/07/23 11:59 11:59 11:59 11:59 Intake Total 440 / 440 1674 / 1674 Output Total 510 / 510 600 / 600 Balance -70 / -70 1074 / 1074 Weight 163 lb 4 oz 163 lb 11.197 oz *Routine Respiratory Exam Respiratory: Present decreased breath sounds *Routine Cardiovascular Exam Cardiovascular: Present RRR Progress Note: A&P Assessment and plan (1) Pneumonia of both lower lobes: Status: Acute (2) Acute hypoxic respiratory failure: Status: Acute (3) SIRS (systemic inflammatory response syndrome): Status: Acute (4) DVT (deep venous thrombosis): Status: Acute (5) Pulmonary embolism: Status: Acute Assessment and Plan Assessment and Plan for All Diagnoses:: 1. Bilateral pulmonary emboli with DVTs in setting of recent cholecystectomy -On IV heparin and weaning down/off supplemental oxygen. Switch to oral anticoagulation. -RV strain noted on CTA of chest with RV/LV ratio of 1.7 -Echo shows normal LVEF with mild RV dilatation and moderate reduction of function with hypokinetic RV apex (Lacy sign). RVSP 35-40 mm Hg. 2. Acute hypoxic respiratory failure secondary to #1 with SIRS criteria on admission -White count up to 30,000 -Hemoglobin down to 10.7 yesterday and 9.9 today (likely delutional) 3. Possible pneumonia of both lower lobes versus pulmonary ischemia related to PEs 4. Thyroid nodules 5. Alzheimer's dementia Switch IV heparin to oral anticoagulation No plans for procedural-based treatment. Nothing further to add at this time. Please call if needed.
--- NOTE | 2023-12-07 11:27 | HMH.PTEV ---
Physical Therapy Evaluation Rehab PT IP Evaluation Start: 12/07/23 09:34 Freq: ONCE Status: Active Protocol: Document 12/07/23 10:24 JAVAN (Rec: 12/07/23 11:26 JAVAN [id number]) Subjective/History History History Per H&P: This is a 83-year- old female with PMHx of Alzheimer's disease, polyneuropathy, osteoporosis, hypertension, peripheral vascular disease, weakness and chronic falls, recent cholecystitis status post cholecystectomy who presents emergency department for evaluation of shortness of breath and cough. Patient's baseline is alert, intermittently oriented, conversational. She underwent cholecystectomy earlier this month and was subsequently discharged back to her long- term care facility. She has had persistent cough since however has gotten worse over the last few days and due to significant difficulty breathing and reported chest pain they sent her here for continued evaluation. Patient is complaining of diffuse pain and shortness of breath, no other acute complaints at this time. Admitted for further work up and treatment. Subjective Subjective Patient is agreeable to PT. Pt is oriented x4. Reports that she is not doing well. She reports that prior to her surgery a few weeks ago, she was mostly independent at the detention. She required little assistance walking and did not use an assistive device. She required no assistance with dressing and other activities of daily living. Since her surgery, she has not been able to get out of bed. New diagnosis of cancer in past 12 No months? Rehab PT IP Eval Objective Appearance Patient Behavior Appropriate,Cooperative Patient Orientation Person,Place,Time,Birthday Difficulty following instructions none Speech Pattern Clear Ambulation Patient Able to Ambulate No Balance Dynamic Sitting Balance Ability Fair Transfers Bed Transfer Ability Minimal x 2 (25% assist) Rehab PT IP prob,goals,plan Problems Date of Evaluation: 12/07/23 PT IP Problems Bed Mobility,Transfers,Gait, Balance,Self care,Safety Rehab Potential Rehab Potential Fair Plan PT Intervention Plan Bed Mobility,Transfers,Gait, Balance,Self care,Safety, Therapeutic Exercise PT Plan Frequency Daily Duration LOS Discharge Goals Bed Transfer Ability Contact Guard/Hand Hold Sit to Stand Chair Transfer Ability Minimal x 1 (25% assist) Ambulation Distance (feet) 10 Discharge Plan PT Discharge Plan Patient presented for initial evaluation. Upon sitting EOB, the patient became nauseated and began to dry heave and requested to lie back down. The patient presents below baseline at this time, in mobility, endurance and strength. Skilled PT is indicated for this patient to promote a return to her prior level of function. The patient may be most appropriate for discharge to the SNF, when deemed medically stable for discharge. Eval Complexity Eval Charge Codes 73200 - High Complexity PHYSICIAN CERTIFICATION: I certify the specified therapy services for Erinn Gracia are required, authorized, and reviewed every 30 days.
--- NOTE | 2023-12-07 11:54 | PC.NURSE ---
Patient stated she did not want her daughter iCndy to be contacted at all. Patient stated that she wanted us to only give updates to her granddaughter Vita.
[2023-12-07 11:55] VITALS: BMI 27.9
[2023-12-07 12:00] VITALS: BP 162/63; PULSE 86; PULSE 90; RESP 16; TEMP 36.6; O2SAT 97
--- NOTE | 2023-12-07 12:33 | P.PN_ITS ---
Subjective *Date: 12/07/23 *Time: 12:33 Interval history: Showing some improved this morning. Weaned to room air. No nausea or vomiting. Complaining of abdominal pain however. Afebrile overnight. Interactive on morning exam Medical Exam Vital signs and Labs for Last 24 Hours: Vital Signs Temp Pulse Pulse Resp BP Pulse Ox O2 Del Method 12/07/23 12:00 97.9 F 86 16 162/63 H 97 Room Air 12/07/23 11:00 Room Air 12/07/23 09:19 Room Air 12/07/23 08:30 Room Air 12/07/23 08:00 80 12/07/23 08:00 98.6 F 83 16 157/66 H 90 L Room Air 12/07/23 07:00 Room Air 12/07/23 04:54 Room Air 12/07/23 04:00 98.0 F 71 16 116/60 98 Room Air 12/07/23 04:00 61 12/07/23 03:00 Room Air 12/07/23 01:00 Room Air 12/07/23 00:00 100 H 12/07/23 00:00 97.9 F 79 17 133/59 L 95 Room Air 12/06/23 23:00 Nasal Cannula 12/06/23 21:00 Nasal Cannula 12/06/23 20:00 90 12/06/23 20:00 Nasal Cannula 12/06/23 20:00 98.1 F 69 17 122/49 L 96 Nasal Cannula 12/06/23 19:00 Nasal Cannula 12/06/23 17:00 Nasal Cannula 12/06/23 16:00 90 12/06/23 15:48 97.5 F L 80 18 122/56 L 95 Nasal Cannula 12/06/23 15:00 Nasal Cannula 12/06/23 13:00 Nasal Cannula O2 Flow Rate 12/07/23 12:00 12/07/23 11:00 12/07/23 09:19 12/07/23 08:30 12/07/23 08:00 12/07/23 08:00 12/07/23 07:00 12/07/23 04:54 12/07/23 04:00 12/07/23 04:00 12/07/23 03:00 12/07/23 01:00 12/07/23 00:00 12/07/23 00:00 12/06/23 23:00 3 12/06/23 21:00 3 12/06/23 20:00 12/06/23 20:00 3 12/06/23 20:00 12/06/23 19:00 3 12/06/23 17:00 3.5 12/06/23 16:00 12/06/23 15:48 3 12/06/23 15:00 3 12/06/23 13:00 Intake and Output 12/06/23 12/07/23 12/07/23 23:59 07:59 15:59 Intake Total 1133 / 1674 541 / 1674 Output Total 300 / 810 300 / 300 Balance -300 / -370 833 / 1374 541 / 1374 Intake: Intake, Oral Amount 0 / 0 Intake, Total IV Amount 1133 / 1674 541 / 1674 0.9 % Sodium Chloride 1000ML 1, 933 / 933 000 ml @ 50 mls/hr IV .Q20H [facility] Rx#:[id number] Cefepime HCl 2 gm In 0.9 % 100 / 100 Sodium Chloride 100 ml @ 200 mls/hr IV Q12H [facility] Rx#:[id number] Heparin Sodium,Porcine/D5w 500 541 / 541 ml @ 650 UNITS/HR 13 mls/hr IV .Q25H [facility] Rx#:[id number] Metronidaz/Sod Chl 500 mg In 100 / 100 100 ml @ 100 mls/hr IV Q8H [facility] Rx#:[id number] Output: Output, Urine Amount 300 / 810 300 / 300 Other: Number of Unmeasured Voids 0 0 0 Weight 74.253 kg 74.23 kg Patient Weight 12/07/23 23:59 Weight 74.23 kg Laboratory Results - last 24 hr 12/06/23 13:50: APTT 47.8 H 12/06/23 17:58: APTT 49.0 H 12/07/23 01:20: APTT 142.0 H* 12/07/23 06:32: WBC 11.4 H D, RBC 3.39 L, Hgb 9.9 L, Hct 30.9 L, MCV 91.3, MCH 29.2, MCHC 31.9, RDW 13.9, Plt Count 397, MPV 9.1, Neut % (Auto) 70.2, Lymph % (Auto) 23.0, [place] % (Auto) 6.1, Eos % (Auto) 0.1, Baso % (Auto) 0.6, Neut # (Auto) 8.0 H, Lymph # (Auto) 2.6, [place] # (Auto) 0.7, Eos # (Auto) 0.0, Baso # (Auto) 0.1, Sodium 140, Potassium 3.0 L, Chloride 112 H, Carbon Dioxide 21 L, Anion Gap 10.0, BUN 21 H, Creatinine 0.60 D, Estimated Creat Clear 51, Estimated GFR 96, Est GFR ( Amer) 116 D, Glucose 79, Calcium 8.0 L, Magnesium 2.1, Total Bilirubin 0.4, AST 27, ALT 30, Alkaline Phosphatase 183 H, Total Protein 5.4 L, Albumin 2.6 L, Globulin 2.8, Albumin/Globulin Ratio 0.9 L 12/07/23 08:41: APTT 52.1 H* I & O for Labs for Last 24 Hours: Intake & Output 12/04/23 12/05/23 12/06/23 12/07/23 23:59 23:59 23:59 23:59 Intake Total 440 / 440 1674 / 1674 Output Total 810 / 810 300 / 300 Balance -370 / -370 1374 / 1374 Weight 70.42 kg 74.049 kg 74.23 kg Constitutional: Present no acute distress, average body habitus, chronically ill appearing and cooperative Head: Present atraumatic and normocephalic ENT: Present normal exam Neck: Present normal inspection Respiratory: Present normal respiratory effort; Absent rhonchi, wheezes or crackles Cardiac: Present Reg Rate and Rhythm and Tachycardia GI: Present soft and normal bowel sounds; Absent distention, tenderness or rebound Extremities: Present normal inspection and full ROM Skin: Present intact; Absent erythema Neuro: Present Grossly Intact, alert, awake, oriented x 3 and moves all extremities Assessment and Plan *Assessment and plan (1) Pulmonary embolism: Status: Acute Qualifiers: Pulmonary embolism type: multiple subsegmental (without acute cor pulmonale) Qualified Code(s): I26.94 - Multiple subsegmental pulmonary emboli without acute cor pulmonale Category: Medical Code(s): I26.99 - Other pulmonary embolism without acute cor pulmonale (2) Pneumonia of both lower lobes: Status: Acute Qualifiers: Pneumonia type: due to unspecified organism Qualified Code(s): J18.9 - Pneumonia, unspecified organism Category: Medical Code(s): J18.9 - Pneumonia, unspecified organism (3) Acute hypoxic respiratory failure: Status: Acute Category: Medical Code(s): J96.01 - Acute respiratory failure with hypoxia (4) DVT (deep venous thrombosis): Status: Acute Qualifiers: Affected thrombotic vein of extremity: iliac Chronicity: unspecified DVT location: lower extremity Laterality: bilateral Qualified Code(s): I82.423 - Acute embolism and thrombosis of iliac vein, bilateral Category: Medical Code(s): I82.409 - Acute embolism and thrombosis of unspecified deep veins of unspecified lower extremity (5) Hypertension: Status: Acute Qualifiers: Hypertension type: primary hypertension Qualified Code(s): I10 - Essential (primary) hypertension Category: Medical Code(s): I10 - Essential (primary) hypertension (6) Alzheimer's dementia: Status: Chronic Qualifiers: Alzheimer's disease onset: unspecified onset Dementia severity: unspecified severity Dementia behavioral or psychological symptom: unspecified whether behavioral, psychotic, or mood disturbance or anxiety Qualified Code(s): G30.9 - Alzheimer's disease, unspecified; F02.80 - Dementia in other diseases classified elsewhere, unspecified severity, without behavioral disturbance, psychotic disturbance, mood disturbance, and anxiety Category: Medical Code(s): G30.9 - Alzheimer's disease, unspecified; F02.80 - Dementia in other diseases classified elsewhere, unspecified severity, without behavioral disturbance, psychotic disturbance, mood disturbance, and anxiety Plan 83-year-old female with PMHx of Alzheimer's disease, polyneuropathy, osteoporosis, hypertension, peripheral vascular disease, weakness and chronic falls, recent cholecystitis status postcholecystectomy who presents emergency department for evaluation of shortness of breath and cough, tachycardia, shortness of breath, chest pain in the setting of recent cholecystectomy earlier this month. Patient is hemodynamically stable upon arrival, ill-appearing, tachycardic, afebrile. Initial work up included CTA of chest concerning for bi lateral pulmonary embolism, with possible right strain, RV/LV ratio concerning for right ventricular strain although no elevated troponin, patient hemodinamically stable. Discussed with ED. there is low concern for emergency thrombectomy. there is also bilateral lower lobe consolidation. significant leukocytosis found on labs work. DVT of bilateral iliac are also present. imaging reviewed. Medicine agreed to admit for further management. Pulmonology and cardiology consulted to assist with care. Weaned to room air today. Showing improvement. No indication or plan at this time for invasive intervention such as thrombectomy. Continue medical management. Anticipate discharge in the coming days. Problems addressed as follows: -Pulmonary embolism, Bilateral lower pneumonia Acute hypoxic respiratory failure -Bilateral DVT: Continue supplemental oxygen, goal sats greater 90%. Currently on room air -Discussed case with pulmonology, recommend continuing Zosyn pending culture results. Follow sputum cultures and MRSA swab. Continue DuoNebs every 6 hours as needed. -Discussed case with cardiology, recommend discontinuing heparin and transitioning to oral regimen for discharge. No indication for thrombectomy. -Blood cell count improved to 11.4. Hemoglobin dropped from 13-9.9. Repeat H&H at 4 PM. Discontinue heparin drip. Continue Lovenox out of concern for possible bleed. - If hemoglobin stable over the next 24 hours, will transition to oral anticoagulation. In light of belly pain and anemia and recent abdominal surgery, will obtain CT abdomen pelvis - Repeat CBC, CMP, magnesium ordered for the morning. Kidney function stable with BUN 21, creatinine 0.6. Platelets appropriate at 397 Dementia: Continue rivastigmine patch daily Anxiety: Continue Ativan 1 mg as needed 3 times a day; continue amitriptyline 75mg nightly Pain/neuropathy: Continue gabapentin 200 mg HS, tramadol 50 mg as needed 3 times a day Therapeutic Lovenox 1 mg/kg twice daily Protonix for GI protection Full code
--- NOTE | 2023-12-07 14:15 | PC.NURSE ---
Pt taken to 2nd floor via w/c and staff x2.
--- NOTE | 2023-12-07 14:49 | HMH.SLDYSPHA ---
Speech & Language Evaluation Speech/Language Dysphagia Evaluation Start: 12/07/23 14:31 Freq: ONCE Status: Active Protocol: Document 12/07/23 14:34 JOSE (Rec: 12/07/23 14:49 [facility] [id number]) Dysphagia Assess/Goals/Plan Assessment Date of Evaluation: 12/07/23 Evaluation Type Initial Certification Assessment/Problems coughing after swallowing per MD order. Does Patient Qualify for Service Yes Qualify/Failure Comment Based on results of CSE, pt would benefit from further instrumental assessment to evaluate the oropharyngeal phases of the swallow. Plan Pt/Guardian verbally ack understanding Yes of dx/prognosis/goals G -code Required No Education Instructions provided Discussed results of CSE and need for further assessment with nursing, MD, and pt all of which expressed understanding. Pt/Caregiver able to recall information Able to recall/restate Reinforcement needed No Speech & Language HPI History Present Illness Description of Patient Problem Patient is a pleasant 83-year- old female with past medical history of Alzheimer's disease , polyneuropathy, osteoporosis , hypertension, peripheral vascular disease, weakness and chronic falls, recent cholecystitis status postcholecystectomy who presents emergency department for evaluation of shortness of breath and cough. Patient's baseline is alert, intermittently oriented, conversational. She underwent cholecystectomy earlier this month and was subsequently discharged back to her long- term care facility. She has had persistent cough since however has gotten worse over the last few days and due to significant difficulty breathing and reported chest pain they sent her here for continued evaluation. Patient is complaining of diffuse pain and shortness of breath, no other acute complaints at this time CXR impressions reported: 1. Bilateral increased basilar airspace disease consistent with atelectasis or pneumonia. 2. Low lung volumes. 3. Please see chest CT angiogram report regarding pulmonary embolism. Chest CTA impressions stated: IMPRESSION: 1. Bilateral pulmonary emboli, with central involvement on the right. Thrombus burden is moderate. There are changes of pulmonary arterial hypertension, and elevated RV/ LV ratio concerning for an element of right ventricular strain. 2. Consolidative airspace disease with volume loss in both lower lobes. This could represent pulmonary ischemia/infarct from pulmonary emboli, versus basilar atelectasis or pneumonia. 3. Bilateral large thyroid nodules, possibly multinodular goiter but nonspecific. Recommend sonographic assessment if not previously evaluated. 4. Additional nonemergent findings detailed above. 5. These findings initiated a critical results reporting process. An addendum will be issued at the time of clinician notification. Pt/Caregiver Concerns Pt reports loss of appetite over last month with no interest in solids, abdominal/ chest pain after eating, and nausea. Rehab Services Assessed Speech therapy Language Primary Language [place] General Information General Current Food Consistancy NPO Dentition Upper & Lower Dentures Oxygen Status Room Air Patient Orientation Person,Place,Time,Situation Ability to Follow Directions Good Communication Ability No Impairment Dysphagia:Food Presentation Evaluation Food Type Pureed,Mechanical Soft,Regular ,Liquid,Pudding,Other Dysphagia Evaluation Summary Pt was seen sitting upright in her bed this afternoon for a clinical bedside swallow evaluation. She was A&Ox4 and was provided oral care prior to completing bolus trials. Pt has c/o loss of appetite, nausea, and pain after swallow . She trialed thins x3 of ice chips, spoonfuls of water, open cup/straw sips, and two conseuctive open cup/straw sips. Pt was only able to tolerate one trial of all solids including: pureed applesauce, pudding, MS nutrigrain bar, and regular solid thomas cracker. She was observed to have a hyperactive gag reflex throughout all solid bolus administrations. No overt s/sxs of aspiration observed during the CSE. However, it is to be noted that pt orally regurgitated all bolus administered 3-4 minutes after last trial provided during conversation with [employer]. Pt reports that she has been experiencing this for close to a month. [employer] provided education on MBSS and benefits of further instrumental assessment and was agreeable. MBSS scheduled for tomorrow. Stroke Dysphagia Assessment PHYSICIAN CERTIFICATION: I certify the specified therapy services for Erinn Gracia are required, authorized, and reviewed every 30 days.
[2023-12-07 16:00] VITALS: BP 155/94; PULSE 95; PULSE 96; RESP 18; TEMP 36.9; O2SAT 90
--- NOTE | 2023-12-07 17:03 | PC.NURSE ---
VS stable, patient remained on room air. Lung sounds fine crackles at bases. Mild pain noted in abdomen, belly non distended and soft. Offered patient tylenol, patient stated had wanted to wait that the pain had subsided.
[2023-12-07 17:18] LABS: Hemoglobin 9.9 g/dL (12.2-16.2)
--- NOTE | 2023-12-07 18:46 | ECG_ITS ---
APPROVED REPORT Exam: Resting ECG HR:122 bpm ECG Measurements Heart Rate 122 AXES MD 228 P -42 QRSd 97 QRS 4 QT 232 T 120 QTc 305 Conclusion SINUS TACHYCARDIA WITH FIRST DEGREE AV BLOCK NONSPECIFIC ST & T-WAVE ABNORMALITY ABNORMAL ECG UNCONFIRMED REPORT Electronically signed by : Ace Mills MD 12/07/2023 21:02:32
[2023-12-07 20:00] VITALS: BP 163/71; PULSE 92; PULSE 97; RESP 16; TEMP 36.8; O2SAT 92
[2023-12-07] MEDS: GABAPENTIN 100MG CAPSULE 200 MG PO (21:39)
[2023-12-07] MEDS: AMITRIPTYLINE 25MG TABLET 75 MG PO (21:40)
[2023-12-07] MEDS: PANTOPRAZOLE 40MG VIAL 40 MG IV (21:40)
[2023-12-07] MEDS: SENNOSIDES 8.6MG/DOCUSATE 50MG TABLET 1 TAB PO (21:40)
[2023-12-07] MEDS: MELATONIN 5MG TABLET 5 MG PO (21:59)
[2023-12-07] MEDS: TRAMADOL 50MG TABLET 50 MG PO (21:59)
[2023-12-07] MEDS: LORazepam 1MG TABLET 1 MG PO (23:29)
[2023-12-08] VITALS (9 sets, daily range): BP systolic 146–180; BP diastolic 61–78; PULSE 60–100; RESP 18–32; TEMP 36.6–37.1; O2SAT 91–97; BMI 28.9
[2023-12-08] MEDS: METRONIDAZ/SOD CHL 500 MG/100 ML PIGGYBACK 100 MG IV ×2 (03:38→11:36)
[2023-12-08] MEDS: FAMOTIDINE 20MG/2ML VIAL 40 MG IV (04:05)
[2023-12-08 06:39] LABS: Basophils # 0.1 K/mm3 (0-0.2); Basophils % 0.7 % (0.1-2.0); Hematocrit 33.4 % (37.0-47.0); Hemoglobin 10.4 g/dL (12.2-16.2); Lymphocytes # 2.8 K/mm3 (0.7-4.5); Lymphocytes % 25.9 % (10-50); Mean Corpuscular HGB Conc 31.1 g/dL (31.8-35.4); Mean Corpuscular Hemoglobin 28.4 pg (27.0-31.2); Mean Corpuscular Volume 91.1 fl (81-99); Mean Platelet Volume 8.2 fl (7.4-10.4); Monocytes # 0.6 K/mm3 (0.1-1.0); Monocytes % 5.5 % (1.7-9.3); Neutrophils # 7.2 K/mm3 (1.8-7.8); Neutrophils % 67.9 % (37.0-80.0); Platelet Count 483 K/mm3 (142-424); Red Blood Count 3.67 M/mm3 (4.20-5.40); Red Cell Distribution Width 13.9 % (11.5-17.5); White Blood Count 10.6 K/mm3 (4.8-10.8)
[2023-12-08 06:51] LABS: Chloride 112 mmol/L (98-107); Sodium 140 mmol/L (136-145)
[2023-12-08 06:54] LABS: Alanine Aminotransferase 28 U/L (12-78); Albumin Level 2.7 g/dl (3.5-5.0); Alkaline Phosphatase 182 U/L (38-126); Anion Gap 12.9 mEq/L (5-15); Aspartate Amino Transferase 23 U/L (14-36); Bilirubin,Total 0.5 mg/dl (0.2-1.3); Blood Urea Nitrogen 13 mg/dl (7-17); Carbon Dioxide 18 mmol/L (22.0-30.0); Creatinine Clearance Estimated 53 mL/min (50-200); Estimated Glomerular Filt Rate 96 ml/min (>60); GFR (African American) 116 ML/MIN (>60); Globulin 2.8 g/dL (1.3-3.2); Total Protein,Serum 5.5 g/dl (6.3-8.2)
[2023-12-08 06:55] LABS: Calcium 8.2 mg/dl (8.4-10.2); Glucose 76 mg/dl (74-100)
[2023-12-08 07:18] LABS: Potassium 2.9 mmoL/L (3.5-5.1)
[2023-12-08 07:22] LABS: Magnesium 1.8 mg/dl (1.6-2.3)
--- NOTE | 2023-12-08 08:20 | DIET.NUTRFU ---
Patient continues to be NPO, swallow study yesterday, she completed the bedside trials with no difficulties but post exam she vomited all samples. YARD DRIVER will complete a f MBS today to confirm it is not related to swallowing fxn. CT scan was completed of abdomen and she has a moderate hiatal hernia. During YARD DRIVER eval patient complained of abdominal pain and decrease in oral intake for the past month secondary to the pain. Will continue to followup on YARD DRIVER recommendations. Labs reviewed, K 2.9L, KCL ordered. Had BM on 12/06,12/07. Urine output good at 1500ml 12/06. [facility] on [facility]22 she reported stable wt but dislikes the food. Verified via chart wt stable 68-75kg, todays 76kg.
[2023-12-08] MEDS: APIXABAN 5MG TABLET 10 MG PO ×2 (08:52→20:15)
[2023-12-08] MEDS: RIVASTIGMINE 4.6MG/24HR PATCH 1 EACH TD (08:53)
[2023-12-08] MEDS: SENNOSIDES 8.6MG/DOCUSATE 50MG TABLET 1 TAB PO ×2 (08:54→20:15)
[2023-12-08] MEDS: LORazepam 1MG TABLET 1 MG PO ×2 (09:01→16:27)
[2023-12-08] MEDS: TRAMADOL 50MG TABLET 50 MG PO ×2 (09:05→20:14)
--- NOTE | 2023-12-08 09:40 | EXP.PULM.PN ---
Subjective *Date: 12/08/23 *Time: 10:35 Interval history: No acute respiratory events overnight. Patient denies any new respiratory complaints. Pulmonology Exam Inpatient Vital signs and Labs for Last 24 Hours: Temp Pulse Resp BP Pulse Ox O2 Del Method O2 Flow Rate 98.2 F 97 H 32 H 146/69 H 96 Room Air 3 12/08/23 07:35 12/08/23 07:35 12/08/23 07:35 12/08/23 07:35 12/08/23 07:35 12/08/23 07:35 12/06/23 23:00 Laboratory Results - last 24 hr 12/07/23 15:58: Hgb 9.9 L, Hct 30.0 L 12/08/23 05:24: WBC 10.6, RBC 3.67 L, Hgb 10.4 L, Hct 33.4 L, MCV 91.1, MCH 28.4, MCHC 31.1 L, RDW 13.9, Plt Count 483 H, MPV 8.2, Neut % (Auto) 67.9, Lymph % (Auto) 25.9, Braxton % (Auto) 5.5, Eos % (Auto) 0.0 L, Baso % (Auto) 0.7, Neut # (Auto) 7.2, Lymph # (Auto) 2.8, Braxton # (Auto) 0.6, Eos # (Auto) 0.0, Baso # (Auto) 0.1, Sodium 140, Potassium 2.9 L*, Chloride 112 H, Carbon Dioxide 18 L, Anion Gap 12.9, BUN 13 D, Creatinine 0.60, Estimated Creat Clear 53, Estimated GFR 96, Est GFR ( Amer) 116, Glucose 76, Calcium 8.2 L, Magnesium 1.8 D, Total Bilirubin 0.5, AST 23, ALT 28, Alkaline Phosphatase 182 H, Total Protein 5.5 L, Albumin 2.7 L, Globulin 2.8, Albumin/Globulin Ratio 1.0 L Temp Pulse Resp BP Pulse Ox O2 Del Method O2 Flow Rate 98.2 F 84 22 112/63 100 Nasal Cannula 3 12/06/23 08:00 12/06/23 08:00 12/06/23 08:00 12/06/23 08:00 12/06/23 08:00 12/06/23 08:40 12/06/23 08:40 Laboratory Results - last 24 hr 12/05/23 18:30: SARS-CoV-2 (PCR) Not detected, Influenza A Untype (PCR) Not detected, Influenza Type B (PCR) Not detected 12/05/23 18:40: VBG pH 7.34, VBG pCO2 43.9, VBG pO2 37.1, VBG HCO3 23.1, VBG Total CO2 24.4, VBG O2 Saturation 67.1, VBG Base Excess -2.7 L, VBG Lactic Acid 2.1 H 12/05/23 19:15: WBC 29.0 H*, RBC 4.56, Hgb 13.3, Hct 42.4, MCV 93.0, MCH 29.2, MCHC 31.3 L, RDW 14.0, Plt Count 477 H, MPV 8.2, Neut % (Auto) 91.7 H, Lymph % (Auto) 3.1 L, Braxton % (Auto) 4.5, Eos % (Auto) 0.2, Baso % (Auto) 0.5, Neut # (Auto) 26.6 H, Lymph # (Auto) 0.9, Braxton # (Auto) 1.3 H, Eos # (Auto) 0.1, Baso # (Auto) 0.1, Total Counted 100, Neutrophils % (Manual) 94 H, Lymphocytes % (Manual) 6 L, Platelet Estimate Slight increase, RBC Morphology Normal, PT 12.3, INR 1.15 H, APTT 31.2, Fibrinogen > 860 H, D-Dimer > 8.10 H, Sodium 141, Potassium 4.5, Chloride 107, Carbon Dioxide 27, Anion Gap 11.5, BUN 35 H, Creatinine 1.10 H, Estimated Creat Clear 44, Estimated GFR 48 L, Est GFR ( Amer) 58 L, Glucose 142 H, Lactate 1.6, Calcium 9.0, Total Bilirubin 0.9, AST 43 H, ALT 57, Alkaline Phosphatase 289 H, Troponin I < 0.01, Total Protein 6.9 D, Albumin 3.7, Globulin 3.2, Albumin/Globulin Ratio 1.2, Lipase 46 12/05/23 20:30: Urine Color Yellow, Urine Appearance Clear, Urine pH 5.5, Ur Specific [place] >= 1.030, Urine Protein Trace, Urine Glucose (UA) Negative, Urine Ketones Trace, Urine Blood Negative, Urine Nitrate Negative, Urine Bilirubin 2+ A, Urine Urobilinogen 1.0, Ur Leukocyte Esterase Negative, Urine RBC None, Urine WBC 5-10, Ur Squamous Epith Cells 3-5, Urine Bacteria 1+, Urine Mucus 1+ 12/05/23 21:58: Troponin I 0.02 12/06/23 00:00: APTT > 139.0 H*, Lactate 1.1, Troponin I 0.01 12/06/23 02:55: APTT > 139.0 H* 12/06/23 05:19: WBC 30.1 H*, RBC 3.59 L, Hgb 10.7 L D, Hct 33.4 L, MCV 92.9, MCH 30.0, MCHC 32.3, RDW 14.2, Plt Count 410, MPV 8.3, Neut % (Auto) 86.1 H, Lymph % (Auto) 8.9 L, Braxton % (Auto) 4.7, Eos % (Auto) 0.2, Baso % (Auto) 0.3, Neut # (Auto) 25.9 H, Lymph # (Auto) 2.7, Braxton # (Auto) 1.4 H, Eos # (Auto) 0.1, Baso # (Auto) 0.1, Total Counted 100, Neutrophils % (Manual) 88 H, Lymphocytes % (Manual) 11, Monocytes % (Manual) 1 L, Platelet Estimate Normal, RBC Morphology Normal, APTT > 139.0 H*, Sodium 138, Potassium 3.7, Chloride 110 H, Carbon Dioxide 22, Anion Gap 9.7, BUN 26 H D, Creatinine 0.90, Estimated Creat Clear 48, Estimated GFR 60, Est GFR ( Amer) 73 D, Glucose 141 H, Calcium 8.1 L, Magnesium 2.0, Total Bilirubin 0.5, AST 27 D, ALT 38 D, Alkaline Phosphatase 198 H, Total Protein 5.6 L, Albumin 2.8 L D, Globulin 2.8, Albumin/Globulin Ratio 1.0 L 12/06/23 07:05: APTT 84.8 H* 12/06/23 08:55: APTT 109.9 H* I & O for Labs for Last 24 Hours: Intake & Output 03/2412/06/23 12/07/23 12/08/23 23:59 23:59 23:59 23:59 Intake Total 440 / 440 1674 / 2129 455 / 455 Output Total 810 / 810 1500 / 1500 500 / 500 Balance -370 / -370 174 / 629 -45 / -45 Weight 155 lb 4 oz 163 lb 4 oz 163 lb 10.386 oz 169 lb 8 oz Intake & Output 12/03/23 12/04/23 12/05/23 12/06/23 23:59 23:59 23:59 23:59 Intake Total 440 / 440 Output Total 510 / 510 Balance -70 / -70 Weight 155 lb 4 oz 163 lb 4 oz Constitutional: Present moderate distress Head: Present normocephalic and atraumatic ENT: Present normal exam, normal oropharynx and mucous membranes moist Neck: Present normal inspection and full ROM Respiratory: Present respiratory distress and able to speak in complete sentences; Absent rhonchi, wheezes, crackles or diminished air movement Cardiac: Present S1/S2, Tachycardia and radial pulses present GI: Present soft and distention; Absent tenderness or guarding Rectal (female): Present deferred (female): Present deferred Skin: Present intact; Absent cyanosis or jaundice Neuro: Present alert, awake and oriented x 3 Extremities: Present normal inspection; Absent clubbing or cyanosis Psychiatric: Present normal affect and cooperative Assessment and Plan *Assessment and plan (1) Pneumonia of both lower lobes: Status: Acute Qualifiers: Pneumonia type: due to unspecified organism Qualified Code(s): J18.9 - Pneumonia, unspecified organism Category: Medical Code(s): J18.9 - Pneumonia, unspecified organism (2) Acute hypoxic respiratory failure: Status: Acute Category: Medical Code(s): J96.01 - Acute respiratory failure with hypoxia (3) SIRS (systemic inflammatory response syndrome): Status: Acute Category: Medical Code(s): R65.10 - Systemic inflammatory response syndrome (SIRS) of non-infectious origin without acute organ dysfunction (4) DVT (deep venous thrombosis): Status: Acute Qualifiers: Affected thrombotic vein of extremity: iliac Chronicity: unspecified DVT location: lower extremity Laterality: bilateral Qualified Code(s): I82.423 - Acute embolism and thrombosis of iliac vein, bilateral Category: Medical Code(s): I82.409 - Acute embolism and thrombosis of unspecified deep veins of unspecified lower extremity (5) Pulmonary embolism: Status: Acute Qualifiers: Pulmonary embolism type: multiple subsegmental (without acute cor pulmonale) Qualified Code(s): I26.94 - Multiple subsegmental pulmonary emboli without acute cor pulmonale Category: Medical Code(s): I26.99 - Other pulmonary embolism without acute cor pulmonale Plan Ms. Gracia is a 83-year-old female reported history of Alzheimer's, polyneuropathy, osteoporosis hypertension peripheral vascular disease presented to the ER with worsening respiratory system, and pulmonary was consulted for further evaluation and management. patient was recently admitted to the hospital for cholecystitis status postcholecystectomy discharged home on 11/24/2023. Patient admission was initiated on ceftriaxone azithromycin for community-acquired pneumonia. CTA admission positive for bilateral pulmonary embolism with evidence of RV strain. Troponin is negative upon admission. Hemodynamically stable. Patient also noted to have bilateral extensive DVTs CT also showed bilateral lower lobe airspace disease. Significant neutrophilic leukocytosis. On examination patient appeared to be inrespiratory distress. On 3 L nasal cannula saturating 96%. No significant wheezing noted on auscultation. Interval update: No acute respiratory events overnight. Continued to remain on room air. Hemodynamically stable. Afebrile. Improving leukocytosis. Follow with chest x-ray and will wean antibiotics pending discharge Plan: PT/OT Continue oxygen supplementation as needed to maintain O2 saturation goal of 90% and above Continue Zosyn pending culture results and CXR Follow with sputum cultures and nasal MRSA PCR and blood cultures Continue Eliquis for pulmonary embolism. Likely extended anticoagulation given patient's immobility and other risk factors. F/U cardiology recommendations DuoNebs every 6 hours on as-needed basis # Social work team following on patient's discharge disposition. # Thank you for involving pulmonary in this patient care. Will continue to follow.
--- NOTE | 2023-12-08 09:41 | XR_ITS ---
FINAL REPORT CLINICAL HISTORY: PNM COMPARISON: 12/05/2023 FINDINGS: The heart size is normal. The mediastinum is normal. The lungs are underinflated. Patchy airspace opacity at the medial left base is probably related to residual pneumonia. There is increased bibasilar atelectasis. There are no pleural effusions. There is no pneumothorax. There is no osseous abnormality. IMPRESSION: Persistent left lower lobe infiltrate. Increased bibasilar atelectasis. Reviewed, Interpreted and Dictated by Geremias Muir MD Transcribed by Ashley Dickson Authenticated and [facility]
--- NOTE | 2023-12-08 09:54 | HMH.OTEV ---
OT Inpatient Evaluation Rehab OT IP Evaluation Start: 12/07/23 09:34 Freq: ONCE Status: Active Protocol: Document 12/08/23 09:48 [facility] (Rec: 12/08/23 09:54 [facility] [id number]) Rehab OT IP Assessment Subjective History Pt oriented x 2 on arrival. Pt agreeable to engage in therapy evaluation. Pt admitted on 12/05/23 due to bilateral PE. History and Physical report: Per H&P: This is a 83-year- old female with PMHx of Alzheimer's disease, polyneuropathy, osteoporosis, hypertension, peripheral vascular disease, weakness and chronic falls, recent cholecystitis status post cholecystectomy who presents emergency department for evaluation of shortness of breath and cough. Patient's baseline is alert, intermittently oriented, conversational. She underwent cholecystectomy earlier this month and was subsequently discharged back to her long- term care facility. She has had persistent cough since however has gotten worse over the last few days and due to significant difficulty breathing and reported chest pain they sent her here for continued evaluation. Patient is complaining of diffuse pain and shortness of breath, no other acute complaints at this time. Admitted for further work up and treatment. Subjective I am hurting. Prior to being in the hospital , [facility]. Pt claims normally she is indpendent with all ADLs and uses a rolling walker during functional transfers. Pt dependent upon staff for completion of all IADLS. Objective Patient Orientation Person,Birthday Right Upper Extremity Gross ROM WFL Left Upper Extremity Gross ROM WFL Bed Mobility bed mobility-scooting,bed mobility - supine/sit Assist Level Moderate x 2 (50% assist) Rehab OT IP prob,goals,plan Problems Date of Evaluation: 12/08/23 OT IP Problems Bed Mobility,Transfers,Balance ,Self care,Safety Rehab Potential Rehab Potential Good Equipment Needs Assistive Devices Rolling / Wheeled Walker Plan OT intervention Plan Bed Mobility,Transfers,Balance ,Self care,Safety,Therapeutic Exercise OT Plan Frequency Daily Duration LOS Discharge Goals Bed Mobility Ability Assistance x1 Sit to Stand Chair Transfer Ability Moderate x 1 (50% assist) Chair Transfer Ability Moderate x 1 (50% assist) Chair Transfer Technique Sit to/from Ambulatory Chair Transfer Assistive Devices Rolling Walker Lower Body Dressing Ability Minimal Assistance Upper Body Dressing Ability Contact Guard Bathing Ability Moderate Assistance Performing Toilet Hygiene Ability Minimal Assistance Overall Commode/Toilet Transfer Ability Moderate Assistance Commode/Toilet Transfer Technique Sit to/from Ambulatory Commode/Toilet Transfer Assistive Grab Bars Devices Oral Care Assist Contact Guard Decrease in Endurance Yes Discharge Plan OT Discharge Plan Pt will continue to be seen for OT services while at [facility]. Pt would benefit from returning back to SNF for continued roasterman care. Therapy evaluation upon returning back to SNF would be helpful in order to continue with skilled therapy services. Eval Complexity Eval Charge Codes 56011 - Moderate Complexity PHYSICIAN CERTIFICATION: I certify the specified therapy services for Erinn Gracia are required, authorized, and reviewed every 30 days.
--- NOTE | 2023-12-08 10:00 | FL_ITS ---
FINAL REPORT CLINICAL HISTORY: .trouble swallowing 137.02 dap 3.0 fluoro time FINDINGS: MODIFIED BARIUM SWALLOW History: Dysphagia FINDINGS: Fluoroscopy was provided for the speech pathologist to evaluate the swallowing mechanism. The patient was given several different consistencies of barium while the swallow was visualized fluoroscopically. The report of the speech pathologist should be consulted prior to making dietary decisions. Fluoroscopy time: 3 minutes Fluoro dose: 137.02 DAP in uGym2 IMPRESSION: Modified barium swallow under fluoroscopic guidance. Please see the report of the speech pathologist for Dietary recommendations. Reviewed, Interpreted and Dictated by Geremias Muir MD Transcribed by NORY Galvin Authenticated and [facility]
[2023-12-08] MEDS: POTASSIUM CHLORIDE 10 MEQ, LIDOCAINE HCL/PF 3 ML in 0.9 % SODIUM CHLORIDE 100 ML 108 MEQ IV ×3 (10:35→12:50)
--- NOTE | 2023-12-08 10:47 | HMH.SLMBS2 ---
Speech & Language Evaluation Speech/Language Mod Barium Swallow Start: 12/08/23 10:00 Freq: ONCE Status: Complete Protocol: Document 12/08/23 10:34 [facility] (Rec: 12/08/23 10:47 [facility] [id number]) General Information General Current Food Consistancy NPO Dentition Upper & Lower Dentures Oxygen Status Room Air Patient Orientation Person,Place Ability to Follow Directions Good Communication Ability Mild Impairment MBS Recommendations Diet Dietary Recommendations Mechanical Soft,Chopped Meats, Thin Liquids Treatment/Strategies Strategy/Precaution Recommend Sitting Upright (90 deg),Small Bites and Sips,Alternate Liquids/Solids Referrals/Other Recommended Referrals GI Consult,Dietary Consult Other Recommendations Pt would benefit from GI consult 2' retrograde flow of bolus and regurgitation of solids [id number] per patient report. Pt would benefit from dietary consult to esnure meeting caloric needs due to poor PO intake. Mod Barium Swallow Impressions Summary and Impressions Oral Phase Impression Minimal Impairment Oral Phase Summary Minimal impairment of the oral preparatory and oral transit phases of the swallow. Adequate mastication and manipulation of the bolus with minor anterior loss of liquids. Pt was able to fully masticate both solid bolus trials of MS and regular prior to oral regurgitation. She does report things being difficult to chew at times and not always wearing her upper AND lower dentures 2' pain. Due to this, it is recommended that she be placed on a MS/ thin diet to ease with chewing . Pharyngeal Phase Impression Mild Impairment Pharyngeal Phase Summary Mild to moderate impairment of the pharyngeal phase of the swallow. Unable to fully assess pharyngeal phase of the swallow 2' oral regurgitation of MS soft and regular solids when pt attempted to swallow. Pt required prompting to swallow 2' oral withholding of bolus. Trace residuals observed at the pyriform sinus and minimal retrograde flow of bolus. No aspiration observed with thins, purees, or pudding. Speech/Language MBS Assessment/Goals/Plan Assessment Date of Evaluation: 12/08/23 Evaluation Type Initial Certification Assessment/Problems dysphagia per MD order Does Patient Qualify for Service No Qualify/Failure Comment Based on instrumental assessment of the oropharyngeal phase of the swallow, mastication and manipulation of bolus, and swallowing function appear to be WFL. No further skilled speech therapy services are warranted at this time. Pt would benefit from GI and dietary consults to address retrograde flow/oral regurgitation of solids and meeting caloric intake needs 2 ' poor PO intake. Recommendations PHYSICIAN CERTIFICATION: The specified therapy services are required, authorized, and reviewed every 30 days. Diet Recommendations Mechanical Soft Liquid Type Recommendations Normal/Thin SL Swallow Guidelines Alt bite w/sip thru meal, Standard Aspiration Prec. Dysphagia Swallow Precautions/Strategies Sitting Upright (90 deg),Small Bites and Sips,Alternate Liquids/Solids Plan Pt/Guardian verbally ack understanding Yes of dx/prognosis/goals G -code Required No Longterm Goals Diet mechanical soft with Liquids Thin Liquids Education Instructions provided Discussed results of MBSS, diet recommendations, and referrals with MD, pt, and nursing all of which expressed understanding. Pt/Caregiver able to recall information Able to recall/restate Reinforcement needed No Mod Barium Swallow Setup Exam Setup Radiologist Nimesh Garrido Level of Consciousness Alert,Appropriate,Follows Commands,Drowsy Mod Barium Swallow-Lat View Textures Lateral View Food Presentation Thin Liquid via Cup,Thin Liquid via Straw,Pureed Food- Thin,Mech. Soft Food- Regular, Regular Food,Pudding Oral Phase Labial Closure No Impairment (WFL) Bolus Formation Pooling L/R No Impairment (WFL) Bolus Formation under Tongue No Impairment (WFL) Bolus Formation Scattered Loss No Impairment (WFL) Mastication Rotary Chew Minimal Impairment Mastication Munching Mild Impairment Mastication Lateralization Minimal Impairment Lingual Movement Minimal Impairment Residue Clearing No Impairment (WFL) Other Oral Phase Observations oral regurgitation noted during transition from oral transit to pharyngeal phase of the swallow with solid bolus trials of MS and regular. anterior loss of liquids post solid bolus trials. Pharyngeal Phase A/P Lingual Propulsion Spills Mild Impairment Swallow Response Delay Moderate Impairment Base of Tongue Minimal Impairment Epiglottic Coverage Mild Impairment Laryngeal Elevation Mild Impairment Vallecular Retention Clearing Minimal Impairment Pharyn. Wall Residue Clearing Mild Impairment Piriform Sinus Retention Moderate Impairment Aspiration? No Mod Barium Swallow-AP View Performed Mod Barium Swallow A/P View Test Not Applicable/Performed PHYSICIAN CERTIFICATION: I certify the specified therapy services for Erinn Gracia are required, authorized, and reviewed every 30 days.
[2023-12-08] MEDS: CEFEPIME HCL 2 GM in 0.9 % SODIUM CHLORIDE 100 ML IV (14:03)
--- NOTE | 2023-12-08 14:13 | EXP.ACUTE.PN ---
Subjective *Date: 12/08/23 *Time: 15:16 Interval history: Patient on room air this morning. Feeling somewhat better. Has nausea when she sits up but is more comfortable when she lays down. Swallow eval with speech today, patient has hiatal hernia on CT. Unable to visualize with barium swallow due to emesis. No aspiration however. Afebrile. Tolerating p.o. liquids. Labs showing improvement. Medical Exam Vital signs and Labs for Last 24 Hours: Vital Signs Temp Pulse Pulse Resp BP Pulse Ox O2 Del Method 12/08/23 13:00 Room Air 12/08/23 12:00 98.1 F 80 24 151/69 H 95 Room Air 12/08/23 10:50 Room Air 12/08/23 10:34 Room Air 12/08/23 08:52 Room Air 12/08/23 08:52 Room Air 12/08/23 08:00 60 12/08/23 07:35 98.2 F 97 H 32 H 146/69 H 96 Room Air 12/08/23 06:08 Room Air 12/08/23 05:00 Room Air 12/08/23 04:00 77 12/08/23 04:00 97.8 F 81 18 149/70 H 91 L Room Air 12/08/23 03:00 Room Air 12/08/23 01:00 Room Air 12/08/23 00:00 73 12/08/23 00:00 98.4 F 70 18 159/61 H 92 L Room Air 12/07/23 23:00 Room Air 12/07/23 21:00 Room Air 12/07/23 20:00 Room Air 12/07/23 20:00 92 H 12/07/23 20:00 98.3 F 97 H 16 163/71 H 92 L Room Air 12/07/23 18:50 Room Air 12/07/23 17:00 Room Air 12/07/23 16:00 95 H 12/07/23 16:00 98.4 F 96 H 18 155/94 H 90 L Room Air 12/07/23 14:45 Room Air 12/07/23 14:34 Room Air Intake and Output 12/07/23 12/08/23 12/08/23 23:59 07:59 15:59 Intake Total 0 / 2129 455 / 455 Output Total 600 / 1500 500 / 1000 500 / 1000 Balance -600 / 629 -45 / -545 -500 / -545 Intake: Intake, Oral Amount 0 / 0 0 / 0 Intake, Total IV Amount 455 / 455 0.9 % Sodium Chloride 1000ML 1, 255 / 255 000 ml @ 50 mls/hr IV .Q20H [facility] Rx#:[id number] Cefepime HCl 2 gm In 0.9 % 100 / 100 Sodium Chloride 100 ml @ 200 mls/hr IV Q12H [facility] Rx#:[id number] Metronidaz/Sod Chl 500 mg In 100 / 100 100 ml @ 100 mls/hr IV Q8H [facility] Rx#:[id number] Output: Output, Urine Amount 600 / 1500 500 / 1000 500 / 1000 Other: Number of Unmeasured Voids 0 0 Number of Bowel Movements 1 1 Weight 76.884 kg Patient Weight 12/08/23 23:59 Weight 76.884 kg Laboratory Results - last 24 hr 12/07/23 15:58: Hgb 9.9 L, Hct 30.0 L 12/08/23 05:24: WBC 10.6, RBC 3.67 L, Hgb 10.4 L, Hct 33.4 L, MCV 91.1, MCH 28.4, MCHC 31.1 L, RDW 13.9, Plt Count 483 H, MPV 8.2, Neut % (Auto) 67.9, Lymph % (Auto) 25.9, Gaines % (Auto) 5.5, Eos % (Auto) 0.0 L, Baso % (Auto) 0.7, Neut # (Auto) 7.2, Lymph # (Auto) 2.8, Gaines # (Auto) 0.6, Eos # (Auto) 0.0, Baso # (Auto) 0.1, Sodium 140, Potassium 2.9 L*, Chloride 112 H, Carbon Dioxide 18 L, Anion Gap 12.9, BUN 13 D, Creatinine 0.60, Estimated Creat Clear 53, Estimated GFR 96, Est GFR ( Amer) 116, Glucose 76, Calcium 8.2 L, Magnesium 1.8 D, Total Bilirubin 0.5, AST 23, ALT 28, Alkaline Phosphatase 182 H, Total Protein 5.5 L, Albumin 2.7 L, Globulin 2.8, Albumin/Globulin Ratio 1.0 L I & O for Labs for Last 24 Hours: Intake & Output 12/05/23 12/06/23 12/07/23 12/08/23 23:59 23:59 23:59 23:59 Intake Total 440 / 440 1674 / 2129 455 / 455 Output Total 810 / 810 1500 / 1500 1000 / 1000 Balance -370 / -370 174 / 629 -545 / -545 Weight 70.42 kg 74.049 kg 74.23 kg 76.884 kg Microbiology Reports for the Last 24 Hours: Microbiology 12/05/23 20:30 Urine,Catheterized Urine Culture - Final Constitutional: Present no acute distress, average body habitus, chronically ill appearing and cooperative Head: Present atraumatic and normocephalic ENT: Present normal exam Neck: Present normal inspection Respiratory: Present normal respiratory effort; Absent rhonchi, wheezes or crackles Cardiac: Present Reg Rate and Rhythm and Tachycardia GI: Present soft and normal bowel sounds; Absent distention, tenderness or rebound Extremities: Present normal inspection and full ROM Skin: Present intact; Absent erythema Neuro: Present Grossly Intact, alert, awake, oriented x 3 and moves all extremities Assessment and Plan *Assessment and plan (1) Pulmonary embolism: Status: Acute Qualifiers: Pulmonary embolism type: multiple subsegmental (without acute cor pulmonale) Qualified Code(s): I26.94 - Multiple subsegmental pulmonary emboli without acute cor pulmonale Category: Medical Code(s): I26.99 - Other pulmonary embolism without acute cor pulmonale (2) Pneumonia of both lower lobes: Status: Acute Qualifiers: Pneumonia type: due to unspecified organism Qualified Code(s): J18.9 - Pneumonia, unspecified organism Category: Medical Code(s): J18.9 - Pneumonia, unspecified organism (3) Acute hypoxic respiratory failure: Status: Acute Category: Medical Code(s): J96.01 - Acute respiratory failure with hypoxia (4) DVT (deep venous thrombosis): Status: Acute Qualifiers: Affected thrombotic vein of extremity: iliac Chronicity: unspecified DVT location: lower extremity Laterality: bilateral Qualified Code(s): I82.423 - Acute embolism and thrombosis of iliac vein, bilateral Category: Medical Code(s): I82.409 - Acute embolism and thrombosis of unspecified deep veins of unspecified lower extremity (5) Hypertension: Status: Acute Qualifiers: Hypertension type: primary hypertension Qualified Code(s): I10 - Essential (primary) hypertension Category: Medical Code(s): I10 - Essential (primary) hypertension (6) Alzheimer's dementia: Status: Chronic Qualifiers: Alzheimer's disease onset: unspecified onset Dementia severity: unspecified severity Dementia behavioral or psychological symptom: unspecified whether behavioral, psychotic, or mood disturbance or anxiety Qualified Code(s): G30.9 - Alzheimer's disease, unspecified; F02.80 - Dementia in other diseases classified elsewhere, unspecified severity, without behavioral disturbance, psychotic disturbance, mood disturbance, and anxiety Category: Medical Code(s): G30.9 - Alzheimer's disease, unspecified; F02.80 - Dementia in other diseases classified elsewhere, unspecified severity, without behavioral disturbance, psychotic disturbance, mood disturbance, and anxiety (7) Hiatal hernia: Status: Acute Category: Medical Code(s): K44.9 - Diaphragmatic hernia without obstruction or gangrene Plan 83-year-old female with PMHx of Alzheimer's disease, polyneuropathy, osteoporosis, hypertension, peripheral vascular disease, weakness and chronic falls, recent cholecystitis status postcholecystectomy who presents emergency department for evaluation of shortness of breath and cough, tachycardia, shortness of breath, chest pain in the setting of recent cholecystectomy earlier this month. Patient is hemodynamically stable upon arrival, ill-appearing, tachycardic, afebrile. Initial work up included CTA of chest concerning for bilateral pulmonary embolism, with possible right strain, RV/LV ratio concerning for right ventricular strain although no elevated troponin, patient hemodinamically stable. Discussed with ED. there is low concern for emergency thrombectomy. there is also bilateral lower lobe consolidation. significant leukocytosis found on labs work. DVT of bilateral iliac are also present. imaging reviewed. Medicine agreed to admit for further management. Pulmonology and cardiology consulted to assist with care. Tolerating room air. Speech evaluating for emesis and swallowing. Anticipate discharge tomorrow with improvement and electrolytes. Transitioning to oral anticoagulation today. Problems addressed as follows: -Pulmonary embolism, Bilateral lower pneumonia Acute hypoxic respiratory failure -Bilateral DVT: Continue supplemental oxygen, goal sats greater 90%. Currently on room air -Discussed case with pulmonology, recommend continuing Zosyn pending culture results. Follow sputum cultures and MRSA swab. Continue DuoNebs every 6 hours as needed. -Discussed case with cardiology, recommend discontinuing heparin and transitioning to oral regimen for discharge. No indication for thrombectomy. -Blood cell count improved to 11.4. Hemoglobin dropped from 13-9.9. Repeat H&H at 4 PM. Discontinue heparin drip. Continue Lovenox out of concern for possible bleed. -Hemoglobin stable this morning, hemoglobin 10, white cell count 10. Platelets 483. Initiate p.o. Eliquis 10 mg twice daily for 1 week, 5 mg twice daily thereafter. -Personally reviewed CT of abdomen, negative for any hematoma or signs of bleeding. Positive for moderate hiatal hernia however. - Repeat CBC, CMP, magnesium ordered for the morning. BUN 13, creatinine 0.6. Potassium 2.9, will replace IV and p.o. Monitor for improvement with repeat labs this afternoon Hiatal hernia Emesis -Evaluated by speech therapy. Continue liquid diet. Tolerating boost. -Initiate Zofran for nausea -Continue pantoprazole for GI prophylaxis and GERD Dementia: Continue rivastigmine patch daily Anxiety: Continue Ativan 1 mg as needed 3 times a day; continue amitriptyline 75mg nightly Pain/neuropathy: Continue gabapentin 200 mg HS, tramadol 50 mg as needed 3 times a day Therapeutic Lovenox 1 mg/kg twice daily Soft mechanical diet full code
[2023-12-08] MEDS: POTASSIUM CHLORIDE 20MEQ TAB 20 MEQ PO ×2 (16:27→19:19)
--- NOTE | 2023-12-08 18:15 | PC.NURSE ---
VS stable, potassium replaced iv and oral. Ativan given for patient anxiety. Lung sounds diminished, patient remained on room air.
[2023-12-08 18:27] LABS: Chloride 110 mmol/L (98-107)
[2023-12-08 18:28] LABS: Sodium 139 mmol/L (136-145)
[2023-12-08 18:31] LABS: Anion Gap 7.9 mEq/L (5-15); Blood Urea Nitrogen 11 mg/dl (7-17); Calcium 8.5 mg/dl (8.4-10.2); Carbon Dioxide 24 mmol/L (22.0-30.0); Creatinine Clearance Estimated 53 mL/min (50-200); Estimated Glomerular Filt Rate 69 ml/min (>60); GFR (African American) 83 ML/MIN (>60); Glucose 131 mg/dl (74-100)
[2023-12-08 18:39] LABS: Potassium 2.9 mmoL/L (3.5-5.1)
[2023-12-08] MEDS: PANTOPRAZOLE 40MG VIAL 40 MG IV (20:13)
[2023-12-08] MEDS: MELATONIN 5MG TABLET 5 MG PO (20:14)
[2023-12-08] MEDS: GABAPENTIN 100MG CAPSULE 200 MG PO (20:14)
[2023-12-08] MEDS: CARVEDILOL 6.25MG TABLET 6.25 MG PO (20:14)
[2023-12-08] MEDS: AMITRIPTYLINE 25MG TABLET 75 MG PO (20:14)
[2023-12-08] MEDS: SODIUM CHLORIDE 0.9% 10ML VIAL 10 ML IV (20:14)
[2023-12-08] MEDS: POTASSIUM CHLORIDE 20MEQ TAB 40 MEQ PO (20:16)
[2023-12-09] VITALS: BP 131/71; PULSE 74; PULSE 77; RESP 24; TEMP 36.6; O2SAT 96
[2023-12-09] MEDS: CEFEPIME HCL 2 GM in 0.9 % SODIUM CHLORIDE 100 ML IV (00:21)
[2023-12-09 04:00] VITALS: BP 160/77; PULSE 68; PULSE 82; RESP 18; TEMP 36.4; O2SAT 92; BMI 28.9
--- NOTE | 2023-12-09 04:11 | PC.NURSE ---
Pt is alert and oriented x4, and currently tolerating RA well. Pt c/o pain at the beginning of the shift and was treated per MAR, pt has rested well for the most part. Pt complains when staff attempt to turn her but does not refuse. Pt denies pain and needs at this time
[2023-12-09 06:18] LABS: Alanine Aminotransferase 22 U/L (12-78); Albumin Level 2.7 g/dl (3.5-5.0); Alkaline Phosphatase 146 U/L (38-126); Anion Gap 6.9 mEq/L (5-15); Aspartate Amino Transferase 24 U/L (14-36); Bilirubin,Total 0.6 mg/dl (0.2-1.3); Blood Urea Nitrogen 10 mg/dl (7-17); Calcium 8.8 mg/dl (8.4-10.2); Carbon Dioxide 23 mmol/L (22.0-30.0); Chloride 112 mmol/L (98-107); Creatinine Clearance Estimated 53 mL/min (50-200); Estimated Glomerular Filt Rate 96 ml/min (>60); GFR (African American) 116 ML/MIN (>60); Globulin 2.8 g/dL (1.3-3.2); Glucose 108 mg/dl (74-100); Potassium 3.9 mmoL/L (3.5-5.1); Sodium 138 mmol/L (136-145); Total Protein,Serum 5.5 g/dl (6.3-8.2)
[2023-12-09 06:19] LABS: Magnesium 1.7 mg/dl (1.6-2.3)
[2023-12-09 06:21] LABS: Basophils # 0.1 K/mm3 (0-0.2); Basophils % 0.6 % (0.1-2.0); Eosinophils % 0.1 % (0.1-12.0); Hematocrit 32.9 % (37.0-47.0); Hemoglobin 10.4 g/dL (12.2-16.2); Lymphocytes # 2.8 K/mm3 (0.7-4.5); Lymphocytes % 28.2 % (10-50); Mean Corpuscular HGB Conc 31.5 g/dL (31.8-35.4); Mean Corpuscular Hemoglobin 28.7 pg (27.0-31.2); Mean Corpuscular Volume 90.8 fl (81-99); Mean Platelet Volume 8.5 fl (7.4-10.4); Monocytes # 0.7 K/mm3 (0.1-1.0); Monocytes % 7.3 % (1.7-9.3); Neutrophils # 6.2 K/mm3 (1.8-7.8); Neutrophils % 63.8 % (37.0-80.0); Platelet Count 498 K/mm3 (142-424); Red Blood Count 3.62 M/mm3 (4.20-5.40); White Blood Count 9.7 K/mm3 (4.8-10.8)
--- NOTE | 2023-12-09 07:09 | P.DS_ITS ---
General Admission date:: 12/05/23 Discharge date: 12/09/23 HPI HPI HPI: This is a 83-year-old female with PMHx of Alzheimer's disease, polyneuropathy, osteoporosis, hypertension, peripheral vascular disease, weakness and chronic falls, recent cholecystitis status postcholecystectomy who presents emergency department for evaluation of shortness of breath and cough. Patient's baseline is alert, intermittently oriented, conversational. She underwent cholecystectomy earlier this month and was subsequently discharged back to her long-term care facility. She has had persistent cough since however has gotten worse over the last few days and due to significant difficulty breathing and reported chest pain they sent her here for continued evaluation. Patient is complaining of diffuse pain and shortness of breath, no other acute complaints at this time. Admitted for further work up and treatment. Hospital Course Hospital Course Hospital Course: 83-year-old female with PMHx of Alzheimer's disease, polyneuropathy, osteoporosis, hypertension, peripheral vascular disease, weakness and chronic falls, recent cholecystitis status postcholecystectomy who presents emergency department for evaluation of shortness of breath and cough, tachycardia, shortness of breath, chest pain in the setting of recent cholecystectomy earlier this month. Patient is hemodynamically stable upon arrival, ill-appearing, tachycardic, afebrile. Initial work up included CTA of chest concerning for bilateral pulmonary embolism, with possible right strain, RV/LV ratio concerning for right ventricular strain although no elevated troponin, patient hemodinamically stable. Discussed with ED. there is low concern for emergency thrombectomy. there is also bilateral lower lobe consolidation. significant leukocytosis found on labs work. DVT of bilateral iliac are also present. imaging reviewed. Medicine agreed to admit for further management. Pulmonology and cardiology consulted to assist with care. Wean to room air. On oral anticoagulation. Speech evaluated because of coughing with swallowing. Passed with speech eval but noted to have moderate hiatal hernia. Will refer to [facility] for further evaluation. Stable to discharge back to nursing facility on room air. Continue mechanical soft diet. Problems addressed as follows: -Pulmonary embolism, Bilateral lower pneumonia Acute hypoxic respiratory failure -Bilateral DVT: Initially requiring oxygen. Found to have bilateral PEs and DVTs on CT and ultrasound. Started on heparin drip. Did well with gradual weaning of oxygen to room air. Has transitioned to oral Eliquis to complete continue treatment for anticoagulation. Also initiated on IV antibiotics with Zosyn given concern for pneumonia. Given improvement to room air, will transition to oral antibiotics to complete course. Needs 3 more days of levofloxacin 750 mg orally. Pulmonology assisting with care along with cardiology. Patient stable at this time to discharge on oral anticoagulation. Of note was noted to have electrolyte disturbances. No active signs of bleeding. Potassium was replaced and she will continue potassium and magnesium supplementation on discharge. Hemoglobin stable at 10. Platelets stable at approximately 500. -Will need repeat CMP and magnesium in 1 week to monitor potassium and magnesium. Hiatal hernia Emesis -Evaluated by speech therapy. Transitioned to mechanical soft with chopped foods. Continue pantoprazole for GI prophylaxis with GERD. Noted to have large hiatal hernia on CT of abdomen. Referred to GI as an outpatient. Appointment in documentation. Dementia: Continue rivastigmine patch daily Anxiety: Continue Ativan 1 mg as needed 3 times a day; continue amitriptyline 75mg nightly Pain/neuropathy: Continue gabapentin 200 mg HS, tramadol 50 mg as needed 3 times a day Exam Data for Last 24 hours Vital signs and Labs for Last 24 Hours: Temp Pulse Resp BP Pulse Ox O2 Del Method O2 Flow Rate 97.5 F L 68 18 160/77 H 92 L Room Air 3 12/09/23 04:00 12/09/23 04:00 12/09/23 04:00 12/09/23 04:00 12/09/23 04:00 12/09/23 06:35 12/06/23 23:00 Laboratory Results - last 24 hr 12/08/23 05:24: Sodium 140, Potassium 2.9 L*, Chloride 112 H, Carbon Dioxide 18 L, Anion Gap 12.9, BUN 13 D, Creatinine 0.60, Estimated Creat Clear 53, Estimated GFR 96, Est GFR ( Amer) 116, Glucose 76, Calcium 8.2 L, Magnesium 1.8 D, Total Bilirubin 0.5, AST 23, ALT 28, Alkaline Phosphatase 182 H, Total Protein 5.5 L, Albumin 2.7 L, Globulin 2.8, Albumin/Globulin Ratio 1.0 L 12/08/23 18:09: Sodium 139, Potassium 2.9 L*, Chloride 110 H, Carbon Dioxide 24, Anion Gap 7.9, BUN 11, Creatinine 0.80 D, Estimated Creat Clear 53, Estimated GFR 69, Est GFR ( Amer) 83 D, Glucose 131 H D, Calcium 8.5 12/09/23 05:24: WBC 9.7, RBC 3.62 L, Hgb 10.4 L, Hct 32.9 L, MCV 90.8, MCH 28.7, MCHC 31.5 L, RDW 14.0, Plt Count 498 H, MPV 8.5, Neut % (Auto) 63.8, Lymph % (Auto) 28.2, Ballard % (Auto) 7.3, Eos % (Auto) 0.1, Baso % (Auto) 0.6, Neut # (Auto) 6.2, Lymph # (Auto) 2.8, Ballard # (Auto) 0.7, Eos # (Auto) 0.0, Baso # (Auto) 0.1, Sodium 138, Potassium 3.9 D, Chloride 112 H, Carbon Dioxide 23, Anion Gap 6.9, BUN 10, Creatinine 0.60 D, Estimated Creat Clear 53, Estimated GFR 96, Est GFR ( Amer) 116 D, Glucose 108 H, Calcium 8.8, Magnesium 1.7, Total Bilirubin 0.6, AST 24, ALT 22, Alkaline Phosphatase 146 H, Total Protein 5.5 L, Albumin 2.7 L, Globulin 2.8, Albumin/Globulin Ratio 1.0 L I & O for Last 24 hours: Intake & Output 12/06/23 12/07/23 12/08/23 12/09/23 23:59 23:59 23:59 23:59 Intake Total 440 / 440 1674 / 2129 1175 / 1395 220 / 220 Output Total 810 / 810 1500 / 1500 1400 / 1400 550 / 550 Balance -370 / -370 174 / 629 -225 / -5 -330 / -330 Weight 74.049 kg 74.23 kg 76.884 kg 76.884 kg Microbiology Reports for the Last 24 Hours: Microbiology 12/06/23 11:40 Nose - Nasal MRSA Culture - Final 12/06/23 Unknown Sputum - Expectorated Sputum Gram Stain - Final 12/06/23 Unknown Sputum - Expectorated Sputum Sputum Culture - Preliminary 12/05/23 19:25 Blood Blood Culture - Preliminary 12/05/23 19:25 Blood Blood Culture - Preliminary 03/24/24 20:30 Urine,Catheterized Urine Culture - Final Constitutional Constitutional: no acute distress, average body habitus, chronically ill appearing and cooperative *Routine HEENT Exam Head: Present normocephalic Eye: Present EOMI and PERRL ENT: Present mucous membranes moist *Routine Neck Exam Neck: Present supple; Absent lymphadenopathy *Routine Respiratory Exam Respiratory: Present CTA bilaterally; Absent rhonchi, wheezes or crackles *Routine Cardiovascular Exam Cardiovascular: Present RRR *Routine Abdominal Exam Abdominal: Present soft and normoactive bowel sounds; Absent tenderness *Routine Rectal Exam Patient deferred: visual exam *Routine Exam Patient deferred: external exam *Routine Extremities Exam Extremities: Absent cyanosis, clubbing or edema *Routine Skin Exam Skin: Present warm; Absent rash *Routine Neurological Exam Neurological: Present alert and moving all extremities; Absent altered mental status Comments: Alert to self and place. At baseline mentation. Results Data Completed and Pending Labs on day of discharge: Labs from last 24 hours 12/09/23 12/08/23 12/08/23 05:24 18:09 05:24 WBC 9.7 RBC 3.62 L Hgb 10.4 L Hct 32.9 L MCV 90.8 MCH 28.7 MCHC 31.5 L RDW 14.0 Plt Count 498 H MPV 8.5 Neut % (Auto) 63.8 Lymph % (Auto) 28.2 Ballard % (Auto) 7.3 Eos % (Auto) 0.1 Baso % (Auto) 0.6 Neut # (Auto) 6.2 Lymph # (Auto) 2.8 Ballard # (Auto) 0.7 Eos # (Auto) 0.0 Baso # (Auto) 0.1 Sodium 138 139 140 Potassium 3.9 D 2.9 L* 2.9 L* Chloride 112 H 110 H 112 H Carbon Dioxide 23 24 18 L Anion Gap 6.9 7.9 12.9 BUN 10 11 13 D Creatinine 0.60 D 0.80 D 0.60 Estimated Creat Clear 53 53 53 Estimated GFR 96 69 96 Est GFR ( Amer) 116 D 83 D 116 Glucose 108 H 131 H D 76 Calcium 8.8 8.5 8.2 L Magnesium 1.7 1.8 D Total Bilirubin 0.6 0.5 AST 24 23 ALT 22 28 Alkaline Phosphatase 146 H 182 H Total Protein 5.5 L 5.5 L Albumin 2.7 L 2.7 L Globulin 2.8 2.8 Albumin/Globulin Ratio 1.0 L 1.0 L Preliminary micro results at discharge 12/06/23 Unknown Sputum Culture - Preliminary Sputum - Expectorated Sputum 12/05/23 19:25 Blood Culture - Preliminary Blood 12/05/23 19:25 Blood Culture - Preliminary Blood DS: Diagnosis Discharge Diagnosis (1) Pulmonary embolism: Status: Acute Code(s): I26.99 - Other pulmonary embolism without acute cor pulmonale Qualifiers: Pulmonary embolism type: multiple subsegmental (without acute cor pulmonale) Qualified Code(s): I26.94 - Multiple subsegmental pulmonary emboli without acute cor pulmonale (2) Pneumonia of both lower lobes: Status: Acute Code(s): J18.9 - Pneumonia, unspecified organism Qualifiers: Pneumonia type: due to unspecified organism Qualified Code(s): J18.9 - Pneumonia, unspecified organism (3) Acute hypoxic respiratory failure: Status: Acute Code(s): J96.01 - Acute respiratory failure with hypoxia (4) DVT (deep venous thrombosis): Status: Acute Code(s): I82.409 - Acute embolism and thrombosis of unspecified deep veins of unspecified lower extremity Qualifiers: Affected thrombotic vein of extremity: iliac Chronicity: unspecified DVT location: lower extremity Laterality: bilateral Qualified Code(s): I82.423 - Acute embolism and thrombosis of iliac vein, bilateral (5) Hypertension: Status: Acute Code(s): I10 - Essential (primary) hypertension Qualifiers: Hypertension type: primary hypertension Qualified Code(s): I10 - Essential (primary) hypertension (6) Alzheimer's dementia: Status: Chronic Code(s): G30.9 - Alzheimer's disease, unspecified; F02.80 - Dementia in other diseases classified elsewhere, unspecified severity, without behavioral disturbance, psychotic disturbance, mood disturbance, and anxiety Qualifiers: Alzheimer's disease onset: unspecified onset Dementia behavioral or psychological symptom: unspecified whether behavioral, psychotic, or mood disturbance or anxiety Dementia severity: unspecified severity Qualified Code(s): G30.9 - Alzheimer's disease, unspecified; F02.80 - Dementia in other diseases classified elsewhere, unspecified severity, without behavioral disturbance, psychotic disturbance, mood disturbance, and anxiety (7) Hiatal hernia: Status: Acute Code(s): K44.9 - Diaphragmatic hernia without obstruction or gangrene Meds Home Medications and Allergies Home Medications Medication Instructions Recorded Confirmed Type melatonin 3 mg tablet 3 mg PO HS PRN sleep #30 tabs 07/02/21 12/06/23 Rx gabapentin 100 mg capsule 200 mg PO HS NERVE PAIN 03/15/23 12/06/23 History mirabegron 50 mg tablet,extended 50 mg PO DAILY URINARY SYMPTOMS 03/15/23 12/06/23 History release 24 hr (Myrbetriq) rivastigmine 4.6 mg/24 hour 1 patch transdermal DAILY DEMENTIA 03/15/23 12/06/23 History transdermal patch tramadol 50 mg tablet 50 mg PO Q8HP PRN Pain (Scale 03/15/23 12/06/23 History Score 4-6) acetaminophen 500 mg tablet 500 mg PO Q6HP PRN Fever Or Pain 11/20/23 12/06/23 History amitriptyline 75 mg tablet 75 mg PO HS Depression 11/20/23 12/06/23 History cyanocobalamin (vitamin B-12) 500 1,000 mcg PO DAILY Supplement 11/20/23 12/06/23 History mcg tablet (Vitamin B-12) lorazepam 1 mg tablet 1 mg PO TIDP PRN anxiety 11/20/23 12/06/23 History lidocaine 5 % topical patch 1 patch topical DAILY Back Pain 11/21/23 12/06/23 History multivitamin,tf-tdcr-Di-FA-min 1 tab PO DAILY Supplement 11/21/23 12/06/23 History apixaban 5 mg tablet (Eliquis) See Rx Instructions .Route 12/09/23 Rx .COMPLEX #71 tabs carvedilol 6.25 mg tablet 6.25 mg PO BID 30 days #60 tabs 12/09/23 Rx levofloxacin 750 mg tablet 750 mg PO DAILY 3 days #3 tabs 12/09/23 Rx magnesium oxide 400 mg (241.3 mg 400 mg PO DAILY 30 days #30 tabs 12/09/23 Rx magnesium) tablet pantoprazole 40 mg tablet,delayed 40 mg PO DAILY #30 tabs 12/09/23 Rx release potassium chloride 20 mEq 20 meq PO DAILY 30 days #30 tabs 12/09/23 Rx tablet,extended release(part/cryst) (Klor-Con M) sennosides 8.6 mg-docusate sodium 1 tab PO DAILYP PRN constipation 12/09/23 Rx 50 mg tablet 30 days #30 tabs New Prescriptions to Start Prescriptions: apixaban [Eliquis] Sole,Marcell carvedilol Sole,Marcell levofloxacin Sole,Marcell magnesium oxide Sole,Marcell pantoprazole Sole,Marcell sennosides-docusate sodium Sole,Marcell Allergies Allergy/AdvReac Type Severity Reaction Status Date / Time codeine Allergy Unknown Verified 12/07/23 10:42 allergy reaction Penicillins Allergy Unknown Verified 12/07/23 10:42 allergy reaction pregabalin [From Lyrica] Allergy Unknown Verified 12/07/23 10:42 allergy reaction sulfate ion Allergy Unknown Verified 12/07/23 10:42 allergy reaction suvorexant Allergy Unknown Verified 12/07/23 10:42 allergy reaction venlafaxine [From Effexor] Allergy Unknown Verified 12/07/23 10:42 allergy reaction Discharge Plan Disposition Patient Disposition: [facility] Condition: Fair Discharge Order Discharge Orders: Discharge Order (Routine); Ordered 12/09/23 Ordered By: Marcell Whipple Follow up Plan Follow up with: Kirk Melo MD [Referring] - 12/30/23 3:20 pm Devora Jacobs MD [Physician] - Enter time for follow up Prescriptions/Medication Reconciliation: New carvedilol 6.25 mg Tablet 6.25 mg PO BID 30 Days Qty: 60 0RF magnesium oxide 400 mg (241.3 mg magnesium) Tablet 400 mg PO DAILY 30 Days Qty: 30 0RF sennosides-docusate sodium 8.6-50 mg Tablet 1 tab PO DAILYP PRN (Reason: constipation) 30 Days Qty: 30 0RF potassium chloride [Klor-Con M20] 20 mEq Tablet,Er Particles/Crystals 20 meq PO DAILY 30 Days Qty: 30 0RF Eliquis 5 mg Tablet See Rx Instructions .ROUTE .COMPLEX Qty: 71 0RF Rx Instructions: 10 mg twice daily for 6 more days starting this evening (12/04/2023). Transition to 1 tablet (5 mg) twice daily thereafter. pantoprazole 40 mg tablet,delayed release (DR/EC) 40 mg PO DAILY Qty: 30 0RF levofloxacin 750 mg tablet 750 mg PO DAILY 3 Days Qty: 3 0RF Rx Instructions: first dose due 12/10/23 Continued melatonin 3 mg tablet 3 mg PO HS PRN (Reason: sleep) Qty: 30 0RF amitriptyline 75 mg tablet 75 mg PO HS acetaminophen 500 mg Tablet 500 mg PO Q6HP PRN (Reason: Fever Or Pain) cyanocobalamin (vitamin B-12) [Vitamin B-12] 500 mcg tablet 1,000 mcg PO DAILY lorazepam 1 mg tablet 1 mg PO TIDP PRN (Reason: anxiety) lidocaine 5 % Adhesive Patch,Medicated 1 patch TOPICAL DAILY Rx Instructions: leave on most painful area for up to 12 hrs multivitamin,gu-clqz-Oc-FA-min Tablet 1 tab PO DAILY tramadol 50 mg tablet 50 mg PO Q8HP PRN (Reason: Pain (Scale Score 4-6)) gabapentin 100 mg capsule 200 mg PO HS rivastigmine 4.6 mg/24 hour patch 24 hour 1 patch transdermal DAILY Myrbetriq 50 mg tablet extended release 24 hr 50 mg PO DAILY Discontinued loperamide 2 MG tablet 2 mg PO Q6HP PRN (Reason: Diarrhea) meclizine 12.5 mg Tablet 12.5 mg PO DAILY Problem Reconciliation Problems Reviewed?: Yes Patient Discharge Instructions ACTIVITY: Continue current activity DIET: continue same diet Patient Instructions: DI for Pneumonia -- Adult, DI for Pulmonary Embolism, Catheter-Associated Urinary Tract Infection Providers Primary Care Provider: Augustin Ho Provider: Rolly Floyd Attending Provider: Rolly Floyd
[2023-12-09 07:31] VITALS: BP 147/70; PULSE 74; RESP 17; TEMP 36.6; O2SAT 93
[2023-12-09] MEDS: CARVEDILOL 6.25MG TABLET 6.25 MG PO (08:03)
[2023-12-09] MEDS: SENNOSIDES 8.6MG/DOCUSATE 50MG TABLET 1 TAB PO (08:03)
[2023-12-09] MEDS: POTASSIUM CHLORIDE 20MEQ TAB 40 MEQ PO ×2 (08:04→11:53)
[2023-12-09] MEDS: APIXABAN 5MG TABLET 10 MG PO (08:04)
[2023-12-09] MEDS: RIVASTIGMINE 4.6MG/24HR PATCH 1 EACH TD (08:04)
[2023-12-09] MEDS: MAGNESIUM OXIDE 400MG TABLET 400 MG PO (08:04)
[2023-12-09 08:08] VITALS: PULSE 85
--- NOTE | 2023-12-09 09:50 | P.PN_ITS ---
Subjective *Date: 12/09/23 *Time: 10:49 Interval history: No acute respiratory events overnight. Continued to remain on room air. Pulmonology Exam Inpatient Vital signs and Labs for Last 24 Hours: Temp Pulse Resp BP Pulse Ox O2 Del Method O2 Flow Rate 97.8 F 85 17 147/70 H 93 L Room Air 3 12/09/23 07:31 12/09/23 08:08 12/09/23 07:31 12/09/23 07:31 12/09/23 07:31 12/09/23 09:47 12/06/23 23:00 Laboratory Results - last 24 hr 12/08/23 18:09: Sodium 139, Potassium 2.9 L*, Chloride 110 H, Carbon Dioxide 24, Anion Gap 7.9, BUN 11, Creatinine 0.80 D, Estimated Creat Clear 53, Estimated GFR 69, Est GFR ( Amer) 83 D, Glucose 131 H D, Calcium 8.5 12/09/23 05:24: WBC 9.7, RBC 3.62 L, Hgb 10.4 L, Hct 32.9 L, MCV 90.8, MCH 28.7, MCHC 31.5 L, RDW 14.0, Plt Count 498 H, MPV 8.5, Neut % (Auto) 63.8, Lymph % (Auto) 28.2, [place] % (Auto) 7.3, Eos % (Auto) 0.1, Baso % (Auto) 0.6, Neut # (Auto) 6.2, Lymph # (Auto) 2.8, [place] # (Auto) 0.7, Eos # (Auto) 0.0, Baso # (Auto) 0.1, Sodium 138, Potassium 3.9 D, Chloride 112 H, Carbon Dioxide 23, Anion Gap 6.9, BUN 10, Creatinine 0.60 D, Estimated Creat Clear 53, Estimated GFR 96, Est GFR ( Amer) 116 D, Glucose 108 H, Calcium 8.8, Magnesium 1.7, Total Bilirubin 0.6, AST 24, ALT 22, Alkaline Phosphatase 146 H, Total Protein 5.5 L, Albumin 2.7 L, Globulin 2.8, Albumin/Globulin Ratio 1.0 L Temp Pulse Resp BP Pulse Ox O2 Del Method O2 Flow Rate 98.2 F 84 22 112/63 100 Nasal Cannula 3 12/06/23 08:00 12/06/23 08:00 12/06/23 08:00 12/06/23 08:00 12/06/23 08:00 12/06/23 08:40 12/06/23 08:40 Laboratory Results - last 24 hr 12/05/23 18:30: SARS-CoV-2 (PCR) Not detected, Influenza A Untype (PCR) Not detected, Influenza Type B (PCR) Not detected 12/05/23 18:40: VBG pH 7.34, VBG pCO2 43.9, VBG pO2 37.1, VBG HCO3 23.1, VBG Total CO2 24.4, VBG O2 Saturation 67.1, VBG Base Excess -2.7 L, VBG Lactic Acid 2.1 H 12/05/23 19:15: WBC 29.0 H*, RBC 4.56, Hgb 13.3, Hct 42.4, MCV 93.0, MCH 29.2, MCHC 31.3 L, RDW 14.0, Plt Count 477 H, MPV 8.2, Neut % (Auto) 91.7 H, Lymph % (Auto) 3.1 L, [place] % (Auto) 4.5, Eos % (Auto) 0.2, Baso % (Auto) 0.5, Neut # (Auto) 26.6 H, Lymph # (Auto) 0.9, [place] # (Auto) 1.3 H, Eos # (Auto) 0.1, Baso # (Auto) 0.1, Total Counted 100, Neutrophils % (Manual) 94 H, Lymphocytes % (Manual) 6 L, Platelet Estimate Slight increase, RBC Morphology Normal, PT 12.3, INR 1.15 H, APTT 31.2, Fibrinogen > 860 H, D-Dimer > 8.10 H, Sodium 141, Pota ssium 4.5, Chloride 107, Carbon Dioxide 27, Anion Gap 11.5, BUN 35 H, Creatinine 1.10 H, Estimated Creat Clear 44, Estimated GFR 48 L, Est GFR ( Amer) 58 L, Glucose 142 H, Lactate 1.6, Calcium 9.0, Total Bilirubin 0.9, AST 43 H, ALT 57, Alkaline Phosphatase 289 H, Troponin I < 0.01, Total Protein 6.9 D, Albumin 3.7, Globulin 3.2, Albumin/Globulin Ratio 1.2, Lipase 46 12/05/23 20:30: Urine Color Yellow, Urine Appearance Clear, Urine pH 5.5, Ur Specific [place] >= 1.030, Urine Protein Trace, Urine Glucose (UA) Negative, Urine Ketones Trace, Urine Blood Negative, Urine Nitrate Negative, Urine Bilirubin 2+ A, Urine Urobilinogen 1.0, Ur Leukocyte Esterase Negative, Urine RBC None, Urine WBC 5-10, Ur Squamous Epith Cells 3-5, Urine Bacteria 1+, Urine Mucus 1+ 12/05/23 21:58: Troponin I 0.02 12/06/23 00:00: APTT > 139.0 H*, Lactate 1.1, Troponin I 0.01 12/06/23 02:55: APTT > 139.0 H* 12/06/23 05:19: WBC 30.1 H*, RBC 3.59 L, Hgb 10.7 L D, Hct 33.4 L, MCV 92.9, MCH 30.0, MCHC 32.3, RDW 14.2, Plt Count 410, MPV 8.3, Neut % (Auto) 86.1 H, Lymph % (Auto) 8.9 L, [place] % (Auto) 4.7, Eos % (Auto) 0.2, Baso % (Auto) 0.3, Neut # (Auto) 25.9 H, Lymph # (Auto) 2.7, [place] # (Auto) 1.4 H, Eos # (Auto) 0.1, Baso # (Auto) 0.1, Total Counted 100, Neutrophils % (Manual) 88 H, Lymphocytes % (Manual) 11, Monocytes % (Manual) 1 L, Platelet Estimate Normal, RBC Morphology Normal, APTT > 139.0 H*, Sodium 138, Potassium 3.7, Chloride 110 H, Carbon Dioxide 22, Anion Gap 9.7, BUN 26 H D, Creatinine 0.90, Estimated Creat Clear 48, Estimated GFR 60, Est GFR ( Amer) 73 D, Glucose 141 H, Calcium 8.1 L , Magnesium 2.0, Total Bilirubin 0.5, AST 27 D, ALT 38 D, Alkaline Phosphatase 198 H, Total Protein 5.6 L, Albumin 2.8 L D, Globulin 2.8, Albumin/Globulin Ratio 1.0 L 12/06/23 07:05: APTT 84.8 H* 12/06/23 08:55: APTT 109.9 H* I & O for Labs for Last 24 Hours: Intake & Output 12/06/23 12/07/23 12/08/23 12/09/23 23:59 23:59 23:59 23:59 Intake Total 440 / 440 1674 / 2129 1175 / 1395 340 / 340 Output Total 810 / 810 1500 / 1500 1400 / 1400 550 / 550 Balance -370 / -370 174 / 629 -225 / -5 -210 / -210 Weight 163 lb 4 oz 163 lb 10.386 oz 169 lb 8 oz 169 lb 8.003 oz Intake & Output 12/03/23 12/04/23 12/05/23 12/06/23 23:59 23:59 23:59 23:59 Intake Total 440 / 440 Output Total 510 / 510 Balance -70 / -70 Weight 155 lb 4 oz 163 lb 4 oz Microbiology Reports for the Last 24 Hours: Microbiology 12/06/23 11:40 Nose - Nasal MRSA Culture - Final 12/06/23 Unknown Sputum - Expectorated Sputum Gram Stain - Final 12/06/23 Unknown Sputum - Expectorated Sputum Sputum Culture - Preliminary 12/05/23 19:25 Blood Blood Culture - Preliminary 12/05/23 19:25 Blood Blood Culture - Preliminary 12/05/23 20:30 Urine,Catheterized Urine Culture - Final Constitutional: Present moderate distress Head: Present normocephalic and atraumatic ENT: Present normal exam, normal oropharynx and mucous membranes moist Neck: Present normal inspection and full ROM Respiratory: Present respiratory distress and able to speak in complete sentences; Absent rhonchi, wheezes, crackles or diminished air movement Cardiac: Present S1/S2, Tachycardia and radial pulses present GI: Present soft and distention; Absent tenderness or guarding Rectal (female): Present deferred (female): Present deferred Skin: Present intact; Absent cyanosis or jaundice Neuro: Present alert, awake and oriented x 3 Extremities: Present normal inspection; Absent clubbing or cyanosis Psychiatric: Present normal affect and cooperative Assessment and Plan *Assessment and plan (1) Pneumonia of both lower lobes: Status: Acute Qualifiers: Pneumonia type: due to unspecified organism Qualified Code(s): J18.9 - Pneumonia, unspecified organism Category: Medical Code(s): J18.9 - Pneumonia, unspecified organism (2) Acute hypoxic respiratory failure: Status: Acute Category: Medical Code(s): J96.01 - Acute respiratory failure with hypoxia (3) SIRS (systemic inflammatory response syndrome): Status: Acute Category: Medical Code(s): R65.10 - Systemic inflammatory response syndrome (SIRS) of non-infectious origin without acute organ dysfunction (4) DVT (deep venous thrombosis): Status: Acute Qualifiers: Affected thrombotic vein of extremity: iliac Chronicity: unspecified DVT location: lower extremity Laterality: bilateral Qualified Code(s): I82.423 - Acute embolism and thrombosis of iliac vein, bilateral Category: Medical Code(s): I82.409 - Acute embolism and thrombosis of unspecified deep veins of unspecified lower extremity (5) Pulmonary embolism: Status: Acute Qualifiers: Pulmonary embolism type: multiple subsegmental (without acute cor pulmonale) Qualified Code(s): I26.94 - Multiple subsegmental pulmonary emboli without acute cor pulmonale Category: Medical Code(s): I26.99 - Other pulmonary embolism without acute cor pulmonale Plan Ms. Gracia is a 83-year-old female reported history of Alzheimer's, polyneuropathy, osteoporosis hypertension peripheral vascular disease presented to the ER with worsening respiratory system, and pulmonary was consulted for further evaluation and management. patient was recently admitted to the hospital for cholecystitis status postcholecystectomy discharged home on 11/24/2023. Patient admission was initiated on ceftriaxone azithromycin for community- acquired pneumonia. CTA admission positive for bilateral pulmonary embolism with evidence of RV strain. Troponin is negative upon admission. Hemodynamically stable. Patient also noted to have bilateral extensive DVTs, involving the left common iliac vein tal[place] with questionable nonocclusive DVT in the right common femoral and iliac veins.. D-Dimer >8.10 CT also showed bilateral lower lobe airspace disease. Significant neutrophilic leukocytosis. On examination patient appeared to be inrespiratory distress. On 3 L nasal cannula saturating 96%. No significant wheezing noted on auscultation. Interval update: Chest x-ray yesterday continue to show infiltrates along with concerning right lower lobe atelectasis. Sputum Gram stain gram-positive cocci gram-negative rods and small amount of yeast. Blood and urine cultures no growth so far Continue to receive Zosyn day 3 Afebrile. Hemodynamically stable. Leukocytosis continues to improve. Plan: PT/OT Incentive spirometry and flutter valve Antibiotics can be weaned from Zosyn to levofloxacin to complete a total of 7- day course upon discharge Continue Eliquis for pulmonary embolism. Likely extended anticoagulation given patient's immobility and other risk factors. F/U cardiology recommendations DuoNebs every 6 hours on as-needed basis # Social work team following on patient's discharge disposition. # Thank you for involving pulmonary in this patient care. Will follow the patient in pulmonary clinic 5 to 7 days postdischarge with chest x-ray Prior to clinic visit.
[2023-12-09] MEDS: IPRATROPIUM/ALBUTEROL 3 ML NEB IH (10:25)
[2023-12-09] MEDS: LEVOFLOXACIN/D5W 750 MG/150 ML 750 MG/150 ML PIGGYBACK 100 MG IV (11:53)
[2023-12-09 12:00] VITALS: BP 136/66; PULSE 72; RESP 19; TEMP 36.8; O2SAT 94
--- NOTE | 2023-12-09 12:22 | PC.NURSE ---
called to give report to Karin MORRISON with no answer from facility.
--- NOTE | 2023-12-09 12:36 | PC.NURSE ---
Karin MORRISON called report to [facility].
--- NOTE | 2023-12-09 14:03 | PC.NURSE ---
iv's removed times 2.
== END 2023-12-09 14:50 | DRG 175 ==
LOC: ER 18:31 → 2ND 21:31
PROVIDERS: Internal Medicine; Internal Medicine Adolescent Medicine; Nurse Practitioner Family; Admitting Provider Internal Medicine; Emergency Provider Emergency Medicine; PCP Family Medicine; Visit Provider Internal Medicine
DX: I26.94 Multiple subsegmental thrombotic pulmonary emboli without acute cor pulmonale (principal); J18.9 Pneumonia, unspecified organism; J96.01 Acute respiratory failure with hypoxia; I82.423 Acute embolism and thrombosis of iliac vein, bilateral; I10 Essential (primary) hypertension; G30.9 Alzheimer's disease, unspecified; F02.80 Dementia in other diseases classified elsewhere, unspecified severity, without behavioral disturbance, psychotic disturbance, mood disturbance, and anxiety; K44.9 Diaphragmatic hernia without obstruction or gangrene; E04.1 Nontoxic single thyroid nodule; G62.9 Polyneuropathy, unspecified; I73.9 Peripheral vascular disease, unspecified; F41.9 Anxiety disorder, unspecified; M16.12 Unilateral primary osteoarthritis, left hip
CPT/HCPCS: 36415; 70371; 71045; 71275; 74176; 74177; 80048; 80053; 81001; 82803; 83605; 83690; 83735; 84484; 85007; 85014; 85018; 85025; 85378; 85384; 85610; 85730; 87040; 87070; 87081; 87086; 87205; 87636; 92610; 92611; 93005; 93306; 94667; 97110; 97163; 97166; 97530; 99291; G0238; J0696; J1956; Q9967

== ENCOUNTER 2023-12-31 14:31 | Emergency (ER) | payer MEDICARE, OTHER, SELFPAY ==
[2023-12-31] VITALS (9 sets, daily range): BP systolic 117–163; BP diastolic 55–82; PULSE 64–77; RESP 15–16; TEMP 36.8; O2SAT 76–99; BMI 25.7
--- NOTE | 2023-12-31 15:09 | CT_ITS ---
PROCEDURE INFORMATION: Exam: CT Abdomen And Pelvis With Contrast Exam date and time: 12/31/2023 3:55 PM Age: 83 years old Clinical indication: Abdominal pain; Additional info: Llq abd pain and vomiting TECHNIQUE: Imaging protocol: Computed tomography of the abdomen and pelvis with contrast. Radiation optimization: All CT scans at this facility use at least one of these dose optimization techniques: automated exposure control; mA and/or kV adjustment per patient size (includes targeted exams where dose is matched to clinical indication); or iterative reconstruction. Contrast material: ISOVUE; Contrast volume: 75 ml; Contrast route: IV; COMPARISON: CT ABDOMEN PELVIS W CON 12/05/2023 8:03 PM FINDINGS: Lungs: Bibasilar atelectasis versus parenchymal scarring. Significant improvement in the degree of aeration at both lung bases Diaphragm: Moderate hiatal hernia. Eventration of the right hemidiaphragm Liver: Normal. No mass. Gallbladder and bile ducts: Normal. No calcified stones. No ductal dilation. Pancreas: Pancreatic atrophy Spleen: Normal. No splenomegaly. Adrenal glands: Adrenal glands unremarkable. Kidneys and ureters: No hydronephrosis. Bilateral renal cysts. Stomach and bowel: Retained in pill fragments in the region of the cecum. Colonic diverticulosis. No evidence of diverticulitis. Appendix: Appendix unremarkable Intraperitoneal space: Unremarkable. No free air. No significant fluid collection. Vasculature: Scattered regions of atherosclerotic vascular calcification within the abdominal aorta and common iliac arteries. Lymph nodes: Unremarkable. No enlarged lymph nodes. Urinary bladder: Mild thickening of the bladder wall may reflect incomplete distension. Could not exclude changes of cystitis. Reproductive: Unremarkable as visualized. Bones/joints: Lumbar spondylosis with multilevel disc degeneration. Chronic L1 compression fracture deformity Soft tissues: Unremarkable. IMPRESSION: 1. Mild thickening of the bladder wall may reflect incomplete distension. Could not exclude changes of cystitis. 2. No evidence of acute abnormality. COMMENTS: Consistent with the [place] [employer]'s Incidental Findings Committee white paper (J Am Smita Radiol 2018): Any incidental renal lesion less than 1 cm or classified as too small to characterize, or any incidental cystic renal lesion characterized as simple-appearing, is likely benign. No follow-up imaging is recommended for these lesions per consensus recommendations based on imaging criteria.
--- NOTE | 2023-12-31 15:09 | XR_ITS ---
PROCEDURE INFORMATION: Exam: XR Chest Exam date and time: 12/31/2023 3:50 PM Age: 83 years old Clinical indication: Other: Weakness, vomiting TECHNIQUE: Imaging protocol: Radiologic exam of the chest. Views: 1 view. COMPARISON: CR XR CHEST PORTABLE 12/08/2023 10:14 AM FINDINGS: Lungs: Chronic regions of bibasilar atelectasis. Persistent region of opacification left lower lobe with the obliteration of the left hemidiaphragm. Pleural spaces: Unremarkable. No pleural effusion. No pneumothorax. Heart/Mediastinum: Unremarkable. No cardiomegaly. Bones/joints: Chronic posttraumatic deformity right humeral head. IMPRESSION: Left lower lobe region of atelectasis. Could not exclude persistent region of consolidation. Findings not significantly changed.
[2023-12-31 15:18] LABS: Basophils # 0.1 K/mm3 (0-0.2); Eosinophils % 0.7 % (0.1-12.0); Hematocrit 40.1 % (37.0-47.0); Hemoglobin 12.8 g/dL (12.2-16.2); Lymphocytes # 2.9 K/mm3 (0.7-4.5); Lymphocytes % 44.4 % (10-50); Mean Corpuscular HGB Conc 31.9 g/dL (31.8-35.4); Mean Corpuscular Hemoglobin 29.1 pg (27.0-31.2); Mean Corpuscular Volume 91.2 fl (81-99); Mean Platelet Volume 7.9 fl (7.4-10.4); Monocytes # 0.4 K/mm3 (0.1-1.0); Monocytes % 6.8 % (1.7-9.3); Neutrophils # 3.1 K/mm3 (1.8-7.8); Neutrophils % 47.1 % (37.0-80.0); Platelet Count 338 K/mm3 (142-424); Red Cell Distribution Width 15.3 % (11.5-17.5); White Blood Count 6.6 K/mm3 (4.8-10.8)
--- NOTE | 2023-12-31 15:18 | ED_ITS ---
Discharge Plan Disposition Patient Disposition: Home, Self-Care Prescriptions Prescriptions: New cefdinir 300 mg capsule 300 mg PO BID 14 Days Qty: 28 0RF No Action Eliquis 5 mg tablet 5 mg PO BID 90 Days Qty: 180 0RF melatonin 3 mg tablet 3 mg PO HS PRN (Reason: sleep) Qty: 30 0RF amitriptyline 75 mg tablet 75 mg PO HS acetaminophen 500 mg Tablet 500 mg PO Q6HP PRN (Reason: Fever Or Pain) cyanocobalamin (vitamin B-12) [Vitamin B-12] 500 mcg tablet 1,000 mcg PO DAILY lorazepam 1 mg tablet 1 mg PO TIDP PRN (Reason: anxiety) lidocaine 5 % Adhesive Patch,Medicated 1 patch TOPICAL DAILY Rx Instructions: leave on most painful area for up to 12 hrs multivitamin,ty-ubht-Ye-FA-min Tablet 1 tab PO DAILY tramadol 50 mg tablet 50 mg PO Q8HP PRN (Reason: Pain (Scale Score 4-6)) gabapentin 100 mg capsule 200 mg PO HS rivastigmine 4.6 mg/24 hour patch 24 hour 1 patch transdermal DAILY Myrbetriq 50 mg tablet extended release 24 hr 50 mg PO DAILY carvedilol 6.25 mg Tablet 6.25 mg PO BID 30 Days Qty: 60 0RF magnesium oxide 400 mg (241.3 mg magnesium) Tablet 400 mg PO DAILY 30 Days Qty: 30 0RF sennosides-docusate sodium 8.6-50 mg Tablet 1 tab PO DAILYP PRN (Reason: constipation) 30 Days Qty: 30 0RF potassium chloride [Klor-Con M20] 20 mEq Tablet,Er Particles/Crystals 20 meq PO DAILY 30 Days Qty: 30 0RF pantoprazole 40 mg tablet,delayed release (DR/EC) 40 mg PO DAILY Qty: 30 0RF levofloxacin 750 mg tablet 750 mg PO DAILY 3 Days Qty: 3 0RF Rx Instructions: first dose due 12/10/23 Referrals Follow up/Referrals: Augustin Ho [Primary Care Provider] - See instructions Activity Restrictions/Add. Instructions Additional Instructions/Restrictions: Call your family doctor to establish care for this visit to the emergency department and schedule follow-up within 48 hours to ensure improvement. If you have any worsening of your condition or any other concerning signs or symptoms, return to the emergency department or your primary care doctor for further evaluation. Clinical Impressions Clinical Impression: Acute left flank pain, Pyelonephritis Instructions Patient Instructions: DI for Acute Abdominal Pain Discharge ED Provider: Martin Pizano General Adult HPI General Chief complaint: Abdominal Pain Stated complaint: Left upper quad pain Time Seen by Provider: 12/31/23 14:54 Mode of Arrival: EMS Source of Information: Patient and EMS Limitations: No Limitations Description of Symptoms (Recalled from ER Triage Doc. by RN): pt arrives [facility]. pt reports left sided flank pain. pt reports pain began this am approx 11 am. pt reports no chest pain or shortness of air. History of Present Illness HPI narrative: This is an 84-year-old female that is known history presenting with left upper quadrant pain. Patient states it started a couple days prior to this visit, but is unsure when. Told EMS that started this morning, told triage nurse similarly, patient's ability to be accurate historian questionable. Patient states it does not radiate, she has not eaten anything in 4 to 8 weeks, not vomiting, no diarrhea or constipation. Patient has history of cholecystectomy, appendectomy, hysterectomy, reportedly. Not reporting any other symptoms. Please note that above description of symptoms, in this electronic medical record under categorization of recalled from ER triage doctor by RN are reflective of an initial nursing assessment, however, is not reflective of my full history and physical exam that was personally taken and clarified. Consequentially, this preceding description of symptoms, which may include the patient's categorized chief complaint in the EMR, do not reflect my personal clinical impression, and the ultimate description of history of present illness and patient stated complaints should be deferred to this section of the note. Unless stated otherwise or congruent with this section of the note, additional signs, symptoms, or incongruence should be interpreted as inaccurate with my clinical impression. Related Data Home Medications Medication Instructions Recorded Confirmed gabapentin 100 mg capsule 200 mg PO HS NERVE PAIN 03/15/23 12/16/23 mirabegron 50 mg tablet,extended 50 mg PO DAILY URINARY SYMPTOMS 03/15/23 12/16/23 release 24 hr (Myrbetriq) rivastigmine 4.6 mg/24 hour 1 patch transdermal DAILY DEMENTIA 03/15/23 12/16/23 transdermal patch tramadol 50 mg tablet 50 mg PO Q8HP PRN Pain (Scale 03/15/23 12/16/23 Score 4-6) acetaminophen 500 mg tablet 500 mg PO Q6HP PRN Fever Or Pain 11/20/23 12/16/23 amitriptyline 75 mg tablet 75 mg PO HS Depression 11/20/23 12/16/23 cyanocobalamin (vitamin B-12) 500 1,000 mcg PO DAILY Supplement 11/20/23 12/16/23 mcg tablet (Vitamin B-12) lorazepam 1 mg tablet 1 mg PO TIDP PRN anxiety 11/20/23 12/16/23 lidocaine 5 % topical patch 1 patch topical DAILY Back Pain 11/21/23 12/16/23 multivitamin,do-cjzm-Yf-FA-min 1 tab PO DAILY Supplement 11/21/23 12/16/23 Previous Rx's Medication Instructions Recorded melatonin 3 mg tablet 3 mg PO HS PRN sleep #30 tabs 07/02/21 carvedilol 6.25 mg tablet 6.25 mg PO BID 30 days #60 tabs 12/09/23 levofloxacin 750 mg tablet 750 mg PO DAILY 3 days #3 tabs 12/09/23 magnesium oxide 400 mg (241.3 mg 400 mg PO DAILY 30 days #30 tabs 12/09/23 magnesium) tablet pantoprazole 40 mg tablet,delayed 40 mg PO DAILY #30 tabs 12/09/23 release potassium chloride 20 mEq 20 meq PO DAILY 30 days #30 tabs 12/09/23 tablet,extended release(part/cryst) (Klor-Con M) sennosides 8.6 mg-docusate sodium 1 tab PO DAILYP PRN constipation 12/09/23 50 mg tablet 30 days #30 tabs apixaban 5 mg tablet (Eliquis) 5 mg PO BID 90 days #180 tabs 12/16/23 cefdinir 300 mg capsule 300 mg PO BID 14 days #28 caps 12/31/23 Allergies Allergy/AdvReac Type Severity Reaction Status Date / Time codeine Allergy Unknown Verified 12/16/23 12:55 allergy reaction Penicillins Allergy Unknown Verified 12/16/23 12:55 allergy reaction pregabalin [From Lyrica] Allergy Unknown Verified 12/16/23 12:55 allergy reaction sulfate ion Allergy Unknown Verified 12/16/23 12:55 allergy reaction suvorexant Allergy Unknown Verified 12/16/23 12:55 allergy reaction venlafaxine [From Effexor] Allergy Unknown Verified 12/16/23 12:55 allergy reaction [facility] Disclaimer: The information contained in this section may have been updated after the patient was seen, as this information can be updated by other users. Medical History (Updated 12/31/23 @ 19:16 by Martin Pizano MD) Chronic anticoagulation Severe sepsis UTI (urinary tract infection) Anxiety Hypertension Osteoarthritis of left hip Surgical History History of laparoscopic cholecystectomy Social History Smoking Status: Never smoker alcohol intake: never substance use type: denies use current occupational status: disabled Travel in the last 8 weeks: None housing: residential ROS Obtained: Yes All systems reviewed & no additional complaints except as documented Physical Exam General General appearance: alert and in no apparent distress Head Head exam: atraumatic and normocephalic Eye Eye exam: Present normal appearance, PERRL and EOMI ENT ENT exam: Present mucous membranes moist Neck Neck exam: Present normal inspection, full ROM and trachea midline Respiratory Respiratory exam: Present normal lung sounds bilaterally; Absent respiratory distress, wheezes, stridor, accessory muscle use or prolonged expiratory phase Cardiovascular Cardiovascular exam: Present regular rate and normal rhythm Abdominal Exam Abdominal exam: Present soft and tenderness; Absent distention, guarding, rebound or rigidity Abdominal tenderness: Present LLQ Extremities Exam Extremities exam: Absent edema Neurological Exam Neurological exam: Present alert, oriented X3, CN II-XII intact and normal gait; Absent motor sensory deficit Skin Skin exam: Present warm and dry; Absent diaphoresis or erythema Medical Decision Making Medical Records Medical records reviewed: Yes I reviewed the patient's medical records. [place] Inquiry Pt receiving controlled substance: No [place] was queried for this patient: No Vital Signs: 12/31/23 14:32 12/31/23 15:00 12/31/23 15:30 Temperature 98.2 F Temperature Source Oral Pulse Rate 77 72 Pulse Rate [Left Radial] 71 Respiratory Rate 15 Blood Pressure 117/70 133/82 Blood Pressure [Right Arm] 144/68 H Blood Pressure Mean [Right Arm] 93 02 Sat by Pulse Oximetry 97 96 76 L 12/31/23 16:31 12/31/23 17:00 12/31/23 17:34 Temperature Temperature Source Pulse Rate 72 72 69 Pulse Rate [Left Radial] Respiratory Rate Blood Pressure 126/56 L 124/68 163/64 H Blood Pressure [Right Arm] Blood Pressure Mean [Right Arm] 02 Sat by Pulse Oximetry 93 L 97 99 12/31/23 18:01 12/31/23 18:30 Temperature Temperature Source Pulse Rate 64 67 Pulse Rate [Left Radial] Respiratory Rate Blood Pressure 151/55 H 152/63 H Blood Pressure [Right Arm] Blood Pressure Mean [Right Arm] 02 Sat by Pulse Oximetry 97 98 Lab Data Lab Results 12/31/23 15:06: WBC 6.6, RBC 4.40, Hgb 12.8, Hct 40.1, MCV 91.2, MCH 29.1, MCHC 31.9, RDW 15.3, Plt Count 338, MPV 7.9, Neut % (Auto) 47.1, Lymph % (Auto) 44.4, [place] % (Auto) 6.8, Eos % (Auto) 0.7, Baso % (Auto) 1.0, Neut # (Auto) 3.1, Lymph # (Auto) 2.9, Edwards # (Auto) 0.4, Eos # (Auto) 0.0, Baso # (Auto) 0.1, Sodium 141, Potassium 4.4, Chloride 109 H, Carbon Dioxide 28, Anion Gap 8.4, BUN 19 H, Creatinine 0.80, Estimated Creat Clear 48, Estimated GFR 69, Est GFR ( Amer) 83, Glucose 111 H, Lactate 1.2, Calcium 9.4, Total Bilirubin 0.6, AST 33, ALT 21, Alkaline Phosphatase 117, Troponin I < 0.01, NT-Pro-B Natriuret Pep 148, Total Protein 6.4, Albumin 3.6, Globulin 2.8, Albumin/Globulin Ratio 1.3 12/31/23 17:33: Urine Color Yellow, Urine Appearance Cloudy, Urine pH 5.5, Ur Specific [place] 1.025, Urine Protein Trace, Urine Glucose (UA) Negative, Urine Ketones Negative, Urine Blood 2+, Urine Nitrate Positive, Urine Bilirubin 1+ A, Urine Urobilinogen 0.2, Ur Leukocyte Esterase 2+ A, Urine RBC 20-50, Urine WBC 50-100, Ur Squamous Epith Cells 3-5, Urine Bacteria 2+ 12/31/23 15:06 12/31/23 15:06 Orders (Tests/Meds): ED MEDICATIONS Generic Name Dose Route Start Last Admin Trade Name Adam PRN Reason Stop Dose Admin Sodium Chloride 10 ml 12/31/23 16:04 12/31/23 16:04 Sodium Chloride 0.9% 10ml Syr (Rad Only) IV 01/30/24 16:03 10 ml NEEDED PRN Administration Maintain IV Site Discontinued Medications Generic Name Dose Route Start Last Admin Trade Name Adam PRN Reason Stop Dose Admin Cefdinir 300 mg 12/31/23 18:48 12/31/23 18:51 Cefdinir 300mg Capsule PO 12/31/23 18:49 300 mg ONCE ONE Administration Lactated Ringer's 1,000 mls @ 999 mls/hr 12/31/23 15:09 12/31/23 15:21 Lactated Ringer's 1000 Ml Bag IV 12/31/23 16:09 999 mls/hr .Q1H1M ONE Administration Iopamidol 75 ml 12/31/23 16:04 12/31/23 16:04 Iopamidol-370 (76%);100ml Bottle IV 12/31/23 16:05 75 ml ONCE ONE Administration Ketorolac Tromethamine 15 mg 12/31/23 15:09 12/31/23 15:20 Ketorolac 30mg/Ml Vial IV 12/31/23 15:10 15 mg ONCE ONE Administration Ondansetron HCl 4 mg 12/31/23 15:09 12/31/23 15:20 Ondansetron 4mg/2ml Vial IV 12/31/23 15:10 4 mg ONCE ONE Administration Sodium Chloride 50 ml 12/31/23 16:04 12/31/23 16:04 0.9 % Sodium Chloride 50 Ml Vial IV 12/31/23 16:05 50 ml ONCE ONE Administration ORDERS Category Date Time Status CT abdomen pelvis w con Stat Cat Scan 12/31/23 15:09 Completed CXR --portable [XR chest portable] Stat Exams 12/31/23 15:09 Completed CBC w/Auto Diff [Complete Blood Count Auto Diff] Stat Lab 12/31/23 15:06 Completed CMP [Comprehensive Metabolic Panel] Stat Lab 12/31/23 15:06 Completed Lactic Acid Stat Lab 12/31/23 15:06 Completed NT Pro Brain Natriuretic Pep. Stat Lab 12/31/23 15:06 Completed Trop I [Troponin I] Stat Lab 12/31/23 15:06 Completed Troponin I Q3H Lab 12/31/23 18:15 Ordered Troponin I Q3H Lab 12/31/23 21:15 Ordered UA [Urinalysis and Microscopic] Stat Lab 12/31/23 17:33 Completed Urine Culture Stat Micro 12/31/23 17:33 Received Medical Decision Narrative: This is an 84-year-old female that is known history presenting with left upper quadrant pain. Patient states it started a couple days prior to this visit, but is unsure when. Told EMS that started this morning, told triage nurse similarly, patient's ability to be accurate historian questionable. Patient states it does not radiate, she has not eaten anything in 4 to 8 weeks, not vomiting, no diarrhea or constipation. Patient has history of cholecystectomy, appendectomy, hysterectomy, reportedly. Not reporting any other symptoms. It should be noted that patient does not know her medical history, which is likely complicating care. History was obtained via conversation with patient, EMS via triage nurse as I arrived after EMS had left. On arrival, patient hemodynamically stable, alert, appropriate, GCS 15, moving all extremities spontaneously, pupils equal and reactive to light. Full physical exam performed and significant for chronically ill-appearing female in no acute distress. Lungs are clear to auscultation anterior and posterior bilaterally. Cardiac exam within normal limits, no lower extremity edema. Abdomen is soft, mildly tender in left lower quadrant, no evidence of peritonitis. No overlying skin changes.. Differential includes PUD, gastritis, enteritis, gastroenteritis, pancreatitis, SBO, colitis, diverticulitis, nephrolithiasis, UTI, cholecystitis, choledocholithiasis, appendicitis, hepatitis, torsion, aortic pathology, mesenteric ischemia among others. Patient was given Toradol, fluids for symptomatic management and correction of underlying abnormalities. Workup independently interpreted and significant for nonactionable CBC or chemistry. Kidney function normal. Patient's UA concerning for pyelonephritis with protein, blood, nitrates and leukocyte esterase. CT abdomen pelvis without acute intra-abdominal pathology, but does have inflammation of the bladder and urinary system concerning for UTI. See radiology read for full review of final results. Independent interpretation of EKG shows sinus rhythm 72 beats a minute no ST or T wave changes concerning for acute ischemia. Prolonged SD interval 261 ms, other intervals normal. [place] normal. On reevaluation, patient resting comfortably, pain is moderately well-controlled with supportive care. Patient given first dose of cefdinir given questionable allergies to penicillins, tolerated this well.Given patient presentation, workup, history, this most likely represents pyelonephritis. Because patient at baseline without signs or symptoms of clinical decompensation, deemed appropriate for discharge. Results were relayed to patient who voiced understanding and were agreeable to outpatient management and follow up. I discussed my clinical impression with patient and answered all questions. At this time, the evidence for any other entities in the differential is insufficient to warrant any further testing or ED observation. This was explained as well. Advisory was given that persistent or worsening symptoms require further evaluation. I confirmed the understanding of this discussion. Critical Care Critical Care Time Critical Care Time: No
[2023-12-31] MEDS: ONDANSETRON 4MG/2ML VIAL 4 MG IV (15:20)
[2023-12-31] MEDS: KETOROLAC 30MG/ML VIAL 15 MG IV (15:20)
[2023-12-31] MEDS: LACTATED RINGERS 1000ML 1,000 ML 999 ML IV (15:21)
--- NOTE | 2023-12-31 15:22 | ECG_ITS ---
APPROVED REPORT Exam: Resting ECG HR:72 bpm ECG Measurements Heart Rate 72 AXES NE 261 P 76 QRSd 102 QRS 10 QT 410 T 61 QTc 435 Conclusion SINUS RHYTHM WITH SINUS ARRHYTHMIA WITH FIRST DEGREE AV BLOCK Electronically signed by : TOYA ARANA, 12/31/2023 20:20:16
[2023-12-31 15:41] LABS: Chloride 109 mmol/L (98-107); Potassium 4.4 mmoL/L (3.5-5.1); Sodium 141 mmol/L (136-145)
[2023-12-31 15:44] LABS: Alanine Aminotransferase 21 U/L (12-78); Albumin Level 3.6 g/dl (3.5-5.0); Albumin/Globulin Ratio 1.3 (1.1-1.8); Alkaline Phosphatase 117 U/L (38-126); Anion Gap 8.4 mEq/L (5-15); Aspartate Amino Transferase 33 U/L (14-36); Bilirubin,Total 0.6 mg/dl (0.2-1.3); Blood Urea Nitrogen 19 mg/dl (7-17); Calcium 9.4 mg/dl (8.4-10.2); Carbon Dioxide 28 mmol/L (22.0-30.0); Creatinine Clearance Estimated 48 mL/min (50-200); Estimated Glomerular Filt Rate 69 ml/min (>60); GFR (African American) 83 ML/MIN (>60); Globulin 2.8 g/dL (1.3-3.2); Glucose 111 mg/dl (74-100); Lactic Acid 1.2 mmol/L (0.7-2.1); Total Protein,Serum 6.4 g/dl (6.3-8.2)
[2023-12-31 15:54] LABS: NT Pro Brain Natriuretic Pep. 148 pg/mL (0-450)
[2023-12-31 16:00] LABS: Troponin I < 0.01 ng/ml (0.00-0.034)
[2023-12-31] MEDS: IOPAMIDOL-370 (76%);100ML BOTTLE 75 ML IV (16:04)
[2023-12-31] MEDS: 0.9 % SODIUM CHLORIDE 50 ML VIAL IV (16:04)
[2023-12-31] MEDS: SODIUM CHLORIDE 0.9% 10ML SYR (RAD ONLY) 10 ML IV (16:04)
--- NOTE | 2023-12-31 16:38 | PC.NURSE ---
Rounded on pt to see if they had any needs. Pt asked for a pillow for under her hip. went and got her pillow and place it for POC.
--- NOTE | 2023-12-31 17:46 | PC.NURSE ---
Rounded on pt to see if they had any needs. advised them we had an emergency and to ring the room arcos if they needed anything
[2023-12-31 18:18] LABS: Microscopic, Urine URINE MICROSCOPIC (MICROSCOPIC)
[2023-12-31 18:21] LABS: Appearance,Urine CLOUDY (Clear); Blood, Urine 2+ (Negative); Color,Urine YELLOW (Yellow); Glucose,Urine (UA) Negative (Negative); Ketones,Urine Negative (Negative); Leukocyte Esterase,Urine 2+ (Negative); Nitrate,Urine POSITIVE (Negative); PH,Urine 5.5 (5.0-8.5); Protein,Urine TRACE (Negative); Specific Gravity, Urine 1.025 (1.005-1.030); Urobilinogen,Urine 0.2 EU/dl (0.2)
[2023-12-31 18:34] LABS: Bilirubin,Urine 1+ (Negative)
[2023-12-31 18:46] LABS: Bacteria,Urine 2+ /lpf; RBC,Urine 20-50 #/hpf (0-3); WBC,Urine 50-100 #/hpf (0-3)
[2023-12-31] MEDS: CEFDINIR 300MG CAPSULE 300 MG PO (18:51)
--- NOTE | 2023-12-31 19:13 | PC.NURSE ---
Received report and rounded on pt at this time. Pt voices no needs at this time
--- NOTE | 2023-12-31 20:11 | PC.NURSE ---
EMS notified of need for transport
--- NOTE | 2023-12-31 20:14 | PC.NURSE ---
[facility] called for transport and report callled to [facility].
--- NOTE | 2024-01-10 09:51 | PC.NURSE ---
urine culture results discussed with , pt dc with cefdinir, ntd
== END 2023-12-31 20:34 | disposition home or self-care (01) ==
PROVIDERS: Emergency Provider Emergency Medicine; PCP Family Medicine
DX: N10 Acute pyelonephritis (principal); B96.29 Other Escherichia coli [E. coli] as the cause of diseases classified elsewhere; R10.32 Left lower quadrant pain; M45.9 Ankylosing spondylitis of unspecified sites in spine; I44.1 Atrioventricular block, second degree; I49.9 Cardiac arrhythmia, unspecified; I10 Essential (primary) hypertension
CPT/HCPCS: 71045; 74177; 80053; 81001; 83605; 83880; 84484; 85025; 87086; 93005; 96361; 96374; 96375; 99285; J2405; Q9967

== ENCOUNTER 2024-03-10 09:04 | Outpatient (CLI) | payer MEDICARE, OTHER, SELFPAY ==
--- NOTE | 2024-03-10 09:05 | CA_ITS ---
APPROVED REPORT EXAM: Limited 2D, Doppler, and color-flow Echocardiogram Vortex Operator: GABBI Worrell, RVS Ht: 5 ft 3 in Wt: 143lbs BSA: 1.68 BP: 131/60 mmHg Indications: Follow up post PE, Right heart evaluation, SOB, HTN, CP 2D Dimensions Aortic Root 2.77 cm LVEF (Adam's) 51.10 % Left Atrium 2.91 cm LV Volume 70.80 mL RVID Base (AP4) 3.05 cm (M/F) 2.5-4.1 LV Volume Index 42.920127 mL/m2 F: 29 - 61 LVOT 1.99 cm (M/F) 1.5-2.5 EF AP4 38.10 % EF AP2 58.2 % EF BP 51.1 % GL Strain -15.8 % M-Mode Dimensions RVDd 2.40 cm (0.9-2.6) LVDd 4.72 cm (3.5-5.7) Ao Diam 2.86 cm (2.0-3.7) LVDs 3.19 cm (3.5-5.7) IVSd 1.03 cm (0.6-1.1) PWd 1.00 cm (0.6-1.1) EF (Teich) 60.70% EPSs 0.25 cm FS 32.40% EDV (Teich) 103.40 mL TAPSE 1.98 (<1.7) ESV (Teich) 40.60 mL Pulmonary Valve DC End VMAX 174.0 cm/s Tricuspid Valve TR P. Velocity 219.00 cm/s RAP Estimate 10.00 mmHg RVSP 29.10 mmHg Other Information Study Quality: Adequate Conclusion This is a limited TTE to evaluate for RV size and function in the setting of prior PE. Limited windows were obtained. The right ventricle appears mildly dilated. There is normal RV systolic function. TAPSE 1.8 cm. RV S' 10 cm/s. Mild TR is present. RVSP is 20-25 mmHg. Compared to prior study from 12/06/2023, the RV systolic function has improved. Electronically signed by : Loulou Rodriguez MD 03/12/2024 17:19:16
== END 2024-03-10 23:59 | disposition home or self-care (01) ==
LOC: RT 09:05
PROVIDERS: PCP Family Medicine; Visit Provider Internal Medicine
DX: I10 Essential (primary) hypertension; I26.99 Other pulmonary embolism without acute cor pulmonale
CPT/HCPCS: 93308

== ENCOUNTER 2024-07-14 17:33 | Emergency (ER) | payer MEDICARE, OTHER, SELFPAY ==
[2024-07-14] VITALS (7 sets, daily range): BP systolic 132–223; BP diastolic 72–111; PULSE 71–90; RESP 14–18; TEMP 36.6–36.9; O2SAT 67–98; BMI 22.8
--- NOTE | 2024-07-14 17:25 | ED_ITS ---
<Statement entered by Shannon Garcia DO - 07/14/24 19:39> I was consulted by the JESSICA, and we discussed the complexity of the problems being addressed. I approved the treatment and management plan for this patient's care in the emergency department, thus performing a substantive portion of the medical decision making. Shannon Garcia DO Discharge Plan Disposition Patient Disposition: Home, Self-Care Condition: Good Chief Complaint: Fall Prescriptions Prescriptions: No Action Eliquis 5 mg tablet 5 mg PO BID 90 Days Qty: 180 0RF melatonin 3 mg tablet 3 mg PO HS PRN (Reason: sleep) Qty: 30 0RF amitriptyline 75 mg tablet 75 mg PO HS acetaminophen 500 mg Tablet 500 mg PO Q6HP PRN (Reason: Fever Or Pain) cyanocobalamin (vitamin B-12) [Vitamin B-12] 500 mcg tablet 1,000 mcg PO DAILY lorazepam 1 mg tablet 1 mg PO TIDP PRN (Reason: anxiety) lidocaine 5 % Adhesive Patch,Medicated 1 patch TOPICAL DAILY Rx Instructions: leave on most painful area for up to 12 hrs multivitamin,up-jphc-Yo-FA-min Tablet 1 tab PO DAILY tramadol 50 mg tablet 50 mg PO Q8HP PRN (Reason: Pain (Scale Score 4-6)) gabapentin 100 mg capsule 200 mg PO HS rivastigmine 4.6 mg/24 hour patch 24 hour 1 patch transdermal DAILY Myrbetriq 50 mg tablet extended release 24 hr 50 mg PO DAILY carvedilol 6.25 mg Tablet 6.25 mg PO BID 30 Days Qty: 60 0RF magnesium oxide 400 mg (241.3 mg magnesium) Tablet 400 mg PO DAILY 30 Days Qty: 30 0RF sennosides-docusate sodium 8.6-50 mg Tablet 1 tab PO DAILYP PRN (Reason: constipation) 30 Days Qty: 30 0RF potassium chloride [Klor-Con M20] 20 mEq Tablet,Er Particles/Crystals 20 meq PO DAILY 30 Days Qty: 30 0RF pantoprazole 40 mg tablet,delayed release (DR/EC) 40 mg PO DAILY Qty: 30 0RF levofloxacin 750 mg tablet 750 mg PO DAILY 3 Days Qty: 3 0RF Rx Instructions: first dose due 12/10/23 Referrals Follow up/Referrals: Provider,Referral, MD [Referring] - See instructions Activity Restrictions/Add. Instructions Additional Instructions/Restrictions: You should be referred by your [facility] physician to an orthospine surgeon for ongoing management and treatment of your nonsurgical L2 fracture. For any lingering symptoms follow-up with your PCP or return to the ER as needing. Clinical Impressions Clinical Impression: Lung nodule Hypertension Qualifiers: Hypertension type: primary hypertension Qualified Code(s): I10 - Essential (primary) hypertension Compression fracture of L2 Qualifiers: Encounter type: initial encounter Qualified Code(s): S32.020A - Wedge compression fracture of second lumbar vertebra, initial encounter for closed fracture Print Language Print Language: Jordanian Discharge ED Provider: Shannon Garcia General Adult HPI General Chief complaint: Fall Stated complaint: fall Time Seen by Provider: 07/14/24 17:37 History of Present Illness HPI narrative: Patient presents for evaluation of a fall. Patient is a resident of [facility] and reports that she fell in the bathroom Wednesday morning. She did strike her head but did not lose consciousness. She was ambulatory immediately after. She has continued to be ambulatory but has had increasing pain along her left side today including her left hip. She denies any numbness tingling headache nausea vomiting change in level consciousness. Related Data Home Medications ?Medication ?Instructions ?Recorded ?Confirmed gabapentin 100 mg capsule 200 mg PO HS NERVE PAIN 03/15/23 04/10/24 mirabegron 50 mg tablet,extended 50 mg PO DAILY URINARY SYMPTOMS 03/15/23 04/10/24 release 24 hr (Myrbetriq) rivastigmine 4.6 mg/24 hour 1 patch transdermal DAILY DEMENTIA 03/15/23 04/10/24 transdermal patch tramadol 50 mg tablet 50 mg PO Q8HP PRN Pain (Scale 03/15/23 04/10/24 Score 4-6) acetaminophen 500 mg tablet 500 mg PO Q6HP PRN Fever Or Pain 11/20/23 04/10/24 amitriptyline 75 mg tablet 75 mg PO HS Depression 11/20/23 04/10/24 cyanocobalamin (vitamin B-12) 500 1,000 mcg PO DAILY Supplement 11/20/23 04/10/24 mcg tablet (Vitamin B-12) lorazepam 1 mg tablet 1 mg PO TIDP PRN anxiety 11/20/23 04/10/24 lidocaine 5 % topical patch 1 patch topical DAILY Back Pain 11/21/23 04/10/24 multivitamin,xn-xzsp-Hn-FA-min 1 tab PO DAILY Supplement 11/21/23 04/10/24 Previous Rx's ?Medication ?Instructions ?Recorded melatonin 3 mg tablet 3 mg PO HS PRN sleep #30 tabs 07/02/21 carvedilol 6.25 mg tablet 6.25 mg PO BID 30 days #60 tabs 12/09/23 levofloxacin 750 mg tablet 750 mg PO DAILY 3 days #3 tabs 12/09/23 magnesium oxide 400 mg (241.3 mg 400 mg PO DAILY 30 days #30 tabs 12/09/23 magnesium) tablet pantoprazole 40 mg tablet,delayed 40 mg PO DAILY #30 tabs 12/09/23 release potassium chloride 20 mEq 20 meq PO DAILY 30 days #30 tabs 12/09/23 tablet,extended release(part/cryst) (Klor-Con M) sennosides 8.6 mg-docusate sodium 1 tab PO DAILYP PRN constipation 12/09/23 50 mg tablet 30 days #30 tabs apixaban 5 mg tablet (Eliquis) 5 mg PO BID 90 days #180 tabs 12/16/23 Allergies Allergy/AdvReac Type Severity Reaction Status Date / Time codeine Allergy Unknown Verified 07/14/24 17:42 allergy reaction Penicillins Allergy Unknown Verified 07/14/24 17:42 allergy reaction pregabalin [From Lyrica] Allergy Unknown Verified 07/14/24 17:42 allergy reaction sulfate ion Allergy Unknown Verified 07/14/24 17:42 allergy reaction suvorexant Allergy Unknown Verified 07/14/24 17:42 allergy reaction venlafaxine [From Effexor] Allergy Unknown Verified 07/14/24 17:42 allergy reaction PFSH PFSH Disclaimer: The information contained in this section may have been updated after the patient was seen, as this information can be updated by other users. Medical History Chronic anticoagulation Severe sepsis UTI (urinary tract infection) Anxiety Hypertension Osteoarthritis of left hip Surgical History History of laparoscopic cholecystectomy Family History Other No significant family history Social History Smoking Status: Never smoker alcohol intake: never substance use type: denies use current occupational status: disabled Travel in the last 8 weeks: None housing: [facility] Other Medical History Have you received the Flu Vaccine for this season: No Have you received the Pneumonia Vaccine: No ROS Obtained: Yes Systems reviewed as appropriate & no additional complaints except as documented Physical Exam General General appearance: alert and in no apparent distress Respiratory Respiratory exam: Present normal lung sounds bilaterally Cardiovascular Cardiovascular exam: Present regular rate Neurological Exam Neurological exam: Present alert and oriented X3 Medical Decision Making Medical Records Medical records reviewed: Yes I reviewed the patient's medical records. Screening: Per USPSTF and CDC recommendations, given the prevalence of disease in our region, it is our hospital?s policy to screen for HIV and viral Hepatitis for all patients aged 18 and over and those with ongoing risk factors. Benoit Inquiry Pt receiving controlled substance: No Vital Signs: 07/14/24 17:30 07/14/24 17:32 07/14/24 18:00 Temperature 98.5 F Temperature Source Oral Pulse Rate 85 86 Pulse Rate [Right] 84 Respiratory Rate 14 Blood Pressure 197/93 H 223/111 H Blood Pressure [Right Arm] 184/111 H Blood Pressure Mean [Right Arm] 135 Blood Pressure Source [Right Arm] Automatic Cuff Blood Pressure Position [Right Arm] Sitting 02 Sat by Pulse Oximetry 96 96 96 Oxygen Delivery Method Room Air Room Air Room Air 07/14/24 18:30 Temperature Temperature Source Pulse Rate 90 Pulse Rate [Right] Respiratory Rate Blood Pressure 176/101 H Blood Pressure [Right Arm] Blood Pressure Mean [Right Arm] Blood Pressure Source [Right Arm] Blood Pressure Position [Right Arm] 02 Sat by Pulse Oximetry 96 Oxygen Delivery Method Lab Data Lab results reviewed: Yes I reviewed the patient's lab results. Orders (Tests/Meds): ED MEDICATIONS Discontinued Medications Generic Name Dose Route Start Last Admin Trade Name Freq PRN Reason Stop Dose Admin Acetaminophen 1,000 mg 07/14/24 17:25 07/14/24 18:01 Acetaminophen 500mg Tab PO 07/14/24 17:26 1,000 mg ONCE ONE Administration Oxycodone HCl 5 mg 07/14/24 18:34 Oxycodone 5mg Immediate Release Tablet PO 07/14/24 18:35 ONCE ONE ORDERS Category Date Time Status CT bony pelvis Stat Cat Scan 11/01/24 17:[address] cervical spine wo con Stat Cat Scan 07/14/24 17:[address] head/brain wo con Stat Cat Scan 07/14/24 17:[address] lumbar spine wo con Stat Cat Scan 07/14/24 17:[address] thoracic spine wo con Stat Cat Scan 07/14/24 17:26 Completed Femur XR left 2 views [XR femur LT 2V] Stat Exams 07/14/24 17:25 Completed Knee XR left 3 views [XR knee LT 3V] Stat Exams 07/14/24 17:25 Completed Medical Decision Narrative: In summary patient is a 83-year-old female who presents to the emergency department for evaluation of pain after a fall. Patient is hemodynamically stable upon arrival, febrile. Sickle exam is remarkable for tenderness about the left hip but there is no palpable bony deformity nor is there stigmata of bruising abrasion ecchymosis. Patient is tender involving the left side musculature from the shoulder to the hip but again also with no evidence of contusions abrasions bony deformity. Patient has no midline spinal tenderness nor does she have any bony deformity. Differential diagnosis includes contusion versus fracture etc. Initial workup will be conducted with CT scan of the head C-spine T-spine L-spine pelvis and femur and knee of the left. Initial interventions include acetaminophen initially only. Initial workup reviewed by me and patient has a minimally displaced L2 compression fracture via my informal interpretation with no other acute injuries noted on her plain film or CT scans. Upon repeat evaluation had acceptable resolution of her pain. Given this patient is appropriate for discharge back to [facility] with follow-up with orthopedics Critical Care Critical Care Time Critical Care Time: No
--- NOTE | 2024-07-14 17:25 | XR_ITS ---
PROCEDURE INFORMATION: Exam: XR Left Knee Exam date and time: 07/14/2024 5:43 PM Age: 83 years old Clinical indication: Injury or trauma; Fall; Blunt trauma; Knee; Left TECHNIQUE: Imaging protocol: Radiologic exam of the left knee. Views: 3 views. COMPARISON: CR XR FEMUR LT 2V 07/14/2024 5:43 PM FINDINGS: Bones/joints: Osteopenia. Mild-moderate degenerative changes medial knee compartment. Soft tissues: Soft tissue swelling medial knee compartment. IMPRESSION: No evidence of acute osseous injury.
--- NOTE | 2024-07-14 17:25 | XR_ITS ---
PROCEDURE INFORMATION: Exam: XR Left Femur Exam date and time: 07/14/2024 5:43 PM Age: 83 years old Clinical indication: Injury or trauma; Fall; Blunt trauma; Thigh or upper leg; Left TECHNIQUE: Imaging protocol: Radiologic exam of the left femur. Views: 2 views. COMPARISON: CR XR FEMUR LT 2V 07/14/2024 5:43 PM FINDINGS: Bones/joints: Mild-moderate degenerative changes involving the left hip. Soft tissues: Unremarkable. IMPRESSION: No evidence of acute osseous injury.
--- NOTE | 2024-07-14 17:26 | CT_ITS ---
PROCEDURE INFORMATION: Exam: CT Lumbar Spine Without Contrast Exam date and time: 07/14/2024 5:45 PM Age: 83 years old Clinical indication: Injury or trauma; Fall; Blunt trauma (contusions or hematomas); Additional info: Trauma, critical injury suspected TECHNIQUE: Imaging protocol: Computed tomography of the lumbar spine without contrast. Radiation optimization: All CT scans at this facility use at least one of these dose optimization techniques: automated exposure control; mA and/or kV adjustment per patient size (includes targeted exams where dose is matched to clinical indication); or iterative reconstruction. COMPARISON: CT THORACIC SPINE WO CON 07/14/2024 5:42 PM FINDINGS: Bones/joints: Mild L2 compression fracture deformity. Findings new since 12/31/2023. Chronic L1 compression fracture deformity. Multilevel advanced hypertrophic facet changes. Soft tissues: Unremarkable. IMPRESSION: Mild L2 compression fracture deformity. Findings new since 12/31/2023.
--- NOTE | 2024-07-14 17:26 | CT_ITS ---
PROCEDURE INFORMATION: Exam: CT Thoracic Spine Without Contrast Exam date and time: 07/14/2024 5:42 PM Age: 83 years old Clinical indication: Injury or trauma; Fall; Blunt trauma (contusions or hematomas); Additional info: Trauma, critical injury suspected TECHNIQUE: Imaging protocol: Computed tomography of the thoracic spine without contrast. Radiation optimization: All CT scans at this facility use at least one of these dose optimization techniques: automated exposure control; mA and/or kV adjustment per patient size (includes targeted exams where dose is matched to clinical indication); or iterative reconstruction. COMPARISON: CT CERVICAL SPINE WO CON 07/14/2024 5:39 PM FINDINGS: Bones/joints: osteopenia. Chronic T12 compression fracture deformity. Thoracic spondylosis with multilevel disc degeneration. Soft tissues: Unremarkable. Lungs: Bibasilar atelectasis versus parenchymal scarring. Incomplete visualization of the 5.4 mm slightly irregular nodule, posteriorly left lower lobe.Second smaller noncalcified pulmonary nodule posteriorly in the left lower lobe measuring approximately 3.5 mm. Thyroid: Incomplete visualization of multinodular thyroid. Other findings: Findings demonstrated on (series 3, image number 52, 76). Moderate hiatal hernia. IMPRESSION: 1. Incomplete visualization of the 5.4 mm slightly irregular noncalcified nodule, posteriorly left lower lobe.Second smaller noncalcified pulmonary nodule posteriorly in the left lower lobe measuring approximately 3.5 mm. For patients at low risk (minimal or absent history of smoking and of other known risk factors), no routine follow-up is indicated. For patients at high risk (history of smoking or of other known risk factors), consider optional CT Chest at 12 months. (Reference: Rand) 2. No evidence of acute osseous injury. REFERENCES: Rand Borja, et al. Guidelines for Management of Incidental Pulmonary Nodules Detected on CT Images: From the Fleischner Society 2017. Radiology. 2017;284(1):228-243.
--- NOTE | 2024-07-14 17:26 | CT_ITS ---
PROCEDURE INFORMATION: Exam: CT Head Without Contrast Exam date and time: 07/14/2024 5:37 PM Age: 83 years old Clinical indication: Injury or trauma; Fall; Blunt trauma (contusions or hematomas); Additional info: Trauma, critical injury suspected TECHNIQUE: Imaging protocol: Computed tomography of the head without contrast. Radiation optimization: All CT scans at this facility use at least one of these dose optimization techniques: automated exposure control; mA and/or kV adjustment per patient size (includes targeted exams where dose is matched to clinical indication); or iterative reconstruction. COMPARISON: CT HEAD/BRAIN WO CON 09/24/2023 7:05 AM FINDINGS: Brain: Periventricular white matter tract changes demonstrated. Mild-moderate prominence of the cortical sulci. Persistent nonspecific periventricular white matter tract changes again demonstrated. Cerebral ventricles: No ventriculomegaly. Paranasal sinuses: Visualized sinuses are unremarkable. No fluid levels. Mastoid air cells: Visualized mastoid air cells are well aerated. Bones: Unremarkable. No acute fracture. Soft tissues: Unremarkable. IMPRESSION: No evidence of acute intracranial abnormality.
--- NOTE | 2024-07-14 17:26 | CT_ITS ---
PROCEDURE INFORMATION: Exam: CT Cervical Spine Without Contrast Exam date and time: 07/14/2024 5:39 PM Age: 83 years old Clinical indication: Injury or trauma; Fall; Blunt trauma; Additional info: Trauma, critical injury suspected TECHNIQUE: Imaging protocol: Computed tomography of the cervical spine without contrast. Radiation optimization: All CT scans at this facility use at least one of these dose optimization techniques: automated exposure control; mA and/or kV adjustment per patient size (includes targeted exams where dose is matched to clinical indication); or iterative reconstruction. COMPARISON: CT HEAD/BRAIN WO CON 07/14/2024 5:37 PM FINDINGS: Bones: Osteopenia. Developmental fusion C5-C6 vertebral bodies. Cervical spondylosis with multilevel disc degeneration. Lungs: Lung apices are normal. Thyroid: Incomplete visualization of multinodular thyroid gland. Soft tissues: Unremarkable. IMPRESSION: No evidence of acute osseous injury.
--- NOTE | 2024-07-14 17:26 | CT_ITS ---
PROCEDURE INFORMATION: Exam: CT Pelvis Without Contrast, Skeleton Exam date and time: 07/14/2024 5:48 PM Age: 83 years old Clinical indication: Injury or trauma; Fall; Additional info: Trauma, critical injury suspected TECHNIQUE: Imaging protocol: Computed tomography of the pelvis without contrast. Exam focused on the skeleton. Radiation optimization: All CT scans at this facility use at least one of these dose optimization techniques: automated exposure control; mA and/or kV adjustment per patient size (includes targeted exams where dose is matched to clinical indication); or iterative reconstruction. COMPARISON: CT ABDOMEN PELVIS W CON 12/31/2023 3:55 PM FINDINGS: Urinary bladder: Marked bladder distension Bones/joints: Moderate degenerative changes involving both hip joints. Chronic L5 compression fracture deformity. Soft tissues: Unremarkable. IMPRESSION: No evidence of acute osseous injury.
[2024-07-14] MEDS: ACETAMINOPHEN 500MG TAB 1000 MG PO (18:01)
[2024-07-14] MEDS: OXYCODONE 5MG IMMEDIATE RELEASE TABLET 5 MG PO (19:06)
--- NOTE | 2024-07-14 19:58 | PC.NURSE ---
Attempted to call report to [facility] / [facility]. Could not get anyone to answer the phone. Left message for them to call with any questions.
--- NOTE | 2024-07-14 20:01 | PC.NURSE ---
Patient report given to tim on 4th phone call to facility. Agreeable to patient return to alf.
[2024-07-15 00:39] VITALS: BP 124/72; PULSE 77; O2SAT 95
[2024-07-15 01:25] VITALS: BP 124/72; PULSE 70; RESP 18; TEMP 36.6; O2SAT 95
--- NOTE | 2024-07-15 02:40 | PC.NURSE ---
Patient still waiting on transfer via [facility].
== END 2024-07-15 03:29 | disposition home or self-care (01) ==
PROVIDERS: Emergency Provider Emergency Medicine; PCP Family Medicine
DX: S32.020A Wedge compression fracture of second lumbar vertebra, initial encounter for closed fracture (principal); R91.1 Solitary pulmonary nodule; I10 Essential (primary) hypertension; W19.XXXA Unspecified fall, initial encounter
CPT/HCPCS: 70450; 72125; 72128; 72131; 72192; 73552; 73562; 99285

== ENCOUNTER 2024-10-19 12:40 | Outpatient (CLI) | payer MEDICARE, OTHER, SELFPAY ==
--- NOTE | 2024-10-19 12:49 | CA_ITS ---
FINAL REPORT TECHNIQUE: Bilateral lower extremity venous duplex was performed with augmentation and compression. CLINICAL HISTORY: EDEMA,HX OF DVT COMPARISON: None FINDINGS: Proper flow is seen throughout the deep venous systems bilaterally. There is no evidence of deep venous thrombosis. There is a hypoechoic focus in the left popliteal fossa, 3.5 x 2.1 cm in size, likely a popliteal cyst. IMPRESSION: No evidence of deep venous thrombosis in either lower extremity. Cystic lesion in the left popliteal fossa, likely a popliteal cyst. Reviewed, Interpreted and Dictated by Geremias Muir MD Transcribed by Katia Malave Authenticated and [facility]
== END 2024-10-19 23:59 | disposition home or self-care (01) ==
LOC: RT 12:42
PROVIDERS: PCP Family Medicine; Visit Provider Internal Medicine
DX: R60.0 Localized edema (principal); I82.423 Acute embolism and thrombosis of iliac vein, bilateral; I44.0 Atrioventricular block, first degree; I26.94 Multiple subsegmental thrombotic pulmonary emboli without acute cor pulmonale; G30.9 Alzheimer's disease, unspecified; F02.80 Dementia in other diseases classified elsewhere, unspecified severity, without behavioral disturbance, psychotic disturbance, mood disturbance, and anxiety; I10 Essential (primary) hypertension
CPT/HCPCS: 93970